=== PATIENT | female | born 1990 | race Caucasian/White ===

== ENCOUNTER 2019-10-04 10:32 | Inpatient (IN) ==
[2019-10-04] MEDS ORDERED: ACETAMINOPHEN 1,000 MG/100 ML VIAL IV STA (11:33)
[2019-10-04 12:04] LABS: Basophils # (auto) 0.01 K/uL (0-0.2); Basophils % (auto) 0.1 %; Hematocrit (blood only) 38.3 % (37-47); Hemoglobin 13.1 g/dL (12.0-16.0); Immature Granulocytes # (auto) 0.08 K/uL (0.00-0.02); Immature Granulocytes % (auto) 0.4 %; Lymphocytes # (auto) 0.82 K/uL (1.2-3.4); Lymphocytes % (auto) 4.5 %; Mean Corpuscular Hemoglobin 31.4 pg (25-34); Mean Corpuscular Hgb Conc 34.2 g/dL (32-36); Mean Corpuscular Volume 91.8 fL (80-100); Mean Platelet Volume 10.6 fL (7.4-10.4); Monocytes # (auto) 1.98 K/uL (0.11-0.59); Neutrophils # (auto) 15.17 K/uL (1.4-6.5); Platelet Count 210 K/uL (130-400); RDW Coefficient of Variation 12.3 % (11.5-14.5); RDW Standard Deviation 41.6 fL (36.4-46.3); Red Blood Count 4.17 M/uL (4.2-5.4); White Blood Count 18.06 K/uL (4.8-10.8)
[2019-10-04 12:11] LABS: Appearance Urine Turbid (Clear); Bacteria Urine Automated 2+ (Negative); Bilirubin Urine Negative (Negative); Blood Urine 2+ (Negative); Color Urine Dark Yellow; Epithelial Cell Urine Auto >30 /lpf (0-5); Glucose Urine UA Negative (Negative); Ketones Urine Negative (Negative); Leukocyte Esterase Urine 3+ (Negative); Nitrite Urine Negative (Negative); Urobilinogen Urine Negative (Negative); WBC Urine Automated >30 /hpf (0-5); pH Urine 7.5 (4.5-7.5)
[2019-10-04 12:15] LABS: INR 1.1 (0.9-1.1); Partial Thromboplastin Ratio 1.2; Partial Thromboplastin Time 33.3 Seconds (21.0-31.0); Prothrombin Time 11.1 Seconds (9.0-12.0)
--- NOTE | 2019-10-04 12:18 | XRay Report ---
XR chest 1V portable CLINICAL HISTORY: SEPSIS dyspnea COMPARISON STUDY: 02/03/2019 FINDINGS: The bones soft tissues and hemidiaphragms are normal. The cardiomediastinal silhouette is n ormal. The lungs are clear. The pulmonary vasculature is normal. IMPRESSION: Negative chest. ACT 112: Negative or not required by law. The above report was generated using voice recognition software. It may contain grammatical, syntax or spelling errors. Electronically signed by: Steve Snyder M.D. 10/04/2019 12:17 PM
[2019-10-04 12:29] LABS: Protein Urine 3+ (Negative)
[2019-10-04 12:30] LABS: Sulfosalicylic Acid Urine Positive (Negative)
[2019-10-04 12:31] LABS: Albumin Level 3.6 gm/dl (3.4-5.0); BUN Creatinine Ratio 6.5 (10-20); Calcium 8.6 mg/dl (8.5-10.1); Creatinine Clr Calc Pharmacy 56.2 ml/min; Est GFR (African American) 81.1; Magnesium 1.9 mg/dl (1.8-2.4); Potassium 3.4 mmol/L (3.5-5.1)
[2019-10-04 12:34] LABS: Albumin Globulin Ratio 0.7 (0.9-2); Bilirubin,Total 0.9 mg/dl (0.2-1); Globulin 4.8 gm/dl (2.5-4.0); Total Protein 8.4 gm/dl (6.4-8.2)
[2019-10-04] MEDS ORDERED: cefTRIAXone SODIUM 1,000 MG/50 ML BAG IV STA (12:43)
--- NOTE | 2019-10-04 13:17 | CT Scan Report ---
CT abd pelvis wo con CT DOSE: 238.46 mGycm HISTORY: Flank pain. Fever. L flkank pain febrile dysuria TECHNIQUE: Multiaxial CT images of the abdomen and pelvis were performed without contrast. A dose lo wering technique was utilized adhering to the principles of ALARA. COMPARISON STUDY: None. FINDINGS: The lung bases are clear. The unenhanced liver, spleen, gallbladder, pancreas, kidneys, and adrenal glands are within normal limits. No bowel wall thickening or obstruction. The pelvic organs are unremarkable. No suspicious lytic or blastic osseous lesions. IMPRESSION: No significant abnormality identified within the abdomen or pelvis. ACT 112: Negative or not required by law. The above report was generated using voice recognition software. It may contain grammatical, syntax or spelling errors. Electronically signed by: Steve Snyder M.D. 10/04/2019 1:16 PM
[2019-10-04] MEDS ORDERED: SODIUM CHLORIDE 0.9% 1000ML 1,000 ML IV ONE ×2 (13:53→20:13)
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
--- NOTE | 2019-10-04 14:50 | Electrocardiogram Report ---
Test Reason : Blood Pressure : / mmHG Vent. Rate : 082 BPM Atrial Rate : 082 BPM P-R Int : 158 ms QRS Dur : 074 ms QT Int : 344 ms P-R-T Axes : 052 059 034 degrees QTc Int : 401 ms Normal sinus rhythm Normal ECG When compared with ECG of 03-FEB-2019 12:27, Criteria for Anterior infarct no longer present Confirmed by Zbigniew Spain ([id number]) on 10/04/2019 2:50:11 PM Referred By: Confirmed By:Zbigniew Spain
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
[2019-10-04] MEDS ORDERED: ONDANSETRON INJ 2 MG/ML 2 ML VIAL IV PRN (16:13)
[2019-10-04] MEDS ORDERED: POTASSIUM CHLORIDE 20 MEQ TABCR PO STA (16:17)
[2019-10-04] MEDS: ACETAMINOPHEN 325 MG TAB PO PRN (16:25)
[2019-10-04] MEDS: SODIUM CHLORIDE 0.9% 1000ML 1,000 ML IV SCH (16:25)
[2019-10-04] MEDS ORDERED: KETOROLAC 30 MG/ML VIAL ONE (17:36)
[2019-10-05] MEDS: SODIUM CHLORIDE 0.9% 1000ML 1,000 ML IV SCH ×4 (00:38→22:41)
[2019-10-05] MEDS: ACETAMINOPHEN 325 MG TAB PO PRN ×2 (04:03→19:41)
[2019-10-05 06:10] LABS: Hematocrit (blood only) 31.7 % (37-47); Hemoglobin 10.9 g/dL (12.0-16.0); Mean Corpuscular Hemoglobin 31.5 pg (25-34); Mean Corpuscular Hgb Conc 34.4 g/dL (32-36); Mean Corpuscular Volume 91.6 fL (80-100); Mean Platelet Volume 10.8 fL (7.4-10.4); Platelet Count 164 K/uL (130-400); RDW Coefficient of Variation 12.6 % (11.5-14.5); RDW Standard Deviation 42.5 fL (36.4-46.3); Red Blood Count 3.46 M/uL (4.2-5.4); White Blood Count 17.41 K/uL (4.8-10.8)
[2019-10-05] MEDS ORDERED: IMIPENEM/CILASTATIN CONSULT ACTIVE PRN ×2 (06:24→21:31)
[2019-10-05] MEDS ORDERED: VANCOMYCIN CONSULT ACTIVE PRN (06:26)
[2019-10-05] MEDS ORDERED: IMIPENEM/CILASTATIN SODIUM 500 MG in DEXTROSE 5% 100 ML IV SCH (06:30)
[2019-10-05] MEDS ORDERED: SODIUM CHLORIDE 0.9% 1000ML 500 ML IV ONE (06:33)
[2019-10-05] MEDS ORDERED: VANCOMYCIN HCL 1,250 MG in SODIUM CHLORIDE 0.9% 250 ML IV ONE (06:45)
[2019-10-05] MEDS: KETOROLAC 30 MG/ML VIAL IV PRN (06:47)
--- NOTE | 2019-10-05 07:14 | Communication Note ---
Date of Service: October 05, 2019 Called around 8 pm to evaluate patient for hypotension. Patient was hypotensive to 70's/40's. On my examination patient also had marked costovertebral angle tenderness particularly on left side. Gave 2 1 L boluses of NSS and pressure improved. She continued to be febrile overnight. This am I went to re evaluate patient and she was having severe headache light sensitivity and back/neck stiffness. I'm concerned for possible meningitis or IE with history of IV drug use. Added vancomycin to her ceftriaxone and ordered echocardiogram.
[2019-10-05 07:18] LABS: Albumin Globulin Ratio 0.7 (0.9-2); Albumin Level 2.4 gm/dl (3.4-5.0); BUN Creatinine Ratio 11.8 (10-20); Bilirubin,Total 0.5 mg/dl (0.2-1); Calcium 7.7 mg/dl (8.5-10.1); Creatinine Clr Calc Pharmacy 77.5 ml/min; Est GFR (African American) 108.1; Est GFR (Non-African American) 93.2; Globulin 3.6 gm/dl (2.5-4.0); Potassium 3.6 mmol/L (3.5-5.1)
[2019-10-05] MEDS ORDERED: METHADONE PO SCH (09:00)
--- NOTE | 2019-10-05 09:52 | Pharmacy Report ---
Pharmacy Abx Initial Consult - Date of Service October 05, 2019 - Pharmacy Dosing Scope Date of Consult: 10/04 Consultation requested by: Dr. Aviles Pharmacy is consulted to initiate vancomycin IV/PO dosing therapy, order appropriate labs and adjust drug dose/frequency. - Subjective The patient is a 28 year old F admitted on 10/04/19 14:38. - Objective Height: 5 ft Weight: 55.6 kg Vital Signs (Past 12hrs): Vital Signs Temp Pulse Pulse Resp BP BP Pulse Ox 10/05/19 07:55 37.3 C 78 18 90/48 L 96 10/05/19 07:20 85 10/05/19 06:50 37.3 C 10/05/19 05:04 39.3 C H 10/05/19 04:00 39.1 C H 112 H 22 115/80 95 10/05/19 00:16 36.5 C 77 16 92/52 L 98 10/04/19 23:59 88 Lab Results (24hrs): Laboratory Tests (24 Hours) 10/05/19 10/05/19 10/04/19 05:57 05:57 11:42 WBC 17.41 H Neut # (Auto) Creatinine 0.86 1.09 Est Cr Clr Drug Dosing 77.5 56.2 10/04/19 11:42 WBC 18.06 H Neut # (Auto) 15.17 H Creatinine Est Cr Clr Drug Dosing Micro Results: 10/04/19 11:42 Aerobic Blood Culture - Pending Blood Anaerobic Blood Culture - Pending 10/04/19 11:43 Aerobic Blood Culture - Pending Blood Anaerobic Blood Culture - Pending - Assessment & Plan Assessment 28 year old female with concern for UTI. Febrile/chills on admission and flank pain. CT of abd/pelvis normal. Patient with hx of heroin use. Patient hypotensive this AM/with headache. Concern for possible meningitis, endocarditis. Plan Vancomycin IV * Received loading dose of vancomycin 1250 mg x 1 this AM * Dosing based upon vancomycin AUC nomogram - will start 1000 mg (~18 mg/kg) iv q 12 hrs to achieve estimated T of ~15/AUC of 657 * Estimated kinetics: t1/2~10 hrs, ke~0.06, CrCl ~71 ml/min * Will plan to obtain level if continued >24 hours Pharmacy will continue to follow and will adjust dose/frequency as necessary. Thank you.
[2019-10-05 09:56] LABS: Phosphorus 2.5 mg/dl (2.5-4.9)
[2019-10-05 10:12] LABS: Pregnancy Test, Serum Negative (Negative)
[2019-10-05 10:28] LABS: Procalcitonin 8.67 ng/ml (0-0.5)
[2019-10-05] MEDS ORDERED: cefTRIAXone SODIUM 1,000 MG in DEXTROSE 5% 50 ML IV SCH ×2 (12:00→13:22)
--- NOTE | 2019-10-05 13:20 | XCELERA ---
[id number]\[id number]
[2019-10-05] MEDS ORDERED: MoRPHine SULFATE 2 MG/ML CARP IV ONE (16:13)
[2019-10-05 17:27] LABS: Amphetamines+Metham, Urine Neg (Neg); Barbiturates, Urine Neg (Neg); Benzodiazepine, Urine Neg (Neg); Cocaine, Urine Neg (Neg); MDMA (Ecstacy), Urine Neg (Neg); Methadone, Urine Pos (Neg); Opiate, Urine Neg (Neg); Phencyclidine, Urine Neg (Neg)
[2019-10-05] MEDS: NICOTINE 21 MG/24 HR TDSY TD SCH (17:33)
[2019-10-05] MEDS ORDERED: MoRPHine SULFATE 2 MG/ML CARP IV PRN (17:45)
[2019-10-05] MEDS ORDERED: MoRPHine SULFATE 2 MG/ML CARP IV STA ×2 (17:57→18:09)
[2019-10-05 18:00] LABS: Potassium 4.4 mmol/L (3.5-5.1)
[2019-10-05 18:01] LABS: BUN Creatinine Ratio 10.1 (10-20); Blood Urea Nitrogen 9 mg/dl (7-18); Carbon Dioxide 18 mmol/L (21-32); Chloride 117 mmol/L (98-107); Creatinine Clr Calc Pharmacy 78.4 ml/min; Est GFR (African American) 109.6; Est GFR (Non-African American) 94.6; Glucose 92 mg/dl (70-99); Sodium 142 mmol/L (136-145); Troponin I < 0.015 ng/ml (0-0.045)
[2019-10-05 18:50] LABS: Basophils # (auto) 0.01 K/uL (0-0.2); Eosinophils # (auto) 0.03 K/uL (0-0.5); Eosinophils % (auto) 0.1 %; Hematocrit (blood only) 35.4 % (37-47); Hemoglobin 12.1 g/dL (12.0-16.0); Immature Granulocytes # (auto) 0.11 K/uL (0.00-0.02); Immature Granulocytes % (auto) 0.5 %; Lymphocytes # (auto) 0.92 K/uL (1.2-3.4); Mean Corpuscular Hemoglobin 31.4 pg (25-34); Mean Corpuscular Volume 91.9 fL (80-100); Monocytes % (auto) 9.2 %; Neutrophils # (auto) 19.56 K/uL (1.4-6.5); Neutrophils % (auto) 86.2 %; Platelet Count 208 K/uL (130-400); RDW Coefficient of Variation 12.6 % (11.5-14.5); RDW Standard Deviation 42.5 fL (36.4-46.3); Red Blood Count 3.85 M/uL (4.2-5.4); White Blood Count 22.73 K/uL (4.8-10.8)
[2019-10-05 19:14] LABS: Mean Corpuscular Hgb Conc 34.2 g/dL (32-36)
[2019-10-05] MEDS: VANCOMYCIN HCL 1,000 MG in SODIUM CHLORIDE 0.9% 250 ML IV SCH (19:43)
[2019-10-05] MEDS: MoRPHine SULFATE 4 MG/ML 1 ML CARP\\VIAL IV PRN (19:59)
[2019-10-05] MEDS ORDERED: OPTIRAY 320 125ml IV PRN (21:26)
--- NOTE | 2019-10-05 21:35 | Hospitalist Progress Note ---
Date of Service October 05, 2019 Assessment & Plan (1) UTI (urinary tract infection): - Admit to med surg with tele -There was concern for meningitis, but at this point, it does not appear to be the case, given neg. chetna and Hiro, and clinical history of lower back pain with postive cva tenderness. -will continue iVF. -inital plan was to continue vanco and ceftriazxone, however given history of IV drug abuse, fevers, and worse WBC, will switch ceftriaxone to imipenem, -will place IV mrophine due to pain. will reorder cultures due to repeat fever. will obtain ct scan of chest with P/E protocol (2) History of heroin use: - Hx of such at age [age], IV heroin use, started methadone treatment at [facility] about 2 years ago and has been weaning off for 7 months. - Uses marijuana as prescribed - methadone held as patient no longer going to clinic. Admission and Anticipated Discharge Date Admission Date: October 04, 2019 Subjective 28 yo female reports feeling terrible. She reports no significant improvement from yesterday. She still reports subjective fever, and chills. She states she is having pain in her paraspinal muscles. Review of Systems Review of Systems: All systems reviewed & are unremarkable except as noted in HPI & below Physical Exam Physical Exam: General: awake, alert, appears shivering Head: Normocephalic, atraumatic ENT: PERRL, EOMI, no pharyngeal exudate, mucous membranes moist Chest: Clear to auscultation, on room air, no adventitious breath sounds Cardiac: Regular rate and rhythm, no murmur, no JVD, normal peripheral pulses, good capillary refill Abdominal: NABS x 4 quadrants, soft, nondistended, tender to palpation in LLQ, + CVA tenderness on left, no rebound Extremities: Normal inspection, no peripheral edema or erythema, calfs nontender to palpation Psych: Normal mood and affect Neuro: AAO x 3, strength intact bilaterally and related 5/5, no motor deficits, speech is clear, no peripheral sensory deficits Negative kernig's and Brudzinski's sign Results & Data Results & Data ([facility]) Vital Signs (Past 12 Hours) Vital Signs Temp Pulse Pulse Resp BP Pulse Ox 10/05/19 20:58 38.1 C H 10/05/19 19:26 38.7 C H 92 H 18 118/69 95 10/05/19 16:00 37.2 C 83 18 97/58 L 100 10/05/19 15:00 65 10/05/19 11:52 36.6 C 63 16 90/50 L 97 PG Care Time/CCT Total # of Minutes Spent Total Time Spent with Patient: Total time spent is greater than 50% in coordination of care (as documented) at patient's floor/unit and/or counseling patient: Coding Level of Care Code 27391 Subseq Hosp Care Lvl 3 Diagnoses UTI (urinary tract infection) N39.0 History of heroin use Z87.898 Time Spent (min) 35
[2019-10-05] MEDS: IMIPENEM/CILASTATIN SODIUM 400 MG in DEXTROSE 5% 100 ML IV SCH (22:25)
[2019-10-06] MEDS: SODIUM CHLORIDE 0.9% 1000ML 1,000 ML IV SCH (03:42)
[2019-10-06] MEDS: IMIPENEM/CILASTATIN SODIUM 400 MG in DEXTROSE 5% 100 ML IV SCH ×4 (03:42→22:13)
[2019-10-06] MEDS: MoRPHine SULFATE 4 MG/ML 1 ML CARP\\VIAL IV PRN ×4 (03:43→19:37)
--- NOTE | 2019-10-06 07:16 | CT Scan Report ---
CT ANGIOGRAM OF THE CHEST CLINICAL HISTORY: Atypical chest pain. COMPARISON STUDY: Chest x-ray dated 10/04/2019. TECHNIQUE: Following the IV administration of 116 cc of Optiray 320, CT angiogram of the chest was pe rformed from the upper abdomen to the thoracic inlet utilizing the pulmonary embolus protocol. Images are reviewed in the axial, sagittal, and coronal planes. 3-D MIPS images are created and assessed. I V contrast was administered without complication. A dose lowering technique was utilized adhering to the principles of ALARA. CT DOSE: 193.22 mGy.cm FINDINGS: Thyroid: Imaged portions of the thyroid gland are normal in size and attenuation. Thoracic aorta: The thoracic aorta is normal in caliber and demonstrates standard 3-vessel arch anato my. No dissection is seen. Pulmonary vasculature: The pulmonary trunk is normal in caliber. There are no filling defects identif ied in main, lobar, or segmental pulmonary branches to suggest pulmonary embolus. Heart: The heart is top normal in size and without pericardial effusion. Lungs and pleural spaces: There are trace pleural effusions with dependent atelectasis. No lobar cons olidation is seen typical for pneumonia. Mild diffuse peribronchial thickening is observed. The trach ea and central airways are clear. Mediastinum: There is no mediastinal lymphadenopathy. [place]: Clear. Axillae: There is no axillary lymphadenopathy. Upper abdomen: A small hiatal hernia is noted. Partially visualized upper abdominal viscera is otherw ise within normal limits. Skeletal structures: No lytic or blastic bony lesions are seen. IMPRESSION: 1. There is no evidence of pulmonary embolus in the main, lobar, or segmental pulmonary arteries. 2. Trace pleural effusions. 3. There is no airspace consolidation typical for pneumonia. 4. Mild diffuse peribronchial thickening suggests bronchitis/reactive airway disease. Clinical correl ation will be required. ACT 112: Negative or not required by law. Electronically signed by: Chepe Norris M.D. 10/06/2019 7:15 AM
[2019-10-06] MEDS: VANCOMYCIN HCL 1,000 MG in SODIUM CHLORIDE 0.9% 250 ML IV SCH ×2 (07:47→19:56)
[2019-10-06] MEDS: NICOTINE 21 MG/24 HR TDSY TD SCH (07:49)
[2019-10-06 08:06] LABS: Hematocrit (blood only) 32.2 % (37-47); Hemoglobin 10.7 g/dL (12.0-16.0); Mean Corpuscular Hgb Conc 33.2 g/dL (32-36); Mean Corpuscular Volume 93.3 fL (80-100); Mean Platelet Volume 11.2 fL (7.4-10.4); Platelet Count 206 K/uL (130-400); RDW Coefficient of Variation 12.7 % (11.5-14.5); RDW Standard Deviation 43.7 fL (36.4-46.3); Red Blood Count 3.45 M/uL (4.2-5.4); White Blood Count 18.24 K/uL (4.8-10.8)
[2019-10-06 08:37] LABS: Albumin Level 2.1 gm/dl (3.4-5.0); BUN Creatinine Ratio 8.5 (10-20); C Reactive Protein 12.9 mg/dl (0-0.29); Calcium 7.9 mg/dl (8.5-10.1); Creatinine Clr Calc Pharmacy 116.6 ml/min; Est GFR (African American) 147.4; Est GFR (Non-African American) 127.2
[2019-10-06 08:40] LABS: Albumin Globulin Ratio 0.6 (0.9-2); Bilirubin,Total 0.2 mg/dl (0.2-1); Globulin 3.5 gm/dl (2.5-4.0); Total Protein 5.6 gm/dl (6.4-8.2)
[2019-10-06 08:46] LABS: Potassium 3.2 mmol/L (3.5-5.1)
[2019-10-06] MEDS: DOCUSATE SODIUM 100 MG CAP PO SCH ×2 (09:38→20:25)
[2019-10-06] MEDS: SENNA 8.6 MG TAB PO SCH (09:38)
--- NOTE | 2019-10-06 14:26 | Magnetic Resonance Report ---
MRI LUMBAR SPINE WITHOUT IV CONTRAST CLINICAL HISTORY: Low back pain. COMPARISON STUDY: Abdominal CT dated 10/04/2019. TECHNIQUE: MRI of lumbar spine is performed utilizing various T1 and T2-weighted sequences in the axi al and sagittal planes. IV contrast was not administered for this examination. FINDINGS: Lumbar spine: Vertebral body height and alignment are maintained throughout the lumbar spine. Normal marrow signal intensity is preserved throughout the visualized bony structures. The transverse and sp inous processes are intact. There is no spondylolysis. No destructive bony lesion is seen. Intervertebral discs: Normal in height and signal intensity. Spinal cord: The visualized spinal cord is normal in morphology and signal intensity. The conus medul stevo terminates at the level of L2. The nerve roots of the cauda equina are normal in morphology. L1-L2: Unremarkable. L2-L3: Unremarkable. 3. L4: Unremarkable. L4-L5: Unremarkable. L5-S1: Unremarkable. Sacrum: The visualized sacrum is normal in morphology and signal intensity. Soft tissues: The paraspinous soft tissues are normal as visualized. The imaged retroperitoneal struc tures are grossly unremarkable but incompletely assessed. IMPRESSION: 1. There is no disc herniation, central canal stenosis, or neural foraminal narrowing seen throughout the lumbar spine. 2. No osseous abnormality is identified. Electronically signed by: Chepe Norris M.D. 10/06/2019 2:25 PM
--- NOTE | 2019-10-06 14:31 | Electrocardiogram Report ---
Test Reason : Blood Pressure : / mmHG Vent. Rate : 077 BPM Atrial Rate : 077 BPM P-R Int : 156 ms QRS Dur : 086 ms QT Int : 386 ms P-R-T Axes : 041 062 038 degrees QTc Int : 436 ms Normal sinus rhythm Poor R wave progression, consider anterior MN vs. lead placement vs. LVH Abnormal ECG When compared with ECG of 04-OCT-2019 11:39, Loss of R wave in o\lead V3 (likely related to lead placement) Otherwise no significant change Confirmed by Zbigniew Spain ([id number]) on 10/06/2019 2:31:05 PM Referred By: REFERRED SELF Confirmed By:Zbigniew Spain
--- NOTE | 2019-10-06 14:39 | Electrocardiogram Report ---
Test Reason : Blood Pressure : / mmHG Vent. Rate : 063 BPM Atrial Rate : 063 BPM P-R Int : 156 ms QRS Dur : 084 ms QT Int : 406 ms P-R-T Axes : 050 061 041 degrees QTc Int : 415 ms Normal sinus rhythm with sinus arrhythmia Poor R wave progression, consider anterior OH vs. lead placement vs. LVH Abnormal ECG When compared with ECG of 05-OCT-2019 16:08, No significant change was found Confirmed by Zbigniew Spain ([id number]) on 10/06/2019 2:38:33 PM Referred By: REFERRED SELF Confirmed By:Zbigniew Spain
[2019-10-06] MEDS: POTASSIUM CHLORIDE 20 MEQ TABCR PO SCH ×2 (15:10→21:13)
[2019-10-06] MEDS ORDERED: FAMOTIDINE 40 MG TABLET PO ONE (15:13)
[2019-10-06] MEDS: KETOROLAC 30 MG/ML VIAL IV PRN (16:59)
--- NOTE | 2019-10-06 22:13 | Hospitalist Progress Note ---
Date of Service October 06, 2019 Assessment & Plan (1) UTI (urinary tract infection): - Admit to med surg with tele -Meningitis is ruled out. -ruled out Pulmonary emboli. -will continue iVF. -will order lumbar sine MRI to assess for possible osteo. -inital plan was to continue vanco and ceftriazxone, however given history of IV drug abuse, fevers, and worse WBC, will switch ceftriaxone to imipenem, -will continue morphine for pain will reorder cultures due to repeat fever. update: osteo ruled out. will consider transitioning her to oral cipro tomorrow if pansensitive culture. (2) History of heroin use: - Hx of such at age [age], IV heroin use, started methadone treatment at [facility] about 2 years ago and has been weaning off for 7 months. - Uses marijuana as prescribed - methadone held as patient no longer going to clinic. Admission and Anticipated Discharge Date Admission Date: October 04, 2019 Subjective 28 yo female reports feeling better. She denies any subjective fever and chills. She still is having back pain but it is less pronounced today. Review of Systems Review of Systems: All systems reviewed & are unremarkable except as noted in HPI & below Constitutional: No fever, sweats, + chills Eyes: No diplopia, no worsening or blurred vision ENT: normal hearing, no trouble swallowing Respiratory: No cough, sputum, dyspnea at rest or on exertion Cardiovascular: No chest pain, tightness or palpitations Abdomen:+ lower abd pain, +nausea, vomiting, diarrhea or constipation Back: pain between shoulder blades radiating down left flank to lower abdomen Musculoskeletal: No joint pain, calf pain, swelling Neurologic: No weakness, numbness/tingling, or balance problems Psychiatric: No anxiety or depression Skin: No rash or itch Physical Exam Physical Exam: General: awake, alert, appears shivering Head: Normocephalic, atraumatic ENT: PERRL, EOMI, no pharyngeal exudate, mucous membranes moist Chest: Clear to auscultation, on room air, no adventitious breath sounds Cardiac: Regular rate and rhythm, no murmur, no JVD, normal peripheral pulses, good capillary refill Abdominal: NABS x 4 quadrants, soft, nondistended, tender to palpation in LLQ, + CVA tenderness on left, no rebound Extremities: Normal inspection, no peripheral edema or erythema, calfs nontender to palpation Psych: Normal mood and affect Neuro: AAO x 3, strength intact bilaterally and related 5/5, no motor deficits, speech is clear, no peripheral sensory deficits Negative kernig's and Brudzinski's sign Results & Data Results & Data ([facility]) Vital Signs (Past 12 Hours) Vital Signs Temp Pulse Resp BP BP Pulse Ox 10/06/19 15:48 36.7 C 59 L 20 115/69 99 10/06/19 11:18 36.5 C 61 20 111/73 98 PG Care Time/CCT Total # of Minutes Spent Total Time Spent with Patient: Total time spent is greater than 50% in coordination of care (as documented) at patient's floor/unit and/or counseling patient: Coding Level of Care Code 62273 Subseq Hosp Care Lvl 3 Diagnoses UTI (urinary tract infection) N39.0 History of heroin use Z87.898 Time Spent (min) 35
[2019-10-07] MEDS: IMIPENEM/CILASTATIN SODIUM 400 MG in DEXTROSE 5% 100 ML IV SCH ×2 (04:11→10:22)
[2019-10-07] MEDS: MoRPHine SULFATE 4 MG/ML 1 ML CARP\\VIAL IV PRN (04:18)
[2019-10-07 07:22] LABS: Hematocrit (blood only) 32.1 % (37-47); Hemoglobin 10.8 g/dL (12.0-16.0); Mean Corpuscular Hemoglobin 30.8 pg (25-34); Mean Corpuscular Hgb Conc 33.6 g/dL (32-36); Mean Corpuscular Volume 91.5 fL (80-100); Mean Platelet Volume 10.5 fL (7.4-10.4); Platelet Count 234 K/uL (130-400); RDW Coefficient of Variation 12.7 % (11.5-14.5); RDW Standard Deviation 42.9 fL (36.4-46.3); Red Blood Count 3.51 M/uL (4.2-5.4); White Blood Count 9.67 K/uL (4.8-10.8)
[2019-10-07] MEDS ORDERED: VANCOMYCIN TROUGH ONE (07:30)
[2019-10-07] MEDS: POTASSIUM CHLORIDE 20 MEQ TABCR PO SCH ×2 (08:01→14:14)
[2019-10-07] MEDS: VANCOMYCIN HCL 1,000 MG in SODIUM CHLORIDE 0.9% 250 ML IV SCH (08:01)
[2019-10-07] MEDS: SENNA 8.6 MG TAB PO SCH (08:02)
[2019-10-07] MEDS: NICOTINE 21 MG/24 HR TDSY TD SCH (08:02)
[2019-10-07 08:03] LABS: Albumin Level 2.3 gm/dl (3.4-5.0); BUN Creatinine Ratio 7.1 (10-20); Calcium 8.1 mg/dl (8.5-10.1); Est GFR (African American) 139.2; Est GFR (Non-African American) 120.1; Potassium 3.3 mmol/L (3.5-5.1)
[2019-10-07] MEDS: DOCUSATE SODIUM 100 MG CAP PO SCH (08:04)
[2019-10-07 08:05] LABS: Albumin Globulin Ratio 0.6 (0.9-2); Bilirubin,Total 0.4 mg/dl (0.2-1); Globulin 3.8 gm/dl (2.5-4.0); Total Protein 6.1 gm/dl (6.4-8.2)
[2019-10-07] MEDS ORDERED: FAMOTIDINE 20 MG TAB PO SCH (09:00)
[2019-10-07] MEDS ORDERED: CIPROFLOXACIN 500 MG TAB PO STA (12:14)
[2019-10-07] MEDS ORDERED: VANCOMYCIN HCL 1,000 MG in SODIUM CHLORIDE 0.9% 250 ML IV SCH (16:00)
[2019-10-07] MEDS ORDERED: IMIPENEM/CILASTATIN SODIUM 500 MG in DEXTROSE 5% 100 ML IV SCH (16:00)
[2019-10-07] MEDS ORDERED: CIPROFLOXACIN 500 MG TAB PO SCH (21:00)
[2019-10-08 07:39] LABS: Marijuana Quant, GCMS Urine 392 ng/mL (<5); Methadone, Ur Metabolite 1370 ng/mL (<100)
--- NOTE | 2019-10-14 13:36 | Discharge Summary ---
Date of Service October 07, 2019 Admission HPI Per Admitting Provider This is a 28 yo F with PMHx involving methadone use, ADHD, who presents with chills, increased frequency of urination, and generalized ill feeling in the past 2 days. She reports this started about 5 days ago and has been worsening. She denies any specific fevers. She has not taken anything over the counter for urinary symptoms, and has never had a UTI before. Urine has been dark and less in quantity in the past 2 days as her appeitie has been poor. She has some nausea and had difficulty drinking lots of fluids. Denies hematuria. Pt is found to have grossly infected urine with hypokalemia and hyponatremia. She has been started on ceftriaxone IV and NSS x 1 L in the ER. Pts BP is low at 87/42. Her lactic acid is negative. Principal Diagnosis acute pyelonephritis Discharge Exam General: awake, alert, appears shivering Head: Normocephalic, atraumatic ENT: PERRL, EOMI, no pharyngeal exudate, mucous membranes moist Chest: Clear to auscultation, on room air, no adventitious breath sounds Cardiac: Regular rate and rhythm, no murmur, no JVD, normal peripheral pulses, good capillary refill Abdominal: NABS x 4 quadrants, soft, nondistended, tender to palpation in LLQ, + CVA tenderness on left, no rebound Extremities: Normal inspection, no peripheral edema or erythema, calfs nontender to palpation Psych: Normal mood and affect Neuro: AAO x 3, strength intact bilaterally and related 5/5, no motor deficits, speech is clear, no peripheral sensory deficits Negative kernig's and Brudzinski's sign Discharge Data Allergies Allergy/AdvReac Type Severity Reaction Status Date / Time No Known Allergies Allergy Unverified 05/11/19 14:17 Consultations 10/04/19 14:15 ED Decision to Admit Stat 10/04/19 16:13 Consult Case Management - Discharge Planning Routine Ordered Studies 10/04/19 11:33 CT abd pelvis wo con Stat 10/05/19 17:45 CT angio chest PE protocol Urgent 10/06/19 11:23 MR lumbar spine wo con Routine Hospital Course (1) UTI (urinary tract infection): - Admit to med surg with tele -Meningitis is ruled out. -ruled out Pulmonary emboli. -BP improved after IVF and aIV antibiotics -MRI of lumbar spine ruled out osteomyelitis -inital plan was to continue vanco and ceftriazxone, however given history of IV drug abuse, fevers, and worse WBC, will switch ceftriaxone to imipenem, -Discharged patient on ciprofloxacin for 6 more days. -Patient felt improvement, informed her of any worsening symptoms, worse pain, fever, chills to return to office. -cultures showed pansensivitive bacteria. (2) History of heroin use: - Hx of such at age [age], IV heroin use, started methadone treatment at [facility] about 2 years ago and has been weaning off for 7 months. - Uses marijuana as prescribed - methadone held as patient no longer going to clinic. Total Time Total Time Spent Total Time Spent (In Minutes): 32 Total Time Includes: Examination of the Patient, Discharge Planning and Medication Reconciliation Discharge Plan Discharge Items Patient Disposition: Home - Self-Care Reason For Visit: UTI,HYPONATREMIA,HYPOKALEMIA Discharge Diagnosis: UTI Activity: Resume your previous activity Non-emergency contact: Primary Care Provider Call non-emergency contact if: you have any medication questions Follow-up/Referrals: Saloni Guerra MD [Primary Care Provider] - Diet: Regular Addtl Attending Provider Instructions: You were found to have a severe urinary tract infection. You improved after receiving IV antibiotics. Will continue with oral antibiotics for 6 more days. If you have any signs of fever, chills, or just feeliing bad within the next few days, please come back. will recommend followup with PCP in 1 week. Take first dose tonight Pending Studies at Discharge: No Stand-Alone Forms: My [facility], Smoking Cessation Medications and DC Order Prescriptions: New ciprofloxacin HCl 500 mg Tablet 500 mg PO BID Qty: 12 RF: 0 potassium chloride [Klor-Con M20] 20 mEq Tablet,Er Particles/Crystals 20 meq PO TID Qty: 6 RF: 0 nicotine [Nicoderm CQ] 21 mg/24 hr Patch 24 Hour 21 mg transdermal QAM Qty: 28 RF: 0 Discontinued methadone 40 mg Tablet,Soluble 112 mg PO DAILY RF: 0 Discharge Orders: Discharge Order (Routine); Ordered 10/07/19 Ordered By: Herbert Daniels Admission Data Admit Date/Time: 10/04/19 14:38 Attending Provider: Herbert Daniels Admit Provider: Regan Luevano Primary Care Provider: Saloni Guerra V. Other Providers: Regan Luevano Other Interventions: Discharge Summary Assessment (RN) Last Done: 10/07/19 13:19 DC Date/Time DO NOT enter until pt leaves facility: 10/07/19 14:40 Coding Level of Care Code D/C Day Management >30 mins Diagnoses UTI (urinary tract infection) N39.0 History of heroin use Z87.898 Time Spent (min) 32
== END 2019-10-07 14:40 | disposition home or self-care (01) | DRG 690 ==
LOC: ED 10:32 → SUATTDRO 14:38 → 2W 14:38

== ENCOUNTER 2020-07-14 07:34 | Inpatient (IN) ==
[2020-07-14] MEDS: LACTATED RINGER'S 1,000 ML IV PRN ×3 (11:30→20:25)
[2020-07-14] MEDS ORDERED: OXYTOCIN 30 UNITS/500 ML BAG IV PRN ×3 (11:45→23:07)
[2020-07-14 12:01] LABS: Hematocrit (blood only) 36.7 % (37-47); Hemoglobin 13.3 g/dL (12.0-16.0); Mean Corpuscular Hemoglobin 33.4 pg (25-34); Mean Corpuscular Hgb Conc 36.2 g/dL (32-36); Mean Corpuscular Volume 92.2 fL (80-100); Mean Platelet Volume 11.8 fL (7.4-10.4); Platelet Count 162 K/uL (130-400); RDW Coefficient of Variation 12.2 % (11.5-14.5); RDW Standard Deviation 41.6 fL (36.4-46.3); Red Blood Count 3.98 M/uL (4.2-5.4); White Blood Count 5.78 K/uL (4.8-10.8)
[2020-07-14] MEDS ORDERED: SODIUM CHLORIDE 0.9% INJ 10 ML VIAL ONE (12:25)
[2020-07-14] MEDS ORDERED: BUPIVACAINE 0.25% 30 ML VIAL ONE (12:25)
[2020-07-14] MEDS ORDERED: fentaNYL citrate 100 MCG/2 ML VIAL ONE (12:25)
[2020-07-14] MEDS ORDERED: ePHEDrine sulfate 50 MG/ML AMP ONE (12:25)
[2020-07-14] MEDS ORDERED: fentaNYL 2MCG/ML ROPIVACAINE 1.25MG/ML 100 ML BAG EPI ONE (12:26)
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
[2020-07-14] MEDS ORDERED: ONDANSETRON INJ 2 MG/ML 2 ML VIAL IV PRN (13:22)
[2020-07-14] MEDS ORDERED: NALOXONE HCL 0.4 MG/1 ML VIAL/CARP IV PRN (13:22)
[2020-07-14] MEDS ORDERED: NALOXONE HCL 1 MG in SODIUM CHLORIDE 0.9% 1000ML 1,000 ML IV PRN (13:22)
[2020-07-14] MEDS ORDERED: ePHEDrine sulfate 50 MG/ML AMP IV PRN (13:22)
[2020-07-14] MEDS ORDERED: diphenhydrAMINE 50 MG/ML VIAL IV PRN (13:22)
[2020-07-14] MEDS: fentaNYL 2MCG/ML ROPIVACAINE 1.25MG/ML 100 ML BAG EPI PRN ×2 (18:37→18:54)
[2020-07-14] MEDS ORDERED: NURSING L&D Epidural Breakthrough Pain Update ONE (18:47)
[2020-07-14] MEDS: buprenorphine HCL 8 MG SUBL SL SCH (19:05)
[2020-07-14] MEDS ORDERED: METHYLERGONOVINE MALEATE 0.2 MG/ML AMP ONE (23:03)
[2020-07-14] MEDS ORDERED: SUPERCREAM 0.870% 15 GM JAR EXT PRN (23:07)
[2020-07-14] MEDS ORDERED: DIPHTHERIA/TETANUS/PERTUSSIS 0.5 ML SYR/VIAL IM ONE (23:07)
[2020-07-14] MEDS ORDERED: METHYLERGONOVINE MALEATE 0.2 MG/ML AMP IM ONE (23:07)
[2020-07-14] MEDS ORDERED: BENZOCAINE 20% AER SPR 82.5 GM CAN EXT PRN (23:07)
[2020-07-14] MEDS ORDERED: bisacodyL 10 MG SUPP PR PRN (23:07)
[2020-07-14] MEDS ORDERED: HYDROCORTISONE ACETATE 25 MG SUPP PR PRN (23:07)
[2020-07-14] MEDS ORDERED: ACETAMINOPHEN 325 MG TAB PO PRN (23:07)
--- NOTE | 2020-07-14 23:25 | Anesthesia Procedure Note ---
Date of Service July 14, 2020 Anesthesia Post Epidural Note Vital Signs Vital Signs: Temp Pulse Resp BP Pulse Ox 36.8 C 94 H 18 129/83 78 L 07/14/20 21:34 07/14/20 23:14 07/14/20 22:00 07/14/20 23:14 07/14/20 22:18 Pain Intensity Bilateral Abdomen: Pain Intensity: 0 Notes Mental Status: alert / awake / arousable Nausea / Vomiting: adequately controlled Pain: adequately controlled Airway Patency, RR, SpO2: stable & adequate BP & HR: stable & adequate Hydration State: stable & adequate Neuraxial Anesthesia: was administered and sensory block is resolving Anesthetic Complications: no major complications apparent and Pt Satisfied with anesthetic care Epidural: Removed without complications and With tip intact
[2020-07-14] MEDS: IBUPROFEN 600 MG TAB PO PRN (23:59)
--- NOTE | 2020-07-15 05:30 | Operative Report (OR) ---
DATE OF OPERATION: 07/14/2020 DELIVERY NOTE She is a 2, para 1. Blood type is O positive, group B strep negative. Due date is 07/10/2020. She was admitted in a lot of abdominal pain. She turned out to have urinary retention. She was catheterized for 1200 mL and then we left the Erazo catheter in until she started pushing. She had a spontaneous unstimulated labor at the beginning. At about 5-6 cm membranes were ruptured spontaneously with an exam, later at about 8-9 we augmented her labor with IV Pitocin. She went to full dilatation and brought the head down slowly, but good steady progress, crowned the infant, and delivered a live female infant over an intact perineum. was suctioned through the mouth and the nose. Cord was allowed to pulse for a minute, then it was clamped and cut. Cord blood was taken. We had difficulty with the placenta. It came down to the cervical os, but then would not budge. We gave IV Pitocin, lot of massage, and eventually it did work loose and we were able to deliver the placenta intact. After that, we gave IM Methergine and then repaired bilateral periurethral laceration with running 3-0 chromic gut sutures on each side. Hemostasis was good. Estimated blood loss was 200 mL. I attest to the content of the Intraoperative Record and any orders documented therein. Any exception s are noted below.
[2020-07-15] MEDS: IBUPROFEN 600 MG TAB PO PRN ×4 (05:44→19:50)
[2020-07-15 06:39] LABS: Hematocrit (blood only) 37.5 % (37-47); Mean Corpuscular Hemoglobin 32.3 pg (25-34); Mean Corpuscular Hgb Conc 34.7 g/dL (32-36); Mean Corpuscular Volume 93.3 fL (80-100); Mean Platelet Volume 11.9 fL (7.4-10.4); Platelet Count 170 K/uL (130-400); RDW Coefficient of Variation 12.1 % (11.5-14.5); RDW Standard Deviation 41.5 fL (36.4-46.3); Red Blood Count 4.02 M/uL (4.2-5.4); White Blood Count 15.27 K/uL (4.8-10.8)
[2020-07-15] MEDS: buprenorphine HCL 8 MG SUBL SL SCH ×2 (08:04→17:20)
[2020-07-15] MEDS: DOCUSATE SODIUM 100 MG CAP PO SCH (08:04)
[2020-07-15] MEDS: PRENATAL VITAMIN 1 TAB PO SCH (08:04)
--- NOTE | 2020-07-15 12:54 | Obstetrical Progress Note ---
Date of Service July 15, 2020 Assessment & Plan Admission and Anticipated Discharge Date Admission Date: July 14, 2020 Physical Exam Physical Exam: abdomen soft and non tender no calf tenderness ambulating well vaginal bleeding scant hgb 13 Results & Data ([facility]) Vital Signs (Past 12 Hours) Vital Signs Temp Pulse Resp BP Pulse Ox 07/15/20 12:05 37 C 63 16 117/65 96 07/15/20 08:09 37 C 61 16 93/61 L 97 07/15/20 02:15 37.1 C 74 18 125/76 98 07/15/20 01:31 76 127/76 07/15/20 01:16 68 123/76 07/15/20 01:15 20 07/15/20 01:01 64 149/90 H
[2020-07-15] MEDS ORDERED: bisacodyL 5 MG TABEC PO SCH (20:00)
[2020-07-16] MEDS: IBUPROFEN 600 MG TAB PO PRN ×4 (00:13→17:44)
[2020-07-16 06:36] LABS: Hemoglobin 11.9 g/dL (12.0-16.0)
[2020-07-16] MEDS: buprenorphine HCL 8 MG SUBL SL SCH ×2 (08:12→17:40)
[2020-07-16] MEDS: DOCUSATE SODIUM 100 MG CAP PO SCH (08:12)
[2020-07-16] MEDS: PRENATAL VITAMIN 1 TAB PO SCH (08:12)
--- NOTE | 2020-07-16 12:57 | Obstetrical Progress Note ---
Date of Service July 16, 2020 Assessment & Plan Admission and Anticipated Discharge Date Admission Date: July 14, 2020 Physical Exam Physical Exam: abdomen soft and non tender no calf tenderness ambulating well vaginal bleeding scant hgb 11.9 Results & Data ([facility]) Vital Signs (Past 12 Hours) Vital Signs Temp Pulse Resp BP Pulse Ox 07/16/20 07:23 36.7 C 65 16 107/71 97
== END 2020-07-16 18:02 | disposition home or self-care (01) | DRG 807 ==
LOC: OPB 07:34 → 4S1 07:39 → 4S2 07-15 02:10

== ENCOUNTER 2021-12-26 01:22 | Inpatient (IN) ==
[2021-12-26] MEDS ORDERED: OXYTOCIN 30 UNITS/500 ML BAG IV PRN ×2 (01:36→05:34)
[2021-12-26] MEDS ORDERED: LIDOCAINE 1% LOCAL 20 ML VIAL INFIL PRN (01:36)
[2021-12-26] MEDS ORDERED: ePHEDrine sulfate 50 MG/ML AMP ONE (01:41)
[2021-12-26] MEDS ORDERED: fentaNYL 2MCG/ML ROPIVACAINE 1.25MG/ML 100 ML BAG EPI ONE (01:42)
[2021-12-26] MEDS ORDERED: BUPIVACAINE 0.25% 30 ML VIAL ONE (01:42)
[2021-12-26] MEDS ORDERED: fentaNYL citrate 100 MCG/2 ML VIAL ONE (01:42)
[2021-12-26] MEDS ORDERED: LIDOCAINE 2%/EPINEPHRINE 1:200,000 20 ML SDV ONE (01:42)
[2021-12-26] MEDS ORDERED: SODIUM CHLORIDE 0.9% INJ 10 ML VIAL ONE (01:42)
[2021-12-26] MEDS: LACTATED RINGER'S 1,000 ML IV PRN ×2 (01:45→02:42)
[2021-12-26 02:18] LABS: Hematocrit (blood only) 37.4 % (34.1-44.9); Hemoglobin 13.2 g/dl (12.0-16.0); Mean Corpuscular Hemoglobin 32.4 pg (25.0-34.0); Mean Corpuscular Hgb Conc 35.3 g/dL (32.0-36.0); Mean Corpuscular Volume 91.7 fL (80.0-100.0); Mean Platelet Volume 12.3 fL (9.4-12.3); Platelet Count 148 K/uL (130-400); RDW Coefficient of Variation 12.2 % (11.5-14.5); RDW Standard Deviation 41.1 fL (36.4-46.3); Red Blood Count 4.08 M/uL (3.93-5.22); White Blood Count 10.67 K/ul (4.8-10.8)
[2021-12-26] MEDS ORDERED: NALOXONE HCL 1 MG in SODIUM CHLORIDE 0.9% 1000ML 1,000 ML IV PRN (02:21)
[2021-12-26] MEDS ORDERED: diphenhydrAMINE 50 MG/ML VIAL IV PRN (02:21)
[2021-12-26] MEDS ORDERED: NALBUPHINE HCL INJ 10 MG/ML AMP IV PRN (02:21)
[2021-12-26] MEDS ORDERED: fentaNYL 2MCG/ML ROPIVACAINE 1.25MG/ML 100 ML BAG EPI PRN (02:21)
[2021-12-26] MEDS ORDERED: ePHEDrine sulfate 50 MG/ML AMP IV PRN (02:21)
[2021-12-26] MEDS ORDERED: NALOXONE HCL 0.4 MG/1 ML VIAL/CARP IV PRN (02:21)
--- NOTE | 2021-12-26 02:21 | Anesthesiology Consultation ---
Date of Service December 26, 2021 Assessment & Plan (1) Encounter for pre-operative examination: Chart Review Chart Review: Patient NOT seen in Pre Admission Testing and Acceptable Risk for Labor Epidural Consults Requested none History Height/Weight Height: 5 ft Weight: 55.792 kg Allergies Allergy/AdvReac Type Severity Reaction Status Date / Time No Known Allergies Allergy Verified 07/24/21 20:31 Medications Home Medications Medication Instructions Recorded Confirmed Last Taken methadone 10 mg/mL oral concentrate 103 mg PO DAILY 07/24/21 07/24/21 07/24/21 vit no.95-ferrous 1 tab PO DAILY 07/24/21 07/24/21 07/24/21 fumarate 28 mg-folic acid 800 mcg tablet () Past Medical History Medical History Adult ADHD History of heroin abuse clean since 2018 Methadone use Scoliosis Past Family History Family History Other No pertinent family history in first degree relatives Past Surgical History Surgical History H/O elbow surgery Social History Smoking Status: Current every day smoker tobacco type: cigarettes Hx Alcohol Use: No Alcohol type: wine alcohol intake frequency: holidays/special occasions only Hx Substance Use: Yes substance use type: former substance user and opiates Substance Use Type Other:: on methadone Last Used Substance Other:: 2018 Physical Exam Vital Signs Last Vital Signs Temp 98.2 F 12/26/21 01:49 Pulse 75 12/26/21 01:49 Resp 20 12/26/21 01:49 BP 125/83 12/26/21 01:49 Testing Laboratory Results 12/26/21 01:51
[2021-12-26 03:57] LABS: Amphetamines+Metham, Urine Neg (Neg); Barbiturates, Urine Neg (Neg); Benzodiazepine, Urine Neg (Neg); Cocaine, Urine Neg (Neg); MDMA (Ecstacy), Urine Neg (Neg); Methadone, Urine Pos (Neg); Opiate, Urine Neg (Neg); Phencyclidine, Urine Neg (Neg)
[2021-12-26] MEDS ORDERED: ACETAMINOPHEN 325 MG TAB PO PRN (05:34)
[2021-12-26] MEDS ORDERED: bisacodyL 10 MG SUPP PR PRN (05:34)
[2021-12-26] MEDS ORDERED: METHYLERGONOVINE MALEATE 0.2 MG/ML AMP IM ONE (05:34)
[2021-12-26] MEDS ORDERED: BENZOCAINE 20% AER SPR 82.5 GM CAN EXT PRN (05:34)
[2021-12-26] MEDS ORDERED: DIPHTHERIA/TETANUS/PERTUSSIS 0.5 ML SYR/VIAL IM ONE (05:34)
[2021-12-26] MEDS ORDERED: HYDROCORTISONE ACETATE 25 MG SUPP PR PRN (05:34)
--- NOTE | 2021-12-26 06:23 | Delivery Summary ---
DATE OF SERVICE: 12/26/2021 DELIVERY NOTE: The patient is a 2, para 2, blood type is O positive, group B strep negative. She is on methadone during her . Other than that, the was uncomplicated, althoug h she had a symptomatic umbilical hernia early in , which caused her some difficulty. She w as admitted at 39 weeks 4 days, in active labor. When she arrived on the labor floor, she was alread y 5 cm dilated. She requested and received epidural anesthesia. She obtained good pain relief. Lorena rtly after the epidural was given, her membranes ruptured spontaneously. Meconium fluid was noted at this time. She had an unstimulated labor, went to full dilatation and in a relatively short period of time, delivered a live male via direct occiput anterior position over an intact perineum. Infant was suctioned through the mouth and the nose. Shoulders were delivered without difficulty. C ord was allowed to pulse for a minute, then clamped, cut by the father. Cord blood was taken. With IV Pitocin running, the placenta was removed intact and then she was also given IM Methergine 0.2 mg. Inspection of the perineum revealed no lacerations. Uterus contracted nicely. Hemostasis was good . Estimated blood loss was 100 mL and placenta was sent for pathological evaluation due to the mecon ium. Job ID: [id number]
--- NOTE | 2021-12-26 07:24 | Anesthesia Procedure Note ---
Date of Service December 26, 2021 Anesthesia Post Epidural Note Vital Signs Vital Signs: Temp Pulse Resp BP Pulse Ox 36.8 C 59 L 20 147/90 H 91 12/26/21 05:06 12/26/21 07:20 12/26/21 01:49 12/26/21 07:20 12/26/21 05:31 Pain Intensity Abdomen: Pain Intensity: 7 Notes Mental Status: alert / awake / arousable Nausea / Vomiting: adequately controlled Pain: adequately controlled Airway Patency, RR, SpO2: stable & adequate BP & HR: stable & adequate Hydration State: stable & adequate Neuraxial Anesthesia: was administered and sensory block is resolving Anesthetic Complications: no major complications apparent and Pt Satisfied with anesthetic care Epidural: Removed without complications and With tip intact
[2021-12-26] MEDS ORDERED: PATIENT'S OWN CONTROLLED MED 1 PO SCH (07:30)
[2021-12-26] MEDS: METHADONE ORAL SOLN 2 MG/ML PO SCH ×2 (07:44→17:17)
[2021-12-26] MEDS ORDERED: ONDANSETRON INJ 2 MG/ML 2 ML VIAL IV PRN (07:51)
[2021-12-26] MEDS ORDERED: ONDANSETRON INJ 2 MG/ML 2 ML VIAL IV STA (07:55)
[2021-12-26] MEDS: NICOTINE 14 MG/24 HR PATCH TD SCH ×2 (08:27→17:16)
[2021-12-26] MEDS ORDERED: LABETALOL HCL 100 MG TAB PO ONE (10:28)
[2021-12-26] MEDS: PRENATAL VITAMIN 1 TAB PO SCH (10:38)
[2021-12-26] MEDS: DOCUSATE SODIUM 100 MG CAP PO SCH ×2 (10:38→19:28)
[2021-12-26] MEDS: LABETALOL HCL 100 MG TAB PO SCH ×2 (14:02→19:27)
[2021-12-26] MEDS ORDERED: PATIENT'S OWN CONTROLLED MED 2 PO SCH (17:00)
[2021-12-26] MEDS: IBUPROFEN 600 MG TAB PO PRN (18:12)
[2021-12-27 06:51] LABS: Hematocrit (blood only) 37.2 % (34.1-44.9); Hemoglobin 12.9 g/dl (12.0-16.0); Mean Corpuscular Hemoglobin 32.3 pg (25.0-34.0); Mean Corpuscular Hgb Conc 34.7 g/dL (32.0-36.0); Mean Platelet Volume 12.6 fL (9.4-12.3); Platelet Count 157 K/uL (130-400); RDW Coefficient of Variation 12.4 % (11.5-14.5); RDW Standard Deviation 42.4 fL (36.4-46.3); White Blood Count 8.67 K/ul (4.8-10.8)
[2021-12-27] MEDS: METHADONE ORAL SOLN 2 MG/ML PO SCH ×2 (08:11→17:23)
[2021-12-27] MEDS: PRENATAL VITAMIN 1 TAB PO SCH (08:11)
[2021-12-27] MEDS: IBUPROFEN 600 MG TAB PO PRN ×2 (08:11→17:19)
[2021-12-27] MEDS: LABETALOL HCL 100 MG TAB PO SCH ×3 (08:11→20:37)
[2021-12-27] MEDS: DOCUSATE SODIUM 100 MG CAP PO SCH ×2 (08:11→20:36)
--- NOTE | 2021-12-27 12:10 | Obstetrical Progress Note ---
Date of Service December 27, 2021 Assessment & Plan Admission and Anticipated Discharge Date Admission Date: December 26, 2021 Subjective abdomen soft and non tender no calf tenderness ambulating well vaginal bleeding scant hgb 12.9 Results & Data ([facility]) Vital Signs (Past 12 Hours) Vital Signs Temp Pulse Resp BP Pulse Ox O2 Del Method 12/27/21 08:10 36.6 C 74 18 121/70 Room Air 12/27/21 04:00 36.8 C 78 16 121/65 97 Room Air
[2021-12-27] MEDS: NICOTINE 14 MG/24 HR PATCH TD SCH (17:21)
[2021-12-27] MEDS ORDERED: bisacodyL 5 MG TABEC PO SCH (20:00)
[2021-12-27 23:17] LABS: Marijuana Quant, GCMS Urine 273 ng/mL (<5); Methadone, Ur Metabolite >10000 ng/mL (<100)
[2021-12-28 06:49] LABS: Hematocrit (blood only) 37.7 % (34.1-44.9); Hemoglobin 12.9 g/dl (12.0-16.0)
[2021-12-28] MEDS: PRENATAL VITAMIN 1 TAB PO SCH (07:45)
[2021-12-28] MEDS: DOCUSATE SODIUM 100 MG CAP PO SCH ×2 (07:45→20:45)
[2021-12-28] MEDS: METHADONE ORAL SOLN 2 MG/ML PO SCH ×2 (07:46→17:18)
[2021-12-28] MEDS: LABETALOL HCL 100 MG TAB PO SCH ×3 (09:10→20:45)
[2021-12-28] MEDS: IBUPROFEN 600 MG TAB PO PRN (09:10)
--- NOTE | 2021-12-28 10:39 | Obstetrical Progress Note ---
Date of Service December 28, 2021 Assessment & Plan Admission and Anticipated Discharge Date Admission Date: December 26, 2021 Subjective abdomen soft and non tender no calf tenderness ambulating well vaginal bleeding scant hgb 12.9 Results & Data ([facility]) Vital Signs (Past 12 Hours) Vital Signs Temp Pulse Resp BP Pulse Ox O2 Del Method 12/28/21 07:38 36.7 C 73 20 124/70 99 Room Air 12/28/21 03:00 64 121/66 12/27/21 23:00 36.4 C L 66 18 123/68 99 Room Air
[2021-12-28] MEDS ORDERED: NICOTINE 14 MG/24 HR PATCH TD SCH (17:00)
== END 2021-12-28 21:00 | disposition home or self-care (01) | DRG 806 ==
LOC: OPB 01:22 → 4S1 01:26 → 4S3 12:12 → 4E2 12:24

== ENCOUNTER 2024-05-29 19:58 | Inpatient (IN) ==
--- OUTSIDE RECORDS SUMMARY | 2024-05-29 20:04 | External Medical Summary | Summary of Care ---
Author Name Unknown Organization [facility] Address [address] [facility] [place] [address] Phone [phone] Care Team Providers Care Dielectric Embossing Machine Operator Name Role Phone Aelx Penaloza MD Primary Care Provider + Reason for Visit * Reason Comments Return Visit Encounter Details Date Type Department Care Team (Late st Contact Info) Description 05/19/2024 1:15 PM EST Office Visit Gynecology/Obstetri jeana Wall [address] [facility] [place] [address] Joseline Navarro CRNP [address] [facility] [place] [address] Nurse Regino Wall Beginnings Return [place] [address] [place] [address] Supervision of high-risk , unspecified trimester*; 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 110 mg in the morning and 33 mg in the evening Active Iron-Vitamin C 65-125 MG Oral Tablet (Vitron C)Indications:Ant epartum anemia complicating Take 1 Tablet by mouth in the morning and 1 Tablet before bedtime. 60 Tablet 3 4 Active Breast Pump Dispense double electric breast pump. Dx:Z39.1 1 Each 5 Active documented as of this encounter (statuses as of 05/19/2024) Active Problems Problem Noted Date Diagnosed Date Iron deficiency anemia 05/18/2024 Supervision of high-risk , unspecified trimester 04/20/2024 Food insecurity 04/19/2024 Overview: Per [facility] Protocol History of hepatitis C 02/18/2024 Overview (05/03/2024): S/p treatment 1-2 years ago following of second child Lab Results Component Value Date/Time HEPATITIS C ANTIBODY - [facility] Positive (A) 02/16/2024 02:22 PM HCV RNA RESULT TEXT - [facility] Negative. No HCV RNA detected. 02/16/2024 02:22 PM Assessment & Plan (05/03/2024 8:27 AM EST): Discussed that patient clinically does not meet the criteria for viral Hepatitis C secondary to previously negative viral load prior to , and therefore, not placing an increased risk for vertical transmission to the fetus during labor. However, we recommend updated HCV viral load in each to evaluate patient's current status, and consider referral to gastroenterology provider as clinically indicated. If HCV viral load remains negative, patient was instructed to follow up with her primary care provider and/or gastroenterology for routine monitoring, recommendations, and treatment options should patient seroconvert for the virus in the future. Tobacco smoking affecting in [facility] 02/18/2024 Overview (05/03/2024): Currently smoking 1-2 cigarettes/day which is a decrease from 10 cigarettes per day prior to the Assessment & Plan (05/03/2024 8:30 AM EST): Strongly advised patient to stop using tobacco. Discussed that tobacco use is associated with increased risks of spontaneous miscarriage, labor and delivery, premature rupture of membranes, growth restriction, stillbirth, SIDS postnatally, and placental abnormalities such as previa or abruption. Smoking cessation aids such as the nicotine patch or Zyban are considered safer alternatives to tobacco use during . Encouraged patient to discuss with her primary provider for prescribing. Advised patient that the most successful method to quit smoking is if those around you do not smoke as well. Marijuana use during 02/18/2024 Overview (05/03/2024): Reports medical marijuana Encouraged discontinued use Assessment & Plan (05/03/2024 8:32 AM EST): CONSIDERATIONS: Chemicals found in marijuana, such as tetrahydrocannabinol (THC), are distributed to the brain and fat and cross the placenta. THC also appears in breast milk. In utero exposure is associated with short and long-term morbidity. A positive screen result is reported to [facility]. RECOMMENDATIONS: Abstain from marijuana use in and while ; avoid secondhand exposure. Discontinue use of marijuana for medicinal purposes in favor of an alternative therapy for which there are better -specific safety data. Antepartum anemia complicating 024 Overview (05/03/2024): Prescribed PO Iron with Vitamin C (not currently taking as of 05/03/24) Anemia Labs Lab Results Component Value Date/Time HGB 10.6 (L) 04/20/2024 04:35 PM HCT 32.3 (L) 04/20/2024 04:35 PM FERRITIN - [facility] 17 04/20/2024 04:35 PM VITAMIN B12 - [facility] 525 04/20/2024 04:35 PM FOLIC ACID - [facility] 13.4 04/20/2024 04:35 PM IRON BINDING CAPACITY - [facility] 527 (H) 04/20/2024 04:35 PM MCV 97.0 04/20/2024 04:35 PM Assessment & Plan (05/03/2024 8:35 AM EST): CONSIDERATIONS: Severe maternal anemia (hemoglobin levels below 6 to 7 g/dl) is associated with oligohydramnios, cerebral vasodilation, delivery, miscarriage, growth restriction, nonreassuring heart rate patterns, and stillbirth. There is also an increased risk for maternal . RECOMMENDATIONS: If hemoglobin is below 11 g/dl during first and third trimesters or less than10.5 g/dL in 2nd trimester, we recommend anemia studies to assess serum ferritin, iron, iron binding capacity, transferritin saturation, and hemoglobin electrophoresis. If iron-deficiency anemia is confirmed, then we recommend iron supplementation with oral (preferred) or parenteral therapy (if recommended by blood conservation program after oral therapy has failed) as indicated to keep hemoglobin level above 11 g/dl during . Oral iron should be taken with orange juice. If anemia studies do not reflect iron deficiency anemia we recommend checking TSH, B12 and folate levels and referral to a roving frame tender. If hemoglobin levels are below 8 g/dl, we recommend Maternal Medicine ultrasound for growth every 4 weeks after 24 weeks. Consider a blood transfusion if hemoglobin levels fall below 6 g/dL. ([employer] Practice Bulletin Number 95, October,). Consider Venofer transfusions if patient labs supportive of iron deficiency anemia with dosing of 300 mg IV weekly x 3 weeks Methadone maintenance treatment affecting pregna ncy 02/16/2024 Overview (05/03/2024): Dose as of 05/03/2024 per [facility]: 110 mg of methadone in the am and 33 mg of methadone in the pm for a total of 143 mg of methadone Denies cravings or withdrawal symptoms at current dose. 05/03/24 [facility] Assessment & Plan (05/03/2024 8:21 AM EST): CONSIDERATIONS: Methadone or buprenorphine maintenance therapy during helps prevent fluctuating maternal opioid levels and protects the fetus from recurrent episodes of opioid withdrawal, which may be lethal. Compared to continued illicit opioid use, maintenance therapy is associated with a decreased incidence of complications, such as delivery, growth restriction, and abstinence syndrome (WENDY). Neither methadone nor buprenorphine are associated with defects. Maintenance dose is not related to the severity of WENDY. Maintenance therapy reduces the risk of opioid use, but does not prevent the use of other substances. Reviewed the importance of ensuring naloxone is at home or on person at all times; naloxone is available at all [place] pharmacies without a prescription. Methadone and buprenorphine are compatible with . RECOMMENDATIONS: M anatomy ultrasound at 19-20 weeks. Serial growth assessments every 4-6 weeks after 24-26 weeks. Please ensure a recent hepatitis B and C screen has been performed. Do not reduce or otherwise try to minimize the dose of maintenance therapy during . Medically supervised withdrawal is discouraged in . Professional counseling services are available for patients who wish to abstain from illicit opioids. Consider referral if patient desires. [facility]. Health counseling 01/09/2024 Overview (05/19/2024): Problem Action Taken Date entered Entered by Date resolved Depression Use of medication, pt aware its available and can discuss further with provider. Pt sees a clinical counselor. 01/09/2024 Madai Wei RN 01/09/24 Drug use Pt on Methadone 01/09/2024 Madai Wei RN 01/09/24 Headache Increase fluids(non-caffeinated) Take 2 Tylenol according to the directions. Do not exceed 3 grams (3000mg) in 24 hours If persistent or severe, call your provider 01/09/2024 Madai Wei RN 01/09/24 Inadequate diet for Reviewed nutrition in NOB booklet. 01/09/2024 Madai Wei RN 01/09/24 Problem Action Taken Date entered Entered by Date resolved Transportation Will discuss at next visit , patient in a hurry not wiling to stay and discuss at this visit. 02/16/2024 Anne Bhat RN Ongoing Problem Action Taken Date entered Entered by Date resolved Lack of transportation Patient just got a car 03/15/2024 Anne Bhat RN 03/15/2024 Problem Action Taken Date entered Entered by Date resolved Financial Given Resources for local programs. 03/15/2024 Anne Bhat RN 03/15/2024 Problem Action Taken Date entered Entered by Date resolved Compliance with visits Encouraged 04/20/2024 Lawanda Khalil RN 04/20/2024 [facility] to [facility] 04/20/2024 Lawanda Khalil RN 04/20/2024 Problem Action Taken Date entered Entered by Date resolved Current needs or questions Patient denies having any current needs or questions 05/19/2024 Anne Bhat RN 05/19/2024 Estimated Date of Delivery Comme nts Yes 07/13/2024 Based on Ultraso und documented as of this encounter (statuses as of 05/19/2024) Social History Tobacco Use Types Packs/Day Years Used Date Smoking Tobacco: Every Day Smokeless Tobacco: Never Comments:2/day Alcohol Use Standard Drinks/Week Comments Not Currently 0 (1 standard drink = 0.6 oz pur e alcohol) Hunger Vital Sign Answer Date Recorded Within the past 12 months, y ou worried that your food would run out before you got the money to buy more. Often true Within the past 12 months, t he food you bought just didn't last and you didn't have money to get more. Sometimes true 12/2023 [place] Depression Scale Answer Date Recorded [place] Depression Scale Total 3 05/19/2024 The thought of harming myself has occurred to me . Never 05/19/2024 Childcare Answer Date Recorded Do you feel overwhelmed with taking care of a child, family member or friend? No 03/15/2024 Does your family need help f inding childcare? (Household - for ages 0-17 years) Not on file 03/15/2024 Clothing Answer Date Recorded Have you been unable to get clothing when it was really needed? Yes 03/15/2024 Is your family able to get c lothes or diapers when needed? (Household - for ages 0-17 years) Not on file 03/15/2024 Personal Safety Answer Date Recorded Do you feel unsafe or have concerns for your saf ety? No 03/15/2024 Do you have concerns for you r family's safety? (Household - for ages 0-17 years) Not on file 03/15/2024 Utilities Answer Date Recorded Do you have trouble paying y our heating, water, or electric bill? Yes 03/15/2024 Is your family able to pay t he heat, water, or electric bill? (Household - for ages 0-17 years) Not on file 03/15/2024 Does your family have access to good internet? (Household - for ages 0-17 years) Not on file 03/15/2024 Employment Status Answer Date Recorded Are you unemployed or without regular income? No 03/15/2024 Does the household have a re gular source of income? (Household - for ages 0-17 years) Not on file 03/15/2024 Social Connections Answer Date Recorded How often do you feel lonely or isolated from th ose around you? Rarely 03/15/2024 Financial Resource Strain Answer Date R ecorded Do you have any trouble payi ng for your medications, or do you think you might in the future? No 03/15/2024 Does your family have troubl e paying for medicine? (Household - for ages 0-17 years) Not on file 03/15/2024 Transportation Needs Answer Date Record ed Do you have trouble getting a ride to medical visits or work? (Adult - for ages 18 years and over) Not on file 03/15/2024 Does your family have a hard time getting a ride to doctors visits? (Household - for ages 0-17 years) Not on file 03/15/2024 Has lack of transportation k ept you from medical appointments, meetings, work, or from getting things needed for daily living? Check all that apply. Yes, it has kept me from non-medical meetings, appointments, work, or from getting things that I need 03/15/2024 Do you (or your family) have trouble finding or paying for a ride (transportation)? (Household - for ages 0-17 years) Not on file 03/15/2024 Housing Stability Answer Date Recorded Do you currently live in a s helter or have no steady place to sleep at night? Yes 03/15/2024 Do you think you are at risk of becoming homeless? (Adult - for ages 18 years and over) Not on file 03/15/2024 Does your family worry about paying for your home or becoming homeless? (Household - for ages 0-17 years) Not on file 1 05/16/2023 Are you homeless or worried that you might be in the future? No 03/15/2024 Are you (or your family) alek eless or worried that you might be in the future? (Household - for ages 0-17 years) Not on file Food Insecurity Answer Date Recorded Do you need food for this week? No 03/15/2024 Are you able to get enough f ood for your family? (Household - for ages 0-17 years) Not on file 03/15/2024 Does your family need food t his week? (Household - for ages 0-17 years) Not on file 03/15/2024 Do you always have enough fo od for your family? (Household - for ages 0-17 years) Not on file 03/15/2024 Food Insecurity Answer Date Recorded Within the past 12 months, y ou worried that your food would run out before you got the money to buy more. Often true Within the past 12 months, t he food you bought just didn't last and you didn't have money to get more. Sometimes true 12/2023 Do you need food for this week? No 03/15/2024 Estimated Date of Delivery Comme nts Yes 07/13/2024 Based on Ultraso und Sex and Gender Information Value Date Recorded Sex Assigned at Female 03/15/2024 11:46 AM EST Legal Sex Female 6:21 AM EST Gender Identity Female 03/15/2024 11:46 AM EST Sexual Orientation Straight 03/15/2024 11 :46 AM EST documented as of this encounter Last Filed Vital Signs Vital Sign Reading Time Taken Comments Blood Pressure 100/58 05/19/2024 1:05 PM EST Pulse - - Temperature - - Respiratory Rate - - Oxygen Saturation - - Inhaled Oxygen Concentration - - Weight 58.7 kg (129 lb 6.4 oz) 05/19/2024 1:05 P M EST Height - - Body Mass Index 25.27 01/30/2022 11:59 AM EDT documented in this encounter Progress Notes * Melodie Johnson LPN - 05/19/2024 1:07 PM EST 32w1d Denies vaginal bleeding/rom + movement Growth US today 41% - LINDA 21.5 * Joseline Navarro CRNP - 05/19/2024 12:48 PM EST 32w1d Growth scan today, report in process. Confirmed cardiac activity. Good movement. Denies ctx, bleeding, LOF. Scheduled for iron infusion. She wishes to complete her growth scans here, has difficulty getting to [place]. Agreeable to see MFM if clinically indicated by u/s findings. Planning on abstinence . 2 week return OJ Michele documented in this encounter Nursing Notes * Anne Bhat RN - 05/19/2024 1:42 PM EST Patient seen by [facility] Metallurgist Process. Patient denies any questions or concerns. Waiting on breast pump order, [facility] waiting on form from provider, will send today. Patient aware to watch out for call from supplier. Anne Bhat RN documented in this encounter Plan of Treatment Upcoming Encounters Date Type Department Care Team (Late st Contact Info) Description 05/28/2024 12:00 PM EST Hem/Onc Treatment Hematology/Oncology Treatment, [address] [phone] Simran, Chair 9 Hem Onc [address] [address] 05/31/2024 10:00 AM EST Pharmacy Pharmacy, [place] [address], [place] [id number] Clinic, Anemia [address] [place] [address] 06/02/2024 11:30 AM EST Office Visit Gynecology/Obstetric s Brynn Wall [facility] [place] [address] Joseline Navarro CRNP [address] [place] [address] Nurse Regino Wall Return [place] [facility] [place] [address] Health Maintenance Due Date Last Done Comments Depression Screening 2004 DTap/Tdap Vaccines (1 - Tdap) 12/20/2011 Hepatitis B Vaccine (1 of 3 - 19+ 3-dose series) 12/20/2011 Pneumococcal Vaccine: Pediat rics (0 to 5 Years) and At-Risk Patients (6 to 18 Years and 19+ Years) (1 of 2 - PCV) 12/20/2011 Pap Smear 2013 Cervical Cancer Screening 2022 HPV/Co-Test 2022 COVID-19 Vaccine (1 - 2023-2 5 season) 2023 Influenza Vaccine (FLU shot) (#1) 2023 HPV (Gardasil) Vaccine Aged Out No lo nger eligible based on patient's age to complete this topic MENINGOCOCCAL (MENACTRA/MENVEO) Aged Out No longer eligible based on patient's age to complete this topic documented as of this encounter Medical Devices Not on filedocumented as of this encounter Visit Diagnoses Diagnosis 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)- Primary Antepartum anemia complicating Anemia, antepartum History of hepatitis C Personal history of other infectious and parasitic disease Tobacco smoking affecting in third trimester Marijuana use during Supervision of high risk , antepartum, third trimester 29 weeks gestation of state, incidental Supervision of high-risk , unspecified trimester- Primary 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
--- OUTSIDE RECORDS SUMMARY | 2024-05-29 20:04 | External Medical Summary | Summary of Care ---
Author Name Unknown Organization [facility] Address [address] [facility] [place] [address] Phone [phone] Care Team Providers Care Stoker Mechanic Name Role Phone Alex Penaloza MD Primary Care Provider + Reason for Visit * Reason Comments Return Visit Encounter Details Date Type Department Care Team (Late st Contact Info) Description 05/19/2024 1:15 PM EST Office Visit Gynecology/Obstetri jeana Wall [address] [facility] [place] [address] Joseline Navarro CRNP 132 [place] [address] Nurse Regino Wall Beginnings Return [place] 132 [facility] [place] [address] Supervision of high-risk , unspecified trimester*; Methadone [...] in the future. Tobacco smoking affecting in [facility] 02/18/2024 Overview (05/03/2024): Currently smoking 1-2 [...] and folate levels and referral to a radiology receptionist. If hemoglobin levels are below 8 g/dl, we recommend Maternal Medicine ultrasound for growth every 4 weeks after 24 weeks. Consider a blood transfusion if hemoglobin levels fall below 6 g/dL. ([employer] Practice Bulletin Number 95, October,). Consider Venofer transfusions if patient labs supportive of iron deficiency anemia with dosing of 300 mg IV weekly x 3 weeks Methadone maintenance treatment affecting pregna ncy 02/16/2024 Overview (05/03/2024): Dose as of 05/03/2024 per [facility]: 110 mg of methadone in [...] all times; naloxone is available at all [place] pharmacies without a prescription. Methadone and buprenorphine [...] money to get more. Sometimes true 12/2023 [place] Depression Scale Answer Date Recorded [place] Depression Scale Total 3 05/19/2024 The thought [...] growth scans here, has difficulty getting to [place]. Agreeable to see MFM if clinically indicated by u/s findings. Planning on abstinence . 2 week return OJ Michele documented in this encounter Nursing Notes * Anne Bhat RN - 05/19/2024 1:42 PM EST Patient seen by [facility] Tank Stave Assembler. Patient denies any questions or concerns. Waiting on breast pump order, [facility] waiting on form from provider, will send today. Patient aware to watch out for call from supplier. Anne Bhat RN documented in this encounter Plan of Treatment Upcoming Encounters Date Type Department Care Team (Late st Contact Info) Description 05/28/2024 12:00 PM EST Hem/Onc Treatment Hematology/Oncology Treatment, [address] [phone] Simran, Chair 9 Hem On[address] [address] 05/31/2024 10:00 AM EST Pharmacy Pharmacy, [place] [address] [place], [place] [phone] Clinic, Anemia [address] [place] [address] 06/02/2024 11:30 AM EST Office Visit Gynecology/Obstetric s Brynn Wall [facility] [place] [address] Joseline Navarro CRNP [address] [place] [address] Nurse Regino Wall Return [place] [facility] [place] [address] Health Maintenance Due Date Last Done Comments [...] antepartum documented in this encounter Care Teams Stoker Mechanic Relationship Specialty Start Date End Date Alex Penaloza MD [address] [address] PCP - General Pediatrics 01/30/22 documented as of this encounter
--- OUTSIDE RECORDS SUMMARY | 2024-05-29 20:04 | External Medical Summary | Summary of Care ---
Author Name Unknown Organization [facility] Address [address] [facility] [place] [address] Phone [phone] Care Team Providers Care Post Tensioning Ironworker Name Role Phone Alex Penaloza MD Primary Care Provider + Reason for Visit * Reason Onset Date Comments Other 05/18/2024 InFed Encounter Details Date Type Department Care Team (Late st Contact Info) Description 05/18/2024 Telephone Hematology/Oncology Treatment, [place] [address] [place] [address] Nuzhat Amezquita PA-C [address] [place] [address] Other (InFed) Allergies No known active allergiesdocumented as of [...] in the future. Tobacco [facility] 02/18/2024 Overview (05/03/2024): Currently smoking 1-2 cigarettes/day [...] and folate levels and referral to a chute tapper. If hemoglobin levels are below 8 g/dl, we recommend Maternal Medicine ultrasound for growth every 4 weeks after 24 weeks. Consider a blood transfusion if hemoglobin levels fall below 6 g/dL. ([employer] Bowling Ball Molder Practice Bulletin Number 95, October,). Consider Venofer transfusions if patient labs supportive of iron deficiency anemia with dosing of 300 mg IV weekly x 3 weeks Methadone maintenance treatment affecting pregna ncy 02/16/2024 Overview (05/03/2024): Dose as of 05/03/2024 per [facility]: 110 mg of methadone in the am [...] all times; naloxone is available at all [place] pharmacies without a prescription. Methadone and buprenorphine [...] [facility] Health counseling 01/09/2024 Overview (04/20/2024): Problem Action Taken Date entered Entered by [...] Khalil RN 04/20/2024 [facility]ires pump sent to [facility] 04/20/2024 Lawanda Khalil RN 04/20/2024 Estimated Date of Delivery Comme nts Yes [...] money to get more. Sometimes true 12/2023 [place] Depression Scale Answer Date Recorded [place] Depression Scale Total 8 03/15/2024 The thought of harming myself has occurred to me . Never 03/15/2024 Childcare Answer Date Recorded Do you feel [...] have money to get more. Sometimes true 12/ 12/2023 Do you need food for this week? No 03/15/2024 Estimated Date of Delivery Comme nts Yes 07/13/2024 Based on Ultraso und Sex and Gender Information Value Date Recorded Sex Assigned at Female 03/15/2024 11:46 AM EST Legal Sex Female 6:21 AM EST Gender Identity Female 03/15/2024 11:46 AM EST Sexual Orientation Straight 03/15/2024 11 :46 AM EST documented as of this encounter Miscellaneous Notes * Telephone Encounter - Lisbeth Choudhury OSA - 05/19/2024 9:28 AM EST Pt is scheduled and is aware * Telephone Encounter - Helena Mc RN - 05/19/2024 7:44 AM EST [place] is signed. Scheduling: please call patient to schedule 3 hour appt "infed" (Nuzhat Amezquita). Thanks! * Telephone Encounter - Joseline Amezquita LPN - 05/18/2024 8:37 AM EST Order received for InFed [place] plan built and routed to p [id number] No prior authorization required Awaiting provider signature before scheduling patient. documented in this encounter Plan of Treatment Upcoming Encounters Date Type Department Care Team (Late st Contact Info) Description 05/19/2024 12:30 PM EST Imaging Radiology [facility] 2nd [facility], [place] [address] [place] [address] 05/19/2024 1:15 PM EST Office Visit Gynecology/Obstetric s [facility] [address] [place] [address] Backer, OJ Cavanaugh 132 [facility] [place] [address] Nurse [facility] [place] [address] [place] [address] 05/28/2024 12:00 PM EST Hem/Onc Treatment Hematology/Oncology Treatment, [place] [address] [place] [phone] Park, Chair 9 Hem Onc Scenery [address] [place] [address] 05/31/2024 10:00 AM EST Pharmacy Pharmacy, [place] [address], [place] [id number] [facility], [facility] [address] [place] [address] Health Maintenance Due Date Last Done Comments Depression Screening 2004 DTap/Tdap Vaccines (1 - Tdap) 12/20/2011 Hepatitis B Vaccine (1 of 3 - 19+ 3-dose series) 12/20/2011 Pneumococcal Vaccine: Pediat rics (0 to 5 Years) and At-Risk Patients (6 to 18 Years and 19+ Years) (1 of 2 - PCV) 12/20/2011 Pap Smear 2013 Cervical Cancer Screening 2022 HPV/Co-Test 2022 COVID-19 Vaccine ( - 2023-2 5 season) 2023 Influenza Vaccine (FLU shot) (#1) 2023 HPV (Gardasil) Vaccine Aged Out No lo nger eligible based on patient's age to complete this topic MENINGOCOCCAL (MENACTRA/MENVEO) Aged Out No longer eligible based on patient's age to complete this topic documented as of this encounter Medical Devices Not on filedocumented as of this encounter Care Teams Post Tensioning Ironworker Relationship Specialty Start Date End Date Alex Penaloza MD [address] [place] [address] PCP - General Pediatrics 01/30/22 documented as of this encounter
--- OUTSIDE RECORDS SUMMARY | 2024-05-29 20:04 | External Medical Summary | Summary of Care ---
Author Name Unknown Organization [facility] Address [address] [place] [facility] [place] [address] Phone [phone] Care Team Providers Care Emergency Care Attendant Name Role Phone Alex Penaloza MD Primary Care Provider + Encounter Details Date Type Department Care Team (Late st Contact Info) Description 05/21/2024 Telephone Gynecology/Obstetrics [facility] [address] [facility] [place] [address] Joseline Navarro CRNP [address] [facility] [place] [address] Allergies No known active allergiesdocumented as of this encounter (statuses as of 05/26/2024) Medications Methadone HCl 10 MG/ML Oral Concentrate [...] as of this encounter (statuses as of 05/26/2024) Active Problems Problem Noted Date Diagnosed Date [...] in the future. Tobacco smoking affecting in [facility] 02/18/2024 Overview (05/03/2024): Currently smoking 1-2 cigarettes/day [...] and folate levels and referral to a outdoor fitness trainer. If hemoglobin levels are below 8 g/dl, we recommend Maternal Medicine ultrasound for growth every 4 weeks after 24 weeks. Consider a blood transfusion if hemoglobin levels fall below 6 g/dL. ([employer] [place] [employer]ians and General Expeditor Practice Bulletin Number 95, October,). Consider Venofer transfusions if patient labs supportive of iron deficiency anemia with dosing of 300 mg IV weekly x 3 weeks Methadone maintenance treatment affecting pregna ncy 02/16/2024 Overview (05/21/2024): 05/21/24 [facility] with dosage change. 169 mg methadone once daily. Split dose 123 in AM and 46 in the PM. 05/03/24 [facility] referral placed Assessment [...] all times; naloxone is available at all [place] pharmacies without a prescription. Methadone and buprenorphine are compatible with . RECOMMENDATIONS: [facility] anatomy ultrasound at 19-20 weeks. Serial growth [...] Khalil RN 04/20/2024 [facility] 04/20/2024 Lawanda Khalil RN 04/20/2024 Problem Action Taken Date entered Entered by Date resolved Current needs or questions Patient denies having any current needs or questions 05/19/2024 Anne Bhat RN 05/19/2024 Estimated Date of Delivery Comme nts Yes 07/13/2024 Based on Ultraso und documented as of this encounter (statuses as of 05/26/2024) Social History Tobacco Use Types Packs/Day Years [...] money to get more. Sometimes true 12/2023 [place] Depression Scale Answer Date Recorded [place] Depression Scale Total 3 05/19/2024 The thought [...] No 03/15/2024 Does the household have a [facility] hospit[facility] source of income? (Household - for ages [...] encounter Miscellaneous Notes * Telephone Encounter - Louise Ford LPN - 05/21/2024 11:27 AM EST [facility] with dosage change. 169mg methadone once daily. Split dose 123 in AM and 46 in the PM. documented in this encounter Plan of Treatment Upcoming Encounters Date Type Department Care Team (Late st Contact Info) Description 05/31/2024 10:00 AM EST Pharmacy Pharmacy, [place] [address] [place] [address] Clinic, [place] [address] [place] [address] 06/02/2024 11:30 AM EST Office Visit Gynecology/Obstetric s [facility] [place] [address] Backer, OJ Cavanaugh [address] [place] [address] Nurse [facility] [place] [facility] [place] [address] 06/04/2024 1:00 PM EST Hem/Onc Treatment Hematology/Oncology Treatment, [place] [address] [place] [phone] Simran, Chair 1 Hem Onc Sc[place] [address] [place] [address] Health Maintenance Due Date Last Done Comments [...] on patient's age to complete this topic Meningitis B Vaccine (Bexsero/Trumemba) Aged Out No longer eligible b ased on patient's age to complete this topic documented as of this encounter Medical Devices Not on filedocumented as of this encounter Care Teams Emergency Care Attendant Relationship Specialty Start Date End Date Alex Penaloza MD [address] [address] PCP - General Pediatrics 01/30/22 documented as of this encounter
--- OUTSIDE RECORDS SUMMARY | 2024-05-29 20:04 | External Medical Summary | Summary of Care ---
Author Name Unknown Organization [facility] Address [address] [facility] [address] Phone [phone] Care Team Providers Care Customer Services Coordinator Name Role Phone Alex Penaloza MD Primary Care Provider + Reason for Visit * Reason Onset Date Comments Other 05/18/2024 InFed Encounter Details Date Type Department Care Team (Late st Contact Info) Description 05/18/2024 Telephone Hematology/Oncology Treatment, [place] [address] [place] [address] Nuzhat Amezquita PA-C [address] [place] [address] Other (InFed) Allergies No known active allergiesdocumented [...] the future. Tobacco smoking affecting in [facility] 02/18/2024 Overview (05/03/2024): Currently smoking 1-2 cigarettes/day [...] and folate levels and referral to a labor economics professor. If hemoglobin levels are below 8 g/dl, we recommend Maternal Medicine ultrasound for growth every 4 weeks after 24 weeks. Consider a blood transfusion if hemoglobin levels fall below 6 g/dL. ([employer] and Brush Worker Practice Bulletin Number 95, October,). Consider Venofer transfusions if patient labs supportive of iron deficiency anemia with dosing of 300 mg IV weekly x 3 weeks Methadone maintenance treatment affecting pregna ncy 02/16/2024 Overview (05/03/2024): Dose as of 05/03/2024 per [facility]: 110 mg of methadone in [...] all times; naloxone is available at all [place] pharmacies without a prescription. Methadone and buprenorphine [...] for Reviewed nutrition in NOB booklet. 01/09/2024 Maadi Wei RN 01/09/24 Problem Action Taken Date [...] Khalil RN 04/20/2024 [facility] pump sent to [facility] 04/20/2024 Lawanda Khalil RN 04/20/2024 Estimated Date [...] money to get more. Sometimes true 12/2023 [place] Depression Scale Answer Date Recorded [place] Depression Scale Total 8 03/15/2024 The thought [...] encounter Miscellaneous Notes * Telephone Encounter - Helena Mc RN - 05/19/2024 7:44 AM EST [place] is signed. Scheduling: please call patient to schedule 3 hour appt "infed" (Nuzhat Amezquita). Thanks! * Telephone Encounter - Joseline Amezquita LPN - 05/18/2024 8:37 AM EST Order received for InFed [place] plan built and routed to p [id number] No prior authorization required Awaiting provider signature before scheduling patient. documented in this encounter Plan of Treatment Upcoming Encounters Date Type Department Care Team (Late st Contact Info) Description 05/19/2024 12:30 PM EST Imaging Radiology [facility] 2nd [facility] [address] [facility] [place] [address] 05/19/2024 1:15 PM EST Office Visit Gynecology/Obstetrics [facility] [address] [facility] [place] [address] Backer, OJ Cavanaugh [address] [place] [address] Nurse [facility] Beginning Return [facility] [address] [facility] [place] [address] 05/31/2024 10:00 AM EST Pharmacy Pharmacy[address] [address] Clinic, [place] [address] [place] [address] Health Maintenance Due Date Last Done Comments [...] filedocumented as of this encounter Care Teams Customer Services Coordinator Relationship Specialty Start Date End Date Alex Penaloza MD [address] [address] PCP - General Pediatrics 01/30/22 documented as of this encounter
--- OUTSIDE RECORDS SUMMARY | 2024-05-29 20:04 | External Medical Summary | Summary of Care ---
Author Name Unknown Organization [facility] Address [address] [facility] [place] [address] Phone [phone] Care Team Providers Care Behavioral Intervention Specialist Name Role Phone Alex Penaloza MD Primary Care Provider + Reason for Visit * Reason Comments Return Visit Encounter Details Date Type Department Care Team (Late st Contact Info) Description 05/19/2024 1:15 PM EST Office Visit Gynecology/Obstetri jeana Wall 132 [facility] [place] [address] Joseline Navarro CRNP [address] [place] [address] Nurse Regino [facility] Return [place] 132 [facility] [place] [address] Supervision of high-risk , unspecified trimester*; Methadone [...] in the future. Tobacco smoking affecting in [facility] 02/18/2024 Overview (05/03/2024): Currently smoking 1-2 [...] and folate levels and referral to a hydrogeologist. If hemoglobin levels are below 8 g/dl, we recommend Maternal Medicine ultrasound for growth every 4 weeks after 24 weeks. Consider a blood transfusion if hemoglobin levels fall below 6 g/dL. ([employer] Window Dresser Practice Bulletin Number 95, October,). Consider Venofer transfusions if patient labs supportive of iron deficiency anemia with dosing of 300 mg IV weekly x 3 weeks Methadone maintenance treatment affecting pregna ncy 02/16/2024 Overview (05/03/2024): Dose as of 05/03/2024 per [facility]: 110 mg of methadone in [...] all times; naloxone is available at all [place] pharmacies without a prescription. Methadone and buprenorphine [...] money to get more. Sometimes true 12/2023 [place] Depression Scale Answer Date Recorded [place] Depression Scale Total 3 05/19/2024 The thought [...] growth scans here, has difficulty getting to [place]. Agreeable to see MFM if clinically indicated by u/s findings. Planning on abstinence . 2 week return OJ Michele documented in this encounter Nursing Notes * Anne Bhat RN - 05/19/2024 1:42 PM EST Patient seen by [facility] Probation Worker. Patient denies any questions or concerns. Waiting on breast pump order, tomorrow health waiting on form from provider, will send today. Patient aware to watch out for call from supplier. Anne Bhat RN documented in this encounter Plan of Treatment Upcoming Encounters Date Type Department Care Team (Late st Contact Info) Description 05/28/2024 12:00 PM EST Hem/Onc Treatment Hematology/Oncology Treatment, [address] [phone] Simran, Chair 9 Hem Onc [address] [address] 05/31/2024 10:00 AM EST Pharmacy Pharmacy, [place] [address] [place], [place] [phone] Clinic, [place] [address] [place] [address] 06/02/2024 11:30 AM EST Office Visit Gynecology/Obstetric s [facility] [place] [address] Joseline Navarro CRNP [address] [place] [address] Nurse Regino Wall Return [place] [facility] [place] [address] Health Maintenance Due Date Last Done Comments [...] antepartum documented in this encounter Care Teams Behavioral Intervention Specialist Relationship Specialty Start Date End Date Alex Penaloza MD [address] [address] PCP - General Pediatrics 01/30/22 documented as of this encounter
--- OUTSIDE RECORDS SUMMARY | 2024-05-29 20:04 | External Medical Summary | Summary of Care ---
Author Name Unknown Organization [facility] Address [address] [place] [address] Phone [phone] Care Team Providers Care Ems Helicopter Pilot Name Role Phone Alex Penaloza MD Primary Care Provider + Reason for Visit * Reason Onset Date Comments Referral 04/22/2024 Encounter Details Date Type Department Care Team (Late st Contact Info) Description 04/22/2024 Telephone Grinder Setup Operator Obstetrics Maternal Medicine, [place] [address] [place] [address] [place], Nurse Grinder Setup Operator [facility] [address] [place] [address] Referral Allergies No known active allergiesdocumented as of [...] in the future. [facility] 02/18/2024 Overview (05/03/2024): Currently smoking 1-2 [...] and folate levels and referral to a network engineering advisor. If hemoglobin levels are below 8 g/dl, we recommend Maternal Medicine ultrasound for growth every 4 weeks after 24 weeks. Consider a blood transfusion if hemoglobin levels fall below 6 g/dL. ([employer] Obst[employer]ians and Body Rolling Machine Tender Practice Bulletin Number 95, October,). Consider Venofer transfusions if patient labs supportive of iron deficiency anemia with dosing of 300 mg IV weekly x 3 weeks Methadone maintenance treatment affecting pregna ncy 02/16/2024 Overview (05/03/2024): Dose as of 05/03/2024 per [facility]: 110 mg of methadone in the [...] all times; naloxone is available at all [place] pharmacies without a prescription. Methadone and buprenorphine [...] Khalil RN 04/20/2024 [facility] 04/20/2024 Lawanda Khalil RN 04/20/2024 Estimated [...] money to get more. Sometimes true 12/2023 [place] Depression Scale Answer Date Recorded [place] Depression Scale Total 8 03/15/2024 The thought [...] 03/15/2024 Does the household have a re lar source of income? (Household - for ages [...] encounter Miscellaneous Notes * Telephone Encounter - Nancy Ott OSA - 05/19/2024 9:16 AM EST Jocelin called to schedule her cancelled appt but was apprehensive to schedule due to travel. She said she would talk to her OB and call us back. * Telephone Encounter - Nancy Ott OSA - 04/30/2024 9:16 AM EST Spoke with Jocelin. Appointment scheduled. Patient aware of date, time and location of Maternal Medicine appointment. * Telephone Encounter - Lawanda Montgomery CCMA - 04/30/2024 9:04 AM EST Patient no-showed OUTSIDE MACHINIST consult 04/29, please contact to reschedule. * Telephone Encounter - Nancy Ott OSA - 04/22/2024 1:36 PM EST Spoke with Jocelin. Appointment scheduled. Patient aware of date, time and location of Maternal Medicine appointment. * Telephone Encounter - Lawanda Montgomery CCMA - 04/22/2024 1:13 PM EST Estimated Date of Delivery: 07/13/24 Please schedule for 45 MINUTE CONSULT SIMPLE MEDICAL WITH OUTSIDE MACHINIST, in time frame of next available or atpatient's earliest convenience at location [facility] with the indication of methadone maintenance treatment, hx HepC. Please schedule anatomy within 1-3 weeks. Referring Provider: Ailin Killian CRNP documented in this encounter Plan of Treatment Upcoming Encounters Date Type Department Care Team (Late st Contact Info) Description 05/19/2024 12:30 PM EST Imaging Radiology [facility] 2nd Floor, [place] [facility] [address] 05/19/2024 1:15 PM EST Office Visit Gynecology/Obstetric s [facility] 132 [facility] [place] [address] Backer, OJ Cavanaugh [facility] [address] Nurse [facility] 132 [place] [address] 05/28/2024 12:00 PM EST Hem/Onc Treatment Hematology/Oncology Treatment, [place] 200 [facility] [place] [phone] Simran, Chair 9 Hem On[address] [address] 05/31/2024 10:00 AM EST Pharmacy Pharmacy, [place] [address] [place], [place] [phone] Clinic, [place] [address] [place], [place] [phone] Health Maintenance Due Date Last Done Comments [...] filedocumented as of this encounter Care Teams Ems Helicopter Pilot Relationship Specialty Start Date End Date Alex Penaloza MD [address] [address] PCP - General Pediatrics 01/30/22 documented as of this encounter
--- OUTSIDE RECORDS SUMMARY | 2024-05-29 20:05 | External Medical Summary | Summary of Care ---
Author Name Unknown Organization [facility] Address [address] [facility] [place] [address] Phone [phone] Care Team Providers Care Fish Smoker Name Role Phone Alex Penaloza MD Primary Care Provider + Encounter Details Date Type Department Care Team (Late st Contact Info) Description 04/09/2024 Telephone Gynecology/Obstetrics [place] [id number] [place], [place] [id number] Nuzhat Amezquita PA-C [address] [facility] [place] [address] Allergies No known active allergiesdocumented as of this encounter (statuses as of 05/14/2024) Medications Methadone HCl 10 MG/ML Oral Concentrate Take 14.3 mL by mouth. 110 mg in the morning and 33 mg in the evening Active Iron-Vitamin C 65-125 MG Oral Tablet (Vitron C)Indications:Ant epartum anemia complicating Take 1 Tablet by mouth in the morning and 1 Tablet before bedtime. 60 Tablet 3 Active documented as of this encounter (statuses as of 05/14/2024) Active Problems Problem Noted Date Diagnosed Date Supervision of high-risk , unspecified trimester 04/20/2024 [...] in the future. Tobacco smoking affecting in [facility] 02/18/2024 Overview (05/03/2024): Currently smoking [...] and folate levels and referral to a library circulation assistant. If hemoglobin levels are below 8 g/dl, we recommend Maternal Medicine ultrasound for growth every 4 weeks after 24 weeks. Consider a blood transfusion if hemoglobin levels fall below 6 g/dL. ([employer] [facility] [employer] Practice Bulletin Number 95, October,). Consider Venofer transfusions if patient labs supportive of iron deficiency anemia with dosing of 300 mg IV weekly x 3 weeks Methadone maintenance treatment affecting pregna ncy 02/16/2024 Overview (05/03/2024): Dose as of 05/03/2024 per [facility]: 110 mg of methadone in the [...] all times; naloxone is available at all [place] pharmacies without a prescription. Methadone and buprenorphine [...] Khalil RN 04/20/2024 [facility] 04/20/2024 Lawanda Khalil RN 04/20/2024 Estimated Date of Delivery Comme nts Yes 07/13/2024 Based on Ultraso und documented as of this encounter (statuses as of 05/14/2024) Social History Tobacco Use Types Packs/Day Years [...] money to get more. Sometimes true 12/2023 Wallace Depression Scale Answer Date Recorded Wallace Depression Scale Total 8 03/15/2024 The thought [...] encounter Miscellaneous Notes * Telephone Encounter - Lawanda Khalil RN - 04/09/2024 8:23 AM EST Giovana Salguero from [facility]. She wanted to update our office on pts dosage. Pt takes 110mg of methadone in the am and 33 mg of methadone in the pm for a total of 143 mg of methadone. Message to Nuzhat as FYKelly documented in this encounter Plan of Treatment Upcoming Encounters Date Type Department Care Team (Late st Contact Info) Description 05/17/2024 4:00 PM EST Pharmacy Pharmacy, [address] [address] Clinic, [address] [address] 05/19/2024 12:30 PM EST Imaging Radiology [facility] 2nd [facility] [address] [place] [address] 05/19/2024 1:15 PM EST Office Visit Gynecology/Obstetrics [facility] [address] [place] [address] [place], OJ Cavanaugh [address] [place] [address] Nurse [facility] [address] [place] [address] Health Maintenance Due Date Last Done Comments [...] filedocumented as of this encounter Care Teams Fish Smoker Relationship Specialty Start Date End Date Alex Penaloza MD [address] [address] PCP - General Pediatrics 01/30/22 documented as of this encounter
--- OUTSIDE RECORDS SUMMARY | 2024-05-29 20:05 | External Medical Summary | Summary of Care ---
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 Yes Date performed 01/09/2024 Location performed Radiology Reason for referral Medication exposure Please provide additional details methadone, history of Hep C Where should this appointment be scheduled? [facility] Comments /Para: LMP: No LMP recorded (lmp unknown). Patient is . SUSAN: 07/13/2024, by Ultrasound Pre-Gravid BMI: Could not be calculated Reason for Visit * Reason Onset Date Comments Appointment 04/20/2024 Encounter Details Date Type Department Care Team ([facility] st Contact Info) Description 04/20/2024 Telephone Gynecology/Obstetrics Brynn [facility] [address] [place] [address] Garry Killian CRNP [address] [place] [address] Appointment Allergies No known active allergiesdocumented as of this encounter (statuses as of 04/22/2024) Medications Methadone HCl 10 MG/ML Oral Concentrate Take 14.3 mL by mouth. 110 mg in the morning and 33 mg in the evening Active Iron-Vitamin C 65-125 MG Oral Tablet (Vitron C)Indications:Ant epartum anemia complicating Take 1 Tablet by mouth in the morning and 1 Tablet before bedtime. 60 Tablet 3 Active documented as of this encounter (statuses as of 04/22/2024) Active Problems Problem Noted Date Diagnosed Date Supervision of high-risk , unspecified trimester 04/20/2024 Food insecurity 04/19/2024 Overview: Per [facility] Protocol History of hepatitis C 02/18/2024 Overview (02/18/2024): S/p treatment 1-2 years ago following of second child Tobacco use 02/18/2024 Overview (02/18/2024): Cut back with KOP. Smoking 1-2 cigarettes daily Recommended she continue to cut back and quit Marijuana use during 02/18/2024 Overview (02/18/2024): Medical per patient. Using a couple times weekly to help with sleep. Counseled on risk in and . Advised she not use. Antepartum anemia complicating 024 Overview (02/18/2024): Hgb 10.8 with NOB labs at 18 weeks Pt to start PO iron BID Recheck in 4 weeks Methadone maintenance treatment affecting pregna ncy 02/16/2024 Overview (04/09/2024): Declines M. Ask a doc sent to [facility] with following recommendations: I would recommend ultrasound evaluation is for growth every 4 weeks. In terms of care, I would recommend routine care With respect to delivery, timing should be based on obstetrical indications only. I would also place a [facility] for the care Dose as of 04/09/2024 per [facility]: 110 mg of methadone in the am and 33 mg of methadone in the pm for a total of 143 mg of methadone Health counseling 01/09/2024 Overview (04/20/2024): Problem Action [...] Khalil RN 04/20/2024 Desires pump sent to [facility] 04/20/2024 Lawanda Khalil RN 04/20/2024 Estimated Date of Delivery Comme nts Yes 07/13/2024 Based on Ultraso und documented as of this encounter (statuses as of 04/22/2024) Social History Tobacco Use Types Packs/Day Years [...] money to get more. Sometimes true 12/2023 [place] Depression Scale Answer Date Recorded [place] Depression Scale Total 8 03/15/2024 The thought [...] ages 0-17 years) Not on file 03/15/2024 Estimated Date of Delivery Comme nts Yes 07/13/2024 Based on Ultraso und Sex and Gender Information Value Date Recorded Sex Assigned at Female 03/15/2024 11:46 AM EST Legal Sex Female 6:21 AM EST Gender Identity Female 03/15/2024 11:46 AM EST Sexual Orientation Straight 03/15/2024 11 :46 AM EST documented as of this encounter Miscellaneous Notes * Addendum Note - Garry Killian CRNP - 04/22/2024 1:03 PM ESTAddended by: GARRY KILLIAN on: 04/22/2024 01:03 PM Modules accepted: Orders * Telephone Encounter - Nancy Ott OSA - 04/21/2024 8:57 AM EST Phone call to patient. Left message on [employer] voice mail. Encouraged patient to return call to [phone] to assist with scheduling. * Telephone Encounter - Vivian Herrera CMA - 04/20/2024 3:34 PM EST Patient agreeable to scheduling appointments with M. Initially declined due to travel. Referral is already placed and active. Please reach out to patient to schedule. documented in this encounter Plan of Treatment Upcoming Encounters Date Type Department Care Team (Late st Contact Info) Description 05/19/2024 12:30 PM EST Imaging Radiology [facility] [address] [place] [address] 05/19/2024 1:15 PM EST Office Visit Gynecology/Obstetrics [address] [place] [address] Backer, OJ Cavanaugh [address] [place] [address] Nurse [facility] [place] [address] [place] [address] Scheduled Orders Name Type Priority Associated Diagnoses Orde r Schedule MFM US MATERNAL 1ST FETUS Medical Imaging Routine Supervision of high-risk , unspecified trimester 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) History of hepatitis C Expected: 04/22/2024, Expires: 05/23/2025 Scheduled Referrals Name Type Priority Associated Diagnoses Orde r Schedule MATERNAL MEDICINE REFERRAL OP Referral Within 10 days (routine) Supervision of high-risk , unspecified trimester 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
--- OUTSIDE RECORDS SUMMARY | 2024-05-29 20:05 | External Medical Summary | Summary of Care ---
Author Name Unknown Organization [facility] Address [address] [place] [address] Phone [phone] Care Team Providers Care Fire Prevention Chief Name Role Phone Alex Penaloza MD Primary Care Provider + Reason for Visit * Reason Onset Date Comments Referral 04/22/2024 Encounter Details Date Type Department Care Team (Late st Contact Info) Description 04/22/2024 Telephone Health Information Managers Obstetrics Maternal Medicine, [place] [address] [place] [address] [place], Nurse Health Information Managers [facility] [address] [place] [address] Referral Allergies No known active allergiesdocumented as of this encounter (statuses as of 04/30/2024) Medications Methadone HCl 10 MG/ML Oral Concentrate [...] as of this encounter (statuses as of 04/30/2024) Active Problems Problem Noted Date Diagnosed Date Supervision of high-risk , unspecified trimester 04/20/2024 Food insecurity 04/19/2024 Overview: Per [facility] Protocol History of hepatitis C 02/18/2024 Overview (04/28/2024): S/p treatment 1-2 years ago following of second child 02/16/2024: HCV RNA Result Negative. No HCV RNA detected. Negative. No HCV RNA detected. Tobacco use 02/18/2024 Overview (02/18/2024): Cut back [...] affecting pregna ncy 02/16/2024 Overview (04/09/2024): Declines MF. [facility] a doc sent [facility] with following recommendations: I would recommend ultrasound evaluation is for growth every 4 weeks. In terms of care, I would recommend routine care With respect to delivery, timing should be based on obstetrical indications only. I would also place a [facility] counseling for the care Dose as of 04/09/2024 per [facility]: 110 mg of methadone in [...] Khalil RN 04/20/2024 Desires pump sent to [facility] 04/20/2024 Lawanda Khalil RN 04/20/2024 Estimated Date of Delivery Comme nts Yes 07/13/2024 Based on Ultraso und documented as of this encounter (statuses as of 04/30/2024) Social History Tobacco Use Types Packs/Day Years [...] money to get more. Sometimes true 12/2023 [place] Depression Scale Answer Date Recorded [place] Depression Scale Total 8 03/15/2024 The thought [...] Miscellaneous Notes * Telephone Encounter - Lawanda Montgomery CCMA - 04/30/2024 9:04 AM EST Patient no-showed STATIC BALANCER consult 04/29, please contact to reschedule. * Telephone Encounter - Brosious, Nancy, PAOLA - 04/22/2024 1:36 PM EST Spoke with Jocelin. Appointment scheduled. Patient aware of date, time and location of Maternal Medicine appointment. * Telephone Encounter - Lawanda Montgomery CCMA - 04/22/2024 1:13 PM EST Estimated Date of Delivery: 07/13/24 Please schedule for 45 MINUTE CONSULT SIMPLE MEDICAL WITH STATIC BALANCER, in time frame of next available or atpatient's earliest convenience at location [facility] with the indication of methadone maintenance treatment, hx HepC. Please schedule anatomy within 1-3 weeks. Referring Provider: Ailin Killian CRNP documented in this encounter Plan of Treatment Upcoming Encounters Date Type Department Care Team (Late st Contact Info) Description 05/03/2024 4:00 PM EST Pharmacy Pharmacy, [address] [address] Clinic, [place] [address] [place] [address] 05/10/2024 12:45 PM EST Office Visit Health Information Managers Obstetrics Maternal Medicine, [address] [address] Mark Anthony Feliz MD [facility] [place] [address] 05/10/2024 12:45 PM EST Imaging Radiology [facility], [address] [address] 05/19/2024 12:30 PM EST Imaging Radiology [facility] 2nd [facility] [address] [facility] [place] [address] 05/19/2024 1:15 PM EST Office Visit Gynecology/Obstetrics [facility] [address] [place] [address] Back[place], OJ Cavanaugh [address] [place] [address] Nurse [facility] [place] [address] [place] [address] Health Maintenance Due Date Last Done Comments [...] filedocumented as of this encounter Care Teams Fire Prevention Chief Relationship Specialty Start Date End Date Alex Penaloza MD [address] [place] [address] PCP - General Pediatrics 01/30/22 documented as of this encounter
--- OUTSIDE RECORDS SUMMARY | 2024-05-29 20:05 | External Medical Summary | Summary of Care ---
Author Name Unknown Organization [facility] Address [address] [place] [address] Phone [phone] Care Team Providers Care Artillery Specialist Name Role Phone Alex Penaloza MD Primary Care Provider + Reason for Visit * Reason Onset Date Comments Referral 04/22/2024 Encounter Details Date Type Department Care Team (Late st Contact Info) Description 04/22/2024 Telephone Extracorporeal Technician Obstetrics Maternal Medicine, [place] [address] [place] [address] [place], Nurse Extracorporeal Technician [facility] [address] [place] [address] Referral Allergies No known active [...] trimester 04/20/2024 Food insecurity 04/19/2024 Overview: Per [facility] Protocol History of hepatitis C 02/18/2024 [...] Declines MF. Ask a doc sent to [facility] with following recommendations: I would recommend ultrasound evaluation is for growth every 4 weeks. In terms of care, I would recommend routine care With respect to delivery, timing should be based on obstetrical indications only. I would also place a [facility] for the care Dose as of 04/09/2024 per [facility]: 110 mg of methadone in the [...] Khalil RN 04/20/2024 Desires pump sent to [employer] [facility] 04/20/2024 Lawanda Khalil RN 04/20/2024 Estimated Date [...] money to get more. Sometimes true 12/2023 [place] Depression Scale Answer Date Recorded [place] Depression Scale Total 8 03/15/2024 The thought [...] - 04/30/2024 9:04 AM EST Patient no-showed MACHINE STRIPPER consult 04/29, please contact to reschedule. * Telephone Encounter - Nancy Ott OSA - 04/22/2024 1:36 PM EST Spoke with Jocelin. Appointment scheduled. Patient aware of date, time and location of Maternal Medicine appointment. * Telephone Encounter - Lawanda Montgomery CCMA - 04/22/2024 1:13 PM EST Estimated Date of Delivery: 07/13/24 Please schedule for 45 MINUTE CONSULT SIMPLE MEDICAL WITH MACHINE STRIPPER, in time frame of next available or atpatient's earliest convenience at location [facility] with the indication of methadone maintenance treatment, hx HepC. Please schedule anatomy within 1-3 weeks. Referring Provider: Ailin Killian CRNP documented in this encounter Plan of Treatment Upcoming Encounters Date Type Department Care Team (Late st Contact Info) Description 05/03/2024 8:10 AM EST Telemedicine Extracorporeal Technician Obstetrics Maternal Medicine [facility], Dez Calvin [address] [facility] [place] [address] Yuri Crump CRNP [address] [address] 05/03/2024 4:00 PM EST Pharmacy Pharmacy, [place] [address] [place] [address] Clinic, [facility] [address] [place] [address] 05/10/2024 12:45 PM EST Office Visit Extracorporeal Technician Obstetrics Maternal Medicine, [place] [address] [place] [address] Mark Anthony Feliz MD [address] [place] [address] 05/10/2024 12:45 PM EST Imaging Radiology [facility], [place] [address] [place] [address] 05/19/2024 12:30 PM EST [facility] [place] [address] 05/19/2024 1:15 PM EST Office Visit Gynecology/Obstetrics [facility] [place] [address] [place], OJ Cavanaugh 132 [facility] [place] [address] Nurse [facility] 132 [place] [address] Health Maintenance Due Date Last Done Comments [...] filedocumented as of this encounter Care Teams Artillery Specialist Relationship Specialty Start Date End Date Alex Penaloza MD [address], [place] [address] PCP - General Pediatrics 01/30/22 documented as of this encounter
--- OUTSIDE RECORDS SUMMARY | 2024-05-29 20:05 | External Medical Summary | Summary of Care ---
Author Name Unknown Organization [facility] Address [address] [place] [address] Phone [phone] Care Team Providers Care Shot Man Name Role Phone Alex Penaloza MD Primary Care Provider + Reason for Visit * Reason Onset Date Comments Referral 04/22/2024 Encounter Details Date Type Department Care Team (Late st Contact Info) Description 04/22/2024 Telephone Occupational Health Nurse Supervisor Obstetrics Maternal Medicine, [place] [address] [place] [address] [place], Nurse Occupational Health Nurse Supervisor [facility] [address] [place] [address] Referral Allergies No known active [...] trimester 04/20/2024 Food insecurity 04/19/2024 Overview: Per [facility] Protocol History of hepatitis C [...] affecting pregna ncy 02/16/2024 Overview (04/09/2024): Declines [facility]. Ask a doc sent to [facility] with following recommendations: I would recommend ultrasound evaluation is for growth every 4 weeks. In terms of care, I would recommend routine care With respect to delivery, timing should be based on obstetrical indications only. I would also place a [facility] for the care [facility] of methadone in [...] Khalil RN 04/20/2024 Desires pump sent to [email or web address] 04/20/2024 Lawanda Khalil RN 04/20/2024 Estimated Date [...] money to get more. Sometimes true 12/2023 [place] Depression Scale Answer Date Recorded [place] Depression Scale Total 8 03/15/2024 The thought [...] No 03/15/2024 Does the household have a [facility] rehabilitation cent[facility] source of income? (Household - for ages [...] appointment. * Tele[facility] En[facility] - [facility]/22/[facility]24 1:13 PM EST Estimated Date of Delivery: 07/13/24 Please schedule for 45 MINUTE CONSULT SIMPLE MEDICAL WITH MANAGER OF REVENUE, in time frame of next available or atpatient's earliest convenience at location [facility] with the indication of methadone maintenance treatment, hx HepC. Please schedule anatomy within 1-3 weeks. Referring Provider: Ailin Killian CRNP documented in this encounter Plan of Treatment Upcoming Encounters Date Type Department Care Team (Late st Contact Info) Description 04/29/2024 2:10 PM EST Telemedicine Occupational Health Nurse Supervisor Obstetric [facility] [address] [place] [address] Sonia Stevenson CRNP [address] [place] [address] 05/10/2024 12:45 PM EST Office Visit Occupational Health Nurse Supervisor Obstetrics Maternal Medicine, [place] [address] [place] [address] Mark Anthony Feliz MD [address] [place] [address] 05/10/2024 12:45 PM EST Imaging Radiology [facility] [place], [place] [address] [place] [address] 05/19/2024 12:30 PM EST Imaging Radiology [facility] 2nd [facility] 132 [facility] [place] [address] 05/19/2024 1:15 PM EST Office Visit Gynecology/Obstetrics [facility] [address] [facility] [place] [address] Joseline Navarro CRNP [facility] [place] [address] Nurse [facility] [address] [facility] [address] Health Maintenance Due Date Last Done Comments [...] filedocumented as of this encounter Care Teams Shot Man Relationship Specialty Start Date End Date Alex Penaloza MD [address] [place] [address] PCP - General Pediatrics 01/30/22 documented as of this encounter
--- OUTSIDE RECORDS SUMMARY | 2024-05-29 20:05 | External Medical Summary | Summary of Care ---
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 [facility] Referral Reason methadone maintenance [facility] the [facility]? 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)*; Antepartum anemia complicating ; History of hepatitis C; Tobacco smoking affecting in third trimester; Marijuana use during ; Supervision of high risk , antepartum, third trimester; 29 weeks gestation of Allergies No known active allergiesdocumented as of this encounter (statuses as of 05/03/2024) Medications Methadone HCl 10 MG/ML Oral Concentrate [...] as of this encounter (statuses as of 05/03/2024) Active Problems Problem Noted Date Diagnosed Date Supervision of high-risk , unspecified trimester 04/20/2024 Food insecurity 04/19/2024 Overview: Per [facility] Protocol History of hepatitis C 02/18/2024 [...] the future. Tobacco smoking affecting in [facility] 02/18/2024 Overview (05/03/2024): Currently smoking 1-2 cigarettes/day [...] and folate levels and referral to a manager pool. If hemoglobin levels are below 8 g/dl, we recommend Maternal Medicine ultrasound for growth every 4 weeks after 24 weeks. Consider a blood transfusion if hemoglobin levels fall below 6 g/dL. ([employer] Bulletin Number 95, October,). Consider Venofer [...] all times; naloxone is available at all [place] pharmacies without a prescription. Methadone and buprenorphine are compatible with . RECOMMENDATIONS: MFM anatomy ultrasound at 19-20 weeks. Serial growth [...] Khalil RN 04/20/2024 Desires pump sent to [facility] 04/20/2024 Lawanda Khalil RN 04/20/2024 Estimated Date of Delivery Comme nts Yes 07/13/2024 Based on Ultraso und documented as of this encounter (statuses as of 05/03/2024) Social History Tobacco Use Types Packs/Day Years [...] money to get more. Sometimes true 12/2023 [place] Depression Scale Answer Date Recorded [place] Depression Scale Total 8 03/15/2024 The thought [...] No 03/15/2024 Does the household have a [facility] source [facility] income? (Household - for ages [...] AM EST documented as of this encounter Progress Notes * Yuri Crump CRNP - 05/03/2024 8:36 AM EST MATERNAL MEDICINE CONSULT Jocelin Loya 05/03/24 REFERRING PROVIDER: Ailin MCWILLIAMS Patient location: HOME. I was in a hospital or clinic location. After connecting through televideo,patient was verified with two unique identifiers. Patient (or authorized legal financial services representative) was then informed that this was a Telemedicine visit and being conducted confidentially over secure lines. Methods to assure confidentiality were taken. Patient acknowledged consent and understanding of pr ivacy and security of the Telemedicine visit. The patient agreed to participate. Jocelin Loya is a 33 year old with intrauterine at 29w6d (Estimated Date of Delivery: 07/13/24 by 13w3d ultrasound) who presents today for an MFM consult due to methadone maintenance, chronic viral hepatitis antibody positive, tobacco use, marijuana use, and anemia. HPI/CURRENT : pre- BMI=normal (114 lb; 5'); FOB #1; complicated by above. Genetic testing: Opted out OB Merlyn Wall [facility] Problems (from 01/09/24 to present) Problem Noted Diagnosed Resolved Supervision of high-risk , unspecified trimester History of hepatitis C Overview Addendum 05/03/2024 8:25 AM by Yuri Crump CRNP S/p treatment 1-2 years ago following of second child Lab Results Component Value Date/Time HEPATITIS C ANTIBODY - [facility] Positive (A) 02/16/2024 02:22 PM HCV RNA RESULT TEXT - [facility] Negative. No HCV RNA detected. 02/16/2024 02:22 PM Tobacco smoking affecting in third trimester Overview Addendum 05/03/2024 8:29 AM by Yuri Crump CRNP Currently smoking 1-2 cigarettes/day which is a decrease from 10 cigarettes per day prior to the Marijuana use during Overview Addendum 05/03/2024 8:32 AM by Yuri Crump CRNP Reports medical marijuana Encouraged discontinued use Antepartum anemia complicating Overview Addendum 05/03/2024 8:25 AM by Yuri Crump CRNP Prescribed PO Iron with Vitamin C (not [...] 04:35 PM MCV 97.0 04/20/2024 04:35 PM Methadone maintenance treatment affecting (HCC) Overview Addendum 05/03/2024 8:23 AM by Yuri Crump CRNP Dose as of 05/03/2024 per [facility]: 110 mg of methadone in the am and 33 mg of methadone in the pm for a total of 143 mg of methadone Denies cravings or withdrawal symptoms at current dose. 05/03/24 [facility] I have reviewed this patient's previous OB ultrasound reports, pertinent labwork and testing provided by her referring OB provider. Current Outpatient Medications Medication Sig Dispense Refill Breast Pump Dispense double electric breast pump. Dx:Z39.1 1 Each 0 Iron-Vitamin C 65-125 MG Oral Tablet (Vitron C) Take 1 Tablet by mouth in the morning and 1 Tablet before bedtime. 60 Tablet 3 Methadone HCl 10 MG/ML Oral Concentrate Take 14.3 mL by mouth. 110 mg in the morning and 33 mg in the evening No current facility-administered medications for this visit. Review of patient's allergies indicates: No Known Allergies OB History Para Term AB Living 4 2 2 0 1 2 SAB IAB Ectopic Multiple Live Births 1 0 0 0 2 # Outcome Date GA Lbr Rangel/2nd Weight Sex Type Anes PTL Lv 4 Current 3 Term 12/26/21 40w0d 2.948 kg (6 lb 8 oz) M Vag-Spont LUDIN Comments: FOB#1; meconium aspriation 2 Term 07/14/20 40w5d 3.317 kg (7 lb 5 oz) F Vag-Spont LUDIN Comments: FOB #1; no complications 1 SAB 04/13/20 FD Past Medical History: Diagnosis Date History of hepatitis C 02/18/2024 S/p treatment 1-2 years ago following of second child Marijuana use Methadone dependence (HCC) Tobacco use 02/18/2024 Cut back with KOP. Smoking 1-2 cigarettes daily Recommended she continue to cut back and quit Past Surgical History: Procedure Laterality Date CO UPPER ARM/ELBOW SURGERY UNLISTED 2009 Family History Problem Relation Name Age of Onset Non-Hodgkins Lymphoma Father Leukemia Grandfather (Paternal) No Known Problems Daughter No Known Problems Son Social History Tobacco Use Smoking status: Every Day Smokeless tobacco: Never Tobacco comments: 2/day Vaping Use Vaping status: Former Substance Use Topics Alcohol use: Not Currently Drug use: Yes Types: Opium, Marijuana Comment: current use of marijuana (medical card) REVIEW OF SYSTEMS: headaches: no nausea/vomiting: denies reports movement: yes abdominal pain/tenderness/cramping/contractions: no vaginal bleeding: no vaginal leaking of fluid: no all other systems negative PHYSICAL EXAM: LMP (LMP Unknown) General: Well appearing Psych: Alert to time, place, and person and Pleasant DISCUSSION/RECOMMENDATIONS: Problem List Items Addressed This Visit OB Merlyn Wall [facility] Antepartum anemia complicating CONSIDERATIONS: Severe maternal anemia (hemoglobin levels below [...] blood conservation program after oral therapy has failed)as indicated to keep hemoglobin level above 11 g/dl during . Oral iron should be taken with orange juice. If anemia studies do not reflect iron deficiency anemia we recommend checking TSH, B12 and folate levels and referral to a manager pool. If hemoglobin levels are below 8 g/dl, we recommend Maternal Medicine ultrasound for growth every 4 weeks after 24 weeks. Consider a blood transfusion if hemoglobin levels fall below 6 g/dL. ([employer] Bulletin Number 95, October,). Consider Venofer transfusions if patient labs supportive of iron deficiency anemia with dosing of 300 mg IV weekly x 3 weeks History of hepatitis C Discussed that patient clinically does not meet the criteria for viral Hepatitis C secondary to previously negative viral load prior to , and therefore, not placing an increased risk for vertical transmission to the fetus during labor. However, we recommend updated HCV viral load in each to evaluate patient's current status, and consider referral to gastroenterology provider asclinically indicated. If HCV viral load remains negative, patient was instructed to follow up with her primary care provider and/or gastroenterology for routine monitoring, recommendations, and treatment options should patient seroconvert for the virus in the future. Marijuana use during CONSIDERATIONS: Chemicals found in marijuana, such as [...] which there are better -specific safety data. Methadone maintenance treatment affecting (HCC) - Primary (Chronic) CONSIDERATIONS: Methadone or buprenorphine maintenance therapy during [...] all times; naloxone is available at all [place] pharmacies without a prescription. Methadone and buprenorphine are compatible with . RECOMMENDATIONS: MFM anatomy ultrasound at 19-20 weeks. Serial growth [...] [facility] Relevant Orders [facility] OP Tobacco smoking affecting in third trimester Strongly advised patient to stop using tobacco. [...] is if those around you do not smokeas well. Other Visit Diagnoses Supervision of high risk , antepartum, third trimester 29 weeks gestation of Follow up ultrasound with Maternal Medicine is scheduled on 05/10/[address] Feliz for anatomy scan secondary to methadone maintenance, chronic viral hepatitis antibody positive, tobacco use,marijuana use, and anemia. Patient is aware of upcoming MFM appointment. OJ Hebert 05/03/2024 8:43 AM documented in this encounter Miscellaneous Notes * Assessment & Plan Note - Yuri Crump CRNP - 05/03/2024 8:35 AM EST Associated Problem(s): Antepartum anemia complicating CONSIDERATIONS: Severe maternal anemia (hemoglobin levels below [...] blood conservation program after oral therapy has failed)as indicated to keep hemoglobin level above 11 g/dl during . Oral iron should be taken with orange juice. If anemia studies do not reflect iron deficiency anemia we recommend checking TSH, B12 and folate levels and referral to a manager pool. If hemoglobin levels are below 8 g/dl, we recommend Maternal Medicine ultrasound for growth every 4 weeks after 24 weeks. Consider a blood transfusion if hemoglobin levels fall below 6 g/dL. ([employer] Bulletin Number 95, October,). Consider Venofer transfusions if patient labs supportive of iron deficiency anemia with dosing of 300 mg IV weekly x 3 weeks * Assessment & Plan Note - Yuri Crump CRNP - 05/03/2024 8:32 AM EST Associated Problem(s): Marijuana use during CONSIDERATIONS: Chemicals found in marijuana, such as [...] which there are better -specific safety data. * Assessment & Plan Note - Yuri Crump CRNP - 05/03/2024 8:30 AM EST Associated Problem(s): Tobacco smoking affecting in third trimester Strongly advised patient to stop using tobacco. [...] is if those around you do not smokeas well. * Assessment & Plan Note - Yuri Crump CRNP - 05/03/2024 8:27 AM EST Associated Problem(s): History of hepatitis C Discussed that patient clinically does not meet the criteria for viral Hepatitis C secondary to previously negative viral load prior to , and therefore, not placing an increased risk for vertical transmission to the fetus during labor. However, we recommend updated HCV viral load in each to evaluate patient's current status, and consider referral to gastroenterology provider asclinically indicated. If HCV viral load remains negative, patient was instructed to follow up with her primary care provider and/or gastroenterology for routine monitoring, recommendations, and treatment options should patient seroconvert for the virus in the future. * Assessment & Plan Note - Yuri Crump CRNP - 05/03/2024 8:21 AM EST Associated Problem(s): Methadone maintenance treatment affecting (HCC) CONSIDERATIONS: Methadone or buprenorphine maintenance therapy during [...] all times; naloxone is available at all [place] pharmacies without a prescription. Methadone and buprenorphine are compatible with . RECOMMENDATIONS: MFM anatomy ultrasound at 19-20 weeks. Serial growth [...] [facility]. documented in this encounter Plan of Treatment Upcoming Encounters Date Type Department Care Team (Late st Contact Info) Description 05/03/2024 4:00 PM EST Pharmacy Pharmacy, [place] [address] [place] [address] [place] [address] [place] [address] 05/10/2024 12:45 PM EST Office Visit [facility] Obst[facility]s Maternal Medicine, [place] [address] [place] [address] Mark Anthony Feliz MD [address] [place] [address] 05/10/2024 12:45 PM EST Imaging Radiology [facility] [place] [address] [place] [address] 05/19/2024 12:30 PM EST Imaging Radiology [facility] 2nd [facility] [address] [facility] [place] [address] 05/19/2024 1:15 PM EST Office Visit Gynecology/[facility]stetrics [facility] [address] BackerJoseline CRNP 132 [facility] [place] [address] Nurse [facility] 132 [place] [address] Scheduled Referrals Name Type Priority Associated Diagnoses Orde r Schedule [facility] Referral Within 10 days (routine) 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
--- OUTSIDE RECORDS SUMMARY | 2024-05-29 20:05 | External Medical Summary | Summary of Care ---
Author Name Unknown Organization [facility] Address [address] [place] [address] Phone [phone] Care Team Providers Care Insolvency Consultant Name Role Phone Alex Penaloza MD Primary Care Provider + Reason for Visit * Reason Comments Dosage Adjustment Via Phone (anticoag Cl inic) Anemia Follow-Up Encounter Details Date Type Department Care Team (Late st Contact Info) Description 05/17/2024 4:00 PM [facility] Pharmacy Pharmacy, [place] [address] [place] [address] Clinic, Anemia [address] [place] [address] Iron deficiency anemia, unspecified iron deficiency anemia type* Allergies No known active allergiesdocumented as of this encounter (statuses as of 05/18/2024) Medications Methadone HCl 10 MG/ML Oral Concentrate [...] as of this encounter (statuses as of 05/18/2024) Active Problems Problem Noted Date Diagnosed Date [...] in the future. Tobacco smoking affecting in [facility] 02/18/2024 Overview (05/03/2024): Currently smoking 1-2 cigarettes/day [...] and folate levels and referral to a refueling rampman. If hemoglobin levels are below 8 g/dl, we recommend Maternal Medicine ultrasound for growth every 4 weeks after 24 weeks. Consider a blood transfusion if hemoglobin levels fall below 6 g/dL. ([employer] Bulletin Number 95, October,). Consider Venofer transfusions if patient labs supportive of iron deficiency anemia with dosing of 300 mg IV weekly x 3 weeks Methadone maintenance treatment affecting pregna ncy 02/16/2024 Overview (05/03/2024): Dose as of 05/03/2024 per [facility]: 110 mg of methadone in the am [...] all times; naloxone is available at all [place] pharmacies without a prescription. Methadone and buprenorphine [...] Khalil RN 04/20/2024 Desires pump sent to [facility] 04/20/2024 Lawanda Khalil RN 04/20/2024 Estimated Date of Delivery Comme nts Yes 07/13/2024 Based on Ultraso und documented as of this encounter (statuses as of 05/18/2024) Social History Tobacco Use Types Packs/Day Years [...] money to get more. Sometimes true 12/2023 Ford Depression Scale Answer Date Recorded Ford Depression Scale Total 8 03/15/2024 The thought [...] No 03/15/2024 Does the household have a [facility] income? (Household - for [...] as of this encounter Progress Notes * Adrian Coffman RPh - 05/17/2024 4:43 PM EST Patient Phone Numbers Patient referred by Nuzhat Amezquita PA-C for evaluation of anemia by the Anemia Clinic. Called patient to introduce role/clinic and to review labs from 04/20/24. Hgb: 10.6 g/dL TSAT: 14 % Ferritin: 17 ng/mL B12: 525 pg/mL FA: 13.4 ng/mL GA: 31w3d Estimated Date of Delivery: 07/13/24 Hgb is below target range for the 3rd trimester. Iron studies below. B12 level within. FA level within. Per chart review patient is taking Vitron C twice daily Oral iron replenishment inadequate or contraindicated. Patient qualifies for IV iron repletion. Tentative Plan: Iron dextran (INFeD) 1000 mg IV x 1 dose. Orders placed and routed to appropriate parties. No pre-meds required. Follow-up labs to be scheduled ~4-6 weeks after iron repletion completed if appropriate prior to delivery. Will follow up in 1 week if no return call sooner. Anemia Clinic will continue to follow. Thank you for allowing us to participate in the care of thispatient. Adrian Coffman, Pharm.D Clinical Pharmacist [facility] Cardiology 05/17/2024, 4:44 PM * Adrian Coffman RPh - 05/17/2024 3:24 PM EST Patient Phone Numbers Patient referred by Nuzhat Amezquita PA-C for evaluation of anemia by the Anemia Clinic. Called patient to introduce role/clinic and to review labs from 04/20/24. LMOVM Hgb: 10.6 g/dL TSAT: 14 % Ferritin: 17 ng/mL B12: 525 pg/mL FA: 13.4 ng/mL GA: 31w3d Estimated Date of Delivery: 07/13/24 Hgb is below target range for the 3rd trimester. Iron studies below. B12 level within. FA level within. [facility] patient is taking Vitron C twice daily Oral iron replenishment inadequate or contraindicated. Patient qualifies for IV iron repletion. Tentative Plan: Iron dextran (INFeD) 1000 mg IV x 1 dose. Orders placed and routed to appropriate parties. no Pre-meds required. Follow-up labs to be scheduled ~4-6 weeks after iron repletion completed if appropriate prior to delivery. Will follow up in 1 week if no return call sooner. Anemia Clinic will continue to follow. Thank you for allowing us to participate in the care of thispatient. Adrian Coffman, PharmD Clinical Pharmacist [facility] (P: [phone]) 05/17/2024, 3:25 PM documented in this encounter Plan of Treatment Upcoming Encounters Date Type Department Care Team (Late st Contact Info) Description 05/19/2024 12:30 PM EST Imaging Radiology [facility] 2nd [facility] 132 [facility] [place] [address] 05/19/2024 1:15 PM EST Office Visit Gynecology/Obstetrics [facility] 132 [facility] [place] [address] BackerJoseline CRNP 132 [facility] [place] [address] Nurse [facility] [address] [facility] [place] [address] 05/31/2024 10:00 AM EST Pharmacy Pharmacy, [place] [address] [place] [address] Clinic, Anemia [facility] [place] [address] Health Maintenance Due Date Last Done Comments [...] trimester 29 weeks gestation of state, incidental Iron deficiency anemia, unspecified iron deficiency anemia type- Primary documented in this encounter Care Teams Insolvency Consultant Relationship Specialty Start Date End Date Alex Penaloza MD [address] [place] [address] PCP - General Pediatrics 01/30/22 documented as of this encounter
--- OUTSIDE RECORDS SUMMARY | 2024-05-29 20:05 | External Medical Summary | Summary of Care ---
Author Name Unknown Organization [facility] Address [address] [place] [address] Phone [phone] Care Team Providers Care Cloth Painter Name Role Phone Alex Penaloza MD Primary Care Provider + Encounter Details Date Type Department Care Team (Late st Contact Info) Description 05/18/2024 Orders Only Pharmacy, [place] [address] [place], [place] [phone] [facility] [address] [place], [place] [id number] Allergies No known active allergiesdocumented as of [...] trimester 04/20/2024 Food insecurity 04/19/2024 Overview: Per [facility] Protocol History of hepatitis C [...] in the future. [place] 02/18/2024 Overview (05/03/2024): Currently smoking 1-2 cigarettes/day [...] and folate levels and referral to a microbiology analyst. If hemoglobin levels are below 8 g/dl, we recommend Maternal Medicine ultrasound for growth every 4 weeks after 24 weeks. Consider a blood transfusion if hemoglobin levels fall below 6 g/dL. ([employer] Infantry [employer] Practice Bulletin Number 95, October,). Consider Venofer transfusions if patient labs supportive of iron deficiency anemia with dosing of 300 mg IV weekly x 3 weeks Methadone maintenance treatment affecting pregna ncy 02/16/2024 Overview (05/03/2024): Dose as of 05/03/2024 per [facility]: 110 mg of methadone in [...] and buprenorphine are compatible with . RECOMMENDATIONS: [facility] anatomy ultrasound at 19-20 weeks. Serial growth [...] Khalil RN 04/20/2024 [facility] 04/20/2024 Lawanda Khalil RN 04/20/2024 Estimated [...] money to get more. Sometimes true 12/2023 [place] Depression Scale Answer Date Recorded [place] Depression Scale Total 8 03/15/2024 The thought [...] AM EST documented as of this encounter Plan of Treatment Upcoming Encounters Date Type Department Care Team (Late st Contact Info) Description 05/19/2024 12:30 PM EST Imaging Radiology [facility] 2nd [facility] [place] [address] 05/19/2024 1:15 PM EST Office Visit Gynecology/Obstetrics [facility] [address] [facility] [place] [address] BackerJoseline CRNP [address] [place] [address] Nurse [facility] 132 [facility] [place] [address] 05/31/2024 10:00 AM EST Pharmacy Pharmacy, [place] [address] [place] [address] Clinic, [place] [address] [place] [address] Health Maintenance Due Date Last Done Comments [...] filedocumented as of this encounter Care Teams Cloth Painter Relationship Specialty Start Date End Date Alex Penaloza MD [address] [address] PCP - General Pediatrics 01/30/22 documented as of this encounter
--- OUTSIDE RECORDS SUMMARY | 2024-05-29 20:05 | External Medical Summary | Summary of Care ---
Author Name Unknown Organization [facility] Address [address] [place] [address] Phone [phone] Care Team Providers Care Fruit Farmworker Name Role Phone Alex Penaloza MD Primary Care Provider + Reason for Visit * Reason Comments Anemia Follow-Up * Evaluate & Treat - Unlimited Visits (Within 10 days (routine)) - Authorized Specialty Diagnoses / Procedures Referred By Contkhari t Referred To Contact Pharmacist / Pharmacy Diagnoses RA (iron deficiency anemia) Nuzhat Amezquita PA-C [address] [facility] [address] Phone: tel: fax: Referral ID Status Reason Start Date Expiration Date Visits Requested Visits Authorized [id number] Authorized Specialty Services Required 04/22/2024 10/19/2024 99 [phone] Encounter Details Date Type Department Care Team (Late st Contact Info) Description 05/07/2024 4:00 PM [facility] Pharm[facility] Pharmacy, [place] [address] [place], [place] [phone] Clinic, Anemia [address] [place] [address] Antepartum anemia complicating * Allergies No known active allergiesdocumented as of this encounter (statuses as of 05/07/2024) Medications Methadone HCl 10 MG/ML Oral Concentrate [...] as of this encounter (statuses as of 05/07/2024) Active Problems Problem Noted Date Diagnosed Date [...] the future. Tobacco smoking affecting in [facility] 02/18/2024 Overview (05/03/2024): Currently smoking 1-2 cigarettes/day [...] and folate levels and referral to a lead javascript engineer. If hemoglobin levels are below 8 g/dl, we recommend Maternal Medicine ultrasound for growth every 4 weeks after 24 weeks. Consider a blood transfusion if hemoglobin levels fall below 6 g/dL. ([employer] Practice Bulletin Number 95, October,). Consider Venofer transfusions if patient labs supportive of iron deficiency anemia with dosing of 300 mg IV weekly x 3 weeks Methadone maintenance treatment affecting pregna ncy 02/16/2024 Overview (05/03/2024): Dose as of 05/03/2024 per [facility]: 110 mg of methadone in [...] pump sent to [facility] 04/20/2024 Lawanda hKalil RN 04/20/2024 Estimated Date of Delivery Comme nts Yes 07/13/2024 Based on Ultraso und documented as of this encounter (statuses as of 05/07/2024) Social History Tobacco Use Types Packs/Day Years [...] money to get more. Sometimes true 12/2023 [place] Depression Scale Answer Date Recorded [place] Depression Scale Total 8 03/15/2024 The thought [...] do you feel lonely or isolated from ose around you? Rarely 03/15/2024 Financial Resource [...] as of this encounter Progress Notes * Alberto Chahal RPh - 05/07/2024 4:00 PM EST Patient Phone Numbers Patient referred by Nuzhat Amezquita PA-C for evaluation of anemia by the Anemia Clinic. Called patient to introduce role/clinic and to review labs from 04/20/24. No answer, left message toreturn call to clinic at earliest convenience. Hgb: 10.6 g/dL TSAT: 14 % Ferritin: 17 ng/mL B12: 525 pg/mL FA: 13.4 ng/mL GA: 30w3d Estimated Date of Delivery: 07/13/24 Hgb is below target range for the 3rd trimester. Iron studies below. B12 level within. FA level within. Per cahrt review patient is taking Vitron C twice [...] to participate in the care of thispatient. Alberto Chahal, PharmD Clinical Pharmacist [facility] (P: [phone]) 05/07/2024 3:59 PM documented in this encounter Plan of Treatment Upcoming Encounters Date Type Department Care Team (Late st Contact Info) Description 05/10/2024 12:45 PM EST Office Visit [facility] Maternal Medicine, [place] [address] [place] [address] Mark Anthony Feliz MD [address] [place] [address] 05/10/2024 12:45 PM EST Imaging Radiology [facility], [place] [address] [place] [address] 05/14/2024 4:00 PM EST Pharmacy Pharmacy, [place] [address] [place] [address] Clinic, Anemia [address] [place] [address] 05/19/2024 12:30 PM EST [facility] 132 [place] [address] 05/19/2024 1:15 PM EST Office Visit Gynecology/Obstetrics [facility] 132 [facility] [place] [address] BackerJoseline CRNP 132 [place] [address] Nurse [facility] 132 [place] [address] Scheduled Referrals Name Type Priority Associated Diagnoses Orde r Schedule PHARMACIST MEDS THERAPY MGMT REFERRAL OP Referral Within 10 days (routine) RA (iron deficiency anemia) Ordered: 04/22/2024 Health Maintenance Due Date Last [...] trimester 29 weeks gestation of state, incidental Antepartum anemia complicating - Primary Anemia, antepartum documented in this encounter Care Teams Fruit Farmworker Relationship Specialty Start Date End Date Alex Penaloza MD [address] [address] PCP - General Pediatrics 01/30/22 documented as of this encounter
--- OUTSIDE RECORDS SUMMARY | 2024-05-29 20:05 | External Medical Summary | Summary of Care ---
Author Name Unknown Organization [facility] Address [address] [facility] [place] [address] Phone [phone] Care Team Providers Care Bread Slicer Machine Name Role Phone Alex Penaloza MD Primary Care Provider + Reason for Visit * Reason Onset Date Comments Other 05/18/2024 InFed Encounter Details Date Type Department Care Team (Late st Contact Info) Description 05/18/2024 Telephone Hematology/Oncology Treatment, [place] [address] [place] [address] Nuzhat Amezquita PA-C [address] [place] [address] Other (InFed) Allergies No known active allergiesdocumented [...] the future. Tobacco [facility] 02/18/2024 Overview (05/03/2024): Currently smoking 1-2 [...] and folate levels and referral to a business objects consultant. If hemoglobin levels are below 8 g/dl, we recommend Maternal Medicine ultrasound for growth every 4 weeks after 24 weeks. Consider a blood transfusion if hemoglobin levels fall below 6 g/dL. ([employer]st[employer]ians and Rust Proofer Practice Bulletin Number 95, October,). Consider Venofer transfusions if patient labs supportive of iron deficiency anemia with dosing of 300 mg IV weekly x 3 weeks Methadone maintenance treatment affecting pregna ncy 02/16/2024 Overview (05/03/2024): Dose as of 05/03/2024 per [facility]: 110 mg of methadone in [...] all times; naloxone is available at all [place] pharmacies without a prescription. Methadone and buprenorphine [...] transportation Patient just got a car 03/15/2024 Anen Bhat RN 03/15/2024 Problem Action Taken Date entered Entered by Date resolved Financial Given Resources for local programs. 03/15/2024 Anne Bhat RN 03/15/2024 Problem Action Taken Date entered Entered by Date resolved Compliance with visits Encouraged 04/20/2024 Lawanda Khalil RN 04/20/2024 Desires pump sent to [employer] [facility] 04/20/2024 Lawanda Khalil RN 04/20/2024 Estimated Date [...] money to get more. Sometimes true 12/2023 [place] Depression Scale Answer Date Recorded [place] Depression Scale Total 8 03/15/2024 The thought [...] encounter Miscellaneous Notes * Telephone Encounter - Joseline Amezquita LPN - 05/18/2024 8:37 AM EST Order received for InFed [place] [phone] No prior authorization required Awaiting provider signature before scheduling patient. documented in this encounter Plan of Treatment Upcoming Encounters Date Type Department Care Team (Late st Contact Info) Description 05/19/2024 12:30 PM EST Imaging Radiology [facility] 2nd [facility] 132 [facility] [place] [address] 05/19/2024 1:15 PM EST Office Visit Gynecology/Obstetrics [facility] 132 [facility] [place] [address] Backer, OJ Cavanaugh 132 [facility] [place] [address] Nurse [facility] 132 [facility] [place] [address] 05/31/2024 10:00 AM EST Pharmacy Pharmacy, [place] [address] [place], [place] [phone] Clinic, [facility] [address] [place], [place] [phone] Health Maintenance Due Date Last Done Comments [...] filedocumented as of this encounter Care Teams Bread Slicer Machine Relationship Specialty Start Date End Date Alex Penaloza MD [address] [address] PCP - General Pediatrics 01/30/22 documented as of this encounter
--- OUTSIDE RECORDS SUMMARY | 2024-05-29 20:05 | External Medical Summary | Summary of Care ---
Author Name Unknown Organization [facility] Address [address] [facility] [place] [address] Phone [phone] Care Team Providers Care Senior Art Director Name Role Phone Alex Penaloza MD Primary Care Provider + Reason for Referral * (Within 10 days (routine)) Specialty Diagnoses / Procedures Referred By Contkhari t Referred To Contact Hyperbaric Medicine Diagnoses Antepartum anemia complicating Nuzhat Amezquita PA-C [address] [place] [address] Phone: tel: fax: Referral ID Status Reason Start Date Expiration Date Visits Re quested Visits Authorized Question Answer Referral Priority Within 10 days (routine) Where should this appointment be scheduled? [facility] Reason for Visit * Reason Onset Date Comments Test Results 04/21/2024 Encounter Details Date Type Department Care Team (Late st Contact Info) Description 04/21/2024 Telephone Gynecology/Obstetrics [facility] [address] [place] [address] Nuzhat Amezquita PA-C [address] [place] [id number] Test Results Allergies No known active allergiesdocumented as of [...] affecting pregna ncy 02/16/2024 Overview (04/09/2024): Declines [facility]. Ask a doc sent to [facility] with following recommendations: I would recommend ultrasound evaluation is for growth every 4 weeks. In terms of care, I would recommend routine care With respect to delivery, timing should be based on obstetrical indications only. I would also place a referral for [facility] for the care Dose as of 04/09/2024 per [facility]: 110 mg of [...] Khalil RN 04/20/2024 Desires pump sent to [place] [facility] 04/20/2024 Lawanda Khalil RN 04/20/2024 Estimated Date [...] money to get more. Sometimes true 12/2023 [place] Depression Scale Answer Date Recorded [place] Depression Scale Total 8 03/15/2024 The thought [...] encounter Miscellaneous Notes * Telephone Encounter - Nuzhat Amezquita PA-C - 04/22/2024 7:50 AM EST Referral placed * Telephone Encounter - Madai Wei RN - 04/21/2024 4:09 PM EST Pt returned call and is agreeable to Iron infusions/referral. Thanks! * Telephone Encounter - Lawanda Khalil RN - 04/21/2024 3:58 PM EST left message for patient to call office * Telephone Encounter - Nuzhat Amezquita PA-C - 04/21/2024 3:03 PM EST Reviewed her labs from yesterday. Please let her know she passed her 1 hour gtt, no evidence of GDM. She is still anemic despite oral iron pills. Hemoglobin less than previous now 10.6. Would like to refer her for IV iron to get her hemoglobin up prior to delivery. if she is agreeable. If she is, please route back to me and I will place referral. documented in this encounter Plan of Treatment Upcoming Encounters Date Type Department Care Team (Late st Contact Info) Description 05/19/2024 12:30 PM EST Imaging Radiology [facility] 2nd [facility] 132 [facility] [place] [address] 05/19/2024 1:15 PM EST Office Visit Gynecology/Obstetrics [facility] 132 [facility] [place] [address] Backer, OJ Cavanaugh [address] [place] [address] Nurse [facility] [place] [address] [place] [address] Scheduled Referrals Name Type Priority Associated Diagnoses Orde r Schedule BLOOD MANAGEMENT REFERRAL Referral Within 10 days (routine) Antepartum anemia complicating Ordered: 04/22/2024 Health Maintenance Due Date Last [...] as of this encounter Visit Diagnoses Diagnosis Antepartum anemia complicating - Primary Anemia, antepartum documented in this encounter Care Teams Senior Art Director Relationship Specialty Start Date End Date Alex Penaloza MD [address], [place] [address] PCP - General Pediatrics 01/30/22 documented as of this encounter
--- OUTSIDE RECORDS SUMMARY | 2024-05-29 20:05 | External Medical Summary | Summary of Care ---
Author Name Unknown Organization [facility] Address [address] [place] [address] Phone [phone] Care Team Providers Care Mortgage Or Loan Underwriter Name Role Phone Alex Penaloza MD Primary Care Provider + Reason for Visit * Reason Onset Date Comments Valet Manager Documentation 05/11/2024 Education 05/11/2024 Encounter Details Date Type Department Care Team (Late st Contact Info) Description 05/11/2024 Telephone Clinical Business Analyst Obstetrics Maternal Medicine, [place] [address] [place] [address] Venessa Giang, GIFTS OFFICER [address] [place] [address] Valet Manager Documentation; Education Allergies No known active allergiesdocumented as of this encounter (statuses as of 05/11/2024) Medications Methadone HCl 10 MG/ML Oral Concentrate [...] as of this encounter (statuses as of 05/11/2024) Active Problems Problem Noted Date Diagnosed Date [...] in the future. Tobacco smoking affecting in [facility] 02/18/2024 Overview (05/03/2024): Currently smoking 1-2 [...] and folate levels and referral to a rotary cutter. If hemoglobin levels are below 8 g/dl, we recommend Maternal Medicine ultrasound for growth every 4 weeks after 24 weeks. Consider a blood transfusion if hemoglobin levels fall below 6 g/dL. ([employer]ians and Cell Biology Scientist Practice Bulletin Number 95, October,). Consider Venofer transfusions if patient labs supportive of iron deficiency anemia with dosing of 300 mg IV weekly x 3 weeks Methadone maintenance treatment affecting pregna ncy 02/16/2024 Overview (05/03/2024): Dose as of 05/03/2024 per [facility]: 110 mg of methadone in the [...] Khalil RN 04/20/2024 [facility] 04/20/2024 Lawanda Khalil RN 04/20/2024 Estimated Date of Delivery Comme nts Yes 07/13/2024 Based on Ultraso und documented as of this encounter (statuses as of 05/11/2024) Social History Tobacco Use Types Packs/Day Years [...] money to get more. Sometimes true 12/2023 [place] Depression Scale Answer Date Recorded [place] Depression Scale Total 8 03/15/2024 The thought [...] encounter Miscellaneous Notes * Telephone Encounter - Venessa Giang, GIFTS OFFICER - 05/11/2024 1:02 PM EST JANELL Scott Spoke with pt Jocelin and explained my role with the [facility]. She is currently 31w0d, SUSAN is 07/13/2024 She confirmed that she is on methadone, reports that she takes 100 mg in the morning and 20 mg at night. Prescriber is [facility] MAT. Patient reports doing well on this dose. Pt reports that she had to increase dose during . Pt reports that she has wanted to get off Methadone for a few years now, but then end up and is unable to. [facility]. Pt was prescribed methadone when she delivered her two other children, and is aware of the process.I discussed the 5-day hospital stay for infant monitoring post-delivery. Her current plan is to deliver at [facility], this is where she delivered her two other children. She expects to have a vaginal delivery, in which case remaining inpatient for up to 48 hr is an option for her. Pt reports they have post- rooms available where she stayed before, pt reports she plans to stay all 5 days. I encouraged her to discuss delivery options with her provider, as well. CYS / POSC: I discussed the requirement for a Childline referral to be made upon delivery of the infant. I explained to pt that this is a state mandate and is NOT a referral for abuse, it is a referral due to the infant's potential to be substance affected. I explained the Plan of Safe Care that the hospital will provide for the pt prior to discharge, and what this will look like. I emphasized that this is a team approach to ensure all of the family's needs are met. Household: Pt, pt's two children WIC/SNAP: Pt receives both WIC and SNAP Baby Item Needs: Pt reports she has gathered most of everything she needs for the infant, is feeling prepared. Pt reports that she still needs a car seat and stroller but does not anticipate any problems obtaining these items. Transportation: Pt drives Summary/Plan of Care: Pt reports feeling safe currently. SW to remain in contact for support. Community resource list and social media marketer's contact info provided & reviewed with patient on this date. Emotional support provided. Tasks Completed: Care Coordination High Risk [place] documented in this encounter Plan of Treatment Upcoming Encounters Date Type Department Care Team (Late st Contact Info) Description 05/14/2024 4:00 PM EST Pharmacy Pharmacy, [place] [address] [place] [address] Clinic, [facility] [address] [place] [address] 05/19/2024 12:30 PM EST Imaging Radiology [facility] 2nd Floor, [place] [address] [place] [address] 05/19/2024 1:15 PM EST Office Visit Gynecology/Obstetrics [facility] [place] [address] Backer, OJ Cavanaugh [address] [place] [address] Nurse [facility] [place] [address] Health Maintenance Due Date Last Done Comments [...] filedocumented as of this encounter Care Teams Mortgage Or Loan Underwriter Relationship Specialty Start Date End Date Alex Penaloza MD [address] [address] PCP - General Pediatrics 01/30/22 documented as of this encounter
--- OUTSIDE RECORDS SUMMARY | 2024-05-29 20:05 | External Medical Summary | Summary of Care ---
Author Name Unknown Organization [facility] Address [address] [facility] [place] [address] Phone [phone] Care Team Providers Care Paper Machine Supervisor Name Role Phone Alex Penaloza MD Primary Care Provider + Encounter Details Date Type Department Care Team (Late st Contact Info) Description 05/17/2024 Orders Only Gynecology/Obstetrics [place] [address] [place] [address] Nuzhat Amezquita PA-C [address] [place] [address] Iron deficiency anemia, unspecified iron deficiency anemia [...] in the future. Tobacco smoking affecting in [facility] 02/18/2024 Overview (05/03/2024): Currently smoking 1-2 cigarettes/day [...] and folate levels and referral to a game moderator. If hemoglobin levels are below 8 g/dl, we recommend Maternal Medicine ultrasound for growth every 4 weeks after 24 weeks. Consider a blood transfusion if hemoglobin levels fall below 6 g/dL. ([employer] Ob[employer]ians and Senior Electrical Engineer Practice Bulletin Number 95, October,). Consider Venofer transfusions if patient labs supportive of iron deficiency anemia with dosing of 300 mg IV weekly x 3 weeks Methadone maintenance treatment affecting pregna ncy 02/16/2024 Overview (05/03/2024): Dose as of 05/03/2024 per [facility]: 110 mg of methadone in the [...] all times; naloxone is available at all [place] pharmacies without a prescription. Methadone and buprenorphine [...] Khalil RN 04/20/2024 [facility] 04/20/2024 Lawanda Khalil RN 04/20/2024 Estimated [...] money to get more. Sometimes true 12/2023 [place] Depression Scale Answer Date Recorded [place] Depression Scale Total 8 03/15/2024 The thought [...] Description 05/19/2024 12:30 PM EST Imaging Radiology [facility] 2nd Floor, [place] 132 [facility] [place] [address] 05/19/2024 1:15 PM EST Office Visit Gynecology/Obstetrics [facility] 132 [facility] [place] [address] BackerJoseline CRNP 132 [facility] [place] [address] Nurse [facility] [address] 05/31/2024 10:00 AM EST Pharmacy Pharmacy, [place] [address] [place] [address] Clinic, [facility] [address] [place], [place] [id number] Health Maintenance Due Date Last Done Comments [...] Primary documented in this encounter Care Teams Paper Machine Supervisor Relationship Specialty Start Date End Date Alex Penaloza MD [address] [address] PCP - General Pediatrics 01/30/22 documented as of this encounter
--- OUTSIDE RECORDS SUMMARY | 2024-05-29 20:05 | External Medical Summary | Summary of Care ---
Author Name Unknown Organization [facility] Address [address] [place] [address] Phone [phone] Care Team Providers Care Spin Instructor Name Role Phone Alex Penaloza MD Primary Care Provider + Reason for Referral * Evaluate & Treat - Unlimited Visits (Within 10 days (routine)) - Authorized Specialty Diagnoses / Procedures Referred By Contkhari t Referred To Contact Pharmacist / Pharmacy Diagnoses RA (iron deficiency anemia) Nuzhat Amezquita PA-C [address] [place] [address] Phone: tel: fax: Referral ID Status Reason Start Date Expiration Date Visits Requested Visits Authorized [id number] Authorized Specialty Services Required 04/22/2024 10/19/2024 99 99 Question Answer Referral Priority Within 10 days (routine) Where should this appointment be scheduled? [facility] Referring Provider Role: Specialist Specialty: biscuit machine operator Reason for Referral: Anemia Comments Pharmacist Medication Therapy Management: Iron deficiency anemia Mateus Cardenas RN Reason for Visit * Reason Onset Date Comments Blood Management Program 04/22/2024 Encounter Details Date Type Department Care Team (Late st Contact Info) Description 04/22/2024 Telephone Patient Blood Management, [place] [address] [place] [address] Nuzhat Amezquita PA-C [address] [place] [address] Blood Management Program Allergies No known active allergiesdocumented as of this encounter (statuses as of 05/13/2024) Medications Methadone HCl 10 MG/ML Oral Concentrate [...] as of this encounter (statuses as of 05/13/2024) Active Problems Problem Noted Date Diagnosed Date Supervision of high-risk , unspecified trimester 04/20/2024 Food insecurity 04/19/2024 Overview: Per [facility] Protocol History of hepatitis C [...] in the future. Tobacco smoking affecting in [facility] 02/18/2024 Overview (05/03/2024): Currently smoking [...] and folate levels and referral to a data reporting analyst. If hemoglobin levels are below 8 g/dl, we recommend Maternal Medicine ultrasound for growth every 4 weeks after 24 weeks. Consider a blood transfusion if hemoglobin levels fall below 6 g/dL. ([employer] Practice Bulletin Number 95, October,). Consider Venofer transfusions if patient labs supportive of iron deficiency anemia with dosing of 300 mg IV weekly x 3 weeks Methadone maintenance treatment affecting pregna ncy 02/16/2024 Overview (05/03/2024): Dose as of 05/03/2024 per [facility]: 110 mg of methadone in [...] Khalil RN 04/20/2024 Desires pump sent to [facility] 04/20/2024 Lawanda Khalil RN 04/20/2024 Estimated Date of Delivery Comme nts Yes 07/13/2024 Based on Ultraso und documented as of this encounter (statuses as of 05/13/2024) Social History Tobacco Use Types Packs/Day Years [...] money to get more. Sometimes true 12/2023 [place] Depression Scale Answer Date Recorded [place] Depression Scale Total 8 03/15/2024 The thought [...] encounter Miscellaneous Notes * Telephone Encounter - Mateus Cardenas RN - 04/22/2024 10:01 AM EST Recommend ERVIN per OB MTM guidelines. Patient is agreeable, prefers infusion at [facility]. documented in this encounter Plan of Treatment Upcoming Encounters Date Type Department Care Team (Late st Contact Info) Description 05/14/2024 4:00 PM EST Pharmacy Pharmacy, [address] [address] Clinic, [place] [address] [place] [address] 05/19/2024 12:30 PM EST Imaging Radiology [facility] [address] 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
--- OUTSIDE RECORDS SUMMARY | 2024-05-29 20:05 | External Medical Summary | Summary of Care ---
Author Name Unknown Organization [facility] Address [address] [place] [address] Phone [phone] Care Team Providers Care Day Camp Counselor Name Role Phone Alex Penaloza MD Primary Care Provider + Reason for Visit * Reason Comments Dosage Adjustment Via Phone (anticoag Cl inic) Anemia Follow-Up Encounter Details Date Type Department Care Team (Late st Contact Info) Description 05/17/2024 4:00 PM [facility] Pharm[facility] Pharmacy, [place] [address] [place] [address] Clinic, Anemia [address] [place] [address] Iron deficiency anemia, unspecified iron deficiency anemia [...] in the future. Tobacco [facility] 02/18/2024 Overview (05/03/2024): Currently smoking 1-2 [...] and folate levels and referral to a small products ii assembler. If hemoglobin levels are below 8 g/dl, we recommend Maternal Medicine ultrasound for growth every 4 weeks after 24 weeks. Consider a blood transfusion if hemoglobin levels fall below 6 g/dL. ([employer] Large Engine As[employer]er Practice Bulletin Number 95, October,). Consider Venofer transfusions if patient labs supportive of iron deficiency anemia with dosing of 300 mg IV weekly x 3 weeks Methadone maintenance treatment affecting pregna ncy 02/16/2024 Overview (05/03/2024): Dose as of 05/03/2024 per [facility]: 110 mg of methadone in [...] Khalil RN 04/20/2024 Desires pump sent to [facility] 04/20/2024 Lawanda Khalil RN 04/20/2024 Estimated Date [...] money to get more. Sometimes true 12/2023 [place] Depression Scale Answer Date Recorded [place] Depression Scale Total 8 03/15/2024 The thought [...] No 03/15/2024 Does the household have a [facility] source of income? (Household - for ages [...] of thispatient. Adrian Coffman, Pharm.D Clinical Pharmacist [facility] 05/17/2024, 4:44 PM * Adrian Coffman [...] B12 level within. FA level within. [facility] is taking Vitron C twice [...] of thispatient. Adrian Coffman, PharmD Clinical Pharmacist [facility] (P: [phone]) 05/17/2024, 3:25 PM documented in this encounter Plan of Treatment Upcoming Encounters Date Type Department Care Team (Late st Contact Info) Description 05/19/2024 12:30 PM EST Imaging Radiology [facility] 2nd [facility] [address] [facility] [place] [address] 05/19/2024 1:15 PM EST Office Visit Gynecology/Obstetrics [facility] [address] [facility] [place] [address] BackerJoseline CRNP 132 [facility] [place] [address] Nurse [facility] 132 [facility] [place] [address] 05/31/2024 10:00 AM EST Pharmacy Pharmacy, [place] [address] [place] [address] Clinic, Anemia [facility] [address] Health Maintenance Due Date Last Done Comments [...] Primary documented in this encounter Care Teams Day Camp Counselor Relationship Specialty Start Date End Date Alex Penaloza MD [address] [place] [address] PCP - General Pediatrics 01/30/22 documented as of this encounter
--- OUTSIDE RECORDS SUMMARY | 2024-05-29 20:05 | External Medical Summary | Summary of Care ---
Author Name Unknown Organization [facility] Address [address] [place] [address] Phone [phone] Care Team Providers Care Mirror Framer Name Role Phone Alxe Penaloza MD Primary Care Provider + Reason for Visit * Reason Comments Blood Management Program Encounter Details Date Type Department Care Team (Late st Contact Info) Description 04/22/2024 Documentation Patient Blood Management, [place] [address] [place] [address] Mateus Cardenas, RN Allergies No known active allergiesdocumented as of [...] affecting pregna ncy 02/16/2024 Overview (04/09/2024): Declines MFM. Ask a doc sent to [facility] with following recommendations: I would recommend ultrasound evaluation is for growth every 4 weeks. In terms of care, I would recommend routine care With respect to delivery, timing should be based on obstetrical indications only. I would also place a [facility] for the care Dose as of 04/09/2024 per [facility]: 110 mg of methadone in [...] Khalil RN 04/20/2024 Desires pump sent to [facility] 04/20/2024 Lawanda Khalil RN 04/20/2024 Estimated Date [...] money to get more. Sometimes true 12/2023 [place] Depression Scale Answer Date Recorded [place] Depression Scale Total 8 03/15/2024 The thought [...] as of this encounter Progress Notes * Mateus Cardenas RN - 04/22/2024 9:58 AM EST REFERRAL - Patient Blood Management Name: Jocelin Loya REQUESTING SERVICE: [place] REASON FOR REFERRAL: new evaluation outpatient, anemia in [place]: 07/13/24 Anemia Evaluation: Latest Reference Range & Units 04/20/24 16:35 HGB 12.0 - 15.3 g/dL 10.6 (L) HCT 36.0 - 45.2 % 32.3 (L) Iron 33 - 151 ug/dL 72 Iron Binding Capacity 250 - 425 ug/dL 527 (H) Transferrin Saturation Percent 15 - 55 % 14 (L) Ferritin 13 - 150 ng/mL 17 Vitamin B12 232 - 1,245 pg/mL 525 Folic Acid >4.5 ng/mL 13.4 Immature Reticuloctye Fraction 2.5 - 20.6 % 11.5 Reticulocyte Hemoglobin 29.7 - 37.4 pg 35.2 (L): Data is abnormally low (H): Data is abnormally high Current Patient Medications: Medications that may impair hemostasis: none Medications that may impair iron absorption: none Patient Refused Blood Transfusion? (e.g. Amish): no Possible Contributing Factors: iron deficiency Treatment Recommendations: IV iron per OB MTM guidelines. Patient agreeable to infusion at [facility]. Risks and benefits of IV iron, including risk of adverse drug reaction discussed with patient. Patient voiced understanding. Will submit OB MTM Thank you for allowing Blood Management to participate in the care of this patient. documented in this encounter Plan of Treatment Upcoming Encounters Date Type Department Care Team (Late st Contact Info) Description 05/19/2024 12:30 PM EST Imaging Radiology [facility] 2nd [facility] [address] [place] [address] 05/19/2024 1:15 PM EST Office Visit Gynecology/Obstetrics [facility] [address] [place] [address] Backer, OJ Cavanaugh [address] [place] [address] Nurse [facility] [address] [place] [address] Health Maintenance Due Date Last Done Comments [...] filedocumented as of this encounter Care Teams Mirror Framer Relationship Specialty Start Date End Date Alex Penaloza MD [address] [address] PCP - General Pediatrics 01/30/22 documented as of this encounter
--- OUTSIDE RECORDS SUMMARY | 2024-05-29 20:05 | External Medical Summary | Summary of Care ---
Author Name Unknown Organization [facility] Address [address] [place] [address] Phone [phone] Care Team Providers Care Surveillance Supervisor Name Role Phone Alex Penaloza MD Primary Care Provider + Encounter Details Date Type Department Care Team (Late st Contact Info) Description 04/26/2024 Population Health External Data Unspecified Department Allergies No known active allergiesdocumented as of this encounter (statuses as of 04/26/2024) Medications Methadone HCl 10 MG/ML Oral Concentrate [...] as of this encounter (statuses as of 04/26/2024) Active Problems Problem Noted Date Diagnosed Date [...] Declines MFM. Ask a doc sent to [facility] with following recommendations: I would recommend ultrasound evaluation is for growth every 4 weeks. In terms of care, I would recommend routine care With respect to delivery, timing should be based on obstetrical indications only. I would also place a [facility] for the care Dose as of 04/09/2024 per [facility]: 110 mg of methadone in [...] Khalil RN 04/20/2024 Desires pump sent to [facility] 04/20/2024 Lawanda Khalil RN 04/20/2024 Estimated Date of Delivery Comme nts Yes 07/13/2024 Based on Ultraso und documented as of this encounter (statuses as of 04/26/2024) Social History Tobacco Use Types Packs/Day Years [...] money to get more. Sometimes true 12/2023 [place] Depression Scale Answer Date Recorded [place] Depression Scale Total 8 03/15/2024 The thought [...] No 03/15/2024 Does the household have a [facility] source [facility] income? (Household - for [...] Info) Description 04/29/2024 2:10 PM EST Telemedicine [employer] Obstetric MFM [facility] [address] [place] [address] Sonia Stevenson CRNP [address] [place] [address] 05/03/2024 4:00 PM EST Pharmacy Pharmacy, [address] [address] [place] [address] [place] [address] 05/10/2024 12:45 PM EST Office Visit [employer] Obstetrics Maternal Medicine, [place] [address] [place] [address] Mark Anthony Feliz MD [address] [place] [address] 05/10/2024 12:45 PM EST [facility] [place] [address] [place] [facility] [address] 05/19/2024 12:30 PM EST Imaging Rad[facility] [address] [facility] [address] 05/19/2024 1:15 PM EST Office Visit Gynecology/Obstetrics [facility] [place] [address] Backer, OJ Cavanaugh 132 [place] [address] Nurse [facility] 132 [place] [address] Health Maintenance Due Date Last Done Comments [...] filedocumented as of this encounter Care Teams Surveillance Supervisor Relationship Specialty Start Date End Date Alex Penaloza MD [address], [place] [address] PCP - General Pediatrics 01/30/22 documented as of this encounter
--- OUTSIDE RECORDS SUMMARY | 2024-05-29 20:06 | External Medical Summary | Summary of Care ---
Author Name Unknown Organization [facility] Address [address] [place] [facility] [place] [place] [address] Phone [phone] Care Team Providers Care Museum Librarian Name Role Phone Alex Penaloza MD Primary Care Provider + Reason for Visit * Reason Comments Outpatient Testing Encounter Details Date Type Department Care Team (Late st Contact Info) Description 04/20/2024 4:00 PM EST Laboratory Laboratory, [facility] 132 [place] [phone] [facility] [address] [place] [address] Encounter for supervision of other normal in second trimester; Antepartum anemia complicating Allergies No known active allergiesdocumented as of this encounter (statuses as of 04/20/2024) Medications Methadone HCl 10 MG/ML Oral Concentrate Take 14.3 mL by mouth. 110 mg in the morning and 33 mg in the evening Active Iron-Vitamin C 65-125 MG Oral Tablet (Vitron C)Indications:Ant epartum anemia complicating Take 1 Tablet by mouth in the morning and 1 Tablet before bedtime. 60 Tablet 3 4 Active documented as of this encounter (statuses as of 04/20/2024) Active Problems Problem Noted Date Diagnosed Date Supervision of high-risk , unspecified trimester 04/20/2024 History of hepatitis C 02/18/2024 Overview (02/18/2024): [...] Declines MFM. Ask a doc sent to [facility] with following recommendations: I would recommend ultrasound evaluation is for growth every 4 weeks. In terms of care, I would recommend routine care With respect to delivery, timing should be based on obstetrical indications only. I would also place a [facility] for the care Dose as of 04/09/2024 per [facility]: 110 mg of methadone in [...] Khalil RN 04/20/2024 [facility] 04/20/2024 Lawanda Khalil RN 04/20/2024 Estimated Date of Delivery Comme nts Yes 07/13/2024 Based on Ultraso und documented as of this encounter (statuses as of 04/20/2024) Social History Tobacco Use Types Packs/Day Years [...] money to get more. Sometimes true 12/2023 [place] Depression Scale Answer Date Recorded [place] Depression Scale Total 8 03/15/2024 The thought [...] Description 05/19/2024 12:30 PM EST Imaging Radiology [facility] 2nd [facility] [address] [place] [address] 05/19/2024 1:15 PM EST Office Visit Gynecology/Obstetrics [facility] [address] [place] [address] BackerJoseline CRNP [address] [place] [address] Nurse [facility] [place] [address] [place] [address] Pending Results Name Type Priority Associated Diagnoses Date /Time 50-G GESTATIONAL GLUCOSE, 1 HOUR Lab Routine Encounter for supervision of other normal in second trimester 04/20/2024 4:35 PM EST CBC WITH WBC DIFFERENTIAL AND ANEMIA REFLEX WORKUP Lab Routine Encounter for supervision of other normal in second trimester Antepartum anemia complicating 04/20/2024 4:35 PM EST SYPHILIS ANTIBODY SCREEN WITH REFLEX TO RPR Lab Routine Encounter for supervision of other normal in second trimester 04/20/2024 4:35 PM EST ANEMIA CBC Lab Routine Encounter for supervision of other normal in second trimester Antepartum anemia complicating 04/20/2024 4:35 PM EST DIFFERENTIAL, AUTOMATED Lab Routine Encounter for supervision of other normal in second trimester Antepartum anemia complicating 04/20/2024 4:35 PM EST ANEMIA REFLEX CHEMISTRY HOLD Lab Routine Encounter for supervision of other normal in second trimester Antepartum anemia complicating 04/20/2024 4:35 PM EST SYPHILIS ANTIBODY SCREEN Lab Routine Encounter for supervision of other normal in second trimester 04/20/2024 4:35 PM EST Health Maintenance Due Date Last Done Comments [...] as of this encounter Visit Diagnoses Diagnosis Encounter for supervision of other normal in second trimester Antepartum anemia complicating Anemia, antepartum documented in this encounter Care Teams Museum Librarian Relationship Specialty Start Date End Date Alex Penaloza MD [address] [address] PCP - General Pediatrics 01/30/22 documented as of this encounter
--- OUTSIDE RECORDS SUMMARY | 2024-05-29 20:06 | External Medical Summary | Summary of Care ---
Author Name Unknown Organization [facility] Address [address] [place] [place] [address] Phone [phone] Care Team Providers Care Laborer Car Barn Name Role Phone Alex Penaloza MD Primary Care Provider + Reason for Visit * Reason Comments Return Visit Encounter Details Date Type Department Care Team (Late st Contact Info) Description 04/20/2024 2:45 PM EST Office Visit Gynecology/Obstetri jeana Wall 132 [place] [address] Ailin Killian CRNP 132 [place] [address] Nurse Regino [facility] Return [place] 132 [place] [address] Supervision of high-risk , unspecified trimester*; Methadone maintenance treatment affecting , antepartum (HCC); History of hepatitis C; Tobacco use; Marijuana use during ; Antepartum anemia complicating [...] affecting pregna ncy 02/16/2024 Overview (04/09/2024): Declines [facility]. Ask a doc sent to [facility] with following recommendations: I would [...] Pt sees a clinical counselor. 01/09/2024 Madai Wei, ILDEFONSO 01/09/24 Drug use Pt on Methadone 01/09/2024 [...] Khalil RN 04/20/2024 Desires pump sent to [facility] 04/20/2024 Lawanda Khalil RN 04/20/2024 Estimated [...] money to get more. Sometimes true 12/2023 [place] Depression Scale Answer Date Recorded [place] Depression Scale Total 8 03/15/2024 The thought [...] No 03/15/2024 Does the household have a [facility] source of income? (Household - for [...] Sign Reading Time Taken Comments Blood Pressure 100/60 04/20/2024 3:01 PM EST Pulse - - Temperature - - Respiratory Rate - - Oxygen Saturation - - Inhaled Oxygen Concentration - - Weight 56.4 kg (124 lb 6.4 oz) 04/20/2024 3:01 P M EST Height - - Body Mass Index 24.3 01/30/2022 11:59 AM EDT documented in this encounter Progress Notes * Ailin Killian CRNP - 04/20/2024 3:25 PM EST 28w Having a "weird" sensation in LUQ that can start when bending or over-eating. Can come and go for ahalf hour. Denies pain in this area. Reassured this is likely musculoskeletal in nature. She would like to see MFM now. There is a referral in place, will reach out to [facility] for scheduling. Baby is very active. Some BH contractions, no bleeding or LOF. Starting glucola after this visit. Declines TDAP. In need of growth u/s if not seen by MFM in a timely manner. Order placed. OJ Yates * Vivian Herrera CMA - 04/20/2024 3:01 PM EST 28w0d "Weird" pressure feeling at top of stomach under ribs when sitting or bending or eats too much. Would like [facility] information again to get scheduled. documented in this encounter Plan of Treatment Upcoming Encounters Date Type Department Care Team (Late st Contact Info) Description 05/19/2024 12:30 PM EST Imaging Radiology [facility] [address] [facility] [address] [place] [address] 05/19/2024 1:15 PM EST Office Visit Gynecology/Obstetrics [facility] [address] [place] [address] Joseline Navarro CRNP [address] [place] [address] Nurse [facility] [address] [place] [address] Scheduled Orders Name Type Priority Associated Diagnoses Orde r Schedule US PREG FOLLOW-UP EACH FETUS Medical Imaging Routine Methadone maintenance treatment affecting , antepartum (HCC) Supervision of high-risk , unspecified trimester Expected: 05/04/2024 (Approximate), Expires: 05/21/2025 Health Maintenance Due Date Last Done Comments [...] unspecified trimester- Primary Methadone maintenance treatment affecting , antepartum (HCC) History of hepatitis C Personal history of other infectious and parasitic disease Tobacco use Tobacco use disorder Marijuana use during Antepartum anemia complicating Anemia, antepartum documented in this encounter Care Teams Laborer Car Barn Relationship Specialty Start Date End Date Alex Penaloza MD [address] [address] PCP - General Pediatrics 01/30/22 documented as of this encounter
--- OUTSIDE RECORDS SUMMARY | 2024-05-29 20:06 | External Medical Summary ---
Author Name Unknown Address Unknown Organization K01:LABORATORY [facility] - [facility] [address] [facility] [address] Laboratory Report Ordering Provider Test Date Status RODNEYMAIKOL 04/20/2024 16:35:29 Final Observation Date Value Abnormality Reference (Units ) Status Retic, % (auto) 04/20/2024 16:35:29 1.86 0.80-1.90 (%) Final Reticulocytes, Absolute 04/20/2024 16:35:29 61.4 31.3-100.1 (K/uL) Final Reticulocyte fraction, immature 04/20/2024 16:35:29 11.5 2.5-20.6 (%) Final Reticulocyte HGB 04/20/2024 16:35:29 35.2 29.7-37.4 (pg) Final Performing Location LABORATORY [facility] - [address] [facility] [address]
--- OUTSIDE RECORDS SUMMARY | 2024-05-29 20:06 | External Medical Summary | Summary of Care ---
Author Name Unknown Organization [facility] Address [address] [facility] [address] Phone [phone] Care Team Providers Care Personnel Monitor Name Role Phone Alex Penaloza MD Primary Care Provider + Reason for Visit * Reason Comments Return Visit Encounter Details Date Type Department Care Team (Late st Contact Info) Description 04/20/2024 2:45 PM EST Office Visit Gynecology/Obstetri jeana Wall 132 [place] [address] Garry Killian CRNP 132 [place] [address] Nurse Regino Wall Beginnings Return [place] 132 [place] [address] Supervision of high-risk , unspecified trimester*; Methadone maintenance treatment affecting , antepartum (HCC); History of hepatitis C; Tobacco use; Marijuana use during ; Antepartum anemia complicating Allergies No known active allergiesdocumented as of this encounter (statuses as of 04/21/2024) Medications Methadone HCl 10 MG/ML Oral Concentrate [...] as of this encounter (statuses as of 04/21/2024) Active Problems Problem Noted Date Diagnosed Date [...] affecting pregna ncy 02/16/2024 Overview (04/09/2024): Declines [facility]. Ask a doc sent to [facility] with following recommendations: I would recommend ultrasound evaluation is for growth every 4 weeks. In terms of care, I would recommend routine care With respect to delivery, timing should be based on obstetrical indications only. I would also place a [facility] for the care Dose as of 04/09/2024 per [facility]: 110 mg of methadone in the [...] Khalil RN 04/20/2024 [facility] 04/20/2024 Lawanda Khalil RN 04/20/2024 Estimated Date of Delivery Comme nts Yes 07/13/2024 Based on Ultraso und documented as of this encounter (statuses as of 04/21/2024) Social History Tobacco Use Types Packs/Day Years [...] money to get more. Sometimes true 12/2023 [place] Depression Scale Answer Date Recorded [place] Depression Scale Total 8 03/15/2024 The thought [...] documented in this encounter Progress Notes * Garry Killian CRNP - 04/20/2024 3:25 PM EST 28w Having a "weird" sensation in LUQ that can start when bending or over-eating. Can come and go for ahalf hour. Denies pain in this area. Reassured this is likely musculoskeletal in nature. She would like to see [facility] now. There is a referral in place, will reach out to [facility] for scheduling. Baby is very active. Some BH contractions, no bleeding or LOF. Starting glucola after this visit. Declines TDAP. In need of growth u/s if not seen by [facility] in a timely manner. Order placed. OJ Yates * Vivian Herrera CMA - 04/20/2024 3:01 PM EST 28w0d "Weird" pressure feeling at top of stomach under ribs when sitting or bending or eats too much. Would like [facility] information again to get scheduled. documented in this encounter Miscellaneous Notes * Addendum Note - Garry Killian CRNP - 04/21/2024 7:56 AM ESTAddended by: GARRY KILLIAN on: 04/21/2024 07:56 AM Modules accepted: Orders documented in this encounter Plan of Treatment Upcoming Encounters Date Type Department Care Team (Late st Contact Info) Description 05/19/2024 12:30 PM EST Imaging Radiology [facility] 2nd [facility], [address] [place] [id number] 05/19/2024 1:15 PM EST Office Visit Gynecology/Obstetrics Brynn Wall [address] [place] [address] BackerJoseline CRNP [address] [place] [address] Nurse [facility] [place] [address] [place] [address] Scheduled Orders Name Type Priority Associated Diagnoses [...] antepartum documented in this encounter Care Teams Personnel Monitor Relationship Specialty Start Date End Date Alex Penaloza MD [address] [place] [address] PCP - General Pediatrics 01/30/22 documented as of this encounter
--- OUTSIDE RECORDS SUMMARY | 2024-05-29 20:06 | External Medical Summary ---
Author Name Unknown Address Unknown Organization K01:[facility] [place] [address] [facility] [address] [place] [address] Laboratory Report Ordering Provider Test Date Status MAIKOL STEVENS 04/20/2024 16:35:29 Final Observation Date Value Abnormality Reference (Units ) Status Ferritin 04/20/2024 16:35:29 17 13-150 (ng /mL) Final Performing Location [facility]ORY [facility] - [address] [facility] [address] [place] [address]
--- OUTSIDE RECORDS SUMMARY | 2024-05-29 20:06 | External Medical Summary | Summary of Care ---
Author Name Unknown Organization [facility] Address [address] [facility] [place] [address] Phone [phone] Care Team Providers Care Side Seam Machine Operator Name Role Phone Alex Penaloza MD Primary Care Provider + Reason for Visit * Reason Comments Return Visit Encounter Details Date Type Department Care Team (Late st Contact Info) Description 04/20/2024 2:45 PM EST Office Visit Gynecology/Obstetri jeana Wall 132 [place] [address] Ailin Killian CRNP 132 [place] [address] Nurse Regino Wall Beginnings Return [place] 132 [place] [address] Supervision of high-risk , unspecified trimester*; Methadone [...] affecting pregna ncy 02/16/2024 Overview (04/09/2024): Declines [facility]. Ask a doc sent to [facility] with following recommendations: I would recommend ultrasound evaluation is for growth every 4 weeks. In terms of care, I would recommend routine care With respect to delivery, timing should be based on obstetrical indications only. I would also place a [facility] for the care Dose as of 04/09/2024 per [facility]: 110 mg of methadone in the am and 33 mg of methadone in the pm for a total of 143 mg of methadone Health counseling 01/09/2024 Overview (03/15/2024): Problem Action Taken Date entered Entered by [...] local programs. 03/15/2024 Anne Bhat RN 03/15/2024 Estimated Date of Delivery Comme nts [...] money to get more. Sometimes true 12/2023 [place] Depression Scale Answer Date Recorded [place] Depression Scale Total 8 03/15/2024 The thought [...] No 03/15/2024 Does the household have a [facility] source of income? (Household - for ages [...] referral in place, will reach out to [facility] for scheduling. Baby is very active. Some BH contractions, no bleeding or LOF. Starting glucola after this visit. Declines TDAP. In need of growth u/s if not seen by [facility] in a timely manner. Order placed. OJ Yates * Vivian Herrera CMA - 04/20/2024 3:01 PM EST 28w0d "Weird" pressure feeling at top of stomach under ribs when sitting or bending or eats too much. Would like [facility] information again to get scheduled. documented in this encounter Plan of Treatment Upcoming Encounters Date Type Department Care Team (Late st Contact Info) Description 04/20/2024 4:00 PM EST [facility] [address] Ayesha Wall [facility] 132 [facility] [place] [address] Arrived 05/19/2024 12:30 PM EST Imaging Radiology [facility] 2nd [facility] 132 [facility] [place] [address] 05/19/2024 1:15 PM EST Office Visit Gynecology/Obstetrics [address] [place] [address] Joseline Navarro CRNP 132 [facility] [place] [address] Nurse [facility] Return [address] [place] [address] Scheduled Orders Name Type Priority Associated Diagnoses [...] antepartum documented in this encounter Care Teams Side Seam Machine Operator Relationship Specialty Start Date End Date Alex Penaloza MD [address] [place] [address] PCP - General Pediatrics 01/30/22 documented as of this encounter
--- OUTSIDE RECORDS SUMMARY | 2024-05-29 20:06 | External Medical Summary | Summary of Care ---
Author Name Unknown Organization [facility] Address [address] [facility] [place] [address] Phone [phone] Care Team Providers Care Riding Teacher Name Role Phone Alex Penaloza MD Primary Care Provider + Reason for Visit * Reason Onset Date Comments Test Results 03/19/2024 Encounter Details Date Type Department Care Team (Late st Contact Info) Description 03/19/2024 Telephone Gynecology/Obstetrics [facility] [address] [place] [address] Nuzhat Amezquita PA-C 132 [facility] [place] [address] Test Results Allergies No known active allergiesdocumented as of this encounter (statuses as of 03/24/2024) Medications Methadone HCl 10 MG/ML Oral Concentrate Take by mouth . 117 mg in the morning and 66 mg in the evening Active Iron-Vitamin C 65-125 MG Oral Tablet (Vitron C)Indications:Ant epartum anemia complicating Take 1 Tablet by mouth in the morning and 1 Tablet before bedtime. 60 Tablet 3 4 Active documented as of this encounter (statuses as of 03/24/2024) Active Problems Problem Noted Date Diagnosed Date History of hepatitis C 02/18/2024 Overview (02/18/2024): [...] maintenance treatment affecting pregna ncy 02/16/2024 Overview (02/18/2024): Declines [facility]. Ask a doc sent to [facility] with following recommendations: I would recommend ultrasound evaluation is for growth every 4 weeks. In terms of care, I would recommend routine care With respect to delivery, timing should be based on obstetrical indications only. I would also place a [facility] for the care Health counseling 01/09/2024 Overview (03/15/2024): Problem Action [...] as of this encounter (statuses as of 03/24/2024) Social History Tobacco Use Types Packs/Day Years [...] to get more. Sometimes true 12/2023 [place] Depression Scale Answer Date Recorded [place] Depression Scale Total 8 03/15/2024 The thought [...] encounter Miscellaneous Notes * Telephone Encounter - Anne Bhat RN - 03/24/2024 9:23 AM EST Attempted to call patient. No answer, Lvm to return call. * Telephone Encounter - Yamileth Pickett LPN - 03/19/2024 10:52 AM EST left message for patient to call office * Telephone Encounter - Nuzhat Amezquita PA-C - 03/19/2024 10:26 AM EST She doesn't have patient portal. Please call and let her know no concerns noted on anatomy ultrasound. Baby was breech. No missed anatomy. documented in this encounter Plan of Treatment Upcoming Encounters Date Type Department Care Team (Late st Contact Info) Description 04/16/2024 11:15 AM EST Office Visit Gynecology/Obstetrics Brynn Wall [address] [place] [address] Nuzhat Amezquita PA-C [address] [place] [address] Nurse [facility] [place] [address] [place] [address] Health Maintenance Due Date Last Done Comments Pneumococcal Vaccine: Pediat rics (0 to 5 Years) and At-Risk Patients (6 to 64 Years) (1 of 2 - PCV) 1998 Depression Screening 2004 DTap/Tdap Vaccines (1 - Tdap) 12/20/2011 Hepatitis B Vaccine (1 of 3 - 19+ 3-dose series) 12/20/2011 Pap Smear 2013 Cervical Cancer Screening [...] filedocumented as of this encounter Care Teams Riding Teacher Relationship Specialty Start Date End Date Alex Penaloza MD [address] [place] [address] PCP - General Pediatrics 01/30/22 documented as of this encounter
--- OUTSIDE RECORDS SUMMARY | 2024-05-29 20:06 | External Medical Summary ---
Author Name Unknown Address Unknown Organization K01:[place] [facility] [place] [address] [place] [address] Laboratory Report Ordering Provider Test Date Status RODNEYMAIKOL 04/20/2024 16:35:29 Final Observation Date Value Abnormality Reference (Units ) Status Iron 04/20/2024 16:35:29 72 33-151 (ug/dL) Final Iron-binding capacity 04/20/2024 16:35:29 527 Above high normal 250-425 (ug/dL) Final Transferrin Sat % 04/20/2024 16:35:29 14 Below low normal 15-55 (%) Final Performing Location LABORATORY [facility] - [address] [place] [address]
--- OUTSIDE RECORDS SUMMARY | 2024-05-29 20:06 | External Medical Summary ---
Author Name Unknown Address Unknown Organization K01:[facility] [place] - [address] [place] [address] [place] [address] Laboratory Report Ordering Provider Test Date Status MAIKOL STEVENS 04/20/2024 16:35:29 Final Observation Date Value Abnormality Reference (Units ) Status WBC, Total 04/20/2024 16:35:29 7.41 4.00-10.8 0 (K/uL) Final RBC 04/20/2024 16:35:29 3.33 3.85-5.15 (M/uL) Final Hemoglobin 04/20/2024 16:35:29 10.6 Below low normal 12 .0-15.3 (g/dL) Final Anemia reflex testing trigge rs on a HGB < 12.0 for Females and HGB < 13.0 for Males in accordance with the WHO Anemia Guidelines
Anemia reflex testing triggers on a HGB < 12.0 for Females and HGB < 13.0 for Males in accordance with the WHO Anemia Guidelines HCT 04/20/2024 16:35:29 32.3 Below low normal 36. 0-45.2 (%) Final MCV 04/20/2024 16:35:29 97.0 81.5-97.5 (fL) Final MCH 04/20/2024 16:35:29 31.8 27.0-34.0 (pg) Final MCHC 04/20/2024 16:35:29 32.8 32.0-36.0 (g/dL) Final RDW 04/20/2024 16:35:29 12.8 11.5-15.5 (%) Final Platelets 04/20/2024 16:35:29 137 Below low normal 140 -400 (K/uL) Final MPV 04/20/2024 16:35:29 12.2 6.6-11.1 ( fL) Final Nucleated erythrocytes/100 leukocytes [Ratio] in Blood by Automated count 04/20/2024 16:35:29 0 <=0 (/100 WBCs) Final Performing Location LAB[facility]ORY [facility] [place] - [address] [facility] [address]
--- OUTSIDE RECORDS SUMMARY | 2024-05-29 20:06 | External Medical Summary ---
Author Name Unknown Address Unknown Organization K01:[facility] [place] [address] [facility] [place] [address] Laboratory Report Ordering Provider Test Date Status MAIKOL STEVENS 04/20/2024 16:35:29 Final Observation Date Value Abnormality Reference (Units ) Status SYNC LEUKOCYTES IN BLOOD BY AUTOMATED COUNT 04/20/2024 16:35:29 7.41 4.00-10.80 (K/uL) Final Segs 04/20/2024 16:35:29 70.8 40.0-75.0 (%) Final Lymphs % 04/20/2024 16:35:29 18.8 18.0-42.0 (%) Final Monos 04/20/2024 16:35:29 8.6 1.0-11.0 (%) Final Eosinophils 04/20/2024 16:35:29 0.9 0.0-6.0 (%) Final Basos 04/20/2024 16:35:29 0.4 0.0-2.0 (%) Final Immature Granulocyte, Percent 04/20/2024 16:35:29 0.5 0.0-2.0 (%) Final Absolute Segs 04/20/2024 16:35:29 5.24 1.80-7.70 (K/uL) Final Lymphs, absolute 04/20/2024 16:35:29 1.39 1.00-4.80 (K/ul) Final Monos, Abs 04/20/2024 16:35:29 0.64 0.00-1.10 (K/uL) Final Eos, Abs 04/20/2024 16:35:29 0.07 0.00-0.70 (K/uL) Final Basos, Abs 04/20/2024 16:35:29 0.03 0.00-0.20 (K/uL) Final Immature Granulocytes, Number 04/20/2024 16:35:29 0.04 0.00-0.20 (K/uL) Final Performing Location LABORATORY [facility] - [address] [facility] [address]
--- OUTSIDE RECORDS SUMMARY | 2024-05-29 20:06 | External Medical Summary | Summary of Care ---
Author Name Unknown Organization [facility] Address [address] [facility] [address] Phone [phone] Care Team Providers Care Buyer Planner Name Role Phone Alex Penaloza MD Primary Care Provider + Reason for Visit * Reason Onset Date Comments Appointment 04/20/2024 Encounter Details Date Type Department Care Team (Late st Contact Info) Description 04/20/2024 Telephone Gynecology/Obstetrics [facility] [address] [place] [address] Ailin Killian CRNP [address] [facility] [place] [address] Appointment Allergies No known active allergiesdocumented as [...] Declines [facility]. Ask a doc sent to [facility] with following recommendations: I would recommend ultrasound evaluation is for growth every 4 weeks. In terms of care, I would recommend routine care With respect to delivery, timing should be based on obstetrical indications only. I would also place a [facility] for the care Dose as of 04/09/2024 per [facility]: 110 mg of methadone in the [...] Khalil RN 04/20/2024 Desires pump sent to [facility] 04/20/2024 Lawanda Khalil RN 04/20/2024 Estimated Date [...] money to get more. Sometimes true 12/2023 [place] Depression Scale Answer Date Recorded [place] Depression Scale Total 8 03/15/2024 The thought [...] Phone call to patient. Left message on [employer] voice mail. Encouraged patient to return call to [phone] to assist with scheduling. * Telephone Encounter - Vivian Herrera CMA - 04/20/2024 3:34 PM EST Patient agreeable to scheduling appointments with [facility]. Initially declined due to travel. Referral is already placed and active. Please reach out to patient to schedule. documented in this encounter Plan of Treatment Upcoming Encounters Date Type Department Care Team ([facility] st Contact Info) Description 05/19/2024 12:30 PM EST Imaging Radiology [facility] 2nd Floor, [place] [facility] [address] 05/19/2024 1:15 PM EST Office Visit Gynecology/Obstetrics [facility] 132 [facility] [place] [address] Backer, OJ Cavanaugh 132 [facility] [place] [address] Nurse [facility] 132 [facility] [place] [address] Health Maintenance Due Date Last Done Comments [...] filedocumented as of this encounter Care Teams Buyer Planner Relationship Specialty Start Date End Date Alex Penaloza MD [address] [facility] [address] [place] [address] PCP - General Pediatrics 01/30/22 documented as of this encounter
--- OUTSIDE RECORDS SUMMARY | 2024-05-29 20:06 | External Medical Summary ---
Author Name Unknown Address Unknown Organization K01:LABORATORY [facility] [place] - [address] [place] [address] Laboratory Report Ordering Provider Test Date Status MAIKOL STEVENS 04/20/2024 16:35:29 Final Observation Date Value Abnormality Reference (Units ) Status Creatinine 04/20/2024 16:35:29 0.6 0.5-1.0 (mg/dL) Final Glomerular filtration rate/1.73 sq M.predicted [Volume Rate/Area] in Serum, Plasma or Blood by Creatinine-based formula (CKD-EPI) 04/20/2024 16:35:29 >90 >=60 (mL/min) Final eGFR is calculated based on the CKD-EPI 2020 equation. Performing Location LABORATORY [facility] [place] - [address] [place] [address]
--- OUTSIDE RECORDS SUMMARY | 2024-05-29 20:06 | External Medical Summary ---
Author Name Unknown Address Unknown Organization K01:LABORATORY [facility] [place] - [address] [facility] [address] [facility] [address] Laboratory Report Ordering Provider Test Date Status MAIKOL STEVENS 04/20/2024 16:35:29 Final Observation Date Value Abnormality Reference (Units ) Status Treponema pallidum Ab [Presence] in Serum by Immunoassay 04/20/2024 16:35:29 Nonreactive Nonreactive Final No serologic evidence of syp hilis. No additional testing clinicially indicated at this time. Consider repeat testing in 2-4 weeks if acute or primary syphilis is suspected. Performing Location LABORATORY [facility] [place] - [address] [facility] [address]
--- OUTSIDE RECORDS SUMMARY | 2024-05-29 20:06 | External Medical Summary ---
Author Name Unknown Address Unknown Organization K01:LABORATORY [facility] [place] - [address] [place] [address] Laboratory Report Ordering Provider Test Date Status MAIKOL STEVENS 04/20/2024 16:35:29 Final Observation Date Value Abnormality Reference (Units ) Status Glucose [Moles/volume] in Serum or Plasma --1 hour post 50 g glucose PO 04/20/2024 16:35:29 68 Below low normal 70-129 (mg/dL) Final Performing Location LABORATORY [facility] - [address] [place] [address]
--- OUTSIDE RECORDS SUMMARY | 2024-05-29 20:06 | External Medical Summary | Summary of Care ---
Author Name Unknown Organization [facility] Address [address] [facility] [place] [address] Phone [phone] Care Team Providers Care Parts Administrator Name Role Phone Alex Penaloza MD Primary Care Provider + Reason for Visit * Reason Onset Date Comments Test Results 03/19/2024 Encounter Details Date Type Department Care Team (Late st Contact Info) Description 03/19/2024 Telephone Gynecology/Obstetrics [facility] [address] [place] [address] Nuzhat Amezquita PA-C [address] [place] [address] Test Results Allergies No known active allergiesdocumented as of this encounter (statuses as of 03/19/2024) Medications Methadone HCl 10 MG/ML Oral Concentrate Take by mouth . 117 mg in the morning and 66 mg in the evening Active Iron-Vitamin C 65-125 MG Oral Tablet (Vitron C)Indications:Ant epartum anemia complicating Take 1 Tablet by mouth in the morning and 1 Tablet before bedtime. 60 Tablet 3 4 Active documented as of this encounter (statuses as of 03/19/2024) Active Problems Problem Noted Date Diagnosed Date [...] Declines [facility]. Ask a doc sent to [facility] with following recommendations: I would recommend ultrasound [...] as of this encounter (statuses as of 03/19/2024) Social History Tobacco Use Types Packs/Day Years [...] money to get more. Sometimes true 12/2023 [place] Depression Scale Answer Date Recorded [place] Depression Scale Total 8 03/15/2024 The thought [...] encounter Miscellaneous Notes * Telephone Encounter - Yamileth Pickett LPN [...] Office Visit Gynecology/Obstetrics Brynn Wall [address] [place] [address] Nuzhat Amezquita PA-C [address] [place] [address] Nurse [facility] [place] [address] [place] [address] Health Maintenance Due Date Last Done Comments [...] filedocumented as of this encounter Care Teams Parts Administrator Relationship Specialty Start Date End Date Alex Penaloza MD [address] [place] [address] PCP - General Pediatrics 01/30/22 documented as of this encounter
--- OUTSIDE RECORDS SUMMARY | 2024-05-29 20:06 | External Medical Summary ---
Author Name Unknown Address Unknown Organization K01:[facility]ORY [facility] [place] [address] [facility] [address] [place] [address] Laboratory Report Ordering Provider Test Date Status MAIKOL STEVENS 04/20/2024 16:35:29 Final Observation Date Value Abnormality Reference (Units ) Status TSH 04/20/2024 16:35:29 1.70 0.27-4.20 (uIU/mL) Final Performing Location [facility] - [address] [facility] [place] [address]
--- OUTSIDE RECORDS SUMMARY | 2024-05-29 20:06 | External Medical Summary | Summary of Care ---
Author Name Unknown Organization [facility] Address [address] [place] [address] Phone [phone] Care Team Providers Care Trap Puller Name Role Phone Alex Penaloza MD Primary Care Provider + Reason for Visit * Reason Comments Outpatient Testing Encounter Details Date Type Department Care Team (Late st Contact Info) Description 04/20/2024 3:40 PM EST Laboratory Laboratory, [facility] [address] [place] [id number] [facility] [address] [place] [address] Arrived Allergies No known active allergiesdocumented as of [...] the care Dose as of 04/09/2024 per [facility]: 110 mg of methadone in [...] Khalil RN 04/20/2024 Desires pump sent to [facility] 04/20/2024 Lawanda Khalil RN 04/20/2024 Estimated [...] money to get more. Sometimes true 12/2023 [place] Depression Scale Answer Date Recorded [place] Depression Scale Total 8 03/15/2024 The thought [...] Description 05/19/2024 12:30 PM EST Imaging Radiology [facility] 2nd [facility] [address] [place] [address] 05/19/2024 1:15 PM EST Office Visit Gynecology/Obstetrics [facility] [address] [place] [id number] Joseline Navarro CRNP [address] [place] [address] [place], Nurse [facility] [place] [address] [place] [address] Health Maintenance Due Date Last Done Comments [...] filedocumented as of this encounter Care Teams Trap Puller Relationship Specialty Start Date End Date Alex Penalzoa MD [address] [address] PCP - General Pediatrics 01/30/22 documented as of this encounter
--- OUTSIDE RECORDS SUMMARY | 2024-05-29 20:06 | External Medical Summary | Summary of Care ---
Author Name Unknown Organization [facility] Address [address] [facility] [place] [address] Phone [phone] Care Team Providers Care Animal Nursery Worker Name Role Phone Alex Penaloza MD Primary Care Provider + Reason for Visit * Reason Onset Date Comments Test Results 03/19/2024 Encounter Details Date Type Department Care Team (Late st Contact Info) Description 03/19/2024 Telephone Gynecology/Obstetrics [facility] [address] [place] [address] Nuzhat Amezquita PA-C [address] [place] [address] Test Results Allergies No known active allergiesdocumented as of this encounter (statuses as of 03/23/2024) Medications Methadone HCl 10 MG/ML Oral Concentrate Take by mouth . 117 mg in the morning and 66 mg in the evening Active Iron-Vitamin C 65-125 MG Oral Tablet (Vitron C)Indications:Ant epartum anemia complicating Take 1 Tablet by mouth in the morning and 1 Tablet before bedtime. 60 Tablet 3 4 Active documented as of this encounter (statuses as of 03/23/2024) Active Problems Problem Noted Date Diagnosed Date [...] Declines MFM. Ask a doc sent to [facility] with following recommendations: I would recommend ultrasound [...] as of this encounter (statuses as of 03/23/2024) Social History Tobacco Use Types Packs/Day Years [...] money to get more. Sometimes true 12/2023 [place] Depression Scale Answer Date Recorded [place] Depression Scale Total 8 03/15/2024 The thought [...] Gynecology/Obstetrics [facility] [address] [place] [address] Nuzhat Amezquita PA-C [address] [place] [address] Nurse [facility] [address] [place] [address] Health Maintenance Due Date Last Done Comments [...] filedocumented as of this encounter Care Teams Animal Nursery Worker Relationship Specialty Start Date End Date Alex Penaloza MD [address] [place] [address] PCP - General Pediatrics 01/30/22 documented as of this encounter
--- OUTSIDE RECORDS SUMMARY | 2024-05-29 20:06 | External Medical Summary | Summary of Care ---
Author Name Unknown Organization [facility] Address [address] [place] [address] Phone [phone] Care Team Providers Care Filenet Architect Name Role Phone Alex Penaloza MD Primary Care Provider + Reason for Referral * Evaluate & Treat - Unlimited Visits (Within 10 days (routine)) - Authorized Specialty Diagnoses / Procedures Referred By Radha t Referred To Contact Maternal and Medicine Diagnoses Methadone maintenance treatment affecting , antepartum (HCC) Nuzhat Amezquita PA-C [address] [place] [address] Phone: tel: fax: Referral ID Status Reason Start Date Expiration Date Visits Requested Visits Authorized [id number] Authorized Specialty Services Required [phone] Question Answer Referral Priority Within 10 days (routine) Where should this appointment be scheduled? [facility] Referral Reason Methadone use in [facility] Yes Encounter Details Date Type Department Care Team (Late st Contact Info) Description 02/18/2024 Telephone Gynecology/Obstetrics [facility] [address] [place] [address] Nuzhat Amezquita PA-C [address] [place] [address] Allergies No known active allergiesdocumented as of this encounter (statuses as of 03/17/2024) Medications Methadone HCl 10 MG/ML Oral Concentrate Take by mouth . 117 mg in the morning and 66 mg in the evening Active Iron-Vitamin C 65-125 MG Oral Tablet (Vitron C)Indications:Ant epartum anemia complicating Take 1 Tablet by mouth in the morning and 1 Tablet before bedtime. 60 Tablet 3 4 Active documented as of this encounter (statuses as of 03/17/2024) Active Problems Problem Noted Date Diagnosed Date [...] affecting pregna ncy 02/16/2024 Overview (02/18/2024): Declines [facility]. Ask a doc sent to [facility] with following recommendations: I would [...] as of this encounter (statuses as of 03/17/2024) Social History Tobacco Use Types Packs/Day Years [...] money to get more. Sometimes true 12/2023 [place] Depression Scale Answer Date Recorded [place] Depression Scale Total 8 03/15/2024 The thought [...] Telephone Encounter - Louise Ford LPN - 03/17/2024 9:39 AM EST Closing encounter, patient had OV 03/15. * Telephone Encounter - Anne Bhat RN - 03/12/2024 2:05 PM EST Patient has appt scheduled for 03/15 in office. Noted in sticky note to review this encounter. * Telephone Encounter - Anne Bhat RN - 02/20/2024 8:19 AM EST LVM to return call to make her aware that Iron was sent to pharmacy. * Telephone Encounter - Nuzhat Amezquita PA-C - 02/20/2024 7:31 AM EST She had declined MFM previously at appointment. Was not asking her to be seen in [place] every month rather I just wanted to reach out to her to let her know that growths can be done locally every 4weeks based on MFM response back. Yes, she did tell me she was treated. I just wanted to let her know that labs consistent with past infection and no active infection as I told her we'd check no active infection. Iron pills sent. I can review recommendations further with her at appointment. * Telephone Encounter - Olinda Sandoval LPN - 02/19/2024 3:00 PM EST Pt called back and said she can't go to [facility] every month. I let pt know she may only need to gofor initial appt then she may be able to come to [facility] for additional appts. Pt said she was treated for her hep c in the past. Pt is asking for you to send in iron to her pharmacy due to not have the means to pay for this [facility] * Telephone Encounter - Lawanda Khalil RN - 02/18/2024 5:13 PM EST Spoke with pt. I attempted to review this note with pt and asked why this would need done since shedidn't have this done with her other pregnancies. I discussed that we follow evidence based care and guidelines. She states that she has been told that [facility] orders "unnecessary testing". We discussed that she can declines anything that is offered. I advised that this was being recommended so we could ensure the health of her baby and herself. I tried to discusss with her that we have different protocols for things like hypertension and medicationsbut she felt it was it was unnecessary. Sobia stated that she was in the grocery store currently and her children were screaming in the background and didn't have time to discuss it. Advised to call back when able as I had other test results to go over. We also did not discuss the need for the consult to the center for pediatrics either as she ended the call prior to this discussion. * Telephone Encounter - Nuzhat Amezquita PA-C - 02/18/2024 4:15 PM EST Please let patient know I reached out to [facility] regarding Methadone in to ensure we are doing all we can for her and baby in this . They recommended monitoring baby's growth every 4 weeks with ultrasound. This would typically startafter 24 weeks and can be coordinated through our office. They also recommended [facility] for the baby's care. I placed this referral for her. Her labs showed positive Hep C antibody, follow up testing showed results consistent with past infection not active infection as she as treated. She is anemic Hgb was 10.8. Would recommend she start twice daily oral iron. We will repeat labs in4 weeks. documented in this encounter Plan of Treatment Upcoming Encounters Date Type Department Care Team (Late st Contact Info) Description 03/18/2024 2:45 PM EST Imaging Radiology [facility] 2nd Floor, [place] [address] [place] [address] 04/16/2024 11:15 AM EST Office Visit Gynecology/Obstetrics [facility] [address] [place] [address] Nuzhat Amezquita PA-C [address] [place] [address] Nurse [facility] [address] [place] [address] Scheduled Referrals Name Type Priority Associated Diagnoses Orde r Schedule [facility] OP Referral Within 10 days (routine) Methadone maintenance treatment affecting , antepartum (HCC) Ordered: 02/18/2024 Health Maintenance Due Date Last Done Comments [...] Visit Diagnoses Diagnosis Methadone maintenance treatment affecting , antepartum (HCC)- Primary Antepartum anemia complicating Anemia, antepartum documented in this encounter Care Teams Filenet Architect Relationship Specialty Start Date End Date Alex Penaloza MD [address] [place] [address] PCP - General Pediatrics 01/30/22 documented as of this encounter
--- OUTSIDE RECORDS SUMMARY | 2024-05-29 20:06 | External Medical Summary ---
Author Name Unknown Address Unknown Organization [id number]:[place] [place] [address] [place] [address] Laboratory Report Ordering Provider Test Date Status MAIKOL STEVENS 04/20/2024 16:35:29 Final Observation Date Value Abnormality Reference (Units ) Status Vitamin B12 04/20/2024 16:35:29 280 [id number] (pg/mL) Final Performing Location [facility] - [address] [place] [place] [address]
--- OUTSIDE RECORDS SUMMARY | 2024-05-29 20:06 | External Medical Summary ---
Author Name Unknown Address Unknown Organization [id number][place] [place] [address] [place] [address] Laboratory Report Ordering Provider Test Date Status MAIKOL STEVENS 04/20/2024 16:35:29 Final Observation Date Value Abnormality Reference (Units ) Status Folic Acid 04/20/2024 16:35:29 13.4 >4.5 (ng/ mL) Final Performing Location [facility] [address] [facility] [place] [place] [address]
--- OUTSIDE RECORDS SUMMARY | 2024-05-29 20:06 | External Medical Summary | Summary of Care ---
Author Name Unknown Organization [facility] Address [address] [facility] [place] [address] Phone [phone] Care Team Providers Care Wall Man Name Role Phone Alex Penaloza MD Primary Care Provider + Reason for Visit * Reason Comments New Visit Encounter Details Date Type Department Care Team (Late st Contact Info) Description 02/16/2024 1:30 PM EST Office Visit Gynecology/Obstetric s Brynn Wall [address] [place] [address] Nuzhat Amezquita PA-C [address] [place] [address] Supervision of other normal , antepartum*; Methadone maintenance treatment affecting , antepartum (HCC); History of hepatitis C; Tobacco use; Marijuana use during Allergies No known active allergiesdocumented as of this encounter (statuses as of 04/20/2024) Medications Methadone HCl 10 MG/ML Oral Concentrate Take 14.3 mL by mouth. 110 mg in the morning and 33 mg in the evening Active documented as of this encounter (statuses [...] the care Dose as of 04/09/2024 per [facility]: 110 mg of methadone in the [...] Khalil RN 04/20/2024 Desires pump sent to [facility] 04/20/2024 Lawanda Khalil RN 04/20/2024 Estimated Date [...] money to get more. Sometimes true 12/2023 Lynndyl Depression Scale Answer Date Recorded Lynndyl Depression Scale Total 8 03/15/2024 The thought [...] Reading Time Taken Comments Blood Pressure 100/58 02/16/2024 1:52 PM EST Pulse - - Temperature - - Respiratory Rate - - Oxygen Saturation - - Inhaled Oxygen Concentration - - Weight 54 kg (119 lb) 02/16/2024 1:52 PM EST Height - - Body Mass Index 23.24 01/30/2022 11:59 AM EDT documented in this encounter Progress Notes * Nuzhat Amezquita PA-C - 02/16/2024 1:58 PM EST CC: THEO HPI: Jocelin Loya is a 33 year old female here for initial OB exam. SUSAN 07/23/2024 by ultrasound completed 01/09/2024 showing single viable IUP at 13w3d. Patient today is currently 18w6d. LMP: unknown She is taking vitamins. Just started it a few weeks ago. States hard to find one she likes. She is particular. Reviewed PMH, social hx, family hx, surgical hx, ob hx with patient. 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 Follows with [facility]. Did have increase to BID dosing in due to cravings. Feels stable on current does. Took with last . Hx of Hepatitis C: s/p treatment 1-2 years ago following of second child. Medical marijuana use: patient reports a couple times a week at bedtime for sleeping. Tobacco use: reduced with KOP, pt reports 1-2 cigarettes per day. Current symptoms: none. Denies VB, LOF, contractions. + quickening. Discussed Qnatal and Quad screen. Reviewed current medications with patient. Last pap smear [address] Bardales's office per patient when . No history of abnormal pap smears. Lynndyl Depression Scale: No data recorded Lynndyl suicide question and score: Score of 3 = Yes, quite often. Score of 2 = Sometimes. Score of 1 = Hardly ever No data recorded OB History Para Term AB Living 4 2 2 1 2 SAB IAB Ectopic Multiple Live Births 1 2 # Outcome Date GA Lbr Rangel/2nd Weight Sex Type Anes PTL Lv 4 Current 3 Term 12/26/21 M Vag-Spont LUDIN 2 Term 07/14/20 F Vag-Spont LUDIN 1 SAB 04/13/20 FD No past medical history on file. Social History Socioeconomic History Marital status: Single Tobacco Use Smoking status: Every Day Smokeless tobacco: Never Tobacco comments: 2/day Vaping Use Vaping status: Former Substance and Sexual Activity Alcohol use: Not Currently Drug use: Yes Types: Opium, Marijuana Comment: current use of marijuana (medical card) Sexual activity: Yes Partners: Male Social Needs Social Connections No past surgical history on file. Current Outpatient Medications Medication Sig Dispense Refill Methadone HCl 10 MG/ML Oral Concentrate Take by mouth . 117 mg in the morning and 66 mg in the evening No current facility-administered medications for this visit. Review of patient's allergies indicates: No Known Allergies Family History Problem Relation Name Age of Onset Non-Hodgkins Lymphoma Father Leukemia Grandfather (Paternal) Denies family history of genetic conditions in patient's and FOB's families. ROS: General: no fevers, chills CV: no chest pain, SOB GI: no constipation, diarrhea, nausea Breast: no masses, nipple discharge, tenderness : no vaginal bleeding, unusual vaginal discharge, dysuria Psychological: no anxiety, depression, SI/HI PHYSICAL EXAM: please see physical Pt presented with two children. Breast and pelvic exam deferred today given children in room. Patient prefers to complete with next visit. No pelvic complaints. + FHT. FH at just below umbilicus ASSESSMENT/PLAN: Supervision of other normal , antepartum (Primary) - CULTURE, URINE, QUANTITATIVE; Future; Expected date: 02/16/2024 - TYPE AND SCREEN; Future; Expected date: 02/16/2024 - RUBELLA IGG ANTIBODY; Future; Expected date: 02/16/2024 - HEPATITIS B SURFACE ANTIGEN; Future; Expected date: 02/16/2024 - HIV ANTIGEN & ANTIBODY SCREEN W/ CONFIRMATION; Future; Expected date: 02/16/2024 - ABO/RH; Future; Expected date: 02/16/2024 - CBC WITH WBC DIFFERENTIAL AND ANEMIA REFLEX WORKUP; Future; Expected date: 02/16/2024 - HEPATITIS C ANTIBODY SCREEN WITH PROGRESSION TO HEPATITIS C RNA QUANTITATIVE; Future; Expected date: 02/16/2024 - SYPHILIS ANTIBODY SCREEN WITH REFLEX TO RPR; Future; Expected date: 02/16/2024 - URINALYSIS OBSTETRICS, POINT OF CARE - US PREG SINGLE/1ST GEST, 14 WEEKS OR LATER; Future; Expected date: 02/23/2024 - CHLAMYDIA TRACHOMATIS AND NEISSERIA GONORRHOEAE, AMPLIFIED PROBE; Future; Expected date: 02/16/2024 - CULTURE, URINE, QUANTITATIVE - CHLAMYDIA TRACHOMATIS AND NEISSERIA GONORRHOEAE, AMPLIFIED PROBE Methadone maintenance treatment affecting , antepartum (HCC) Recommended MFM referral. Discussed increased risk and importance. Patient declines. Patient statestransportation is definitely limiting factor; however she does not feel she needs as did not see them in prior prengnancy when on Methadone. Reviewed reason for recommendation. Again declines. Will coordinate anatomy locally in 1-2 weeks. MFM ask a doc sent for recommendations in . History of hepatitis C S/p treatment Labs order including Hep C, with reflex RNA LFTs ordered Tobacco use Cut back with KOP. Smoking 1-2 cigarettes daily Recommended she continue to cut back and quit Marijuana use during Medical per patient. Using a couple times weekly to help with sleep. Counseled on risk in and . Advised she not use. Other orders - HEPATIC FUNCTION PANEL; Future; Expected date: 02/16/2024 - Discussed timing of routine OB care - Recommended flu vaccine - recommended Covid vaccine due to increased risk of severe disease in . . - Offered genetic screening and explained that screening does not provide a definitive diagnosis. Patient aware, will let office know. - Recommended clean healthy diet and discussed foods/drinks to avoid in . Discussed recommend weight gain in . - Counseled on OTC measures to help alleviate nausea and advised to call if these are ineffective - Recommended daily vitamin. - Discussed labs as ordered and instructed patient to present to lab following appointment. - MFM referral indicated , patient declines - RTO in 2-4 weeks for BARRY, PRN with concern. Will plan to complete breast and pelvic then. - Anatomy ultrasound in 2 weeks Nuzhat Amezquita PA-C * Vivian Herrera CMA - 02/16/2024 1:56 PM EST 18w6d Verucose veins in left leg documented in this encounter Nursing Notes * Lawanda Khalil RN - 04/20/2024 4:25 PM EST have you cut down with your smoking yes have you quit no have you seen a flatbed company driver no have you seen a psychiatric social worker no are you receiving counselingyes have you received dental care during your are you enrolled in WIC yes do you receive food stamps or castillo assistance yes are you having problems with depression, receiving counseling or taking prescribed medications yes have you had little interest in doing things, or have you been bothered by feeling down, depressed,or hopeless denies Discussed options for control after delivery. She plans to not use control. Plans to breastfeed. Will submit breast pump rx to [facility]. Has crib at home. Does not have car seat but has a baby shower coming up and plans to get it there. When I asked if she had any questions about L&D she said this is her 3rd baby and no concerns. We discussed compliance with appointments and she has a very limited schedule. Only can come at certain times. Encouraged importance of visits and she is understanding. Doing glucose today. * Anne Bhat RN - 02/16/2024 2:25 PM EST Patient seen by [facility] Sticker Machine Operator. Patient denies any questions or concerns. Patient denies any concerns today. Patient in a hurry to leave the appointment. Anne Bhat RN * Vivian Herrera CMA - 02/16/2024 1:52 PM EST Patient present today for NOB visit. 18w6d Verucose veins in left leg documented in this encounter Plan of Treatment Upcoming Encounters Date Type Department Care Team (Late st Contact Info) Description 05/19/2024 12:30 PM EST Imaging Radiology [facility] 2nd [facility] [address] [place] [address] 05/19/2024 1:15 PM EST Office Visit Gynecology/Obstetrics [facility] [address] [place] [address] [place], OJ Cavanaugh [address] [place] [address] Nurse [facility] [address] [place] [address] Health Maintenance Due Date Last Done Comments [...] Not on filedocumented as of this encounter Procedures Procedure Name Priority Date/Time Associated Diagnosis Comments CHLAMYDIA TRACHOMATIS AND NEISSERIA GONORRHOEAE, AMPLIFIED PROBE Routine 02/16/2024 2:48 PM EST Supervision of other normal , antepartum CULTURE, URINE, QUANTITATIVE Routine 02/16/2024 2:48 PM EST Supervision of other normal , antepartum URINALYSIS OBSTETRICS, POINT OF CARE Routine 02/16/2024 2:46 PM EST Supervision of other normal , antepartum documented in this encounter Results * US PREG SINGLE/1ST GEST, 14 WEEKS OR LATER (03/18/2024 3:19 PM EST) Anatomical Region Laterality Modality Pelvis, Body Ultrasound 03/18/2024 5:08 PM EST Impressions 03/18/2024 5:06 PM EST IMPRESSION 1. Growth within normal limits utilizing SUSAN from initial scan. 2. Anatomy well demonstrated, as above. Narrative 03/18/2024 5:06 PM EST EXAM US PREG SINGLE/1ST GEST, 14 WEEKS OR LATER - 03/18/2024 3:19 pm HISTORY anatomy COMPARISON US PREG SINGLE_1ST GEST, LESS THAN 14 WKS, ACC: [id number], dated 2024-01-09 12:14:47 TECHNIQUE Sonographic examination performed. FINDINGS General : Krause Presentation: Breech heart rate: 161 bpm Amniotic Fluid: normal Placenta: Posterior, no previa Anatomy Lateral ventricles: Seen Cerebellum: Seen Cisterna magna: Seen C-Spine: Seen T-Spine: Seen L-Spine: Seen S-Spine: Seen Nuchal fold: N/A Orbits: Seen Facial profile: Seen Upper lip: Seen 4-chamber view: Seen LVOT: Seen RVOT: Seen Stomach: Seen Abdominal cord insertion: Seen Umbilical cord: 3 vessel cord Kidneys: Seen Bladder: Seen Arms: Seen Legs: Seen Biometry The previous study of 01/09/2024 estimated the date of delivery of 07/13/2024. Utilizing that date, current gestational age is 23 weeks 2 days. Biparietal diameter: 5.7 cm, 23w 3d Head circumference: 21.0 cm, 23w 0d Abdominal circumference: 19.0 cm, 23w 5d Femur length: 4.0 cm, 22w 6d Humeral length: 3.8 cm, 23w 1d HC/AC: 1.10, within normal limits EFW: 585 g which is 44th percentile. Utilizing the date of delivery obtained from the initial scan, growth of the BPD, HC, AC, femur and humerus is within normal limits. Maternal Structures Myometrium: Unremarkable Right ovary: Not seen Left ovary: Not seen Cervix 4.77 cm Procedure Note Salma Howell MD - 03/18/2024 EXAM US PREG SINGLE/1ST GEST, 14 WEEKS OR LATER - 03/18/2024 3:19 pm HISTORY anatomy COMPARISON US PREG SINGLE_1ST GEST, LESS THAN 14 WKS, ACC: [id number], dated :14:47 TECHNIQUE Sonographic examination performed. FINDINGS General : Krause Presentation: Breech heart rate: 161 bpm Amniotic Fluid: normal Placenta: Posterior, no previa Anatomy Lateral ventricles: Seen Cerebellum: Seen Cisterna magna: Seen C-Spine: Seen T-Spine: Seen L-Spine: Seen S-Spine: Seen Nuchal fold: N/A Orbits: Seen Facial profile: Seen Upper lip: Seen 4-chamber view: Seen LVOT: Seen RVOT: Seen Stomach: Seen Abdominal cord insertion: Seen Umbilical cord: 3 vessel cord Kidneys: Seen Bladder: Seen Arms: Seen Legs: Seen Biometry The previous study of 01/09/2024 estimated the date of delivery of07/13/2024. Utilizing that date, current gestational age is 23 weeks 2days. Biparietal diameter: 5.7 cm, 23w 3d Head circumference: 21.0 cm, 23w 0d Abdominal circumference: 19.0 cm, 23w 5d Femur length: 4.0 cm, 22w 6d Humeral length: 3.8 cm, 23w 1d HC/AC: 1.10, within normal limits EFW: 585 g which is 44th percentile. Utilizing the date of delivery obtained from the initial scan, growth ofthe BPD, HC, AC, femur and humerus is within normal limits. Maternal Structures Myometrium: Unremarkable Right ovary: Not seen Left ovary: Not seen Cervix 4.77 cm IMPRESSION IMPRESSION 1. Growth within normal limits utilizing SUSAN from initial scan. 2. Anatomy well demonstrated, as above. Nuzhat Amezquita PA-C RAD ULTRASOUND Final Result * CHLAMYDIA TRACHOMATIS AND NEISSERIA GONORRHOEAE, AMPLIFIED PROBE (02/16/2024 2:48 PM EST) Pathologist [facility] Chlamydia Trachomatis Result Negative Negative 02/17/2024 11:05 AM EST [facility] [place]:No Chlamydia trachom atis detected by shoe clerk-mediated nucleic acid amplification. Neisseria Gonorrhoeae Result Negative Negative 02/17/2024 11:05 AM EST [facility] Comment:No Neisseria gonorrh oeae detected by shoe clerk-mediated nucleic acid amplification. Urine Urine specimen obtained by clean catch procedure / Unknown Non-blood Collection / Unknown 02/16/2024 2:48 PM EST 02/16/2024 2:48 PM EST Nuzhat Amezquita PA-C LAB MICRO - GENERAL ORDERABL ES Final Result [facility] [address] [place] [address] * CULTURE, URINE, QUANTITATIVE (02/16/2024 2:48 PM EST) Culture Growth No significant growth 02/17/2024 12:54 PM EST [facility] Urine Urine specimen obtained by clean catch procedure / Unknown Non-blood Collection / Unknown 02/16/2024 2:48 PM EST 02/16/2024 2:48 PM EST us Nuzhat Amezquita PA-C LAB MICRO - GENERAL ORDERABL ES Final Result [facility] [address] [place] [address] * URINALYSIS OBSTETRICS, POINT OF CARE (02/16/2024 2:46 PM EST) Color, Urine Yellow Light Yellow, Yellow 02/16/2024 2:48 PM EST LAB[facility]ORY [place] [facility] Clarity, Urine Clear Clear 02/16/2024 2:48 PM EST [facility] [place] [facility] Glucose, Urine Negative Negative mg/dL 02/16/2024 2:48 PM EST [facility] [place] [facility] Bilirubin, Urine Negative Negative 02/16/2024 2:48 PM EST [facility] [place] [facility] Ketone, Urine Negative Negative mg/dL 02/16/2024 2:48 PM EST [facility] [place] [facility] Specific [place], Urine 1.020 1.003 - 1.030 02/16/2024 2:48 PM EST [facility] [place] [facility] Blood, Urine Negative Negative 02/16/2024 2:48 PM EST [facility] [place] [facility] pH, Urine 7.0 5.0, 5.5, 6.0, 6.5, 7.0, 7.5 units 02/16/2024 2:48 PM EST [facility] [place] [facility] Protein, Urine Negative Negative mg/dL 02/16/2024 2:48 PM EST [facility] [place] [facility] Urobilinogen, Urine 0.2 0.2, 1.0 mg/dL 02/16/2024 2:48 PM EST [facility] [place] [facility] Nitrite, Urine Negative Negative 02/16/2024 2:48 PM EST [facility] [place] [facility] Esterase, Urine Negative Negative 02/16/2024 2:48 PM EST [facility] [place] [facility] Urine 02/16/2024 2:46 PM EST 02/16/2024 2:48 PM EST us Nuzhat Amezquita PA-C LAB POINT OF CARE TE ST DOCKED DEVICE UNSOLICITED RESULTS Final Result [facility] [place] [facility] [address] [place] [address] * (ABNORMAL) HEPATIC FUNCTION PANEL (02/16/2024 2:22 PM EST) Pathologist [facility] Albumin 3.6(L) 3.8 - 5.0 g/dL 02/16/2024 3:20 PM EST [facility] [place] [facility] AST 20 10 - 35 U/L 02/16/2024 3:20 PM EST [facility] [place] [facility] Alkaline Phosphatase 64 35 - 130 U/L 02/16/2024 3:20 PM EST [facility] [place] [facility] ALT 8(L) 10 - 35 U/L 02/16/2024 3:20 PM EST [facility] [place] [facility] Bilirubin, Total <0.2 <=1.2 mg/dL 02/16/2024 3:20 PM EST [facility] [place] [facility] Bilirubin, Direct <0.2 0.0 - 0.3 mg/dL 02/16/2024 3:20 PM EST [facility] [place] [facility] Protein 6.3 6.0 - 8.3 g/dL 02/16/2024 3:20 PM EST [facility] [place] [facility] Blood Venous blood specimen / Unknown Venipuncture / Unknown 02/16/2024 2:22 PM EST 02/16/2024 2:22 PM EST us Nuzhat Amezquita PA-C LAB BLOOD ORDERABLES Final R esult [facility]ORY [place] [facility] [place] [address] * HIV ANTIGEN & ANTIBODY SCREEN W/ CONFIRMATION (02/16/2024 2:22 PM EST) Pathologist [facility] HIV Antigen & Antibody Negative Negative 02/17/2024 12:42 AM EST LABORATORY [facility] Comment:Negative HIV-1/2 ant igen and antibody screening tset results usually indicate the absence of HIV-1 and HIV-2 infection. However, such negative results do not rule-out acute HIV infection. If acute HIV-1 infection is highly suspected, it is recommended that a specimen be submitted for detection of HIV-1 RNA. Blood Venous blood specimen / Unknown Venipuncture / Unknown 02/16/2024 2:22 PM EST 02/16/2024 2:22 PM EST Nuzhat Amezquita PA-C LAB BLOOD ORDERABLES Final R esult Performing Organization Address [facility]/ZIP Co de Phone Number LABORATORY [place] [address] [place] [address] * HEPATITIS B SURFACE ANTIGEN (02/16/2024 2:22 PM EST) Hepatitis B Surface Antigen Negative Negative 02/17/2024 12:42 AM EST [facility] Blood Venous blood specimen / Unknown Venipuncture / Unknown 02/16/2024 2:22 PM EST 02/16/2024 2:22 PM EST Nuzhat Amezquita PA-C LAB BLOOD ORDERABLES Final R esult Performing Organization Address [facility] de Phone Number LABORATORY [place] [address] [place] [address] * (ABNORMAL) RUBELLA IGG ANTIBODY (02/16/2024 2:22 PM EST) Rubella IgG Antibody Positive( A) Negative 02/17/2024 12:42 AM EST [facility] Comment:A positive result is consistent with having had rubella virus or vaccination. Blood Venous blood specimen / Unknown Venipuncture / Unknown 02/16/2024 2:22 PM EST 02/16/2024 2:22 PM EST Nuzhat Amezquita PA-C LAB BLOOD ORDERABLES Final R esult Performing Organization Address City/[facility] Co de Phone Number [facility] [address] [place] [address] * TYPE AND SCREEN (02/16/2024 2:22 PM EST) ABO O 02/16/2024 8:03 PM EST [facility] Rh Positive 02/16/2024 8:03 PM EST [facility] Red Blood Cell Antibody Screen Negative 02/16/2024 8:03 PM EST [facility] Specimen Expiration Date 02/19/2024 23:59 02/16/2024 8:03 PM EST [facility] Blood Venous blood specimen / Unknown Venipuncture / Unknown 02/16/2024 2:22 PM EST 02/16/2024 2:22 PM EST us Nuzhat Amezquita PA-C LAB BLOOD BANK TEST ORDERABL ES Final Result [facility]LO[facility] [address] [place] [address] documented in this encounter Visit Diagnoses Diagnosis Supervision of other normal , antepartum- Primary Methadone maintenance treatment affecting , antepartum (HCC) History of hepatitis C Personal history of other infectious and parasitic disease Tobacco use Tobacco use disorder Marijuana use during Supervision of other normal , antepartum documented in this encounter Care Teams Wall Man Relationship Specialty Start Date End Date Alex Penaloza MD [address] [address] PCP - General Pediatrics 01/30/22 documented as of this encounter
--- OUTSIDE RECORDS SUMMARY | 2024-05-29 20:06 | External Medical Summary | Summary of Care ---
Author Name Unknown Organization [facility] Address [address] [facility] [place] [address] Phone [phone] Care Team Providers Care Alignment Specialist Name Role Phone Alex Penaloza MD Primary Care Provider + Encounter Details Date Type Department Care Team (Late st Contact Info) Description 04/16/2024 Telephone Gynecology/Obstetrics [facility] [address] [place] [address] Nuzhat Amezquita PA-C [address] [facility] [place] [address] Allergies No known active allergiesdocumented as of this encounter (statuses as of 04/16/2024) Medications Methadone HCl 10 MG/ML Oral Concentrate Take by mouth . 117 mg in the morning and 66 mg in the evening Active Iron-Vitamin C 65-125 MG Oral Tablet (Vitron C)Indications:Ant epartum anemia complicating Take 1 Tablet by mouth in the morning and 1 Tablet before bedtime. 60 Tablet 3 4 Active documented as of this encounter (statuses as of 04/16/2024) Active Problems Problem Noted Date Diagnosed Date [...] Declines MFM. Ask a doc sent to [facility] with following recommendations: I would recommend ultrasound evaluation is for growth every 4 weeks. In terms of care, I would recommend routine care With respect to delivery, timing should be based on obstetrical indications only. I would also place [facility] for the care Dose as of 04/09/2024 per [facility]: 110 mg of methadone [...] as of this encounter (statuses as of 04/16/2024) Social History Tobacco Use Types Packs/Day Years [...] money to get more. Sometimes true 12/2023 Carpenter Depression Scale Answer Date Recorded Carpenter Depression Scale Total 8 03/15/2024 The thought [...] Telephone Encounter - Louise Ford LPN - 04/16/2024 12:47 PM EST TC to patient, BARRY no show. Patient states she just got out of work and has a lot going on and has been busy with her work schedule. Pt accepted appt 04/20/24 at 3pm. Would like to re-address [facility] at this appt. documented in this encounter Plan of Treatment Upcoming Encounters Date Type Department Care Team (Late st Contact Info) Description 04/20/2024 2:45 PM EST Office Visit Gynecology/Obstetrics Brynn Wall [address] [place] [address] Ailin Killian CRNP [address] [place] [address] Nurse [facility] [address] [place] [address] Health Maintenance Due Date Last Done Comments [...] filedocumented as of this encounter Care Teams Alignment Specialist Relationship Specialty Start Date End Date Alex Penaloza MD [address] [address] PCP - General Pediatrics 01/30/22 documented as of this encounter
--- OUTSIDE RECORDS SUMMARY | 2024-05-29 20:06 | External Medical Summary | Summary of Care ---
Author Name Unknown Organization [facility] Address [address] [facility] [place] [address] Phone [phone] Care Team Providers Care Pants Cutter Name Role Phone Alex Penaloza MD Primary Care Provider + Reason for Referral * (Within 10 days (routine)) Specialty Diagnoses / Procedures Referred By Contkhari t Referred To Contact Hyperbaric Medicine Diagnoses Antepartum anemia complicating Nuzhat Amezquita PA-C [address] [place] [address] Phone: tel: fax: Referral ID Status Reason Start Date Expiration Date Visits Re quested Visits Authorized Question Answer Referral Priority Within 10 days (routine) Where should this appointment be scheduled? [facility] Reason for Visit * Reason Onset Date Comments Test Results 04/21/2024 Encounter Details Date Type Department Care Team (Late st Contact Info) Description 04/21/2024 Telephone Gynecology/Obstetrics [facility] [address] [place] [address] Nuzhat Amezquita PA-C [address] [place] [id number] Test Results Allergies No known active allergiesdocumented [...] affecting pregna ncy 02/16/2024 Overview (04/09/2024): Declines [facility]. Ask a doc sent to [facility] with following recommendations: I would recommend ultrasound evaluation is for growth every 4 weeks. In terms of care, I would recommend routine care With respect to delivery, timing should be based on obstetrical indications only. I would also place a [facility] for the care Dose as of 04/09/2024 per [facility]: 110 mg of methadone in the [...] Khalil RN 04/20/2024 Desires pump sent to [facility] 04/20/2024 Lawanda Khalil RN 04/20/2024 Estimated [...] money to get more. Sometimes true 12/2023 [place] Depression Scale Answer Date Recorded [place] Depression Scale Total 8 03/15/2024 The thought [...] Description 05/19/2024 12:30 PM EST Imaging Radiology [facility] 2nd [facility] [address] [facility] [place] [address] 05/19/2024 1:15 PM EST Office Visit Gynecology/Obstetrics [facility] [address] [facility] [place] [address] Backer, OJ Cavanaugh [address] [place] [address] Nurse [facility] [address] [place] [address] Scheduled Referrals Name Type Priority Associated Diagnoses [...] antepartum documented in this encounter Care Teams Pants Cutter Relationship Specialty Start Date End Date Alex Penaloza MD [address], [place] [address] PCP - General Pediatrics 01/30/22 documented as of this encounter
--- OUTSIDE RECORDS SUMMARY | 2024-05-29 20:07 | External Medical Summary ---
Author Name Unknown Address Unknown Organization [id number]:[facility] [place] [address] [place] [address] Laboratory Report Ordering Provider Test Date Status MAIKOL STEVENS 02/16/2024 14:22:37 Final Observation Date Value Abnormality Reference (Units ) Status Hep C Ab 02/16/2024 14:22:37 Positive Abnormal Negative Final Test results reported to [facility]. Per protocol, HCV RNA quantitative assay has been ordered. Performing Location [facility] [place] [address] [place] [address]
--- OUTSIDE RECORDS SUMMARY | 2024-05-29 20:07 | External Medical Summary ---
Author Name Unknown Address Unknown Organization [id number]:[facility]ATORY [facility] [place] - [address] [facility] [address] Laboratory Report Ordering Provider Test Date Status MAIKOL STEVENS 02/16/2024 14:22:37 Final Observation Date Value Abnormality Reference (Units) Status Hep C RNA viral load 02/16/2024 14:22:37 Negative. No HCV RNA detected. Negative. No HCV RNA detected. Final Genetic variant clinical significance [Interpretation] in Blood or Tissue by Molecular genetics method 02/16/2024 14:22:37 The HCV assay is an in vitro nucleic acid amplification test for both the detection and quantitation of hepatitis C virus (HCV) RNA, in human EDTA plasma, of HCV antibody positive or HCV-infected individuals. Specimens containing HCV genotypes 1 to 6 are validated for detection and quantitation in the assay. This assay is intended for use as an aid in the diagnosis of HCV infection in the following populations: individuals who are HCV antibody-positive and with evidence of liver disease, individuals suspected to be actively infected with HCV antibody evidence, and individuals at risk for HCV infection with antibodies to HCV. Detection of HCV RNA indicates that the virus is replicating and therefore is evidence of active infection. This assay is intended for use as an aid in the management of HCV-infected patients undergoing anti-viral therapy. The assay can be used to quantify HCV RNA in serum of patients with chronic HCV infection (HCV antibody-positive), monitor disease progression in chronic HCV infection and response to antiviral therapy and determine cure and detection of relapse after completion of antiviral therapy. The results must be interpreted within the context of all relevant clinical and laboratory findings. This assay has not been approved for use as a screening test for the presence of HCV in blood or blood products. Final Genetic variant clinical significance [Interpretation] in Blood or Tissue by Molecular genetics method 02/16/2024 14:22:37 Final Additional comments [RFC] 02/16/2024 14:22:37 The HCV assay is an in vitro nucleic acid amplification test using an automated system for specimen processing, amplification and detection. Detection of antibodies to HCV (anti-HCV) indicates prior exposure to hepatitis C but does not distinguish between cleared or active infection (i.e where the virus is still replicating). Detection of HCV RNA with the detection of anti-HCV identifies an active hepatitis C infection. The results of HCV RNA testing together with other biochemical and clinical information, may be used to confirm an active HCV infection, measure the level of virus in the blood and assist in HCV prevention counseling, medical care and treatment decision making. The test can quantitate HCV RNA over the reportable range of 15-100,000,000 IU/mL (1.18 log to 8.00 log IU/mL). Final Additional comments [RFC] 02/16/2024 14:22:37 Final Additional comments [RFC] 02/16/2024 14:22:37 The assay was verified and performance characteristics determined by the [facility] Diagn[facility] at [facility]. This test is used for clinical purposes. Final FDA package insert References section 02/16/2024 14:22:37 1. Aguillon P, Reyna C, Rebekah S: How to Use Virological Tools for the Optimal Management of Chronic Hepatitis C. Liver Int 2011;31 Suppl 1:3-12. Final FDA package insert References section 02/16/2024 14:22:37 2. Centers for Disease Control and Prevention. Testing for HCV Infection: an Update of Guidance for Clinicians and Laboratorians. MMWR Morb Mortal Wkly Rep 2013;62(18):362-365. Final FDA package insert References section 02/16/2024 14:22:37 3. [place] Association for the Study of Liver Diseases and Infectious Diseases Society of [place]: HCV Guidance: Recommendations for Testing, Managing, and Treating Hepatitis C. Accessed October 18, 2016. Available at www.hcvguidelines.org /pduz-wfciiz-llex Final FDA package insert References section 02/16/2024 14:22:37 Final Performing Location LAB[facility]ORY [facility] - [facility][note 3] [address] [facility] [address]
--- OUTSIDE RECORDS SUMMARY | 2024-05-29 20:07 | External Medical Summary ---
Author Name Unknown Address Unknown Organization [id number]:[facility] [place] [facility] [address] [facility] [address] [place] [facility] [address] Laboratory Report Ordering Provider Test Date Status MAIKOL STEVENS 02/16/2024 14:22:37 Final Observation Date Value Abnormality Reference (Units ) Status HIV 1+2 Ab+HIV1 p24 Ag [Presence] in Serum or Plasma by Immunoassay 02/16/2024 14:22:37 Negative Negative Final Negative HIV-1/2 antigen and antibody screening tset results usually indicate the absence of HIV-1 and HIV-2 infection. However, such negative results do not rule-out acute HIV infection. If acute HIV-1 infection is highly suspected, it is recommended that a specimen be submitted for detection of HIV-1 RNA. Performing Location [facility] [place] [address] [place] [facility] [address]
--- OUTSIDE RECORDS SUMMARY | 2024-05-29 20:07 | External Medical Summary ---
Author Name Unknown Address Unknown Organization [id number]:[facility]ORY [facility] [place] [place] [address] [place] [address] Laboratory Report Ordering Provider Test Date Status MAIKOL STEVENS 02/16/2024 14:22:37 Final Observation Date Value Abnormality Reference (Units ) Status Folic Acid 02/16/2024 14:22:37 12.2 >4.5 (ng/ mL) Final Performing Location [facility] - [address] [place] [address]
--- OUTSIDE RECORDS SUMMARY | 2024-05-29 20:07 | External Medical Summary ---
Author Name Unknown Address Unknown Organization K01:[facility]ORY [facility] [place] - [address] [place] [id number] Laboratory Report Ordering Provider Test Date Status MAIKOL STEVENS 02/16/2024 14:48:30 Final Observation Date Value Abnormality Reference (Units) Status Bacteria identified in Specimen by Culture 02/16/2024 14:48:30 No significant growth Final Test: Culture, Urine, Quanti tative
Specimen Source: Urine, Clean Catch
Specimen Type: Urine
Specimen Date: 02/16/2024 1448
Result Date: 02/17/2024 1254
Result Status: Final result
Resulting Lab: [facility]ATORY [facility]
[address]
[place] [address]

CULTURE

No significant growth

null Performing Location LABOR[facility] [place] - [address] [facility] [address]
--- OUTSIDE RECORDS SUMMARY | 2024-05-29 20:07 | External Medical Summary ---
Author Name Unknown Address Unknown Organization K01:[facility]ORY [facility] [place] - [address] [place] [address] Laboratory Report Ordering Provider Test Date Status MAIKOL STEVENS 02/16/2024 14:22:37 Final Observation Date Value Abnormality Reference (Units ) Status Creatinine 02/16/2024 14:22:37 0.5 0.5-1.0 (mg/dL) Final Glomerular filtration rate/1.73 sq M.predicted [Volume Rate/Area] in Serum, Plasma or Blood by Creatinine-based formula (CKD-EPI) 02/16/2024 14:22:37 >90 >=60 (mL/min) Final eGFR is calculated based on the CKD-EPI 2020 equation. Performing Location LABORATORY [facility] [place] - [address] [place] [address]
--- OUTSIDE RECORDS SUMMARY | 2024-05-29 20:07 | External Medical Summary ---
Author Name Unknown Address Unknown Organization K01:[facility] [place] [address] [place] [address] Laboratory Report Ordering Provider Test Date Status MAIKOL STEVENS 02/16/2024 14:22:37 Final Observation Date Value Abnormality Reference (Units ) Status TSH 02/16/2024 14:22:37 1.35 0.27-4.20 (uIU/mL) Final Performing Location LAB[facility] - [address] [place] [address]
--- OUTSIDE RECORDS SUMMARY | 2024-05-29 20:07 | External Medical Summary | Summary of Care ---
Author Name Unknown Organization [facility] Address [address] [place] [address] Phone [phone] Care Team Providers Care Powerhouse Engineer Name Role Phone Alex Penaloza MD Primary Care Provider + Reason for Visit * Reason Onset Date Comments Appointment 02/04/2024 Encounter Details Date Type Department Care Team (Late st Contact Info) Description 02/04/2024 Telephone Gynecology/Obstetrics [address] [address] Services, Scheduling [address] [place] [address] Appointment Allergies No known active allergiesdocumented as of this encounter (statuses as of 02/04/2024) Medications Medication Sig Dispensed Refills Start Date End Date Status Methadone HCl 10 MG/ML Oral Concentrate Take by mouth . 117 mg in the morning and 66 mg in the evening Active documented as of this encounter (statuses as of 02/04/2024) Active Problems Problem Noted Date Diagnosed Date Health counseling 01/09/2024 Overview: Problem Action Taken Date entered Entered by [...] NOB booklet. 01/09/2024 Madai Wei RN 01/09/24 Estimated Date of Delivery Comme nts Yes 07/13/2024 Based on Ultraso und documented as of this encounter (statuses as of 02/04/2024) Social History Tobacco Use Types Packs/Day Years Used Date Smoking Tobacco: Every Day Smokeless Tobacco: Never Comments:2/day Alcohol Use Standard Drinks/Week Comments Not Currently 0 (1 standard drink = 0.6 oz pur e alcohol) Utilities Answer Date Recorded Do you have trouble paying y our heating, water, or electric bill? (Adult - for ages 18 years and over) Not on file 09/23/2023 Is your family able to pay t he heat, water, or electric bill? (Household - for ages 0-17 years) Not on file 09/23/2023 Does your family have access to good internet? (Household - for ages 0-17 years) Not on file 09/23/2023 Social Connections Answer Date Recorded How often do you feel lonely or isolated from those around you? (Adult - for ages 18 years and over) Not on file 09/23/2023 Estimated Date of Delivery Comme nts Yes 07/13/2024 Based on Ultraso und Sex and Gender Information Value Date Recorded Sex Assigned at Not on file Gender Identity Not on file Sexual Orientation Not on file Job Start Date Occupation Industry Not on file Not on file Not on file documented as of this encounter Miscellaneous Notes * Telephone Encounter - Becky Russell OSA - 02/04/2024 1:33 PM EDT Called patient and got rescheduled * Telephone Encounter - Cassidy Izaguirre OSA - 02/04/2024 7:42 AM EDT Spoke to patient. She cancelled her NPN for today due to it being too early in the morning. She needs an afternoon appointment. She is 17 weeks and hasn't been seen yet. I have nothing to offer her until March. Please contact patient at [phone] to assist. 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[employer] [facility] Scheduling documented in this encounter Plan of Treatment Upcoming Encounters Date Type Department Care Team (Late st Contact Info) Description 02/16/2024 1:30 PM EST Office Visit Gynecology/Obstetrics [facility] [address] [place] [address] Nuzhat Amezquita PA-C [address] [place] [address] Health Maintenance Due Date Last Done Comments Pneumococcal Vaccine: Pediat rics (0 to 5 Years) and At-Risk Patients (6 to 64 Years) (1 of 2 - PCV) 1998 Depression Screening 2004 HIV Screening 12/20/2007 Hepatitis C Screening 2010 DTap/Tdap Vaccines (1 - Tdap) 12/20/2011 Hepatitis [...] filedocumented as of this encounter Care Teams Powerhouse Engineer Relationship Specialty Start Date End Date Alex Penaloza MD [address] [place] [address] PCP - General Pediatrics 01/30/22 documented as of this encounter
--- OUTSIDE RECORDS SUMMARY | 2024-05-29 20:07 | External Medical Summary ---
Author Name Unknown Address Unknown Organization K01:LABORATORY [facility] [place] - [address] [place] [address] Laboratory Report Ordering Provider Test Date Status MAIKOL STEVENS 02/16/2024 14:22:37 Final Observation Date Value Abnormality Reference (Units ) Status ABO 02/16/2024 14:22:37 O Final RH 02/16/2024 14:22:37 Positive Final RED BLOOD CELL ANTIBODY SCREEN 02/16/2024 14:22:37 Negative Final SPECIMEN EXPIRATION DATE 02/16/2024 14:22:37 02/19/2024 23:59 Final Performing Location LABORATORY [facility] - [address] [place] [address]
--- OUTSIDE RECORDS SUMMARY | 2024-05-29 20:07 | External Medical Summary ---
Author Name Unknown Address Unknown Organization K01:[facility] [place] [address] [facility] [address] Laboratory Report Ordering Provider Test Date Status MAIKOL STEVENS 02/16/2024 14:22:37 Final Observation Date Value Abnormality Reference (Units ) Status SYNC LEUKOCYTES IN BLOOD BY AUTOMATED COUNT 02/16/2024 14:22:37 6.84 4.00-10.80 (K/uL) Final Segs 02/16/2024 14:22:37 67.2 40.0-75.0 (%) Final Lymphs % 02/16/2024 14:22:37 23.7 18.0-42.0 (%) Final Monos 02/16/2024 14:22:37 7.3 1.0-11.0 (%) Final Eosinophils 02/16/2024 14:22:37 0.9 0.0-6.0 (%) Final Basos 02/16/2024 14:22:37 0.3 0.0-2.0 (%) Final Immature Granulocyte, Percent 02/16/2024 14:22:37 0.6 0.0-2.0 (%) Final Absolute Segs 02/16/2024 14:22:37 4.60 1.80-7.70 (K/uL) Final Lymphs, absolute 02/16/2024 14:22:37 1.62 1.00-4.80 (K/ul) Final Monos, Abs 02/16/2024 14:22:37 0.50 0.00-1.10 (K/uL) Final Eos, Abs 02/16/2024 14:22:37 0.06 0.00-0.70 (K/uL) Final Basos, Abs 02/16/2024 14:22:37 0.02 0.00-0.20 (K/uL) Final Immature Granulocytes, Number 02/16/2024 14:22:37 0.04 0.00-0.20 (K/uL) Final Performing Location [facility] [place] [address] [facility] [address]
--- OUTSIDE RECORDS SUMMARY | 2024-05-29 20:07 | External Medical Summary ---
Author Name Unknown Address Unknown Organization K0G:LAB[facility]ATORY [facility] - [address] [place] [address] Laboratory Report Ordering Provider Test Date Status MAIKOL STEVENS 02/16/2024 14:46:00 Final Observation Date Value Abnormality Reference (Units ) Status Color of Urine by Auto 02/16/2024 14:46:00 Yellow Light Yellow, Yellow Final Clarity, Urine 02/16/2024 14:46:00 Clear Clear Final Glucose [Mass/volume] in Urine by Automated test strip 02/16/2024 14:46:00 Negative Negative (mg/dL) Final Bilirubin.total [Presence] in Urine by Automated test strip 02/16/2024 14:46:00 Negative Negative Final Ketones [Mass/volume] in Urine by Automated test strip 02/16/2024 14:46:00 Negative Negative (mg/dL) Final Specific gravity, Urine 02/16/2024 14:46:00 1.020 1.003-1.030 Final Hemoglobin [Presence] in Urine by Automated test strip 02/16/2024 14:46:00 Negative Negative Final pH, Urine 02/16/2024 14:46:00 7.0 5.0, 5.5, 6.0, 6.5, 7.0, 7.5 (units) Final Protein [Mass/volume] in Urine by Automated test strip 02/16/2024 14:46:00 Negative Negative (mg/dL) Final Urobilinogen, Urine 02/16/2024 14:46:00 0.2 0.2, 1.0 (mg/dL) Final Nitrite [Presence] in Urine by Automated test strip 02/16/2024 14:46:00 Negative Negative Final Leukocyte esterase [Presence] in Urine by Automated test strip 02/16/2024 14:46:00 Negative Negative Final Performing Location LABORATORY [facility] - [address] [place] [address]
--- OUTSIDE RECORDS SUMMARY | 2024-05-29 20:07 | External Medical Summary ---
Author Name Unknown Address Unknown Organization K01:LABORATORY [facility] - [address] [place] [address] Laboratory Report Ordering Provider Test Date Status MAIKOL STEVENS 02/16/2024 14:22:37 Final Observation Date Value Abnormality Reference (Units ) Status Vitamin B12 02/16/2024 14:22:37 [phone] (pg/mL) Final Performing Location LABORATORY [facility] - [address] [place] [address]
--- OUTSIDE RECORDS SUMMARY | 2024-05-29 20:07 | External Medical Summary ---
Author Name Unknown Address Unknown Organization K01:LABORATORY [facility] [place] - [address] [place] [address] Laboratory Report Ordering Provider Test Date Status MAIKOL STEVENS 02/16/2024 14:22:37 Final Observation Date Value Abnormality Reference (Units ) Status Ferritin 02/16/2024 14:22:37 31 13-150 (ng /mL) Final Performing Location LAB[facility]ORY [facility] - [address] [place] [address]
--- OUTSIDE RECORDS SUMMARY | 2024-05-29 20:07 | External Medical Summary ---
Author Name Unknown Address Unknown Organization K01:LABORATORY [facility] [place] - [facility] [address] [facility] [address] Laboratory Report Ordering Provider Test Date Status MAIKOL STEVENS 02/16/2024 14:22:37 Final Observation Date Value Abnormality Reference (Units ) Status Retic, % (auto) 02/16/2024 14:22:37 1.60 0.80-1.90 (%) Final Reticulocytes, Absolute 02/16/2024 14:22:37 52.3 31.3-100.1 (K/uL) Final Reticulocyte fraction, immature 02/16/2024 14:22:37 10.3 2.5-20.6 (%) Final Reticulocyte HGB 02/16/2024 14:22:37 32.6 29.7-37.4 (pg) Final Performing Location LABORATORY [facility] - [address] [facility] [address]
--- OUTSIDE RECORDS SUMMARY | 2024-05-29 20:07 | External Medical Summary | Summary of Care ---
Author Name Unknown Organization [facility] Address [address] [place] [address] Phone [phone] Care Team Providers Care Gospel Singer Name Role Phone Alex Penaloza MD Primary Care Provider + Reason for Visit * Reason Comments New Visit Encounter Details Date Type Department Care Team (Late st Contact Info) Description 02/16/2024 1:30 PM EST Office Visit Gynecology/Obstetric s [facility] [address] [place] [address] Nuzhat Amezquita PA-C [address] [place] [address] Supervision of other normal , antepartum*; Methadone maintenance treatment affecting , antepartum (HCC); History of hepatitis C; Tobacco use; Marijuana use during Allergies No known active allergiesdocumented as of this encounter (statuses as of 02/18/2024) Medications Methadone HCl 10 MG/ML Oral Concentrate Take by mouth . 117 mg in the morning and 66 mg in the evening Active documented as of this encounter (statuses as of 02/18/2024) Active Problems Problem Noted Date Diagnosed Date [...] in and . Advised she not use. Methadone maintenance treatment affecting pregna ncy 02/16/2024 Health counseling 01/09/2024 Overview (02/16/2024): Problem Action Taken Date entered Entered by [...] this visit. 02/16/2024 Anne Bhat RN Ongoing Estimated Date of Delivery Comme nts Yes 07/13/2024 Based on Ultraso und documented as of this encounter (statuses as of 02/18/2024) Social History Tobacco Use Types Packs/Day Years Used Date Smoking Tobacco: Every Day Smokeless Tobacco: Never Comments:2/day Alcohol Use Standard Drinks/Week Comments Not Currently 0 (1 standard drink = 0.6 oz pur e alcohol) Estimated Date of Delivery Comme nts Yes 07/13/2024 Based on Ultraso und Sex and Gender Information Value Date Recorded Sex Assigned at Not on file Legal Sex Female 6:21 AM EST Gender Identity Not on file Sexual Orientation Not on file documented as of this encounter Last Filed [...] PA-C - 02/16/2024 1:58 PM EST CC: NOB HPI: Jocelin Loya is a 33 year [...] use: takes 10 mg/mL BID. Follows with [facility]. Did have increase to BID dosing in [...] . No history of abnormal pap smears. Riverside Depression Scale: No data recorded Riverside suicide question and score: Score of 3 [...] Nursing Notes * Anne Bhat RN - 02/16/2024 2:25 PM EST Patient seen by [facility] Passenger Service Representative. Patient denies any questions or concerns. Patient denies any concerns today. Patient in a hurry to leave the appointment. Anne Bhat RN * Vivian Herrera CMA - 02/16/2024 1:52 PM EST Patient present today for NOB visit. 18w6d Verucose veins in left leg documented in this encounter Plan of Treatment Upcoming Encounters Date Type Department Care Team (Late st Contact Info) Description 03/02/2024 1:15 PM EST Imaging Radiology [facility] 2nd Floor, [place] [address] [place] [address] 03/15/2024 11:00 AM EST Office Visit Gynecology/Obstetrics [facility] [address] [place] [address] Nuzhat Amezquita PA-C [address] [place] [address] Scheduled Orders Name Type Priority Associated Diagnoses Orde r Schedule US PREG SINGLE/1ST GEST, 14 WEEKS OR LATER Medical Imaging Routine Supervision of other normal , antepartum Expected: 02/23/2024, Expires: 03/17/2025 Health Maintenance Due Date Last Done Comments [...] antepartum documented in this encounter Results * CHLAMYDIA TRACHOMATIS AND NEISSERIA GONORRHOEAE, AMPLIFIED PROBE (02/16/2024 2:48 PM EST) Chlamydia Trachomatis Result Negative Negative 02/17/2024 11:05 AM EST LABORATORY [facility] Comment:No Chlamydia trachom atis detected by hospitality internship-mediated nucleic acid amplification. Neisseria Gonorrhoeae Result Negative Negative 02/17/2024 11:05 AM EST LAB[facility]ORY [facility] Comment:No Neisseria gonorrh oeae detected by hospitality internship-mediated nucleic acid amplification. Urine Urine specimen obtained by clean catch procedure / Unknown Non-blood Collection / Unknown 02/16/2024 2:48 PM EST 02/16/2024 2:48 PM EST us Nuzhat Amezquita PA-C LAB MICRO - GENERAL ORDERABL ES Final Result LAB[facility]ATORY [facility] [address] [place] [address] * CULTURE, URINE, QUANTITATIVE (02/16/2024 2:48 PM EST) Culture Growth No significant growth 02/17/2024 12:54 PM EST LAB[facility]ORY [facility] Urine Urine specimen obtained by clean catch procedure / Unknown Non-blood Collection / Unknown 02/16/2024 2:48 PM EST 02/16/2024 2:48 PM EST us Nuzhat Amezquita PA-C LAB MICRO - GENERAL ORDERABL ES Final Result LAB[facility]ORY [facility] [address] [place] [address] * URINALYSIS OBSTETRICS, POINT OF [...] mg/dL 02/16/2024 2:48 PM EST LAB[facility]ATORY [place] [facility] Specific [place], Urine 1.020 1.003 - 1.030 02/16/2024 2:48 [...] ST DOCKED DEVICE UNSOLICITED RESULTS Final Result Performing Organization Address City/[facility]/ZIP Co de Phone Number LABORATORY [place] [address] [place] [address] * (ABNORMAL) HEPATIC FUNCTION PANEL (02/16/2024 2:22 PM EST) Albumin 3.6(L) 3.8 - 5.0 g/dL 02/16/2024 [...] LAB BLOOD ORDERABLES Final R esult LAB[facility]ATORY [place] [address] [place] [place] [address] * HIV ANTIGEN & ANTIBODY SCREEN W/ CONFIRMATION (02/16/2024 2:22 PM EST) HIV Antigen & Antibody Negative Negative 02/17/2024 12:42 AM EST LAB[facility]ATORY [facility] Comment:Negative HIV-1/2 ant igen and antibody screening [...] ORDERABLES Final R esult Performing Organization Address [facility] Phone Number LABORATORY [address] [address] * HEPATITIS B SURFACE ANTIGEN (02/16/2024 2:22 PM EST) Hepatitis B Surface Antigen Negative Negative 02/17/2024 12:42 AM EST LAB[facility]ORY [facility] Blood Venous blood specimen / Unknown Venipuncture / Unknown 02/16/2024 2:22 PM EST 02/16/2024 2:22 PM EST Nuzhat Amezquita PA-C LAB BLOOD ORDERABLES Final R esult Performing Organization Address [facility] Phone Number LABORATORY [place] [address] [place] [address] * (ABNORMAL) RUBELLA IGG ANTIBODY (02/16/2024 2:22 PM EST) Rubella IgG Antibody Positive( A) Negative 02/17/2024 12:42 AM EST LAB[facility]ORY [facility] Comment:A positive result is consistent with having had rubella virus or vaccination. Blood Venous blood specimen / Unknown Venipuncture / Unknown 02/16/2024 2:22 PM EST 02/16/2024 2:22 PM EST Nuzhat Amezquita PA-C LAB BLOOD ORDERABLES Final R esult Performing Organization Address [facility]/State/ZIP Co de Phone Number LABORATORY [facility] [address] [place] [address] * TYPE AND SCREEN (02/16/2024 2:22 PM EST) ABO O 02/16/2024 8:03 PM EST LAB[facility]ORY [facility] BLOOD BANK Rh Positive 02/16/2024 8:03 PM EST LAB[facility]ORY [facility] BLOOD BANK Red Blood Cell Antibody Screen Negative 02/16/2024 8:03 PM EST LAB[facility]ATORY [facility] BLOOD BANK Specimen Expiration Date 02/19/2024 23:59 02/16/2024 8:03 PM EST LAB[facility]ATORY [facility] BLOOD BANK Blood Venous blood specimen / Unknown Venipuncture / Unknown 02/16/2024 2:22 PM EST 02/16/2024 2:22 PM EST us Nuzhat Amezquita PA-C LAB BLOOD BANK TEST ORDERABL ES Final Result [facility]ATORY [facility] BLOOD BANK [address] [place] [address] documented in this encounter Visit Diagnoses Diagnosis Supervision of other normal , antepartum- Primary Methadone maintenance treatment affecting , antepartum (HCC) History of hepatitis C Personal history of other infectious and parasitic disease Tobacco use Tobacco use disorder Marijuana use during documented in this encounter Care Teams Gospel Singer Relationship Specialty Start Date End Date Alex Penaloza MD [address] [address] PCP - General Pediatrics 01/30/22 documented as of this encounter
--- OUTSIDE RECORDS SUMMARY | 2024-05-29 20:07 | External Medical Summary ---
Author Name Unknown Address Unknown Organization K01:[facility] [place] [address] [facility] [address] Laboratory Report Ordering Provider Test Date Status RODNEYMAIKOL 02/16/2024 14:48:30 Final Observation Date Value Abnormality Reference (Units ) Status Chlamydia trachomatis rRNA [Presence] in Specimen by LOVELY with probe detection 02/16/2024 14:48:30 Negative Negative Final No Chlamydia trachomatis det ected by yard attendant-mediated nucleic acid amplification. Neisseria gonorrhoeae rRNA [ Presence] in Specimen by LOVELY with probe detection 02/16/2024 14:48:30 Negative Negative Final No Neisseria gonorrhoeae det ected by yard attendant-mediated nucleic acid amplification. Performing Location [facility] [facility] [place] [address] [place] [address]
--- OUTSIDE RECORDS SUMMARY | 2024-05-29 20:07 | External Medical Summary | Summary of Care ---
Author Name Unknown Organization [facility] Address [address] [place] [address] Phone [phone] Care Team Providers Care Infrastructure Director Name Role Phone Alex Penaloza MD Primary Care Provider + Encounter Details Date Type Department Care Team (Late st Contact Info) Description 03/15/2024 Telephone Gynecology/Obstetrics [facility] [address] [facility] [place] [address] Nuzhat Amezquita PA-C [address] [facility] [place] [address] Allergies No known active allergiesdocumented as of this encounter (statuses as of 03/15/2024) Medications Methadone HCl 10 MG/ML Oral Concentrate Take by mouth . 117 mg in the morning and 66 mg in the evening Active Iron-Vitamin C 65-125 MG Oral Tablet (Vitron C)Indications:Ant epartum anemia complicating Take 1 Tablet by mouth in the morning and 1 Tablet before bedtime. 60 Tablet 3 4 Active documented as of this encounter (statuses as of 03/15/2024) Active Problems Problem Noted Date Diagnosed Date [...] Declines MFM. Ask a doc sent to [facility] with following recommendations: I would [...] as of this encounter (statuses as of 03/15/2024) Social History Tobacco Use Types Packs/Day Years [...] money to get more. Sometimes true 12/2023 Dixon Depression Scale Answer Date Recorded Dixon Depression Scale Total 8 03/15/2024 The thought [...] Telephone Encounter - Becky Russell OSA - 03/15/2024 1:14 PM EST LMOM * Telephone Encounter - Nuzhat Amezquita PA-C - 03/15/2024 12:56 PM EST Please call patient to schedule her anatomy ultrasound [facility] Also needs labs and BARRY in 4 weeks Nuzhat Amezquita PA-C documented in this encounter Plan of Treatment Health Maintenance Due Date Last Done Comments [...] filedocumented as of this encounter Care Teams Infrastructure Director Relationship Specialty Start Date End Date Alex Penaloza MD [address] [address] PCP - General Pediatrics 01/30/22 documented as of this encounter
--- OUTSIDE RECORDS SUMMARY | 2024-05-29 20:07 | External Medical Summary | Summary of Care ---
Author Name Unknown Organization [facility] Address [address] [place] [address] Phone [phone] Care Team Providers Care Office Machines Sales Representative Name Role Phone Alex Penaloza MD Primary Care Provider + Reason for Visit * Reason Comments Outpatient Testing Encounter Details Date Type Department Care Team (Late st Contact Info) Description 02/16/2024 2:40 PM EST Laboratory Laboratory, [facility] [address] [place] [id number] [facility] [address] [place] [address] Supervision of other normal , antepartum; Chronic hepatitis C without hepatic coma (HCC) Allergies No known active allergiesdocumented as of this encounter (statuses as of 02/16/2024) Medications Methadone HCl 10 MG/ML Oral Concentrate Take by mouth . 117 mg in the morning and 66 mg in the evening Active documented as of this encounter (statuses as of 02/16/2024) Active Problems Problem Noted Date Diagnosed Date Methadone maintenance treatment affecting pregna ncy 02/16/2024 Chronic hepatitis C without hepatic coma 024 Health counseling 01/09/2024 Overview (02/16/2024): Problem Action [...] as of this encounter (statuses as of 02/16/2024) Social History Tobacco Use Types Packs/Day Years [...] on file documented as of this encounter Plan of Treatment Upcoming Encounters Date Type Department Care Team (Late st Contact Info) Description 03/02/2024 1:15 PM EST Imaging Radiology [facility] 2nd [facility] [address] [place] [address] 03/15/2024 11:00 AM EST Office Visit Gynecology/Obstetrics [facility] [address] [place] [address] Nuzhat Amezquita PA-C [address] [place] [address] Pending Results Name Type Priority Associated Diagnoses Date /Time TYPE AND SCREEN Lab Routine Supervision of other normal , antepartum 02/16/2024 2:22 PM EST RUBELLA IGG ANTIBODY Lab Routine Supervision of other normal , antepartum 02/16/2024 2:22 PM EST HEPATITIS B SURFACE ANTIGEN Lab Routine Supervision of other normal , antepartum 02/16/2024 2:22 PM EST HIV ANTIGEN & ANTIBODY SCREEN W/ CONFIRMATION Lab Routine Supervision of other normal , antepartum 02/16/2024 2:22 PM EST CBC WITH WBC DIFFERENTIAL AND ANEMIA REFLEX WORKUP Lab Routine Supervision of other normal , antepartum 02/16/2024 2:22 PM EST HEPATITIS C ANTIBODY SCREEN WITH PROGRESSION TO HEPATITIS C RNA QUANTITATIVE Lab Routine Supervision of other normal , antepartum Chronic hepatitis C without hepatic coma (HCC) 02/16/2024 2:22 PM EST SYPHILIS ANTIBODY SCREEN WITH REFLEX TO RPR Lab Routine Supervision of other normal , antepartum 02/16/2024 2:22 PM EST HEPATIC FUNCTION PANEL Lab Routine Chronic hepatitis C without hepatic coma (HCC) 02/16/2024 2:22 PM EST ANEMIA CBC Lab Routine Supervision of other normal , antepartum 02/16/2024 2:22 PM EST DIFFERENTIAL, AUTOMATED Lab Routine Supervision of other normal , antepartum 02/16/2024 2:22 PM EST ANEMIA REFLEX CHEMISTRY HOLD Lab Routine Supervision of other normal , antepartum 02/16/2024 2:22 PM EST HEPATITIS C ANTIBODY Lab Routine Supervision of other normal , antepartum Chronic hepatitis C without hepatic coma (HCC) 02/16/2024 2:22 PM EST HEPATITIS C RNA ADD ON Lab Routine Supervision of other normal , antepartum Chronic hepatitis C without hepatic coma (HCC) 02/16/2024 2:22 PM EST SYPHILIS ANTIBODY SCREEN Lab Routine Supervision of other normal , antepartum 02/16/2024 2:22 PM EST ABO/RH Lab Routine Supervision of other normal , antepartum 02/16/2024 2:28 PM EST Health Maintenance Due Date Last Done Comments Pneumococcal Vaccine: Pediat rics (0 to 5 Years) and At-Risk Patients (6 to 64 Years) (1 of 2 - PCV) 1998 Depression Screening 2004 HIV Screening 12/20/2007 DTap/Tdap Vaccines (1 - Tdap) 12/20/2011 Hepatitis [...] Diagnoses Diagnosis Supervision of other normal , antepartum Chronic hepatitis C without hepatic coma (HCC) Chronic hepatitis C without mention of hepatic coma documented in this encounter Care Teams Office Machines Sales Representative Relationship Specialty Start Date End Date Alex Penaloza MD [address] [address] PCP - General Pediatrics 01/30/22 documented as of this encounter
--- OUTSIDE RECORDS SUMMARY | 2024-05-29 20:07 | External Medical Summary ---
Author Name Unknown Address Unknown Organization K01:LABORATORY [facility] [place] - [address] [facility] [address] Laboratory Report Ordering Provider Test Date Status MAIKOL STEVENS 02/16/2024 14:22:37 Final Observation Date Value Abnormality Reference (Units ) Status Treponema pallidum Ab [Presence] in Serum by Immunoassay 02/16/2024 14:22:37 Nonreactive Nonreactive Final No serologic evidence of syp hilis. No additional testing clinicially indicated at this time. Consider repeat testing in 2-4 weeks if acute or primary syphilis is suspected. Performing Location LABORATORY [facility] [place] - [address] [place] [address]
--- OUTSIDE RECORDS SUMMARY | 2024-05-29 20:07 | External Medical Summary | Summary of Care ---
Author Name Unknown Organization [facility] Address [address] [place] [address] Phone [phone] Care Team Providers Care Business Records Manager Name Role Phone Alex Penaloza MD Primary Care Provider + Reason for Referral * Evaluate & Treat - Unlimited Visits (Within 10 days (routine)) - Authorized Specialty Diagnoses / Procedures Referred By Radha t Referred To Contact Maternal and Medicine Diagnoses Methadone maintenance treatment affecting , antepartum (HCC) Nuzhat Amezquita PA-C [address] [place] [address] Phone: tel: fax: Referral ID Status Reason Start Date Expiration Date Visits Requested Visits Authorized [id number] Authorized Specialty Services Required [phone] Question Answer Referral Priority Within 10 days (routine) Where should this appointment be scheduled? [facility] Referral Reason Methadone use in [facility] the [facility]? Yes Encounter Details Date Type Department Care Team (Late st Contact Info) Description 02/18/2024 Telephone Gynecology/Obstetrics [facility] [address] [place] [address] Nuzhat Amezquita PA-C [address] [place] [address] Allergies No known active allergiesdocumented as of this encounter (statuses as of 03/10/2024) Medications Methadone HCl 10 MG/ML Oral Concentrate Take by mouth . 117 mg in the morning and 66 mg in the evening Active Iron-Vitamin C 65-125 MG Oral Tablet (Vitron C)Indications:Ant epartum anemia complicating Take 1 Tablet by mouth in the morning and 1 Tablet before bedtime. 60 Tablet 3 4 Active documented as of this encounter (statuses as of 03/10/2024) Active Problems Problem Noted Date Diagnosed Date [...] affecting pregna ncy 02/16/2024 Overview (02/18/2024): Declines [facility]. Ask a doc sent to [facility] with following recommendations: I would recommend ultrasound evaluation is for growth every 4 weeks. In terms of care, I would recommend routine care With respect to delivery, timing should be based on obstetrical indications only. I would also place [facility] for the care Health counseling 01/09/2024 Overview (02/16/2024): Problem Action [...] as of this encounter (statuses as of 03/10/2024) Social History Tobacco Use Types Packs/Day Years [...] not asking her to be seen in [place] every month rather I just wanted to [...] back and said she can't go to [place] every month. I let pt know she may only need to gofor initial appt then she may be able to come to [facility] for additional appts. Pt said she was treated for her hep c in the past. Pt is asking for you to send in iron to her pharmacy due to not have the means to pay for this pt uses [facility] * Telephone Encounter - Lawanda Khalil RN - 02/18/2024 5:13 PM EST Spoke with pt. I attempted to review this note with pt and asked why this would need done since shedidn't have this done with her other pregnancies. I discussed that we follow evidence based care and guidelines. She states that she has been told that [facility] orders "unnecessary testing". We discussed that she can declines anything that is offered. I advised that this was being recommended so we could ensure the health of her baby and herself. I tried to discusss with her that we have different protocols for things like hypertension and medicationsbut she felt it was it was unnecessary. Shethen stated that she was in the grocery [...] let patient know I reached out to [facility] regarding Methadone in to ensure we are [...] Team (Late st Contact Info) Description 03/15/2024 11:00 AM EST Office Visit Gynecology/Obstetrics [facility] [address] [place] [address] Nuzhat Amezquita PA-C [address] [place] [address] Scheduled Referrals Name Type Priority Associated Diagnoses [...] antepartum documented in this encounter Care Teams Business Records Manager Relationship Specialty Start Date End Date Alex Penaloza MD [address] [address] PCP - General Pediatrics 01/30/22 documented as of this encounter
--- OUTSIDE RECORDS SUMMARY | 2024-05-29 20:07 | External Medical Summary | Summary of Care ---
Author Name Unknown Organization [facility] Address [address] [place] [address] Phone [phone] Care Team Providers Care Food Service Aide Name Role Phone Alex Penaloza MD Primary Care Provider + Reason for Visit * Reason Comments New Visit Encounter Details Date Type Department Care Team (Late st Contact Info) Description 02/16/2024 1:30 PM EST Office Visit Gynecology/Obstetric s Brynn Wall [address] [place] [address] Nuzhat Amezquita PA-C [address] [place] [address] Supervision of other normal , antepartum*; Methadone [...] use: takes 10 mg/mL BID. Follows with [facility]. Did have increase to BID dosing [...] . No history of abnormal pap smears. Holabird Depression Scale: No data recorded Holabird suicide question and score: Score of 3 [...] 02/16/2024 2:25 PM EST Patient seen by [facility] Sales And Admin. Patient denies any questions or concerns. Patient [...] Description 03/02/2024 1:15 PM EST Imaging Radiology [facility] 2nd Floor, [place] [address] [place] [address] 03/15/2024 11:00 AM EST Office Visit Gynecology/Obstetrics [facility] [address] [place] [address] Nuzhat Amezquita PA-C [address] [place] [address] Scheduled Orders Name Type Priority Associated Diagnoses [...] Negative Negative 02/17/2024 11:05 AM EST [facility] Comment:No Chlamydia trachom atis detected by consumer studies professor-mediated nucleic acid amplification. Neisseria Gonorrhoeae Result Negative Negative 02/17/2024 11:05 AM EST [facility] Comment:No Neisseria gonorrh oeae detected by consumer studies professor-mediated nucleic acid amplification. Urine Urine specimen obtained by clean catch procedure / Unknown Non-blood Collection / Unknown 02/16/2024 2:48 PM EST 02/16/2024 2:48 PM EST us Nuzhat Amezquita PA-C LAB MICRO - GENERAL ORDERABL ES Final Result [facility]ORY [facility] [address] [place] [address] * CULTURE, URINE, QUANTITATIVE (02/16/2024 2:48 PM EST) Culture Growth No significant growth 02/17/2024 12:54 PM EST [facility] Urine Urine specimen obtained by clean catch procedure / Unknown Non-blood Collection / Unknown 02/16/2024 2:48 PM EST 02/16/2024 2:48 PM EST us Nuzhat Amezquita PA-C LAB MICRO - GENERAL ORDERABL ES Final Result [facility] [address] [place] [address] * URINALYSIS OBSTETRICS, POINT OF [...] PM EST LABORATORY [place] [address] Specific [place], Urine 1.020 1.003 - 1.030 02/16/2024 2:48 [...] UNSOLICITED RESULTS Final Result Performing Organization Address City/[facility]/ZIP Co de Phone Number LABORATORY [place] [address] [address] * (ABNORMAL) HEPATIC FUNCTION PANEL (02/16/2024 2:22 [...] AMEE [place] [address] [place] [address] * HIV ANTIGEN & ANTIBODY SCREEN W/ CONFIRMATION (02/16/2024 2:22 PM EST) HIV Antigen & Antibody Negative Negative 02/17/2024 12:42 AM EST [facility] Comment:Negative HIV-1/2 ant igen and antibody screening [...] ORDERABLES Final R esult Performing Organization Address [facility] Phone Number LABORATORY [address] [address] * HEPATITIS B SURFACE ANTIGEN (02/16/2024 2:22 PM EST) Hepatitis B Surface Antigen Negative Negative 02/17/2024 12:42 AM EST [facility] Blood Venous blood specimen / Unknown Venipuncture / Unknown 02/16/2024 2:22 PM EST 02/16/2024 2:22 PM EST Nuzhat Amezquita PA-C LAB BLOOD ORDERABLES Final R esult Performing Organization Address [facility] Phone Number LABORATORY [place] [address] [place] [address] * (ABNORMAL) RUBELLA IGG ANTIBODY (02/16/2024 2:22 PM EST) Rubella IgG Antibody Positive( A) Negative 02/17/2024 12:42 AM EST [facility] Comment:A positive result is consistent with having had rubella virus or vaccination. Blood Venous blood specimen / Unknown Venipuncture / Unknown 02/16/2024 2:22 PM EST 02/16/2024 2:22 PM EST Nuzhat Amezquita PA-C LAB BLOOD ORDERABLES Final R esult Performing Organization Address [facility]/State/ZIP Co de Phone Number LABORATORY [facility] [address] [place] [address] * TYPE AND SCREEN (02/16/2024 2:22 PM EST) ABO O 02/16/2024 8:03 PM EST [facility] BLOOD BANK Rh Positive 02/16/2024 8:03 PM EST [facility] BLOOD BANK Red Blood Cell Antibody Screen Negative 02/16/2024 8:03 PM EST [facility] BLOOD BANK Specimen Expiration Date 02/19/2024 23:59 02/16/2024 8:03 PM EST [facility] BLOOD BANK Blood Venous blood specimen / Unknown Venipuncture / Unknown 02/16/2024 2:22 PM EST 02/16/2024 2:22 PM EST us Nuzhat Amezquita PA-C LAB BLOOD BANK TEST ORDERABL ES Final Result [facility] BLOOD BANK [address] [place] [address] documented in this encounter Visit Diagnoses Diagnosis Supervision of other normal , antepartum- Primary Methadone maintenance treatment affecting , antepartum (HCC) History of hepatitis C Personal history of other infectious and parasitic disease Tobacco use Tobacco use disorder Marijuana use during documented in this encounter Care Teams Food Service Aide Relationship Specialty Start Date End Date Alex Penaloza MD [address] [address] PCP - General Pediatrics 01/30/22 documented as of this encounter
--- OUTSIDE RECORDS SUMMARY | 2024-05-29 20:07 | External Medical Summary ---
Author Name Unknown Address Unknown Organization K01:[facility] Alfonso Jordan [facility] [address] Laboratory Report Ordering Provider Test Date Status MAIKOL STEVENS 02/16/2024 14:22:37 Final Observation Date Value Abnormality Reference (Units ) Status WBC, Total 02/16/2024 14:22:37 6.84 4.00-10.8 0 (K/uL) Final RBC 02/16/2024 14:22:37 3.34 3.85-5.15 (M/uL) Final Hemoglobin 02/16/2024 14:22:37 10.8 Below low normal 12 .0-15.3 (g/dL) Final Anemia reflex testing trigge rs on a HGB < 12.0 for Females and HGB < 13.0 for Males in accordance with the WHO Anemia Guidelines
Anemia reflex testing triggers on a HGB < 12.0 for Females and HGB < 13.0 for Males in accordance with the WHO Anemia Guidelines HCT 02/16/2024 14:22:37 32.7 Below low normal 36. 0-45.2 (%) Final MCV 02/16/2024 14:22:37 97.9 81.5-97.5 (fL) Final MCH 02/16/2024 14:22:37 32.3 27.0-34.0 (pg) Final MCHC 02/16/2024 14:22:37 33.0 32.0-36.0 (g/dL) Final RDW 02/16/2024 14:22:37 12.6 11.5-15.5 (%) Final Platelets 02/16/2024 14:22:37 154 140-400 (K /uL) Final MPV 02/16/2024 14:22:37 11.8 6.6-11.1 ( fL) Final Nucleated erythrocytes/100 leukocytes [Ratio] in Blood by Automated count 02/16/2024 14:22:37 0 <=0 (/100 WBCs) Final Performing Location LAB[facility] - [address] [facility] [address]
--- OUTSIDE RECORDS SUMMARY | 2024-05-29 20:07 | External Medical Summary ---
Author Name Unknown Address Unknown Organization K01:[facility] [address] [facility] [address] Laboratory Report Ordering Provider Test Date Status MAIKOL STEVENS 02/16/2024 14:22:37 Final Observation Date Value Abnormality Reference (Units ) Status Hep B surface Ag 02/16/2024 14:22:37 Negative Neg ative Final Performing Location LAB[facility] - [address] [facility] [place] [facility] [address]
--- OUTSIDE RECORDS SUMMARY | 2024-05-29 20:07 | External Medical Summary | Summary of Care ---
Author Name Unknown Organization [facility] Address [address] [place] [address] Phone [phone] Care Team Providers Care Automobile Wrecker Name Role Phone Alex Penaloza MD Primary Care Provider + Reason for Referral * Evaluate & Treat - Unlimited Visits (Within 10 days (routine)) - Authorized Specialty Diagnoses / Procedures Referred By Radha t Referred To Contact Maternal and Medicine Diagnoses Methadone maintenance treatment affecting , antepartum (HCC) Nuzhat Amezquita PA-C [address] [place] [address] Phone: tel: fax: Referral ID Status Reason Start Date Expiration Date Visits Requested Visits Authorized [id number] Authorized Specialty Services Required [phone] Question Answer Referral Priority Within 10 days (routine) Where should this appointment be scheduled? [facility] Referral Reason Methadone use in [facility] Yes Encounter Details Date Type Department Care Team (Late st Contact Info) Description 02/18/2024 Telephone Gynecology/Obstetrics [facility] [address] [place] [address] Nuzhat Amezquita PA-C [address] [place] [address] Allergies No known active allergiesdocumented as of this encounter (statuses as of 03/12/2024) Medications Methadone HCl 10 MG/ML Oral Concentrate Take by mouth . 117 mg in the morning and 66 mg in the evening Active Iron-Vitamin C 65-125 MG Oral Tablet (Vitron C)Indications:Ant epartum anemia complicating Take 1 Tablet by mouth in the morning and 1 Tablet before bedtime. 60 Tablet 3 4 Active documented as of this encounter (statuses as of 03/12/2024) Active Problems Problem Noted Date Diagnosed Date [...] affecting pregna ncy 02/16/2024 Overview (02/18/2024): Declines [facility]. Ask a doc sent to [facility] with following recommendations: I would recommend [...] as of this encounter (statuses as of 03/12/2024) Social History Tobacco Use Types Packs/Day Years [...] not asking her to be seen in [place] every month rather I just wanted to [...] back and said she can't go to [place] every month. I let pt know she may only need to gofor initial appt then she may be able to come to [facility] for additional appts. Pt said she [...] states that she has been told that [facility] orders "unnecessary testing". We discussed that she [...] let patient know I reached out to [facility] regarding Methadone in to ensure we [...] Brynn Wall [address] [place] [address] Nuzhat Amezquita PA-C [address] [place] [address] Scheduled Referrals Name Type Priority Associated Diagnoses [...] antepartum documented in this encounter Care Teams Automobile Wrecker Relationship Specialty Start Date End Date Alex Penaloza MD [address] [address] PCP - General Pediatrics 01/30/22 documented as of this encounter
--- OUTSIDE RECORDS SUMMARY | 2024-05-29 20:07 | External Medical Summary ---
Author Name Unknown Address Unknown Organization K01:LABORATORY C - [address] [place] [address] Laboratory Report Ordering Provider Test Date Status MAIKOL STEVENS 02/16/2024 14:22:37 Final Observation Date Value Abnormality Reference (Units ) Status Rubella virus IgG Ab [Presence] in Serum 02/16/2024 14:22:37 Positive Abnormal Negative Final A positive result is consist ent with having had rubella virus or vaccination. Performing Location [facility] - [address] [place] [address]
--- OUTSIDE RECORDS SUMMARY | 2024-05-29 20:07 | External Medical Summary | Summary of Care ---
Author Name Unknown Organization [facility] Address [address] [place] [address] Phone [phone] Care Team Providers Care Box Closing Machine Operator Name Role Phone Alex Penaloza MD Primary Care Provider + Encounter Details Date Type Department Care Team (Late st Contact Info) Description 02/25/2024 Population Health External Data Unspecified Department Allergies No known active allergiesdocumented as of this encounter (statuses as of 02/25/2024) Medications Methadone HCl 10 MG/ML Oral Concentrate Take by mouth . 117 mg in the morning and 66 mg in the evening Active Iron-Vitamin C 65-125 MG Oral Tablet (Vitron C)Indications:Ant epartum anemia complicating Take 1 Tablet by mouth in the morning and 1 Tablet before bedtime. 60 Tablet 3 4 Active documented as of this encounter (statuses as of 02/25/2024) Active Problems Problem Noted Date Diagnosed Date [...] Declines [facility]. Ask a doc sent to [facility] with following recommendations: I would recommend ultrasound [...] as of this encounter (statuses as of 02/25/2024) Social History Tobacco Use Types Packs/Day Years [...] Description 03/02/2024 1:15 PM EST Imaging Radiology [facility] 2nd Floor, [place] [address] [facility] [place] [address] 03/15/2024 11:00 AM EST Office Visit Gynecology/Obstetrics [facility] [address] [place] [address] Nuzhat Amezquita PA-C [address] [place] [address] Health Maintenance Due Date Last Done Comments [...] filedocumented as of this encounter Care Teams Box Closing Machine Operator Relationship Specialty Start Date End Date Alex Penaloza MD [address] [facility] [address] [place] [address] PCP - General Pediatrics 01/30/22 documented as of this encounter
--- OUTSIDE RECORDS SUMMARY | 2024-05-29 20:07 | External Medical Summary | Summary of Care ---
Author Name Unknown Organization [facility] Address [address] [place] [address] Phone [phone] Care Team Providers Care Gear Lapping Machine Operator Name Role Phone Alex Penaloza MD Primary Care Provider + Reason for Referral * Evaluate & Treat - Unlimited Visits (Within 10 days (routine)) - Authorized Specialty Diagnoses / Procedures Referred By Radha t Referred To Contact Maternal and Medicine Diagnoses Methadone maintenance treatment affecting , antepartum (HCC) Nuzhat Amezquita PA-C [address] [place] [address] Phone: tel: fax: Referral ID Status Reason Start Date Expiration Date Visits Requested Visits Authorized [id number] Authorized Specialty Services Required [phone] Question Answer Referral Priority Within 10 days (routine) Where should this appointment be scheduled? [facility] Referral Reason Methadone use in [facility] the [facility]? Yes Encounter Details Date Type Department Care Team (Late st Contact Info) Description 02/18/2024 Telephone Gynecology/Obstetrics [facility] [address] [place] [address] Nuzhat Amezquita PA-C [address] [place] [address] Allergies No known active allergiesdocumented as of this encounter (statuses as of 03/08/2024) Medications Methadone HCl 10 MG/ML Oral Concentrate Take by mouth . 117 mg in the morning and 66 mg in the evening Active Iron-Vitamin C 65-125 MG Oral Tablet (Vitron C)Indications:Ant epartum anemia complicating Take 1 Tablet by mouth in the morning and 1 Tablet before bedtime. 60 Tablet 3 4 Active documented as of this encounter (statuses as of 03/08/2024) Active Problems Problem Noted Date Diagnosed Date [...] affecting pregna ncy 02/16/2024 Overview (02/18/2024): Declines [facility]. Ask a doc sent to [facility] with following recommendations: I would recommend [...] as of this encounter (statuses as of 03/08/2024) Social History Tobacco Use Types Packs/Day Years [...] not asking her to be seen in [place] every month rather I just wanted to [...] back and said she can't go to [place] every month. I let pt know she may only need to gofor initial appt then she may be able to come to [facility] for additional appts. Pt said she [...] states that she has been told that [facility] orders "unnecessary testing". We discussed that [...] let patient know I reached out to [facility] regarding Methadone in to ensure we [...] Brynn Wall [address] [place] [address] Nuzhat Amezquita PA-C [address] [place] [address] Scheduled Referrals Name Type Priority Associated Diagnoses [...] antepartum documented in this encounter Care Teams Gear Lapping Machine Operator Relationship Specialty Start Date End Date Alex Penaloza MD [address] [address] PCP - General Pediatrics 01/30/22 documented as of this encounter
--- OUTSIDE RECORDS SUMMARY | 2024-05-29 20:07 | External Medical Summary | Summary of Care ---
Author Name Unknown Organization [facility] Address [address] [facility] [place] [address] Phone [phone] Care Team Providers Care Log Roper Name Role Phone Alex Penaloza MD Primary Care Provider + Reason for Visit * Reason Comments Healthy Beginnings Return Encounter Details Date Type Department Care Team (Late st Contact Info) Description 03/15/2024 11:00 AM EST Office [facility] [address] [place] [address] Nuzhat Amezquita PA-C [address] [place] [address] Encounter for supervision of other normal in second trimester*; Methadone maintenance treatment affecting in second trimester (HCC); History of hepatitis C; Tobacco use; [...] Declines [facility]FM. Ask a doc sent to [facility] with following recommendations: I would recommend [...] money to get more. Sometimes true 12/2023 Pemberton Depression Scale Answer Date Recorded Pemberton Depression Scale Total 8 03/15/2024 The thought [...] No 03/15/2024 Does the household have a [facility] source [facility] income? (Household - for ages [...] Sign Reading Time Taken Comments Blood Pressure 98/56 03/15/2024 11:37 AM EST Pulse - - Temperature - - Respiratory Rate - - Oxygen Saturation - - Inhaled Oxygen Concentration - - Weight 54.8 kg (120 lb 12.8 oz) 024 11:37 AM EST Height - - Body Mass Index 23.59 01/30/2022 11:59 AM EDT documented in this encounter Progress Notes * Nuzhat Amezquita PA-C - 03/15/2024 12:48 PM EST 22w6d Breast and pelvic exam complete today. Not able to complete with NOB. Thought today was appointment for anatomy ultrasound. Agreeable to schedule. Pt states under increased stress over last few weeks d/t separation from partner. Things are better now. She is on Methadone, we had discussed last visit [facility]. Pt had declined at that time. Reviewed with advised from [facility] (see ask a doc) after last visit for growth q4 weeks and referral to center for pediatrics ([facility] She politely declines MFM referral at this time, would like to proceed with anatomyand growth ultrasound locally. Will schedule anatomy [place]. We discussed recommended timeframe is 20weeks . Anemic hemoglobin 10.8 with NOB labs. Tried to take oral iron but caused a lot of vomiting. Has notbeen able to tolerate. Was not taking with iron in it at time. Going to try and take, needcertain OTC one that she tolerates and likely able to afford now. Reviewed increasing iron in diet.Will plan labs and glucola next visit. Known umbilical hernia. Has had for several years. Has seen Gen Surg. Became severely painful a fewweeks ago. Went to hospital and reduced on own. Discussed avoiding heavy lifting. And to proceed tohospital with any severe symptoms or those of incarceration. Would like benefit from Gen surg referral after delivery. RTC in 4 weeks Nuzhat Amezquita PA-C * Vivian Herrera CMA - 03/15/2024 11:37 AM EST 22w6d Needs anatomy scan scheduled documented in this encounter Nursing Notes * Anne Bhat RN - 03/15/2024 12:09 PM EST Patient seen by [facility] Investigator. Discussed WIC, transportation, housing, callingassistance office to discuss if eligible for castillo assistance. have you cut down with your smoking no have you quit No have you seen a charging crane operator no have you seen a perinatal social worker no are you receiving counseling no have you received dental care during your no are you enrolled in WIC yes do you receive food stamps or castillo assistance yes Anne Bhat RN documented in this encounter Plan of Treatment Scheduled Orders Name Type Priority Associated Diagnoses Orde r Schedule 50-G GESTATIONAL GLUCOSE, 1 HOUR Lab Routine Encounter for supervision of other normal in second trimester Expected: 04/15/2024, Expires: 03/15/2025 CBC WITH WBC DIFFERENTIAL AND ANEMIA REFLEX WORKUP Lab Routine Encounter for supervision of other normal in second trimester Antepartum anemia complicating Expected: 04/15/2024, Expires: 03/15/2025 SYPHILIS ANTIBODY SCREEN WITH REFLEX TO RPR Lab Routine Encounter for supervision of other normal in second trimester Expected: 04/15/2024, Expires: 03/15/2025 Health Maintenance Due Date Last Done Comments [...] for supervision of other normal in second trimester- Primary Methadone maintenance treatment affecting in second trimester (HCC) History of hepatitis C Personal history of other infectious and parasitic disease Tobacco use Tobacco use disorder Marijuana use during Antepartum anemia complicating Anemia, antepartum documented in this encounter Care Teams Log Roper Relationship Specialty Start Date End Date Alex Penaloza MD [address] [address] PCP - General Pediatrics 01/30/22 documented as of this encounter
--- OUTSIDE RECORDS SUMMARY | 2024-05-29 20:07 | External Medical Summary ---
Author Name Unknown Address Unknown Organization K0G:LABORATORY [place] [address] - [address] [place] [address] Laboratory Report Ordering Provider Test Date Status RODNEYMAIKOL 02/16/2024 14:22:37 Final Observation Date Value Abnormality Reference (Units ) Status Albumin 02/16/2024 14:22:37 3.6 Below low normal 3.8-5.0 (g/dL) Final AST (Aspartate aminotransferase) 02/16/2024 14:22:37 20 10-35 (U/L) Final Alk Phos 02/16/2024 14:22:37 64 35-130 (U/L) Final ALT (Alanine aminotransferase) 02/16/2024 14:22:37 8 Below low normal 10-35 (U/L) Final Bilirubin, Total 02/16/2024 14:22:37 <0.2 <=1.2 (mg/dL) Final Bilirubin, Direct 02/16/2024 14:22:37 <0.2 0.0-0.3 (mg/dL) Final Protein 02/16/2024 14:22:37 6.3 6.0-8.3 (g/dL) Final Performing Location LABORATORY [place] [address] - [address] [place] [address]
--- OUTSIDE RECORDS SUMMARY | 2024-05-29 20:07 | External Medical Summary | Summary of Care ---
Author Name Unknown Organization [facility] Address [address] [place] [address] Phone [phone] Care Team Providers Care Scrap Sawyer Name Role Phone Alex Penaloza MD Primary Care Provider + Reason for Referral * Evaluate & Treat - Unlimited Visits (Within 10 days (routine)) - Authorized Specialty Diagnoses / Procedures Referred By Radha t Referred To Contact Maternal and Medicine Diagnoses Methadone maintenance treatment affecting , antepartum (HCC) Nuzhat Amezquita PA-C [address] [place] [address] Phone: tel: fax: Referral ID Status Reason Start Date Expiration Date Visits Requested Visits Authorized [id number] Authorized Specialty Services Required [phone] Question Answer Referral Priority Within 10 days (routine) Where should this appointment be scheduled? [facility] Referral Reason Methadone use in [facility] the [facility]? Yes Encounter Details Date Type Department Care Team (Late st Contact Info) Description 02/18/2024 Telephone Gynecology/Obstetrics [facility] [address] [place] [address] Nuzhat Amezquita PA-C [address] [place] [address] Allergies No known active allergiesdocumented as of this encounter (statuses as of 03/05/2024) Medications Methadone HCl 10 MG/ML Oral Concentrate Take by mouth . 117 mg in the morning and 66 mg in the evening Active Iron-Vitamin C 65-125 MG Oral Tablet (Vitron C)Indications:Ant epartum anemia complicating Take 1 Tablet by mouth in the morning and 1 Tablet before bedtime. 60 Tablet 3 4 Active documented as of this encounter (statuses as of 03/05/2024) Active Problems Problem Noted Date Diagnosed Date [...] affecting pregna ncy 02/16/2024 Overview (02/18/2024): Declines [facility]. Ask a doc sent to [facility] with following recommendations: I would recommend [...] as of this encounter (statuses as of 03/05/2024) Social History Tobacco Use Types Packs/Day Years [...] not asking her to be seen in [place] every month rather I just wanted to [...] back and said she can't go to [place] every month. I let pt know she may only need to gofor initial appt then she may be able to come to [facility] for additional appts. Pt said she [...] states that she has been told that [facility] orders "unnecessary testing". We discussed that she [...] let patient know I reached out to [facility] regarding Methadone in to ensure we [...] [facility] [address] [place] [address] Nuzhat Amezquita PA-C [address] [place] [address] Scheduled Referrals Name Type Priority Associated Diagnoses [...] antepartum documented in this encounter Care Teams Scrap Sawyer Relationship Specialty Start Date End Date Alex Penaloza MD [address] [address] PCP - General Pediatrics 01/30/22 documented as of this encounter
--- OUTSIDE RECORDS SUMMARY | 2024-05-29 20:07 | External Medical Summary | Summary of Care ---
Author Name Unknown Organization [facility] Address [address] [place] [address] Phone [phone] Care Team Providers Care Service Attendant Cafeteria Name Role Phone Alex Penaloza MD Primary Care Provider + Reason for Referral * Evaluate & Treat - Unlimited Visits (Within 10 days (routine)) - Authorized Specialty Diagnoses / Procedures Referred By Radha t Referred To Contact Maternal and Medicine Diagnoses Methadone maintenance treatment affecting , antepartum (HCC) Nuzhat Amezquita PA-C [address] [place] [address] Phone: tel: fax: Referral ID Status Reason Start Date Expiration Date Visits Requested Visits Authorized [id number] Authorized Specialty Services Required 4 [phone] Question Answer Referral Priority Within 10 days (routine) Where should this appointment be scheduled? [facility] Referral Reason Methadone use in Does the patient have a [facility] OB provider? Yes Encounter Details Date Type Department Care Team (Late st Contact Info) Description 02/18/2024 Telephone Gynecology/Obstetrics [facility] [address] [place] [address] Nuzhat Amezquita PA-C [address] [place] [address] Allergies No known active allergiesdocumented as of this encounter (statuses as of 02/20/2024) Medications Methadone HCl 10 MG/ML Oral Concentrate Take by mouth . 117 mg in the morning and 66 mg in the evening Active Iron-Vitamin C 65-125 MG Oral Tablet (Vitron C)Indications:Ant epartum anemia complicating Take 1 Tablet by mouth in the morning and 1 Tablet before bedtime. 60 Tablet 3 4 Active documented as of this encounter (statuses as of 02/20/2024) Active Problems Problem Noted Date Diagnosed Date [...] affecting pregna ncy 02/16/2024 Overview (02/18/2024): Declines [facility]. Ask a doc sent to [facility] with following recommendations: I would recommend [...] as of this encounter (statuses as of 02/20/2024) Social History Tobacco Use Types Packs/Day Years [...] back and said she can't go to [place] every month. I let pt know she may only need to gofor initial appt then she may be able to come to [facility] for additional appts. Pt said she [...] states that she has been told that [facility] orders "unnecessary testing". We discussed that [...] let patient know I reached out to [facility] regarding Methadone in to ensure we [...] Description 03/02/2024 1:15 PM EST Imaging Radiology [facility] [address] [place] [address] 03/15/2024 11:00 AM EST Office Visit Gynecology/Obstetrics [facility] [address] [place] [address] Nuzhat Amezquita PA-C 132 [facility] [place] [address] Scheduled Referrals Name Type Priority Associated Diagnoses [...] Cancer Screening 2022 HPV/Co-Test 2022 COVID-19 Vaccine (2023-2 5 season) 2023 Influenza Vaccine (FLU shot) [...] antepartum documented in this encounter Care Teams Service Attendant Cafeteria Relationship Specialty Start Date End Date Alex Penaloza MD [address] [address] PCP - General Pediatrics 01/30/22 documented as of this encounter
--- OUTSIDE RECORDS SUMMARY | 2024-05-29 20:07 | External Medical Summary | Summary of Care ---
Author Name Unknown Organization [facility] Address [address] [place] [address] Phone [phone] Care Team Providers Care Drilling Manager Name Role Phone Alex Penaloza MD Primary Care Provider + Encounter Details Date Type Department Care Team (Late st Contact Info) Description 02/23/2024 Population Health External Data Unspecified Department Allergies No known active allergiesdocumented as of this encounter (statuses as of 02/23/2024) Medications Methadone HCl 10 MG/ML Oral Concentrate Take by mouth . 117 mg in the morning and 66 mg in the evening Active Iron-Vitamin C 65-125 MG Oral Tablet (Vitron C)Indications:Ant epartum anemia complicating Take 1 Tablet by mouth in the morning and 1 Tablet before bedtime. 60 Tablet 3 4 Active documented as of this encounter (statuses as of 02/23/2024) Active Problems Problem Noted Date Diagnosed Date [...] Declines [facility]. Ask a doc sent to [facility] with following recommendations: I would recommend ultrasound [...] as of this encounter (statuses as of 02/23/2024) Social History Tobacco Use Types Packs/Day Years [...] Description 03/02/2024 1:15 PM EST Imaging Radiology [facility] 2nd Floor, [place] [address] [facility] [place] [address] 03/15/2024 11:00 AM EST Office Visit Gynecology/Obstetrics [facility] [address] [place] [address] Nuzhat Amezquita PA-C [address] [place] [address] Health Maintenance Due Date Last Done Comments [...] filedocumented as of this encounter Care Teams Drilling Manager Relationship Specialty Start Date End Date Alex Penaloza MD [address] [facility] [address] [place] [address] PCP - General Pediatrics 01/30/22 documented as of this encounter
--- OUTSIDE RECORDS SUMMARY | 2024-05-29 20:08 | External Medical Summary | Summary of Care ---
Author Name Unknown Organization [facility] Address [address] [place] [address] Phone [phone] Care Team Providers Care Power And Recovery Shift Engineer Name Role Phone Aelx Penaloza MD Primary Care Provider + Encounter Details Date Type Department Care Team (Late st Contact Info) Description 01/09/2024 Telephone Gynecology/Obstetrics [facility] [address] [facility] [place] [address] Nuzhat Amezquita PA-C [address] [place] [address] Allergies No known active allergiesdocumented as of this encounter (statuses as of 01/13/2024) Medications Medication Sig Dispensed Refills Start Date End Date Status Methadone HCl 10 MG/ML Oral Concentrate Take by mouth . 117 mg in the morning and 66 mg in the evening Active documented as of this encounter (statuses as of 01/13/2024) Active Problems Problem Noted Date Diagnosed Date [...] as of this encounter (statuses as of 01/13/2024) Social History Tobacco Use Types Packs/Day Years [...] Telephone Encounter - Yamileth Pickett LPN - 01/13/2024 4:15 PM EDT Patient notified. * Telephone Encounter - Louise Ford LPN - 01/13/2024 4:07 PM EDT left message for patient to call office * Telephone Encounter - Olinda Sandoval LPN - 01/09/2024 1:01 PM EDT Called pt x 2, phone would not ring. Will try again at a later time * Telephone Encounter - Nuzhat Amezquita PA-C - 01/09/2024 12:56 PM EDT Ultrasound showed viable jorgensen at 13 weeks 3 days. SUSAN 07/13/2024 by ultrasound. Please let her know. We will finalize SUSAN after NOB appointment. Nuzhat Amezquita PA-C documented in this encounter Plan of Treatment Upcoming Encounters Date Type Department Care Team (Late st Contact Info) Description 01/16/2024 1:45 PM EDT [facility] 132 [facility] [place] [address] Sonia López PA-C [address] [place] [address] [place] [address] Nurse [facility] 132 [facility] [place] [address] Health Maintenance Due Date Last Done Comments [...] filedocumented as of this encounter Care Teams Power And Recovery Shift Engineer Relationship Specialty Start Date End Date Alex Penaloza MD [address] [address] PCP - General Pediatrics 01/30/22 documented as of this encounter
--- OUTSIDE RECORDS SUMMARY | 2024-05-29 20:08 | External Medical Summary | Summary of Care ---
Author Name Unknown Organization [facility] Address [address] [place] [address] Phone [phone] Care Team Providers Care Captain Assistant Name Role Phone Alex Penaloza MD Primary Care Provider + Encounter Details Date Type Department Care Team (Late st Contact Info) Description 01/23/2024 Telephone Gynecology/Obstetrics [facility] [address] [facility] [place] [address] Benjamin Baker MD [address] [facility] [place] [address] Allergies No known active allergiesdocumented as of this encounter (statuses as of 01/23/2024) Medications Medication Sig Dispensed Refills Start Date End Date Status Methadone HCl 10 MG/ML Oral Concentrate Take by mouth . 117 mg in the morning and 66 mg in the evening Active documented as of this encounter (statuses as of 01/23/2024) Active Problems Problem Noted Date Diagnosed Date [...] as of this encounter (statuses as of 01/23/2024) Social History Tobacco Use Types Packs/Day Years [...] Telephone Encounter - Anne Bhat RN - 01/23/2024 9:27 AM EDT Gracy Salguero from [facility] to repot patient's most recent Methadone dose 108mg oncedaily - split dose she is taking 90mg int he morning and 18mg in the afternoon. Bill just calling to coordinate care, just sending to you as FYI as you saw the patient last. documented in this encounter Plan of Treatment Upcoming Encounters Date Type Department Care Team (Late st Contact Info) Description 02/02/2024 2:45 PM EDT Office Visit Gynecology/Obstetrics [facility] [address] [place] [address] Benitez Krueger MD [address] [place] [address] Nurse [facility] [place] [address] [place] [address] Health Maintenance Due Date Last Done Comments [...] filedocumented as of this encounter Care Teams Captain Assistant Relationship Specialty Start Date End Date Alex Penaloza MD [address] [place] [address] PCP - General Pediatrics 01/30/22 documented as of this encounter
--- OUTSIDE RECORDS SUMMARY | 2024-05-29 20:08 | External Medical Summary | Summary of Care ---
Author Name Unknown Organization [facility] Address [address] [place] [address] Phone [phone] Care Team Providers Care Guidance Secretary Name Role Phone Alex Penaloza MD Primary Care Provider + Encounter Details Date Type Department Care Team (Late st Contact Info) Description 01/23/2024 Telephone Gynecology/Obstetrics [facility] [address] [facility] [place] [address] Benjamin Baker MD [address] [facility] [place] [address] Allergies No known active allergiesdocumented as of [...] Telephone Encounter - Nuzhat Amezquita PA-C - 01/23/2024 10:12 AM EDT I apologize but I never saw this patient. Had NOB scheduled with me but not completed. She is scheduled back on 02/02/2024. Please ensure scheduled back appropriately as still needs NOB intake. She did have dating ultrasound. Will likely need MFM referral for Methadone use in . Can discussfurther at NOB. Nuzhat Amezquita PA-C * Telephone Encounter - Anne Bhat RN - 01/23/2024 9:27 AM EDT Gracy Salguero from [facility] to repot patient's most recent Methadone [...] [facility] [address] [place] [address] Benitez Krueger MD [address] [place] [address] Nurse [facility] [address] [place] [address] Health Maintenance Due Date Last Done Comments [...] filedocumented as of this encounter Care Teams Guidance Secretary Relationship Specialty Start Date End Date Alex Penaloza MD [address] [place] [address] PCP - General Pediatrics 01/30/22 documented as of this encounter
--- OUTSIDE RECORDS SUMMARY | 2024-05-29 20:08 | External Medical Summary | Summary of Care ---
Author Name Unknown Organization [facility] Address [address] [place] [address] Phone [phone] Care Team Providers Care Patient Carrier Name Role Phone Alex Penaloza MD Primary Care Provider + Encounter Details Date Type Department Care Team (Late st Contact Info) Description 01/23/2024 Telephone Gynecology/Obstetrics [facility] [address] [facility] [place] [address] Benjamin Baker MD [address] [place] [address] Allergies No known active allergiesdocumented as of [...] persistent or severe, call your provider 01/09/2024 Mdaai Wei RN 01/09/24 Inadequate diet for Reviewed [...] Telephone Encounter - Yamileth Pickett LPN - 01/23/2024 10:19 AM EDT Becky, Patient needs to be in a 30 minute spot for her provider Nob appt. Please schedule with oneof the APs. Right now she is in a [address] Krueger. It doesn't need to be in a healthy beg spot because that was done already. You can use two back to back Woody spots if needed * Telephone Encounter - Nuzhat Amezquita PA-C [...] 01/23/2024 9:27 AM EDT Gracy Salguero from [facility] to repot patient's most recent Methadone [...] Gynecology/Obstetrics [facility] [address] [place] [address] Benitez Krueger MD [address] [place] [address] Nurse [facility] [place] [address] [place] [address] Health Maintenance Due Date Last Done Comments [...] filedocumented as of this encounter Care Teams Patient Carrier Relationship Specialty Start Date End Date Alex Penaloza MD [address] [address] PCP - General Pediatrics 01/30/22 documented as of this encounter
--- OUTSIDE RECORDS SUMMARY | 2024-05-29 20:08 | External Medical Summary | Summary of Care ---
Author Name Unknown Organization [facility] Address [address] [place] [address] Phone [phone] Care Team Providers Care Constitutional Law Professor Name Role Phone Alex Penaloza MD Primary Care Provider + Encounter Details Date Type Department Care Team (Late st Contact Info) Description 01/23/2024 Telephone Gynecology/Obstetrics [facility] [address] [facility] [place] [address] Benjamin Baker MD [address] [place] [address] Allergies No known active allergiesdocumented as of [...] Telephone Encounter - Becky [place] OSA - 01/23/2024 10:55 AM EDT Appointment has been rescheduled and a message was left on the patients phone regarding the new time and date. * Telephone Encounter - Yamileth Pickett LPN [...] 01/23/2024 9:27 AM EDT Gracy Salgu[facility] to repot patient's most recent Methadone dose 108mg oncedaily - split dose she is taking 90mg int he morning and 18mg in the afternoon. Deboarh just calling to coordinate care, just sending to you as FYI as you saw the patient last. documented in this encounter Plan of Treatment Upcoming Encounters Date Type Department Care Team (Late st Contact Info) Description 02/04/2024 10:30 AM EDT Office Visit Gynecology/Obstetrics [facility] [address] [place] [address] Nuzhat Amezquita PA-C [address] [place] [address] Health Maintenance Due Date Last Done Comments [...] filedocumented as of this encounter Care Teams Constitutional Law Professor Relationship Specialty Start Date End Date Alex Penaloza MD [address] [address] PCP - General Pediatrics 01/30/22 documented as of this encounter
--- OUTSIDE RECORDS SUMMARY | 2024-05-29 20:08 | External Medical Summary | Summary of Care ---
Author Name Unknown Organization [facility] Address [address] [place] [address] Phone [phone] Care Team Providers Care 3D Artist Name Role Phone Alex Penaloza MD Primary Care Provider + Reason for Visit * Reason Comments [facility] New Intake Encounter Details Date Type Department Care Team (Late st Contact Info) Description 01/09/2024 9:45 AM EDT Office Visit Gynecology/Obstetric s [facility] [address] [employer] [facility] [place] [address] Nuzhat Amezquita PA-C [address] [employer] [place] [address] Gw, Nurse Science Writer lAfredo [address] [employer] [facility] [place] [address] [Z34.90]*; care in first trimester [Z34.91] Allergies No known active allergiesdocumented as of this encounter (statuses as of 01/16/2024) Medications Medication Sig Dispensed Refills Start Date End Date Status Methadone HCl 10 MG/ML Oral Concentrate Take by mouth . 117 mg in the morning and 66 mg in the evening Active documented as of this encounter (statuses as of 01/16/2024) Active Problems Problem Noted Date Diagnosed Date [...] as of this encounter (statuses as of 01/16/2024) Social History Tobacco Use Types Packs/Day Years Used Date Smoking Tobacco: Every Day Smokeless Tobacco: Never Tobacco Cessation:Ready to Q uit: Not Asked; Counseling Given: Not Answered Comments:2/day Alcohol Use Standard Drinks/Week Comments Not [...] on file documented as of this encounter Progress Notes * Madai Wei RN - 01/09/2024 1:07 PM EDT New OB intake complete. documented in this encounter Nursing Notes * Madai Wei RN - 01/09/2024 10:19 AM EDT Chief Complaint Patient presents with [facility] New Intake NOB nurse intake completed with patient. Reviewed "A Guide to Help You Prepare for Delivery" booklet, discussing diet-including fish advisory and listeria, exercise, travel, sexual intercourse duringpregnancy, warning signs, and when to call the provider. Introduced names of providers and informedpatient she will be seen by all providers and that any one of them could be metal bonding crib attendant at the time of delivery. Also discussed the role of the laborist in her care. Phone numbers given to reach the office during and after office hours. Reviewed over the counter medications that are safe in . Advised only Tylenol, no ASA or Ibuprofen unless otherwise ordered by provider. Discussed the importance of taking PNV containing iron. Discussed avoiding alcohol and drugs during .If using tobacco, advised patient to stop using tobacco as soon as possible. Discussed development and highly sensitive period of organogenesis in the first trimester. Prepared childbirth classand Basics class information given along with contact information to register for these classes. Information provided regarding genetic screening options. Pt enrolled in [facility] Plus Program. Madai Wei RN documented in this encounter Plan of Treatment Upcoming Encounters Date Type Department Care Team (Late st Contact Info) Description 02/02/2024 2:45 PM EDT Office Visit Gynecology/Obstetrics [facility] [address] [place] [address] Benitez Krueger MD 132 [place] [address] Nurse [facility] [place] [address] [place] [address] Health Maintenance Due Date Last Done Comments [...] as of this encounter Visit Diagnoses Diagnosis [Z34.90]- Primary state, incidental care in first trimester [Z34.91] documented in this encounter Care Teams 3D Artist Relationship Specialty Start Date End Date Alex Penaloza MD [address] [address] PCP - General Pediatrics 01/30/22 documented as of this encounter
--- OUTSIDE RECORDS SUMMARY | 2024-05-29 20:08 | External Medical Summary | Summary of Care ---
Author Name Unknown Organization [facility] Address [address] [place] [address] Phone [phone] Care Team Providers Care Construction Consultant Name Role Phone Alex Penaloza MD Primary Care Provider + Reason for Visit * Reason Comments [facility] New Intake Encounter Details Date Type Department Care Team (Late st Contact Info) Description 01/09/2024 9:45 AM EDT Office Visit Gynecology/Obstetric s [facility] Wall [address] [facility] [place] [address] Nuzhat Amezquita PA-C [address] [place] [address] Gw, Nurse Car Racer Alfredo [address] [facility] [place] [address] [Z34.90]*; care in first trimester [Z34.91] Allergies No known active allergiesdocumented as of this encounter (statuses as of 01/09/2024) Medications Medication Sig Dispensed Refills Start Date End Date Status Methadone HCl 10 MG/ML Oral Concentrate Take by mouth . 117 mg in the morning and 66 mg in the evening Active documented as of this encounter (statuses as of 01/09/2024) Active Problems Problem Noted Date Diagnosed Date [...] as of this encounter (statuses as of 01/09/2024) Social History Tobacco Use Types Packs/Day Years [...] that any one of them could be station installation supervisor at the time of delivery. Also discussed [...] 01/16/2024 1:45 PM EDT Office Visit Gynecology/Obstetrics [facility] [address] [place] [address] Sonia López PA-C [address] [place] [address] [place] [address] Nurse [facility] [place] [address] [place] [address] Health Maintenance Due Date Last Done Comments [...] [Z34.91] documented in this encounter Care Teams Construction Consultant Relationship Specialty Start Date End Date Alex Penaloza MD [address] [address] PCP - General Pediatrics 01/30/22 documented as of this encounter
--- OUTSIDE RECORDS SUMMARY | 2024-05-29 20:08 | External Medical Summary | Summary of Care ---
Author Name Unknown Organization [facility] Address [address] [place] [address] Phone [phone] Care Team Providers Care Outdoor Illuminating Engineer Name Role Phone Alex Penaloza MD Primary Care Provider + Encounter Details Date Type Department Care Team (Late st Contact Info) Description 01/09/2024 Telephone Gynecology/Obstetrics [facility] [address] [facility] [place] [id number] Nuzhat Amezquita PA-C [address] [facility] [place] [address] Allergies No known active allergiesdocumented as of [...] 01/16/2024 1:45 PM EDT Office [facility] [address] [facility] [place] [address] Sonia López PA-C [address] [place] [address] [place] [id number] Nurse [facility] 132 [facility] [place] [address] Health Maintenance Due Date Last Done Comments [...] filedocumented as of this encounter Care Teams Outdoor Illuminating Engineer Relationship Specialty Start Date End Date Alex Penaloza MD [address] [address] PCP - General Pediatrics 01/30/22 documented as of this encounter
--- OUTSIDE RECORDS SUMMARY | 2024-05-29 20:08 | External Medical Summary | Summary of Care ---
Author Name Unknown Organization [facility] Address [address] [place] [address] Phone [phone] Care Team Providers Care Technical Instructor Name Role Phone Alex Penaloza MD Primary Care Provider + Reason for Visit * Reason Onset Date Comments Order Request 12/17/2023 Dating us Encounter Details Date Type Department Care Team ([facility] st Contact Info) Description 12/17/2023 Telephone Gynecology/Obstetrics [facility] [address] [place] [address] Nuzhat Amezquita PA-C [address] [place] [address] Order Request (Dating us) Allergies No known active allergiesdocumented as of this encounter (statuses as of 12/17/2023) Medications Medication Sig Dispensed Refills Start Date End Date Status Methadone HCl 10 MG/ML Oral Concentrate Take by mouth . 117 mg in the morning and 66 mg in the evening Active documented as of this encounter (statuses as of 12/17/2023) Active Problems No known active problems documented as of this encounter (statuses as of 12/17/2023) Social History Tobacco Use Types Packs/Day Years Used Date Smoking Tobacco: Every Day Smokeless Tobacco: Never Alcohol Use Standard Drinks/Week Comments Not Currently [...] years and over) Not on file 09/23/2023 Sex and Gender Information Value Date Recorded Sex Assigned at Not on file Gender Identity Not on file Sexual Orientation Not on file Job Start Date Occupation Industry Not on file Not on file Not on file documented as of this encounter Miscellaneous Notes * Telephone Encounter - Nuzhat Amezquita PA-C - 12/17/2023 2:00 PM EDT Order placed, routing back. Thank you. Nuzhat Amezquita PA-C * Telephone Encounter - Becky Russell OSA - 12/17/2023 1:38 PM EDT Dating US scheduled prior to NOB; Please place order and send back to me documented in this encounter Plan of Treatment Upcoming Encounters Date Type Department Care Team (Late st Contact Info) Description 01/09/2024 9:00 AM EDT Imaging Radiology [facility] 2nd [facility] [address] [place] [address] 01/09/2024 9:45 AM EDT Office Visit Gynecology/Obstetrics [facility] [address] [place] [address] Nuzhat Amezquita PA-C [address] [place] [address] Gw, Nurse Care Transition Manager [facility] [address] [place] [address] Scheduled Orders Name Type Priority Associated Diagnoses Orde r Schedule US PELVIS TRANS-VAGINAL OB Medical Imaging Routine Early stage of Expected: 01/09/2024, Expires: 01/15/2025 Health Maintenance Due Date Last Done Comments [...] 2022 HPV/Co-Test 2022 COVID-19 Vaccine (1 - 2022-2 4 season) 2023 Influenza Vaccine (FLU shot) (#1) 2023 HPV (Gardasil) Vaccine Aged Out No lo nger eligible based on patient's age to complete this topic MENINGOCOCCAL (MENACTRA/MENVEO) Aged Out No longer eligible based on patient's age to complete this topic documented as of this encounter Medical Devices Not on filedocumented as of this encounter Visit Diagnoses Diagnosis Early stage of - Primary documented in this encounter Care Teams Technical Instructor Relationship Specialty Start Date End Date Alex Penaloza MD [address] [address] PCP - General Pediatrics 01/30/22 documented as of this encounter
--- NOTE | 2024-05-29 20:55 | Emergency Department Note ---
Impression & Plan Hypoxic respiratory failure, Influenza A, Pneumonia, Intrauterine ED Provider Note NAME: RYAN COE AGE: 33 SEX: F : 1990 ARRIVES VIA: Walk-In INFORMANT: Patient ED PROVIDER(S): Osbaldo Irby DO CHIEF COMPLAINT: Cough, congestion and shortness of breath HPI: Patient is a 33-year-old female with a past medical history of methadone use, ADHD, heroin abuse who presents to the ER for cough, congestion, and shortness of breath. Symptoms started about a week ago. All of her children were sick with the same symptoms. Patient's myalgias, arthralgias and headaches have resolved but notes that she still has the cough and congestion and shortness of breath. No recorded fevers. She is a previous miscarriage at about 34 weeks with no complications thus far. Denies any vaginal bleeding or vaginal discharge. ADDITIONAL HISTORY OBTAINED: Per HPI Chronic Medical/Social Conditions Affecting Care: Per HPI PAST MEDICAL HISTORY:See Below PAST SURGICAL HISTORY:See Below FAMILY HISTORY:See Below SOCIAL HISTORY:See Below HOME MEDICATIONS:See Below ALLERGIES:See Below VITALS:See Below PHYSICAL EXAMINATION: GENERAL: Sitting up in bed, alert, well appearing, well nourished, no distress, non-toxic EYE EXAM: normal conjunctiva. PERRL and EOM's grossly intact. OROPHARYNX: mucous membranes are moist NECK: supple, no nuchal rigidity, no adenopathy, non-tender LUNGS: Wheezing bilaterally. Normal chest wall mechanics HEART: no murmurs, S1 normal and S2 normal ABDOMEN: abdomen soft, non-tender, normo-active bowel sounds, no masses, no rebound or guarding. UPPER EXTREMITIES: upper extremities are grossly normal. LOWER EXTREMITIES: Calves are equal bilaterally NEURO EXAM: Normal sensorium, cranial nerves II-XII grossly intact, normal speech, no gross weakness of arms, no gross weakness of legs. MEDICAL DECISION MAKING: Patient is a 33-year-old female who presents ER for the above-stated complaint. IV was established and blood work was obtained. Labs show no significant leukocytosis or anemia. BMP was unremarkable with the exception of mild hyponatremia. Chest x-ray with subtle infiltrates. Patient was flu positive. She was hypoxic at 88 to 89%. She is placed on 2 L nasal cannula. She was given neb treatments with the wheezing. She was given a dose of steroids. She was also given IV Rocephin. She was updated bedside discussed with the hospitalist Dr. Andriy Strong for further evaluation management treatment. Consults/Care Managements Discussions: Per [facility] Triage Nursing notes reviewed. Limited review of prior medical records performed Vital Signs: reviewed and remarkable for no significant abnormalities Differential diagnosis: Differential diagnoses includes but is not limited to pneumonia, bronchitis, COPD/Asthma exacerbation, pneumothorax, pulmonary embolism, congestive heart failure, acute coronary syndrome ER treatment provided: See below Diagnostics interpreted by me include EKG and cardiac monitoring as listed below: -Cardiac Monitoring: An order was placed for continuous cardiac monitoring. The monitor shows a rate of 80 with sinus rhythm. -ECG: none -Laboratory studies:Interpreted by me as stated above in MDM and shown below. Imaging studies: Xrays: As interpreted by me: Portable AP upright 1 view of the chest shows no focal Lutrate CTs show: none Procedures:none Critical Care: I have personally spent 35 minutes of critical care time in the direct management of this patient. This includes bedside care, interpretation of diagnostic studies, and testing, discussion with consultants, patient, and family members, and other required patient management activities. This 35 minutes is in excess of all separately billable procedures. Past Med/Surg History Problem List (Updated 05/30/24 @ 01:03 by Osbaldo Irby DO) Intrauterine (Acute) Pneumonia (Acute) Influenza A (Acute) Hypoxic respiratory failure (Acute) Methadone use (Chronic) Adult ADHD (Chronic) History of heroin use Close exposure to 2019 novel coronavirus (Acute) Encounter for laboratory testing for COVID-19 virus (Acute) Medical History History of heroin abuse clean since 2019 Scoliosis Surgical History H/O elbow surgery Family History Other No pertinent family history in first degree relatives Social History Smoking Status: Never smoker Tobacco Type: Cigarettes Second Hand Exposure: No; Do You Dip or Chew Tobacco: No; Hx Alcohol Use: No Hx Substance Use: Yes Last Used Substance Other:: 2018 Substance Use Type Other:: on methadone Preferred Language: Ethiopian Communication Ability: Effective Silk Screener Required: No Beliefs That Will Affect Care: None marital status: Single Current Living Situation: Family Current Living Situation Comment: Pt lives with grandmother Feels Safe at Home: Yes Assistive Devices: None Allergies Allergies Allergy/AdvReac Type Severity Reaction Status Date / Time No Known Allergies Allergy Verified 05/30/24 00:05 Home Meds Home Medications Medication Instructions Recorded Confirmed methadone 10 mg/mL oral concentrate 143 mg PO QAM 07/24/21 05/30/24 vit no.95-ferrous 1 tab PO DAILY 07/24/21 05/30/24 fumarate 28 mg-folic acid 800 mcg tablet () methadone 10 mg/mL oral concentrate 76 mg PO HS 12/26/21 05/30/24 Results & Data (ED) Vital Signs Vital Signs - 24 hr 05/29/24 20:00 05/29/24 20:51 05/29/24 21:58 Temperature 36.2 C L Temperature Source Temporal Artery Scan Pulse Rate 78 Pulse Rate [Right Brachial] 74 Pulse Rate from SpO2 Sensor Pulse Rhythm Regular Pulse Rhythm [Right Brachial] Regular Pulse Strength Normal Pulse Strength [Right Brachial] Normal Respiratory Rate 18 28 H Respiratory Effort / Characteristics Non-Labored Spontaneous Non-Labored Respiratory Depth Normal Normal Respiratory Pattern Regular Regular Blood Pressure 119/71 Blood Pressure [Right Arm] 124/67 Blood Pressure Mean 87 Blood Pressure Mean [Right Arm] 86 Blood Pressure Position Sitting Blood Pressure Position [Right Arm] Lying Pulse Oximetry 92 96 93 Oxygen Delivery Method Room Air Room Air Room Air Oxygen Flow Rate Sepsis Recent Fever Within 48 Hours No Sepsis New/Unexplained Change in Mental Status N/A Sepsis Action Taken by Nursing No Action Required 05/29/24 23:00 05/29/24 23:00 05/29/24 23:30 Temperature Temperature Source Pulse Rate 73 73 Pulse Rate [Right Brachial] 70 Pulse Rate from SpO2 Sensor Pulse Rhythm Pulse Rhythm [Right Brachial] Regular Pulse Strength Pulse Strength [Right Brachial] Normal Respiratory Rate 22 25 H 23 Respiratory Effort / Characteristics Non-Labored Respiratory Depth Normal Respiratory Pattern Regular Blood Pressure 100/55 L 103/51 L Blood Pressure [Right Arm] 100/55 L Blood Pressure Mean 71 71 Blood Pressure Mean [Right Arm] 70 Blood Pressure Position Blood Pressure Position [Right Arm] Lying Pulse Oximetry 91 93 89 L Oxygen Delivery Method Room Air Oxygen Flow Rate Sepsis Recent Fever Within 48 Hours Sepsis New/Unexplained Change in Mental Status Sepsis Action Taken by Nursing 05/29/24 23:33 05/30/24 00:30 05/30/24 01:00 Temperature Temperature Source Pulse Rate 73 70 70 Pulse Rate [Right Brachial] Pulse Rate from SpO2 Sensor 72 72 Pulse Rhythm Pulse Rhythm [Right Brachial] Pulse Strength Pulse Strength [Right Brachial] Respiratory Rate 23 26 H 27 H Respiratory Effort / Characteristics Respiratory Depth Respiratory Pattern Blood Pressure 95/49 L 100/68 Blood Pressure [Right Arm] Blood Pressure Mean 64 78 Blood Pressure Mean [Right Arm] Blood Pressure Position Blood Pressure Position [Right Arm] Pulse Oximetry 93 93 93 Oxygen Delivery Method Nasal Cannula Oxygen Flow Rate 2 Sepsis Recent Fever Within 48 Hours Sepsis New/Unexplained Change in Mental Status Sepsis Action Taken by Nursing Laboratory Data 05/30/24 00:13 05/30/24 00:13 Lab Results 05/29/24 05/29/24 05/30/24 Range/Units 20:05 22:58 00:13 WBC 8.84 (4.8-10.8) K/ul RBC 3.83 L (4.20-5.40) M/uL Hgb 12.0 (12.0-16.0) g/dl Hct 34.2 L (37.0-47.0) % MCV 89.3 (80.0-100.0) fL MCH 31.3 (25.0-34.0) pg MCHC 35.1 (32.0-36.0) g/dL RDW Std Deviation 41.5 (36.4-46.3) fL RDW Coeff of Iglesia 12.7 (11.5-14.5) % Plt Count 204 (130-400) K/uL MPV 10.6 (9.4-12.4) fL Immature Gran % (Auto) 0.5 % Neut % (Auto) 77.5 % Lymph % (Auto) 9.8 % [place]in % (Auto) 11.7 % Eos % (Auto) 0.2 % Baso % (Auto) 0.3 % Neut # (Auto) 6.85 H (1.40-6.50) K/uL Lymph # (Auto) 0.87 L (1.20-3.40) K/uL M[place]flin # (Auto) 1.03 H (0.11-0.59) K/uL Eos # (Auto) 0.02 (0.00-0.50) K/uL Baso # (Auto) 0.03 (0.00-0.20) K/uL Immature Gran # (Auto) 0.04 (0.01-0.20) K/uL Sodium 131 L (136-145) mmol/L Potassium 3.8 (3.5-5.1) mmol/L Chloride 101 (98-107) mmol/L Carbon Dioxide 22 (21-32) mmol/L Anion Gap 8 (3-11) BUN 4 L (6-23) mg/dl Creatinine 0.59 L (0.6-1.2) mg/dl Est Cr Clr Drug Dosing 99.2 ml/min eGFR 123.49 BUN/Creatinine Ratio 6.8 L (10-20) Glucose 68 L (70-99(Fasting)) mg/dl Calcium 8.4 L (8.6-10.3) mg/dl Procalcitonin 0.26 (0-0.5) ng/ml Urine Color Yellow Urine Appearance Clear (Clear) Urine pH 7.0 (4.5-7.5) Ur Specific [place] 1.009 (1.000-1.030) Urine Protein Trace H (Negative) Urine Glucose (UA) Negative (Negative) Urine Ketones 3+ H (Negative) Urine Blood Negative (Negative) Urine Nitrite Negative (Negative) Urine Bilirubin Negative (Negative) Urine Urobilinogen Negative (Negative) Ur Leukocyte Esterase Negative (Negative) Urine WBC (Auto) 0-5 (0-5) /hpf Urine RBC (Auto) 0-2 (0-2) /hpf U Hyaline Cast (Auto) 0-2 (0-2) /lpf U Epithel Cells (Auto) 0-2 (0-2) /hpf Urine Bacteria (Auto) None Seen (None Seen) Adenovirus (PCR) Not Detected (NotDetected) B. pertussis DNA (PCR) Not Detected (NotDetected) B.parapertussis DNA PCR Not Detected (NotDetected) C. pneumoniae DNA (PCR) Not Detected (NotDetected) Coronavirus OC43 (PCR) Not Detected (NotDetected) Coronavirus HKU1 (PCR) Not Detected (NotDetected) Coronavirus 229E (PCR) Not Detected (NotDetected) SARS-CoV-2 (PCR) Not Detected (NotDetected) Coronavirus NL63 (PCR) Not Detected (NotDetected) Human Metapneumovir PCR Not Detected (NotDetected) Influenza A (H3) PCR DETECTED A (NotDetected) Influenza Type B (PCR) Not Detected (NotDetected) M. pneumoniae (PCR) Not Detected (NotDetected) Parainfluenza 1 (PCR) Not Detected (NotDetected) Parainfluenza 2 (PCR) Not Detected (NotDetected) Parainfluenza 3 (PCR) Not Detected (NotDetected) Parainfluenza 4 (PCR) Not Detected (NotDetected) RSV (PCR) Not Detected (NotDetected) Entero/Rhino (PCR) Not Detected (NotDetected) Administered Medications Discontinued Medications Albuterol (Albut/Ipratrop 3mg/0.5mg Neb 3 Ml Vial) 3 ml NEB NOW STA; Protocol Stop: 05/29/24 20:52 Last Admin: 05/29/24 21:14 Dose: 3 ml Documented By: ISIAH Albuterol (Albuterol 0.083% Nebu Soln 3 Ml Vial) 2.5 mg NEB NOW STA; Protocol Stop: 05/29/24 23:46 Last Admin: 05/30/24 00:44 Dose: 2.5 mg Documented By: ELANA Ceftriaxone Sodium (Rocephin) 2,000 mg in 50 mls @ 100 mls/hr IV NOW STA Stop: 05/30/24 00:14 Last Infusion: 05/30/24 01:29 Dose: Infused Documented By: Admin: 05/30/24 00:44 Dose: 100 mls/hr Documented By: ELANA Methylprednisolone (Methylprednisolone 125 Mg/2 Ml Vial) 40 mg IV NOW STA Stop: 05/29/24 23:46 Last Admin: 05/30/24 00:43 Dose: 40 mg Documented By: ELANA Ondansetron HCl (Ondansetron Inj 2 Mg/Ml 2 Ml Vial) 4 mg IV NOW STA Stop: 05/30/24 00:45 Last Admin: 05/30/24 01:10 Dose: 4 mg Documented By: ELANA Imaging Data Radiologist's Impression: Chest X-Ray 05/29/24 20:51 Exam(s): XR CXR 1 VIEW EXAM: XR Chest, 1 View CLINICAL HISTORY: Reason for exam: cough. TECHNIQUE: Frontal view of the chest. COMPARISON: X-ray 10/04/2019 FINDINGS: Lungs: Bilateral bronchial wall and diffuse perihilar interstitial thickening with basilar small foci of consolidation. Pleural space: Unremarkable. No pneumothorax. Heart: Borderline cardiomegaly. Mediastinum: Unremarkable. Normal mediastinal contour. Bones/joints: Unremarkable. No acute fracture.. IMPRESSION: Bilateral bronchial wall and diffuse perihilar interstitial thickening/pneumonitis with by basilar small foci of consolidation. . Electronically signed by: Augustus Villar MD, DABR 05/29/24 23:31 PM Discharge Plan Visit Data Chief Complaint: Flu Like Symptoms Stated Complaint: 33WKS,SOB,FLU LIKE SX ED Provider: Osbaldo Irby Discharge Problem: Hypoxic respiratory failure, Influenza A, Pneumonia, Intrauterine Forms Stand Alone Forms: [facility] [employer] Prescriptions Prescriptions: No Action methadone 10 mg/mL Concentrate 143 mg PO QAM Rx Instructions: PER PATIENT PNV cmb#95-ferrous fumarate-FA [] 28 mg iron- 800 mcg Tablet 1 tab PO DAILY Rx Instructions: CANNOT TAKE IF NOT EATING methadone 10 mg/mL Concentrate 76 mg PO HS Rx Instructions: PER PATIENT Referrals Referrals: PCP,NO [Primary Care Provider] - Discharge Problem: Hypoxic respiratory failure Qualifiers: Chronicity: acute Qualified Code(s): J96.01 - Acute respiratory failure with hypoxia
[2024-05-29] MEDS: ALBUT/IPRATROP 3MG/0.5MG NEB 3 ML VIAL NEB STA (21:14)
[2024-05-29 22:36] LABS: Adenovirus PCR Not Detected (NotDetected); Bordetella parapertussis PCR Not Detected (NotDetected); Bordetella pertussis PCR Not Detected (NotDetected); Chlamydia pneumoniae PCR Not Detected (NotDetected); Coronavirus 229E PCR Not Detected (NotDetected); Coronavirus CoV-2 (COVID19)PCR Not Detected (NotDetected); Coronavirus HKU1 PCR Not Detected (NotDetected); Coronavirus NL63 PCR Not Detected (NotDetected); Coronavirus OC43PCR Not Detected (NotDetected); Human Metapneumovirus PCR Not Detected (NotDetected); Influenza A (H3) PCR DETECTED (NotDetected); Influenza B PCR Not Detected (NotDetected); Mycoplasma pneumoniae PCR Not Detected (NotDetected); Parainfluenza Virus 1 PCR Not Detected (NotDetected); Parainfluenza Virus 2 PCR Not Detected (NotDetected); Parainfluenza Virus 3 PCR Not Detected (NotDetected); Parainfluenza Virus 4 PCR Not Detected (NotDetected); Respiratory Syncytial VirusPCR Not Detected (NotDetected); Rhinovirus/Enterovirus PCR Not Detected (NotDetected)
[2024-05-29 23:13] LABS: Appearance Urine Clear (Clear); Bacteria Urine Automated None Seen (None Seen); Bilirubin Urine Negative (Negative); Blood Urine Negative (Negative); Cast Urine Automated 0-2 /lpf (0-2); Color Urine Yellow; Epithelial Cell Urine Auto 0-2 /hpf (0-2); Glucose Urine UA Negative (Negative); Ketones Urine 3+ (Negative); Leukocyte Esterase Urine Negative (Negative); Nitrite Urine Negative (Negative); Protein Urine Trace (Negative); RBC Urine Automated 0-2 /hpf (0-2); Specific Gravity Urine 1.009 (1.000-1.030); Urobilinogen Urine Negative (Negative); WBC Urine Automated 0-5 /hpf (0-5)
--- NOTE | 2024-05-29 23:33 | XRay Report ---
Exam(s): XR CXR 1 VIEW EXAM: XR Chest, 1 View CLINICAL HISTORY: Reason for exam: cough. TECHNIQUE: Frontal view of the chest. COMPARISON: X-ray 10/04/2019 FINDINGS: Lungs: Bilateral bronchial wall and diffuse perihilar interstitial thickening with basilar small foci of consolidation. Pleural space: Unremarkable. No pneumothorax. Heart: Borderline cardiomegaly. Mediastinum: Unremarkable. Normal mediastinal contour. Bones/joints: Unremarkable. No acute fracture.. IMPRESSION: Bilateral bronchial wall and diffuse perihilar interstitial thickening/pneumonitis with by basilar small foci of consolidation. . Electronically signed by: Augustus Villar MD, DABR 05/29/24 23:31 PM
[2024-05-30] MEDS: methylPREDNISolone 125 MG/2 ML VIAL IV STA (00:43)
[2024-05-30] MEDS: cefTRIAXone SODIUM 2,000 MG/50 ML BAG IV STA (00:44)
[2024-05-30] MEDS: ALBUTEROL 0.083% NEBU SOLN 3 ML VIAL NEB STA (00:44)
[2024-05-30 00:47] LABS: Basophils # (auto) 0.03 K/uL (0.00-0.20); Basophils % (auto) 0.3 %; Eosinophils # (auto) 0.02 K/uL (0.00-0.50); Eosinophils % (auto) 0.2 %; Hematocrit (blood only) 34.2 % (37.0-47.0); Immature Granulocytes # (auto) 0.04 K/uL (0.01-0.20); Immature Granulocytes % (auto) 0.5 %; Lymphocytes # (auto) 0.87 K/uL (1.20-3.40); Lymphocytes % (auto) 9.8 %; Mean Corpuscular Hemoglobin 31.3 pg (25.0-34.0); Mean Corpuscular Hgb Conc 35.1 g/dL (32.0-36.0); Mean Corpuscular Volume 89.3 fL (80.0-100.0); Mean Platelet Volume 10.6 fL (9.4-12.4); Monocytes # (auto) 1.03 K/uL (0.11-0.59); Monocytes % (auto) 11.7 %; Neutrophils # (auto) 6.85 K/uL (1.40-6.50); Neutrophils % (auto) 77.5 %; Platelet Count 204 K/uL (130-400); RDW Coefficient of Variation 12.7 % (11.5-14.5); RDW Standard Deviation 41.5 fL (36.4-46.3); Red Blood Count 3.83 M/uL (4.20-5.40); White Blood Count 8.84 K/ul (4.8-10.8)
[2024-05-30] MEDS ORDERED: ACETAMINOPHEN 500 MG TAB PO PRN (00:56)
[2024-05-30] MEDS ORDERED: MAGNESIUM HYDROXIDE SUSP 30 ML UDC PO PRN (00:56)
[2024-05-30] MEDS ORDERED: POLYETHYLENE (MIRALAX) 17 GM PACK PO PRN (00:56)
[2024-05-30] MEDS ORDERED: ALUMINUM/MAGNESIUM SUSP 30 ML UDC PO PRN (00:56)
[2024-05-30 01:02] LABS: BUN Creatinine Ratio 6.8 (10-20); Calcium 8.4 mg/dl (8.6-10.3); Creatinine Clr Calc Pharmacy 99.2 ml/min; Potassium 3.8 mmol/L (3.5-5.1)
--- NOTE | 2024-05-30 01:03 | History & Physical Report ---
Date of Service May 30, 2024 Assessment & Plan (1) Influenza A: Plan: 33 yo female currently () PMHx heroin use now on methadone, hepatitis C s/p treatment, ADHD not on treatment, tobacco use admitted with influenza A. Tamiflu BID Methylpred 40mg daily Azithromycin and CTX to cover for ?basilar infiltrate Duonebs q6h PRN O2 as needed Tylenol PRN fever (2) Hypoxic respiratory failure: Plan: as above (3) History of heroin use: Plan: Continue methadone (4) Intrauterine : Plan: Consult OB - follows with Olena REECE: Regular OB Code status: none DVT prophylaxis: low risk Isolation: droplet Disposition: med/tele History of Present Illness Primary Care Provider: KULWINDER PCP 33 yo female currently () PMHx heroin use now on methadone, hepatitis C s/p treatment, ADHD not on treatment, tobacco use admitted with influenza A. Symptoms started 05/21/24. Progressively worsening shortness of breath over the course of the week. Pt's children were also sick during this time. Currently complains of cough, SOB, nausea. ED Course: Positive for flu A, other labs unremarkable CTX x 1 dose Albuterol neb methylprednisone 40mg x 1 Allergies Allergy/AdvReac Type Severity Reaction Status Date / Time No Known Allergies Allergy Verified 05/30/24 00:05 Home Medications Medication Instructions Recorded Confirmed Type methadone 10 mg/mL oral concentrate 143 mg PO QAM 07/24/21 05/30/24 History vit no.95-ferrous 1 tab PO DAILY 07/24/21 05/30/24 History fumarate 28 mg-folic acid 800 mcg tablet () methadone 10 mg/mL oral concentrate 76 mg PO HS 12/26/21 05/30/24 History Past Med/Surg History Problem List (Updated 05/30/24 @ 01:03 by Osbaldo Irby DO) Intrauterine (Acute) Pneumonia (Acute) Influenza A (Acute) Hypoxic respiratory failure (Acute) Methadone use (Chronic) Adult ADHD (Chronic) History of heroin use Close exposure to 2019 novel coronavirus (Acute) Encounter for laboratory testing for COVID-19 virus (Acute) Medical History History of heroin abuse clean since 2019 Scoliosis Surgical History H/O elbow surgery Family History Other No pertinent family history in first degree relatives Social History Smoking Status: Light tobacco smoker Tobacco Type: Cigarettes Second Hand Exposure: No; Do You Dip or Chew Tobacco: No; Hx Alcohol Use: No Hx Substance Use: Yes Last Used Substance: Unknown Last Used Substance Other:: 2018 Substance Use Type Other:: on methadone Preferred Language: Swedish Communication Ability: Effective Digital Specialist Required: No Beliefs That Will Affect Care: None marital status: Single Current Living Situation: Family Current Living Situation Comment: Pt lives with grandmother Other Information That Helps Us Care for You: No Feels Safe at Home: Yes Safety Concerns: Feels Safe At This Time Assistive Devices: None Review of Systems Review of Systems: reviewed, per HPI Physical Exam Physical Exam: Constitutional: no acute distress HEENT: NCAT, no conjunctival injection CV: regular rhythm, no murmur appreciated, extremities well-perfused, no LE e amanda Resp: coarse breath sounds, mild wheeze GI: gravid abdomen MSK: no gross deformities appreciated Skin: warm, dry, no rash appreciated Neuro: alert, oriented, no focal neurologic deficit appreciated Results & Data Results & Data Vital Signs (Past 12 Hours) Vital Signs Temp Pulse Pulse Resp BP BP Pulse Ox 05/29/24 23:33 73 23 93 05/29/24 23:30 73 23 103/51 L 89 L 05/29/24 23:00 73 25 H 100/55 L 93 05/29/24 23:00 70 22 100/55 L 91 05/29/24 21:58 74 28 H 124/67 93 05/29/24 20:51 96 05/29/24 20:00 36.2 C L 78 18 119/71 92 O2 Del Method O2 Flow Rate 05/29/24 23:33 Nasal Cannula 2 05/29/24 23:30 05/29/24 23:00 05/29/24 23:00 Room Air 05/29/24 21:58 Room Air 05/29/24 20:51 Room Air 05/29/24 20:00 Room Air Supervising Physician Co-Signing Physician Notes Attending addendum: I have physically seen this patient, have supervised the medical residents activities, and agree with the H&P unless as otherwise noted. Assessment and Plan: The patient is a 33-year-old female with past medical history including heroin use now on methadone, hepatitis C status posttreatment, ADHD not on treatment, tobacco use, currently G4P 2011, being admitted to the [facility] service with influenza A and associated respiratory symptoms. Influenza A/acute respiratory failure with hypoxia- Start Tamiflu 75 mg p.o. twice daily Methylprednisolone 40 mg IV daily Azithromycin 5 mg IV daily and ceftriaxone 2 g IV daily DuoNebs every 6 hours as needed Nasal cannula oxygen, titrate to pulse ox 92-94% Droplet precautions History of heroin use- Continue methadone after verification from pharmacy Intrauterine -G4P 2011 Consult OB, follows with Olena Remaining orders and notations as noted Resident Activity Tracking Resident Involvement: Resident Care Provided Care Provided: Adult Hospital Medicine (2) Hypoxic respiratory failure Chronicity: acute Qualified Code(s): J96.01 - Acute respiratory failure with hypoxia
[2024-05-30] MEDS: ONDANSETRON INJ 2 MG/ML 2 ML VIAL IV STA (01:10)
[2024-05-30 03:13] LABS: Amphetamines+Metham, Urine Neg (Neg); Barbiturates, Urine Neg (Neg); Benzodiazepine, Urine Neg (Neg); Cocaine, Urine Neg (Neg); Fentanyl, Urine Neg (Neg); MDMA (Ecstacy), Urine Neg (Neg); Marijuana, Urine Pos (Neg); Methadone, Urine Pos (Neg); Opiate, Urine Neg (Neg); Phencyclidine, Urine Neg (Neg)
[2024-05-30] MEDS: guaiFENesin/CODEINE 100MG/10MG 5ML UDC PO PRN (03:50)
--- NOTE | 2024-05-30 07:18 | Hospitalist Progress Note ---
"Date of Service May 30, 2024 Assessment & Plan (1) Intrauterine : (2) Pneumonia: (3) Hypoxic respiratory failure: (4) Methadone use: (5) Adult ADHD: (6) Influenza A: Plan Jocelin is a 33 year-old female currently () PMHx heroin use now on methadone, hepatitis C s/p treatment, ADHD not on treatment, tobacco use admitted with influenza A. Influenza A | Hypoxic Respiratory Failure -Tamiflu BID, symptoms started ~1 week ago so unsure if Tamiflu will improve symptoms but patient is tolerating medicine at present so will continue -Continue methylpred 40mg daily -Continue Azithromycin and Ceftriaxone to cover for ?basilar infiltrate, given duration of symptoms of >1 week there is concern for secondary infection -Monitor daily CBC, metabolic panel while admitted -Duonebs q6h PRN, Tylenol PRN -Currently 92-94% on 2L NC, wean oxygen as able History of heroin use -Continue methadone -Pharmacy confirmed dosing of methadone with [facility] -Timing of dosage adjusted to 6am and 6pm as this aligns with patient's home regimen Intrauterine -, currently 33 weeks -OB consulted- follows with Olena. Appreciate recommendations. BALTAI: Regular OB Code status: Full Code DVT prophylaxis: low risk Isolation: droplet Disposition: med/tele Admission and Anticipated Discharge Date Admission Date: May 30, 2024 Supervising Physician Co-Signing Physician Notes ATTESTATION I also saw the patient and confirmed chapin portions of the history and exam. I agree with the impression and plan in the resident documentation, and as summarized below. seen mid afternoon, still in the emergency department. She reports feeling little bit better. She still on supplemental oxygen at 2 L/min via nasal cannula with pulse oximetry readings between 92 and 93%. EXAM 100/70, 75, 19, 36.6, 94% (nasal cannula 2 L/min) nontoxic appearing. Talks in full complete sentences without pause. Lung sounds are coarse, slight expiratory wheeze; good air exchange overall. Deep inspiration does trigger cough. Heart regular rate rhythm DATA Labs WBC 8.84 Sodium 131 BUN 4, Cr 0.59 Imaging CXR upon admission bilateral bronchial wall and diffuse perihilar interstitial thickening/pneumonitis with by basilar small foci of consolidation IMPRESSION & PLAN influenza A pneumonia hypoxic respiratory failure hyponatremia IUP 34-week gestational age continue current therapies still require supplemental oxygen appreciate OB consultation repeat BMP in AM Additional per resident documentation Subjective Patient was seen and examined at bedside. Patient states she has had some nausea and one episode of vomiting this morning, was able to eat some breakfast. Still feels short of breath and endorses some pain throughout her body when she has coughing fits. States she will feel a bit better after she finishes her dose of methadone this morning- notes that she typically takes a dose earlier in the morning than when it was given today. Review of Systems Review of Systems: As per above Physical Exam Constitutional: Resting comfortably in bed, in no acute distress Eyes: + anicteric sclerae; no conjunctival abn ormality ENMT: Ears: no external ear abnormality Nose: no external nose abnormality Moist mucous membranes Respiratory: Frequent cough. Coarse lung sounds, no rhonchi on ausculation Cardiovascular: Rate/Rhythm: regular rate and regular rhythm Extremities: no edema Gastrointestinal (Abdomen): Abdomen soft, nontender to palpation. Musculoskeletal: Moves all limbs independently Skin: no rashes, warm and dry Psychiatric: A+Ox3, euthymic affect Results & Data Results & Data Vital Signs (Past 12 Hours) Vital Signs Temp Pulse Pulse Resp BP BP Pulse Ox 05/30/24 07:00 83 24 107/70 91 05/30/24 06:30 56 L 18 103/73 91 05/30/24 06:00 67 22 101/66 92 05/30/24 05:34 65 18 93/49 L 92 05/30/24 05:30 70 19 80/52 L 91 05/30/24 05:00 76 21 95/45 L 91 05/30/24 04:55 65 05/30/24 04:39 05/30/24 04:39 36.6 C 73 20 95/47 L 93 05/30/24 04:30 67 23 95/47 L 92 05/30/24 03:00 82 24 122/69 93 05/30/24 02:30 92 H 26 H 111/60 96 05/30/24 02:00 71 22 102/48 L 91 05/30/24 01:30 73 25 H 83/45 L 92 05/30/24 01:00 100/68 05/30/24 01:00 70 27 H 100/68 93 05/30/24 00:30 70 26 H 95/49 L 93 05/29/24 23:33 73 23 93 05/29/24 23:30 73 23 103/51 L 89 L 05/29/24 23:00 73 25 H 100/55 L 93 05/29/24 23:00 70 22 100/55 L 91 05/29/24 21:58 74 28 H 124/67 93 05/29/24 20:51 96 05/29/24 20:00 36.2 C L 78 18 119/71 92 O2 Del Method O2 Flow Rate 05/30/24 07:00 05/30/24 06:30 05/30/24 06:00 05/30/24 05:34 05/30/24 05:30 05/30/24 05:00 05/30/24 04:55 05/30/24 04:39 Nasal Cannula 2 05/30/24 04:39 Nasal Cannula 2 05/30/24 04:30 05/30/24 03:00 05/30/24 02:30 05/30/24 02:00 05/30/24 01:30 05/30/24 01:00 05/30/24 01:00 05/30/24 00:30 05/29/24 23:33 Nasal Cannula 2 05/29/24 23:30 05/29/24 23:00 05/29/24 23:00 Room Air 05/29/24 21:58 Room Air 05/29/24 20:51 Room Air 05/29/24 20:00 Room Air Diagnostic Findings Chest X-Ray 05/29/24 20:51 Exam(s): XR CXR 1 VIEW EXAM: XR Chest, 1 View CLINICAL HISTORY: Reason for exam: cough. TECHNIQUE: Frontal view of the chest. COMPARISON: X-ray 10/04/2019 FINDINGS: Lungs: Bilateral bronchial wall and diffuse perihilar interstitial thickening with basilar small foci of consolidation. Pleural space: Unremarkable. No pneumothorax. Heart: Borderline cardiomegaly. Mediastinum: Unremarkable. Normal mediastinal contour. Bones/joints: Unremarkable. No acute fracture.. IMPRESSION: Bilateral bronchial wall and diffuse perihilar interstitial thickening/pneumonitis with by basilar small foci of consolidation. . Electronically signed by: Augustus Villar MD, BEBER 05/29/24 23:31 PM Resident Activity Tracking Resident Involvement: Resident Care Provided Care Provided: Adult Hospital Medicine (3) Hypoxic respiratory failure Chronicity: acute Qualified Code(s): J96.01 - Acute respiratory failure with hypoxia"
[2024-05-30] MEDS ORDERED: methylPREDNISolone 125 MG/2 ML VIAL IV SCH (09:00)
[2024-05-30] MEDS: ONDANSETRON INJ 2 MG/ML 2 ML VIAL IV PRN (09:15)
[2024-05-30] MEDS: AZITHROMYCIN 250 MG TAB PO SCH (09:18)
[2024-05-30] MEDS: PRENATAL VITAMIN 1 TAB PO SCH (09:18)
[2024-05-30] MEDS: METHADONE ORAL SOLN 2 MG/ML PO SCH ×2 (09:18→18:05)
[2024-05-30] MEDS: OSELTAMIVIR PHOSPHATE 75 MG CAP PO SCH (09:18)
[2024-05-30] MEDS: methylPREDNISolone 40 MG in SYRINGE 0 ML IV SCH (09:18)
--- NOTE | 2024-05-30 10:56 | Consultation ---
Date of Consultation May 30, 2024 Assessment & Plan (1) Pneumonia: Zithromax. Inhalation therapy with steroids. (2) Influenza A: Tamiflu. Plan Patient is presently being held in the ER until a bed is available on the floor. She will need inpatient therapy until her O2 sats improved. History of Present Illness Requesting Physician: Emergency room physician Reason for Consultation: Body aches shortness of breath. Intrauterine 33 weeks 5 days gestation. Attending Physician: Juan J Saenz DO History of Present Illness Patient is a 33-year-old 4 para 2 who had 1 first trimester spontaneous AB. She is in good general health. She is in recovery for drug abuse. Has been clean for over 6 years. Present was dated with a first trimester ultrasound. Her due date is 07/13/2024. Her obstetrical history is as follows. 2020 she had a girl 7 pounds 9 ounces spontaneous vaginal delivery at 40 weeks 5 days gestation she pushed for 1 hour. Second 2021 delivered a boy 6 pounds 10 ounces spontaneous vaginal delivery at 40 weeks gestation pushed for 15 minutes. Patient states her present illness began May 21 with severe body aches and pains. It then evolved into shortness of breath with a cough. The cough got progressively worse her symptoms got progressively worse. And she came to the emergency room on May 29, 2024. At that time she was positive for flu. Chest x-ray revealed small amount of pneumonia. And she was placed on Zithromax and Tamiflu. Time I saw the patient she was in the ER waiting for a bed. Her oxygen sats were in the 88% range on nasal lock oxygen. And she is receiving breathing treatments with steroids as needed. She states that her symptoms have improved somewhat since being admitted. Presently being awaiting a bed to be transferred to the floor. Patient perceives good movement. Does not have any vaginal bleeding. Is not having any contractions. Allergies Allergy/AdvReac Type Severity Reaction Status Date / Time No Known Allergies Allergy Verified 05/30/24 00:05 Home Medications Medication Instructions Recorded Confirmed Type methadone 10 mg/mL oral concentrate 143 mg PO QAM 07/24/21 05/30/24 History vit no.95-ferrous 1 tab PO DAILY 07/24/21 05/30/24 History fumarate 28 mg-folic acid 800 mcg tablet () methadone 10 mg/mL oral concentrate 76 mg PO HS 12/26/21 05/30/24 History Patient History Medical History History of heroin abuse clean since 2019 Scoliosis Surgical History H/O elbow surgery Family History Other No pertinent family history in first degree relatives Social History Smoking Status: Light tobacco smoker Tobacco Type: Cigarettes Second Hand Exposure: No; Do You Dip or Chew Tobacco: No; Hx Alcohol Use: No Hx Substance Use: Yes Last Used Substance: Unknown Last Used Substance Other:: 2018 Substance Use Type Other:: on methadone Preferred Language: Argentine Communication Ability: Effective [employer] Work[employer] Required: No Beliefs That Will Affect Care: None marital status: Single Current Living Situation: Family Current Living Situation Comment: Pt lives with grandmother Other Information That Helps Us Care for You: No Feels Safe at Home: Yes Safety Concerns: Feels Safe At This Time Assistive Devices: None Physical Exam Physical Exam: Patient appeared to be well-developed well-nourished 33-year-old white female somewhat short of breath on nasal cannula. Chest was clear with periodic wheezes. Trachea was midline there was no cervical adenopathy. Heart had a regular rhythm S1 and S2 are normal. Abdomen was consistent with a 34-week gestational size fetus. There was no CVA tenderness. There was no abdominal tenderness. There was no calf tenderness. Results & Data Vital Signs (Past 12 Hours) Vital Signs Temp Pulse Pulse Resp BP BP Pulse Ox 05/30/24 09:44 84 26 H 117/72 92 05/30/24 07:29 85 05/30/24 07:00 83 24 107/70 91 05/30/24 06:30 56 L 18 103/73 91 05/30/24 06:00 67 22 101/66 92 05/30/24 05:34 65 18 93/49 L 92 05/30/24 05:30 70 19 80/52 L 91 05/30/24 05:00 76 21 95/45 L 91 05/30/24 04:55 65 05/30/24 04:39 05/30/24 04:39 36.6 C 73 20 95/47 L 93 05/30/24 04:30 67 23 95/47 L 92 05/30/24 03:00 82 24 122/69 93 05/30/24 02:30 92 H 26 H 111/60 96 05/30/24 02:00 71 22 102/48 L 91 05/30/24 01:30 73 25 H 83/45 L 92 05/30/24 01:00 100/68 05/30/24 01:00 70 27 H 100/68 93 05/30/24 00:30 70 26 H 95/49 L 93 05/29/24 23:33 73 23 93 05/29/24 23:30 73 23 103/51 L 89 L 05/29/24 23:00 73 25 H 100/55 L 93 05/29/24 23:00 70 22 100/55 L 91 O2 Del Method O2 Flow Rate 05/30/24 09:44 Nasal Cannula 2 05/30/24 07:29 05/30/24 07:00 05/30/24 06:30 05/30/24 06:00 05/30/24 05:34 05/30/24 05:30 05/30/24 05:00 05/30/24 04:55 05/30/24 04:39 Nasal Cannula 2 05/30/24 04:39 Nasal Cannula 2 05/30/24 04:30 05/30/24 03:00 05/30/24 02:30 05/30/24 02:00 05/30/24 01:30 05/30/24 01:00 05/30/24 01:00 05/30/24 00:30 05/29/24 23:33 Nasal Cannula 2 05/29/24 23:30 05/29/24 23:00 05/29/24 23:00 Room Air Diagnostic Findings Positive for flu. Area of pneumonia on chest x-ray. Medications Administered Tamiflu. Azithromycin. Breathing treatments with steroids. Nasal cannula
[2024-05-30] MEDS: ALBUT/IPRATROP 3MG/0.5MG NEB 3 ML VIAL NEB PRN (11:14)
[2024-05-30] MEDS: cefTRIAXone SODIUM 2,000 MG/50 ML BAG IV SCH (20:41)
[2024-05-30] MEDS ORDERED: METHADONE ORAL SOLN 2 MG/ML PO SCH (21:00)
--- NOTE | 2024-05-31 01:59 | Billing Data ---
Date of Service May 31, 2024 Coding Level of Care Code 43473 INT INP/OBS CARE
[2024-05-31] MEDS: METHADONE ORAL SOLN 2 MG/ML PO SCH ×3 (05:18→20:11)
[2024-05-31] MEDS ORDERED: Nursing to Pharmacy Communication SCH (05:45)
[2024-05-31] MEDS ORDERED: PATIENT'S OWN CONTROLLED MED 1 PO SCH (06:00)
--- NOTE | 2024-05-31 06:55 | Hospitalist Progress Note ---
"Date of Service May 31, 2024 Assessment & Plan (1) Intrauterine : (2) Pneumonia: (3) Hypoxic respiratory failure: (4) Methadone use: (5) Adult ADHD: (6) Influenza A: Plan Jocelin is a 33 yo female with a past medical history of Heroin use on methadone, Hepatitis C s/p treatment, tobacco and marijuana use in who is currently 33 weeks GA who presented to the hospital for cough and malaise, found to be in hypoxic respiratory failure, positive for Influenza A and found to have Pneumonia. Feeling overall better this morning. Still requiring NC to breathe, but on exam there is less wheezing, cough, and SOB. Fetus stable. Influenza A | Hypoxic Respiratory Failure | Pneumonia -Current everyday light smoker and marijuana use in . Has been abstinent from tobacco since being sick (1 week). -Tamiflu 75 mg BID. Patient notes that her symptoms started about 1 week ago and therefore she is out of the 48 hour period of initiating Tamiflu; may not improve symptoms but patient is tolerating medicine at present so will continue -Continue methylprednisolone 40mg daily -Continue Azithromycin and Ceftriaxone to cover for documented basilar infiltrate via chest Xray, given duration of symptoms of >1 week there is concern for secondary infection. More likely viral in etiology, but because patient is treat empirically -Monitor daily CBC, metabolic panel while admitted -Duonebs q6h PRN, Tylenol PRN -Currently 92-94% on 2L NC, wean oxygen as able. Wean to room air. Improvement in SpO2 from initial presentation to ED (88-89%) Intrauterine -, currently 33 weeks -OB consulted- follows with Olena. Appreciate recommendations. - NST from this AM was reactive - Continues to feel fetus move, no red flag symptoms History of heroin use -Continue methadone -Pharmacy confirmed dosing of methadone with [facility] -Timing of dosage adjusted to 6am and 6pm as this aligns with patient's home regimen FENGI: Regular OB Code status: Full Code DVT prophylaxis: low risk Isolation: droplet Disposition: med/tele Admission and Anticipated Discharge Date Admission Date: May 30, 2024 Supervising Physician Co-Signing Physician Notes I personally examined the patient and verified all chapin points of history and exam, discussed case, and agree with decision making with Dr Chisholm and Alfonso Montoya feeling wiped out/fatigued. 90% on room air now vitals noted fatigued but no overt distress breathing unlabored no accessory muscles good effort skin no rashes no pallor or icterus acute hypoxic respiratory failure - flu A, probably viral pneumonia - can't r/o secondary bacterial overgrowth. continue current care, weaning O2. otherwise as above Subjective Checked in with the patient at the bedside this morning. No acute events overnight. She reports overall improvement this morning, though she continues to require continuous nasal cannula oxygen since yesterday, including overnight and this morning. She notes persistent productive cough with yellow sputum, which has become easier to clear, though she had two episodes of blood-tinged sputum that she attributes to nasal dryness. She experiences SOB during coughing fits but otherwise reports improved breathing. She continues to endorse myalgia and arthralgia, particularly in the lower extremities, but states these symptoms have slightly improved. Notably, she has had six episodes of emesis since waking this morning, though she is slowly regaining her appetite and tolerating her normal diet. She remains orally hydrated with urination at baseline, though she has not had a bowel movement since the evening of 05/29. She also reports nausea, headaches, and generalized malaise, but denies fever, calf pain, or abdominal pain. Regarding status, she feels the fetus moving, denies loss of fluid, vaginal bleeding, or contractions this morning. ROS: Negative except as noted in the HPI. Review of Systems Review of Systems: Constitutional: denies fever, chills. HEENT: Endorses sore throat and headaches. Cardio: Denies chest pain, palpitations Resp: shortness of breath when coughing, +cough GI: denies abdominal pain, +nausea, +vomiting, +constipation : denies pain with urination, change in urinary frequency Neuro: denies new numbness, tingling, weakness Physical Exam Physical Exam: General:Alert and oriented, no acute distress, ill appearing. HEENT: Normocephalic, moist oral mucosa, erythema in the oropharynx. Cervical lymphadenopathy. Cardio: Regular rate and rhythm, no murmurs, rubs, or gallops. Resp:Course lung sounds, without wheezing, crackles or rhonchi GI: Soft and nontender Extremities: Warm, pink, dry. Well perfused, no calf tenderness or l/e edema. Varicose veins in distal extremities. Results & Data Results & Data Vital Signs (Past 12 Hours) Vital Signs Temp Pulse Pulse Resp BP Pulse Ox O2 Del Method 05/31/24 03:46 36.5 C 96 H 18 116/62 94 Nasal Cannula 05/30/24 23:20 36.3 C L 70 20 115/65 91 Nasal Cannula 05/30/24 23:00 103 H 05/30/24 20:00 Nasal Cannula 05/30/24 19:22 36.6 C 104 H 20 117/69 94 Room Air O2 Flow Rate 05/31/24 03:46 05/30/24 23:20 05/30/24 23:00 05/30/24 20:00 2 05/30/24 19:22 Resident Activity Tracking Resident Involvement: Resident Care Provided Care Provided: Adult Hospital Medicine Resident Supervision Co-Signing Physician Notes I agree with student doctor Rafael Montoya as noted above with exceptions noted below: Pt seen at bedside this morning. She states she is doing okay. She states mornings are very tough for her so far but afternoons when she gets her methadone dose she starts to feel much better. She has 2 kids at home that were sick recently. She has a at home for support. #Acute hypoxic resp distress in the setting of influ A - on tamiflu, continue this - on CTX and azithromycin empirically, continue these - continue methylpred steroid burst - improving gradually, on 2 L/min O2 now - notably, smokes cigarettes and marijuana throughout her as well - she does have some concern about going home too soon as her support may not be enough and she wants to be a bit more independent prior to leaving (3) Hypoxic respiratory failure Chronicity: acute Qualified Code(s): J96.01 - Acute respiratory failure with hypoxia"
[2024-05-31 08:11] LABS: Basophils # (auto) 0.01 K/uL (0.00-0.20); Basophils % (auto) 0.1 %; Eosinophils # (auto) 0.04 K/uL (0.00-0.50); Eosinophils % (auto) 0.5 %; Hematocrit (blood only) 33.6 % (37.0-47.0); Hemoglobin 11.7 g/dl (12.0-16.0); Immature Granulocytes # (auto) 0.08 K/uL (0.01-0.20); Lymphocytes # (auto) 1.19 K/uL (1.20-3.40); Lymphocytes % (auto) 15.2 %; Mean Corpuscular Hemoglobin 31.5 pg (25.0-34.0); Mean Corpuscular Hgb Conc 34.8 g/dL (32.0-36.0); Mean Corpuscular Volume 90.3 fL (80.0-100.0); Mean Platelet Volume 10.8 fL (9.4-12.4); Monocytes # (auto) 0.75 K/uL (0.11-0.59); Monocytes % (auto) 9.6 %; Neutrophils # (auto) 5.77 K/uL (1.40-6.50); Neutrophils % (auto) 73.6 %; Platelet Count 222 K/uL (130-400); RDW Coefficient of Variation 12.8 % (11.5-14.5); RDW Standard Deviation 42.3 fL (36.4-46.3); Red Blood Count 3.72 M/uL (4.20-5.40); White Blood Count 7.84 K/ul (4.8-10.8)
[2024-05-31] MEDS: METHADONE PO SCH ×2 (08:51→20:11)
[2024-05-31 09:22] LABS: BUN Creatinine Ratio 10.7 (10-20); Calcium 8.2 mg/dl (8.6-10.3); Creatinine Clr Calc Pharmacy 115.1 ml/min; Potassium 4.1 mmol/L (3.5-5.1)
[2024-05-31] MEDS ORDERED: PATIENT'S OWN CONTROLLED MED 2 PO SCH (18:00)
--- NOTE | 2024-05-31 18:31 | Billing Data ---
Date of Service May 31, 2024 Coding Level of Care Code 12088 SUB INP/OBS CARE MIN
[2024-06-01 06:43] LABS: Basophils # (auto) 0.02 K/uL (0.00-0.20); Basophils % (auto) 0.3 %; Eosinophils # (auto) 0.05 K/uL (0.00-0.50); Eosinophils % (auto) 0.7 %; Hematocrit (blood only) 33.3 % (37.0-47.0); Hemoglobin 11.5 g/dl (12.0-16.0); Immature Granulocytes # (auto) 0.08 K/uL (0.01-0.20); Immature Granulocytes % (auto) 1.1 %; Lymphocytes # (auto) 1.55 K/uL (1.20-3.40); Lymphocytes % (auto) 22.1 %; Mean Corpuscular Hemoglobin 31.3 pg (25.0-34.0); Mean Corpuscular Hgb Conc 34.5 g/dL (32.0-36.0); Mean Corpuscular Volume 90.7 fL (80.0-100.0); Mean Platelet Volume 10.7 fL (9.4-12.4); Monocytes # (auto) 0.62 K/uL (0.11-0.59); Monocytes % (auto) 8.8 %; Platelet Count 223 K/uL (130-400); RDW Coefficient of Variation 12.7 % (11.5-14.5); RDW Standard Deviation 42.2 fL (36.4-46.3); Red Blood Count 3.67 M/uL (4.20-5.40); White Blood Count 7.02 K/ul (4.8-10.8)
[2024-06-01 07:00] LABS: BUN Creatinine Ratio 14.6 (10-20); Calcium 7.8 mg/dl (8.6-10.3); Creatinine Clr Calc Pharmacy 134.3 ml/min; Potassium 3.9 mmol/L (3.5-5.1)
--- NOTE | 2024-06-01 09:32 | Hospitalist Progress Note ---
"Date of Service June 01, 2024 Assessment & Plan (1) Intrauterine : (2) Pneumonia: (3) Hypoxic respiratory failure: (4) Methadone use: (5) Adult ADHD: (6) Influenza A: Plan Jocelin is a 33 yo female with a past medical history of 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 Feeling overall better this morning. Still requiring NC to breath, but on exam there is less wheezing, cough, and SOB. Influenza A | Hypoxic Respiratory Failure -Tamiflu 75 mg BID. Patient notes that her symptoms started about 1 week ago and therefore she is out of the 48 hour period of initiating Tamiflu; may not improve symptoms but patient is tolerating medicine at present so will continue, day 3 of this today -Continue methylprednisolone 40mg daily -Continue Azithromycin and Ceftriaxone to cover for ?basilar infiltrate, given duration of symptoms of >1 week there is concern for secondary infection -Monitor daily CBC, metabolic panel while admitted -Duonebs q6h PRN, Tylenol PRN -Currently 90-92% on room air History of heroin use -Continue methadone -Pharmacy confirmed dosing of methadone with [facility] -Timing of dosage adjusted to 6am and 6pm as this aligns with patient's home regimen Intrauterine -, currently 33 weeks -OB consulted- follows with Olena. Appreciate recommendations. DVT prophylaxis: low risk (robby score 0) Admission and Anticipated Discharge Date Admission Date: May 30, 2024 Supervising Physician Co-Signing Physician Notes I personally examined the patient and verified all chapin points of history and exam, discussed case, and agree with decision making with Dr Chisholm feeling wiped out/fatigued. still ongoing cough vitals noted fatigued - a little less than yesterday - and no overt distress breathing unlabored no accessory muscles good effort skin no rashes no pallor or icterus acute hypoxic respiratory failure - flu A, probably viral pneumonia - can't r/o secondary bacterial overgrowth. continue current care, weaning O2. slowly doing better. otherwise as above Subjective Pt seen at bedside this morning laying in bed. She states she feels okay she is just very tired. She states that despite sleeping most of the day yesterday she feels very exhausted today. Her breathing feels about the same or better. Review of Systems Review of Systems: Per HPI. Physical Exam Physical Exam: General:Alert and oriented, no acute distress, fatigued appearing HEENT: Normocephalic, moist oral mucosa, Cardio: Regular rate and rhythm, no murmur, Resp:Lungs clear to auscultation b/l, no wheezes or rhonchi, Skin: Warm, pink, dry, Results & Data Results & Data Vital Signs (Past 12 Hours) Vital Signs Temp Pulse Pulse Resp BP Pulse Ox O2 Del Method 06/01/24 07:38 Room Air 06/01/24 07:32 57 L 18 105/60 92 Room Air 06/01/24 05:49 55 L 06/01/24 04:00 36.5 C 57 L 20 102/57 L 92 Room Air 05/31/24 23:47 36.4 C L 85 20 116/57 L 93 Room Air 05/31/24 22:15 59 L Resident Activity Tracking Resident Involvement: Resident Care Provided Care Provided: Adult Hospital Medicine (3) Hypoxic respiratory failure Chronicity: acute Qualified Code(s): J96.01 - Acute respiratory failure with hypoxia"
--- NOTE | 2024-06-01 13:05 | Billing Data ---
Date of Service June 01, 2024 Coding Level of Care Code 11015 SUB INP/OBS CARE
[2024-06-02 06:48] LABS: Basophils # (auto) 0.02 K/uL (0.00-0.20); Basophils % (auto) 0.4 %; Eosinophils # (auto) 0.06 K/uL (0.00-0.50); Eosinophils % (auto) 1.2 %; Hematocrit (blood only) 33.4 % (37.0-47.0); Hemoglobin 11.6 g/dl (12.0-16.0); Immature Granulocytes # (auto) 0.07 K/uL (0.01-0.20); Immature Granulocytes % (auto) 1.4 %; Lymphocytes # (auto) 1.56 K/uL (1.20-3.40); Lymphocytes % (auto) 31.9 %; Mean Corpuscular Hemoglobin 31.5 pg (25.0-34.0); Mean Corpuscular Hgb Conc 34.7 g/dL (32.0-36.0); Mean Corpuscular Volume 90.8 fL (80.0-100.0); Mean Platelet Volume 10.4 fL (9.4-12.4); Monocytes # (auto) 0.54 K/uL (0.11-0.59); Neutrophils # (auto) 2.64 K/uL (1.40-6.50); Neutrophils % (auto) 54.1 %; Platelet Count 209 K/uL (130-400); RDW Coefficient of Variation 12.7 % (11.5-14.5); RDW Standard Deviation 42.3 fL (36.4-46.3); Red Blood Count 3.68 M/uL (4.20-5.40); White Blood Count 4.89 K/ul (4.8-10.8)
[2024-06-02 07:15] LABS: BUN Creatinine Ratio 10.7 (10-20); Calcium 7.8 mg/dl (8.6-10.3); Creatinine Clr Calc Pharmacy 115.1 ml/min; Potassium 3.8 mmol/L (3.5-5.1)
--- NOTE | 2024-06-02 13:28 | Hospitalist Progress Note ---
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 Feeling overall better this morning. Still requiring NC to breath, but on exam there is less wheezing, cough, and SOB. Influenza A | Hypoxic Respiratory Failure -Tamiflu 75 mg BID. Patient notes that her symptoms started about 1 week ago and therefore she is out of the 48 hour period of initiating Tamiflu; may not improve symptoms but patient is tolerating medicine at present so will continue, day 3 of this today -Continue methylprednisolone 40mg daily -Continue Azithromycin and Ceftriaxone to cover for ?basilar infiltrate, given duration of symptoms of >1 week there is concern for secondary infection -Monitor daily CBC, metabolic panel while admitted -Duonebs q6h PRN, Tylenol PRN -Currently 90-92% on room air - continue meds as above today History of heroin use -Continue methadone -Pharmacy confirmed dosing of methadone with [facility] -Timing of dosage adjusted to 6am and 6pm as this aligns with patient's home regimen Intrauterine -, currently 33 weeks -OB consulted- follows with Olena. Appreciate recommendations. DVT prophylaxis: low risk (robby score 0) Admission and Anticipated Discharge Date Admission Date: May 30, 2024 Supervising Physician Co-Signing Physician Notes I personally examined the patient and verified all chapin points of history and exam, discussed case, and agree with decision making with Dr Kathrine kaiserated, vomiting, fatigued. no stomach pain. no fevers. reduction in BMs. has umbilical hernia that has caused her problems at times but not now. vitals noted fatigued - a little less than yesterday - and no overt distress breathing unlabored no accessory muscles good effort skin no rashes no pallor or icterus. abd soft nd gravid uterus (+) umbilical hernia soft no firmness nontender no mass no epigastric tenderness acute hypoxic respiratory failure - flu A, probably viral pneumonia - can't r/o secondary bacterial overgrowth. stop steroids and zithromax; finish rocephin, now persistently off O2. nausea/vomiting - likely multifactorial between viral illness, med ADRs, dehydration, constipation. pepcid, scheduled zofran for now, miralax, IV fluids otherwise as above Subjective Pt seen at bedside. She states she had lots of visitors yesterday in the afternoon and feels quite exhausted today and overall just very fatigued/run down. No chest pain or SOB. No nausea or vomiting. Review of Systems Review of Systems: Per HPI. Physical Exam Physical Exam: General:Alert and oriented, no acute distress, fatigued appearing again today HEENT: Normocephalic, moist oral mucosa, Cardio: Regular rate and rhythm, no murmur, Resp:Lungs clear to auscultation b/l, no wheezes or rhonchi, Skin: Warm, pink, dry, Results & Data Results & Data Vital Signs (Past 12 Hours) Vital Signs Temp Pulse Pulse Resp BP BP Pulse Ox 06/02/24 11:36 36.4 C L 59 L 18 91/52 L 91 06/02/24 08:00 64 06/02/24 07:51 36.4 C L 63 17 112/63 94 06/02/24 07:50 O2 Del Method 06/02/24 11:36 Room Air 06/02/24 08:00 06/02/24 07:51 Room Air 06/02/24 07:50 Room Air Resident Activity Tracking Resident Involvement: Resident Care Provided Care Provided: Adult Hospital Medicine (3) Hypoxic respiratory failure Chronicity: acute Qualified Code(s): J96.01 - Acute respiratory failure with hypoxia"
[2024-06-02 15:07] LABS: Marijuana Quant, GCMS Urine 156 ng/mL (<5); Methadone, Ur Metabolite >10000 ng/mL (<100); Methadone, Ur Verification 5050 ng/mL (<100)
[2024-06-02] MEDS: POLYETHYLENE (MIRALAX) 17 GM PACK PO SCH (15:36)
[2024-06-02] MEDS: ONDANSETRON INJ 2 MG/ML 2 ML VIAL IV STA (15:36)
[2024-06-02] MEDS: LACTATED RINGER'S 1,000 ML IV SCH (15:36)
--- NOTE | 2024-06-02 16:19 | Billing Data ---
Date of Service June 02, 2024 Coding Level of Care Code 08720 SUB INP/OBS CARE MIN
[2024-06-02] MEDS: FAMOTIDINE 40 MG TABLET PO ONE (17:44)
[2024-06-02] MEDS: ONDANSETRON INJ 2 MG/ML 2 ML VIAL IV SCH (20:59)
[2024-06-03 09:27] LABS: Basophils # (auto) 0.01 K/uL (0.00-0.20); Basophils % (auto) 0.2 %; Eosinophils # (auto) 0.02 K/uL (0.00-0.50); Eosinophils % (auto) 0.4 %; Hematocrit (blood only) 35.6 % (37.0-47.0); Hemoglobin 12.2 g/dl (12.0-16.0); Immature Granulocytes # (auto) 0.08 K/uL (0.01-0.20); Immature Granulocytes % (auto) 1.7 %; Lymphocytes # (auto) 1.49 K/uL (1.20-3.40); Lymphocytes % (auto) 31.4 %; Mean Corpuscular Hemoglobin 31.1 pg (25.0-34.0); Mean Corpuscular Hgb Conc 34.3 g/dL (32.0-36.0); Mean Corpuscular Volume 90.8 fL (80.0-100.0); Mean Platelet Volume 10.5 fL (9.4-12.4); Monocytes # (auto) 0.45 K/uL (0.11-0.59); Monocytes % (auto) 9.5 %; Neutrophils # (auto) 2.69 K/uL (1.40-6.50); Neutrophils % (auto) 56.8 %; Platelet Count 226 K/uL (130-400); RDW Coefficient of Variation 12.8 % (11.5-14.5); RDW Standard Deviation 42.1 fL (36.4-46.3); Red Blood Count 3.92 M/uL (4.20-5.40); White Blood Count 4.74 K/ul (4.8-10.8)
[2024-06-03 09:44] LABS: BUN Creatinine Ratio 8.6 (10-20); Calcium 8.2 mg/dl (8.6-10.3); Creatinine Clr Calc Pharmacy 111.2 ml/min
[2024-06-03 11:29] VITALS: RESP 17; TEMP 97.9
--- NOTE | 2024-06-03 14:30 | Hospitalist Progress Note ---
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 Feeling overall better this morning. Still requiring NC to breath, but on exam there is less wheezing, cough, and SOB. Influenza A | Hypoxic Respiratory Failure -Tamiflu 75 mg BID. Patient notes that her symptoms started about 1 week ago and therefore she is out of the 48 hour period of initiating Tamiflu; may not improve symptoms but patient is tolerating medicine at present so continued -Continue methylprednisolone 40mg daily -Continue Azithromycin and Ceftriaxone to cover for ?basilar infiltrate, given duration of symptoms of >1 week there is concern for secondary infection -Monitor daily CBC, metabolic panel while admitted -Duonebs q6h PRN, Tylenol PRN -Currently 90-92% on room air - continue meds as above today with IVF support History of heroin use -Continue methadone -Pharmacy confirmed dosing of methadone with [facility] -Timing of dosage adjusted to 6am and 6pm as this aligns with patient's home regimen Intrauterine -, currently 33 weeks -OB consulted- follows with Olena. Appreciate recommendations. DVT prophylaxis: low risk (robby score 0) Admission and Anticipated Discharge Date Admission Date: May 30, 2024 Subjective Pt seen this morning at bedside. She states overnight went better for her as she feels the IV fluids have helped a lot. Some nausea noted this morning but no vomiting. No chest pain or SOB. On room air with good oxygen saturation. Review of Systems Review of Systems: Per HPI. Physical Exam Physical Exam: General:Alert and oriented, no acute distress, fatigued appearing but less so today HEENT: Normocephalic, moist oral mucosa, Cardio: Regular rate and rhythm, no murmur, Resp:Lungs clear to auscultation b/l, no wheezes or rhonchi, Skin: Warm, pink, dry, Results & Data Results & Data Vital Signs (Past 12 Hours) Vital Signs Temp Pulse Pulse Resp BP Pulse Ox O2 Del Method 06/03/24 11:28 36.6 C 75 17 105/63 93 Room Air 06/03/24 08:00 Room Air 06/03/24 07:57 36.3 C L 69 18 108/71 93 Room Air 06/03/24 07:03 57 L 06/03/24 03:38 36.4 C L 58 L 20 107/53 L 92 Room Air Resident Activity Tracking Resident Involvement: Resident Care Provided Care Provided: Adult Hospital Medicine (3) Hypoxic respiratory failure Chronicity: acute Qualified Code(s): J96.01 - Acute respiratory failure with hypoxia"
[2024-06-03 15:52] VITALS: PULSE 66; O2SAT 94
--- NOTE | 2024-06-03 16:20 | Discharge Summary ---
Date of Service June 03, 2024 Admission HPI Per Admitting Provider 33 yo female currently () PMHx heroin use now on methadone, hepatitis C s/p treatment, ADHD not on treatment, tobacco use admitted with influenza A. Symptoms started 05/21/24. Progressively worsening shortness of breath over the course of the week. Pt's children were also sick during this time. Currently complains of cough, SOB, nausea. ED Course: Positive for flu A, other labs unremarkable CTX x 1 dose Albuterol neb methylprednisone 40mg x 1 Admission Exam Per Admitting Provider Constitutional: no acute distress HEENT: NCAT, no conjunctival injection CV: regular rhythm, no murmur appreciated, extremities well-perfused, no LE edema Resp: coarse breath sounds, mild wheeze GI: gravid abdomen MSK: no gross deformities appreciated Skin: warm, dry, no rash appreciated Neuro: alert, oriented, no focal neurologic deficit appreciated Principal Diagnosis Influenza A pneumonia Discharge Exam General:Alert and oriented, no acute distress, HEENT: Normocephalic, moist oral mucosa, Cardio: Regular rate and rhythm, no murmur, Resp:Lungs clear to auscultation b/l, no wheezes or rhonchi, Skin: Warm, pink, dry, Discharge Data Allergies Allergy/AdvReac Type Severity Reaction Status Date / Time No Known Allergies Allergy Verified 05/30/24 00:05 Consultations 05/30/24 00:14 ED Decision to Admit Stat 05/30/24 01:31 Consult Obstetrics Stat Hospital Course (1) Intrauterine : (2) Pneumonia: (3) Hypoxic respiratory failure: (4) Methadone use: (5) Adult ADHD: (6) Influenza A: Diann Monreal is a 33 yo female with a past medical history of 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 Feeling overall better this morning. Still requiring NC to breath, but on exam there is less wheezing, cough, and SOB. Influenza A | Hypoxic Respiratory Failure - Tamiflu 75 mg BID. Patient notes that her symptoms started about 1 week ago and therefore she is out of the 48 hour period of initiating Tamiflu; may not improve symptoms but patient is tolerating medicine at present so continued, completed 5 days on 06/03 - was on methylprednisolone 40mg daily in the hospital for several doses, no need to continue at discharge at this time - was on Azithromycin and Ceftriaxone to cover for ?basilar infiltrate, given duration of symptoms of >1 week there is concern for secondary infection - will discharge with 2 more days of cefpodoxime for 5-6 day course total - saturating well on room air at time of discharge History of heroin use -Continue methadone at discharge Intrauterine -, currently 33 weeks -no OB concerns while admitted Total Time Total Time Spent Total Time Spent (In Minutes): <30 Discharge Plan Discharge Items Patient Disposition: Home - Self-Care Reason For Visit: FLU A Discharge Diagnosis: Influenza A infection Activity: As commented below Activity Comment: Activity as tolerated. Non-emergency contact: Primary Care Provider Call non-emergency contact if: you have any medication questions, your symptoms worsen and your temperature is above 101 Follow-up/Referrals: PCP,NO [Primary Care Provider] - Diet: Regular Addtl Attending Provider Instructions: You were admitted to the hospital for influenza A ("the flu") infection with possible pneumonia. While influenza A is a virus that mostly resolves on its own, we have added tamiflu to your regime in the hospital to help your body fight off the infection. As you have continued to improve here in the hospital and are able to move around without needing oxygen, we feel it is safe for you to go home at this time. As with any viral illness, fatigue and cough can last up to 6 weeks after the infection clears (or even longer for fatigue). Your symptoms should continue to improve daily even if just slightly, or at least not worsen. Given your and wanting you to get better as soon as possible, we have also given you antibiotics to cover for pneumonia. You will continue these at discharge for the remaining days of the course. It is very important with any antibiotics that you take the entire course as prescribed and not miss or skip any doses, even if you feel completely better. We will also send some medication for you to use as needed for nausea. If you start to feel worse at home with shortness of breath, chest pain, fainting or near fainting episodes, please return to the hospital immediately. As we discussed, please take this chance to continue to be tobacco free, as you have been able to be without smoking during your stay here and while it can be quite difficult to quit, you have inadvertently already done the hardest step; starting! Please plan to follow-up with your primary care physician within 1 week of discharge from the hospital, ideally by the end of the week. Next dose of antibiotic (cefpodoxime) will be: tonight at 9 pm Pending Studies at Discharge: No Stand-Alone Forms: [facility], Work/School Release, Smoking Cessation Medications and DC Order Prescriptions: New cefpodoxime 200 mg tablet 200 mg PO BID 2 Days Qty: 4 0RF Rx Instructions: must administer with a meal/food ondansetron 4 mg tablet,disintegrating 4 mg PO Q8H PRN (Reason: nausea and vomiting) 5 Days Qty: 15 0RF Continued methadone 10 mg/mL Concentrate 143 mg PO QAM Rx Instructions: PER PATIENT PNV cmb#95-ferrous fumarate-FA [] 28 mg iron- 800 mcg Tablet 1 tab PO DAILY Rx Instructions: CANNOT TAKE IF NOT EATING methadone 10 mg/mL Concentrate 76 mg PO HS Rx Instructions: PER PATIENT Discharge Orders: Discharge Order (Routine); Ordered 06/03/24 Ordered By: Nancy Chisholm Admission Data Admit Date/Time: 05/30/24 00:56 Attending Provider: Osbaldo Mane Admit Provider: Ben Lange Primary Care Provider: PCP,NO Other Providers: Zhang Bardales; Andriy Strong Other Interventions: Discharge Summary Assessment (RN) Last Done: 06/03/24 16:44 Supervising Physician Co-Signing Physician Notes I personally examined the patient and verified all chapin points of history and exam, discussed case, and agree with decision making with Dr Chisholm fatigue ongoing, nausea/vomiting resolved. eating OK. feels up to going home. vitals noted fatigued - less than yesterday - and no overt distress breathing unlabored no accessory muscles good effort skin no rashes no pallor or icterus. acute hypoxic respiratory failure - flu A, probably viral pneumonia - can't r/o secondary bacterial overgrowth. was treated for both. nausea/vomiting - likely multifactorial between viral illness, med ADRs, dehydration, constipation. resolved. otherwise as above. safe/stable for home Resident Activity Tracking Resident Involvement: Resident Care Provided Care Provided: Adult Hospital Medicine
[2024-06-03 16:47] VITALS: BP 91/52
--- NOTE | 2024-06-03 17:52 | Billing Data ---
Date of Service June 03, 2024 Coding Level of Care Code 86315 IN/OBS DISCH 30 MIN/LESS
== END 2024-06-03 18:27 | disposition home or self-care (01) | DRG 831 ==
LOC: ED 19:58 → EDINP 05-30 00:56 → SUATTDRO 05-30 00:56 → 2W 05-30 02:14

== ENCOUNTER 2024-07-03 07:31 | Inpatient (IN) ==
[2024-07-03] MEDS ORDERED: LIDOCAINE 1% LOCAL 20 ML VIAL INFIL PRN (07:39)
[2024-07-03] MEDS ORDERED: OXYTOCIN 30 UNITS/NSS 30 UNITS/500 ML BAG IV PRN (07:39)
[2024-07-03] MEDS ORDERED: LACTATED RINGER'S 1,000 ML IV PRN (07:39)
[2024-07-03 08:07] LABS: Hemoglobin 12.8 g/dl (12.0-16.0); Mean Corpuscular Hemoglobin 31.4 pg (25.0-34.0); Mean Corpuscular Hgb Conc 34.6 g/dL (32.0-36.0); Mean Corpuscular Volume 90.9 fL (80.0-100.0); Mean Platelet Volume 12.2 fL (9.4-12.4); Platelet Count 125 K/uL (130-400); RDW Coefficient of Variation 13.5 % (11.5-14.5); RDW Standard Deviation 44.5 fL (36.4-46.3); Red Blood Count 4.07 M/uL (4.20-5.40); White Blood Count 9.99 K/ul (4.8-10.8)
--- NOTE | 2024-07-03 08:17 | Anesthesiology Consultation ---
Date of Service July 03, 2024 Assessment & Plan (1) Encounter for pre-operative examination: Chart Review Chart Review: Acceptable Risk for Labor Epidural History Height/Weight Height: 5 ft Weight: 57.153 kg Allergies Allergy/AdvReac Type Severity Reaction Status Date / Time No Known Allergies Allergy Verified 05/30/24 00:05 Medications Home Medications Medication Instructions Recorded Confirmed Last Taken methadone 10 mg/mL oral concentrate 127 mg PO QAM 07/24/21 07/03/24 07/03/24 vit no.95-ferrous 1 tab PO DAILY 07/24/21 05/30/24 05/27/24 fumarate 28 mg-folic acid 800 mcg tablet () methadone 10 mg/mL oral concentrate 53 mg PO HS 12/26/21 07/03/24 07/02/24 Past Medical History Medical History History of heroin abuse clean since 2018 Scoliosis Past Family History Family History Other No pertinent family history in first degree relatives Past Surgical History Surgical History H/O elbow surgery Social History Smoking Status: Never smoker tobacco type: cigarettes Do You Dip or Chew Tobacco: No Hx Alcohol Use: No Alcohol type: wine alcohol intake frequency: holidays/special occasions only Hx Substance Use: Yes substance use type: former substance user and heroin Substance Use Type Other:: on methadone Last Used Substance: Unknown Last Used Substance Other:: last used 6 years ago Physical Exam Vital Signs Last Vital Signs Temp 36.9 C 07/03/24 07:48 Pulse 78 07/03/24 07:46 Resp 20 07/03/24 07:48 BP 123/57 L 07/03/24 07:46 Testing Laboratory Results 07/03/24 07:49
--- NOTE | 2024-07-03 08:25 | History & Physical Report ---
Date of Service July 03, 2024 Assessment & Plan (1) Intrauterine : Plan: epidural planned (2) Methadone use: History of Present Illness Chief Complaint: onset of labor Primary Care Provider: KULWINDER PCP 33 F P2002 at 38.4 weeks presents in active labor. BS is negative. HCV positive. Allergies Allergy/AdvReac Type Severity Reaction Status Date / Time No Known Allergies Allergy Verified 05/30/24 00:05 Home Medications Medication Instructions Recorded Confirmed Type methadone 10 mg/mL oral concentrate 127 mg PO QAM 07/24/21 07/03/24 History vit no.95-ferrous 1 tab PO DAILY 07/24/21 05/30/24 History fumarate 28 mg-folic acid 800 mcg tablet () methadone 10 mg/mL oral concentrate 53 mg PO HS 12/26/21 07/03/24 History Patient History Medical History History of heroin abuse clean since 2018 Scoliosis Surgical History H/O elbow surgery Family History Other No pertinent family history in first degree relatives Social History Smoking Status: Never smoker Tobacco Type: Cigarettes Second Hand Exposure: No; Do You Dip or Chew Tobacco: No; Hx Alcohol Use: No Hx Substance Use: Yes Last Used Substance: Unknown Last Used Substance Other:: last used 6 years ago Substance Use Type Other:: on methadone Preferred Language: Swedish Communication Ability: Effective Sales Manager Required: No Beliefs That Will Affect Care: None marital status: Single Current Living Situation: Alone Current Living Situation Comment: Pt lives with grandmother Other Information That Helps Us Care for You: No Feels Safe at Home: Yes Safety Concerns: Feels Safe At This Time Assistive Devices: None 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 History neg Review of Systems All systems reviewed & are unremarkable except as noted in HPI & below Physical Exam Constitutional: WD/WN, vitals as above Eyes: PERRL, conjunctivae normal, anicteric sclerae Respiratory: normal respiratory effort, lungs clear to auscultation Gastrointestinal (Abdomen): Inspection/Auscultation: abdomen normal to inspection Musculoskeletal: no cyanosis or clubbing, extremities motor strength 5/5 Skin: no rashes, warm and dry Neurologic: patellar DTR's 2+ bilat, sensation intact Psychiatric: A+Ox3, euthymic affect Genitourinary: Manual OB Exam: + cervical dilation 9 cm OB Exam Monitor Tracing: + external FHT monitor used, + external uterine monitor used, + category I and + normal FHT variability Results & Data Vital Signs (Past 12 Hours) Vital Signs Temp Pulse Resp BP Pulse Ox 07/03/24 08:15 100 07/03/24 08:15 78 07/03/24 07:48 36.9 C 20 07/03/24 07:46 78 123/57 L Laboratory Results 07/03/24 07:49 WBC 9.99 RBC 4.07 L Hgb 12.8 Hct 37.0 MCV 90.9 MCH 31.4 MCHC 34.6 RDW Std Deviation 44.5 RDW Coeff of Iglesia 13.5 Plt Count 125 L MPV 12.2 Monitoring External Monitor Cat 1
[2024-07-03] MEDS: fentaNYL citrate PF 100 MCG/2 ML VIAL ONE (08:30)
[2024-07-03] MEDS: BUPIVACAINE 0.25% PF 30 ML VIAL ONE (08:30)
[2024-07-03] MEDS: fentANYL 2 MCG/ML BUPIVacaine 0.125%-NSS 100ML BAG ONE (08:30)
[2024-07-03] MEDS ORDERED: BUPIVACAINE 0.25% PF 30 ML VIAL EPI PRN (08:39)
[2024-07-03] MEDS ORDERED: NALOXONE HCL 1 MG in SODIUM CHLORIDE 0.9% 1,000 ML IV PRN (08:39)
[2024-07-03] MEDS ORDERED: NALOXONE HCL 0.4 MG/1 ML VIAL/CARP IV PRN (08:39)
[2024-07-03] MEDS ORDERED: ONDANSETRON INJ 2 MG/ML 2 ML VIAL IV PRN (08:39)
[2024-07-03] MEDS ORDERED: SODIUM CHLORIDE 0.9% PF INJ 10 ML VIAL EPI PRN (08:39)
[2024-07-03] MEDS ORDERED: fentaNYL citrate PF 100 MCG/2 ML VIAL EPI PRN (08:39)
[2024-07-03] MEDS ORDERED: fentANYL 2 MCG/ML BUPIVacaine 0.125%-NSS 100ML BAG EPI PRN (08:39)
[2024-07-03] MEDS ORDERED: ePHEDrine sulfate 50 MG/ML AMP IV PRN (08:39)
[2024-07-03] MEDS ORDERED: LIDOCAINE 2% MPF LOCAL 5 ML VIAL EPI PRN (08:39)
[2024-07-03] MEDS ORDERED: ROPIVACAINE 0.5% PF 5 MG/ML 20 ML VIAL EPI PRN (08:39)
[2024-07-03 08:45] LABS: Amphetamines+Metham, Urine Neg (Neg); Barbiturates, Urine Neg (Neg); Benzodiazepine, Urine Neg (Neg); Cocaine, Urine Neg (Neg); Fentanyl, Urine Neg (Neg); MDMA (Ecstacy), Urine Neg (Neg); Marijuana, Urine Pos (Neg); Methadone, Urine Pos (Neg); Opiate, Urine Neg (Neg); Phencyclidine, Urine Neg (Neg)
[2024-07-03] MEDS: OXYTOCIN 30 UNITS/NSS 30 UNITS/500 ML BAG IV PRN (10:06)
[2024-07-03] MEDS ORDERED: ACETAMINOPHEN 325 MG TAB PO PRN (10:17)
[2024-07-03] MEDS ORDERED: HYDROCORTISONE ACETATE 25 MG SUPP PR PRN (10:17)
[2024-07-03] MEDS ORDERED: bisacodyL 10 MG SUPP PR PRN (10:17)
--- NOTE | 2024-07-03 10:19 | Delivery Summary ---
Vaginal Delivery Summary Date of Service July 03, 2024 Vaginal Delivery Summary live female HAYLEY over intact perineum with delayed cord clamping and Apgars 8/9 weight pending. Cord blood obtained followed by spontaneous delivery of intact placenta. No tears. QBL 101 ml. Final sponge and instrument count are correct. Mom and baby stable.
--- NOTE | 2024-07-03 10:47 | Anesthesia Procedure Note ---
Date of Service July 03, 2024 Anesthesia Post Epidural Note Vital Signs Vital Signs: Temp Pulse Resp BP Pulse Ox 36.9 C 75 18 127/75 84 L 07/03/24 07:48 07/03/24 10:45 07/03/24 10:15 07/03/24 10:45 07/03/24 10:10 Notes Mental Status: alert / awake / arousable and participated in evaluation Nausea / Vomiting: adequately controlled Pain: adequately controlled Airway Patency, RR, SpO2: stable & adequate BP & HR: stable & adequate Hydration State: stable & adequate Neuraxial Anesthesia: was administered and sensory block is resolving Anesthetic Complications: no major complications apparent Epidural: Removed without complications and With tip intact
--- OUTSIDE RECORDS SUMMARY | 2024-07-03 11:23 | External Medical Summary | Summary of Care ---
Author Name Unknown Organization [facility] Address [address] [place] [address] Phone [phone] Care Team Providers Care Gambling Cashier Name Role Phone Alex Penaloza MD Primary Care Provider + Encounter Details Date Type Department Care Team (Late st Contact Info) Description 07/02/2024 Telephone Gynecology/Obstetrics [place] [id number] [place], [place] [phone] Nuzhat Amezquita PA-C [address] [place] [address] Allergies No known active allergiesdocumented as of this encounter (statuses as of 07/02/2024) Medications Methadone HCl 10 MG/ML Oral Concentrate [...] as of this encounter (statuses as of 07/02/2024) Active Problems Problem Noted Date Diagnosed Date [...] and folate levels and referral to a radio repairer. If hemoglobin levels are below 8 g/dl, we recommend Maternal Medicine ultrasound for growth every 4 weeks after 24 weeks. Consider a blood transfusion if hemoglobin levels fall below 6 g/dL. ([employer] [facility] [employer] [facility] Bulletin Number 95, October,). Consider Venofer transfusions if patient labs supportive of iron deficiency anemia with dosing of 300 mg IV weekly x 3 weeks Methadone maintenance treatment affecting pregna ncy 02/16/2024 Overview (05/21/2024): 05/21/24 [facility] with dosage change. 169 mg methadone once [...] all times; naloxone is available at all [place] pharmacies without a prescription. Methadone and [...] [facility] 01/09/2024 Overview (07/02/2024): Problem Action Taken Date entered Entered by [...] Khalil RN 04/20/2024 Desires pump sent to [facility] 04/20/2024 Lawanda Khalil RN 04/20/2024 Problem Action Taken Date entered Entered by Date resolved Current needs or questions Patient denies having any current needs or questions 05/19/2024 Anne Bhat RN 05/19/2024 Problem Action Taken Date entered Entered by Date resolved Current needs or questions Patient denies having any current needs or questions 07/02/2024 Anne Bhat RN 07/02/2024 Assessment & Plan (06/17/2024 1:52 PM EDT): Problem Action Taken Date entered Entered by Date resolved Current needs or questions Patient denies having any current needs or questions 06/17/2024 Lawanda Khalil RN 06/17/2024 Estimated Date of Delivery Comme nts Yes 07/13/2024 Based on Ultraso und documented as of this encounter (statuses as of 07/02/2024) Social History Tobacco Use Types Packs/Day Years [...] money to get more. Sometimes true 12/2023 Simms Depression Scale Answer Date Recorded Simms Depression Scale Total 3 05/19/2024 The thought [...] Telephone Encounter - Yamileth Pickett LPN - 07/02/2024 11:52 AM EDT [facility] med called with methadone dosage updated 2mg increase today. Split dose, AM 127mgs - PM dose 56mgs. documented in this encounter Plan of Treatment Upcoming Encounters Date Type Department Care Team (Late st Contact Info) Description 07/07/2024 10:00 AM EDT Pharmacy Pharmacy, [place] [address] [place] [address] Clinic, [place] [address] [place] [address] 07/08/2024 10:30 AM EDT Office Visit Gynecology/Obstetrics [facility] [address] [address] Zhang Bardales MD [address] [phone] Nurse [facility] Begin[facility] [place] [address] [place] [address] Health Maintenance Due Date Last Done Comments Depression Screening 2004 DTap/Tdap Vaccines (1 - Tdap) 12/20/2011 Hepatitis B Vaccine (1 of 3 - 19+ 3-dose series) 12/20/2011 Pneumococcal Vaccine: Pediat rics (0 to 5 Years) and At-Risk Patients (6 to 18 Years and 19+ Years) (1 of 2 - PCV) 12/20/2011 Lipid Panel 2012 Pap Smear 2013 Cervical Cancer Screening 2022 [...] filedocumented as of this encounter Care Teams Gambling Cashier Relationship Specialty Start Date End Date Alex Penaloza MD [address] [place] [address] PCP - General Pediatrics 01/30/22 documented as of this encounter
--- OUTSIDE RECORDS SUMMARY | 2024-07-03 11:23 | External Medical Summary | Summary of Care ---
Author Name Unknown Organization [facility] Address [address] [place] [address] Phone [phone] Care Team Providers Care Residential Glazier Name Role Phone Alex Penaloza MD Primary Care Provider + Reason for Visit * Reason Onset Date Comments Appointment 06/30/2024 Encounter Details Date Type Department Care Team (Late st Contact Info) Description 06/30/2024 Telephone Gynecology/Obstetrics [address] [address] Services, Scheduling [address] [place] [address] Appointment Allergies No known active allergiesdocumented as of this encounter (statuses as of 07/01/2024) Medications Methadone HCl 10 MG/ML Oral Concentrate [...] as of this encounter (statuses as of 07/01/2024) Active Problems Problem Noted Date Diagnosed Date [...] in the future. Tobacco smoking affecting in [facility] 02/18/2024 Overview (05/03/2024): Currently smoking [...] and folate levels and referral to a computator. If hemoglobin levels are below 8 g/dl, we recommend Maternal Medicine ultrasound for growth every 4 weeks after 24 weeks. Consider a blood transfusion if hemoglobin levels fall below 6 g/dL. ([employer] Cutting Machine [employer] Practice Bulletin Number 95, October,). Consider Venofer transfusions if patient labs supportive of iron deficiency anemia with dosing of 300 mg IV weekly x 3 weeks Methadone maintenance treatment affecting pregna ncy 02/16/2024 Overview (05/21/2024): 05/21/24 [facility] with dosage change. 169 mg methadone once [...] all times; naloxone is available at all [place] pharmacies without a prescription. Methadone and buprenorphine [...] Khalil RN 04/20/2024 Desires pump sent to [facility] 04/20/2024 Lawanda Khalil RN 04/20/2024 Problem Action Taken Date entered Entered by Date resolved Current needs or questions Patient denies having any current needs or questions 05/19/2024 Anne Bhat RN 05/19/2024 Assessment & Plan (06/17/2024 1:52 PM EDT): Problem Action Taken Date entered Entered by Date resolved Current needs or questions Patient denies having any current needs or questions 06/17/2024 Lawanda Khalil RN 06/17/2024 Estimated Date of Delivery Comme nts Yes 07/13/2024 Based on Ultraso und documented as of this encounter (statuses as of 07/01/2024) Social History Tobacco Use Types Packs/Day Years [...] money to get more. Sometimes true 12/2023 [place] Depression Scale Answer Date Recorded [place] Depression Scale Total 3 05/19/2024 The thought [...] Telephone Encounter - Yamileth Pickett LPN - 07/01/2024 11:00 AM EDT Patient said she could make it and will keep 07/08 appt also * Telephone Encounter - Louise Ford LPN - 07/01/2024 10:11 AM EDT left message for patient to call office Saved BARRY opening tomorrow at 1015 with Ailin if patient can make it. * Telephone Encounter - Louise Ford LPN - 06/30/2024 11:39 AM EDT Patient was scheduled for 2 different appt times today and didn't come for either. Can be offered next available and call/check portal for cancels. * Telephone Encounter - Shadia Lucas OSA - 06/30/2024 11:28 AM EDT Pt was unable to make her visit sched for today and called to r/s, no availibility until 4/3/25 pt was booked but asked if it is ok that she's being seen a week later as her due date is approaching. Please assist. Thank you. documented in this encounter Plan of Treatment Upcoming Encounters Date Type Department Care Team (Late st Contact Info) Description 07/02/2024 10:15 AM EDT Office Visit Gynecology/Obstetrics Brynn Coynes [address] [facility] [place] [address] Ailin Killian CRNP [address] [place] [address] Nurse [facility] [address] [place] [address] 07/07/2024 10:00 AM EDT Pharmacy Pharmacy, [address] [id number] Clinic, [address] [id number] 07/08/2024 10:30 AM EDT Office Visit Gynecology/Obstetrics Brynn Coynes [address] [facility] [place] [address] Zhang Bardales MD [address] [place] [id number] Nurse [facility] [address] [facility] [place] [address] Health Maintenance Due Date Last Done Comments [...] filedocumented as of this encounter Care Teams Residential Glazier Relationship Specialty Start Date End Date Alex Penaloza MD [address] [address] PCP - General Pediatrics 01/30/22 documented as of this encounter
--- OUTSIDE RECORDS SUMMARY | 2024-07-03 11:23 | External Medical Summary | Summary of Care ---
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 110 mg in the morning and 33 mg in the evening Active Iron-Vitamin C 65-125 MG Oral Tablet (Vitron C)Indications:Ant epartum anemia complicating Take 1 Tablet by mouth in the morning and 1 Tablet before bedtime. 60 Tablet 3 4 Active Breast Pump Dispense double electric breast pump. Dx:Z39.1 1 Each Active documented as of this encounter (statuses as of 06/17/2024) Active Problems Problem Noted Date Diagnosed Date [...] in the future. Tobacco smoking affecting in [facility] 02/18/2024 Overview (05/03/2024): Currently smoking [...] and folate levels and referral to a customs manager. If hemoglobin levels are below 8 g/dl, we recommend Maternal Medicine ultrasound for growth every 4 weeks after 24 weeks. Consider a blood transfusion if hemoglobin levels fall below 6 g/dL. ([employer] Driving In[employer] Practice Bulletin Number 95, October,). Consider Venofer transfusions if patient labs supportive of iron deficiency anemia with dosing of 300 mg IV weekly x 3 weeks Methadone maintenance treatment affecting pregna ncy 02/16/2024 Overview (05/21/2024): 05/21/24 [facility] with dosage change. 169 mg methadone [...] all times; naloxone is available at all [place] pharmacies without a prescription. Methadone and buprenorphine [...] Khalil RN 04/20/2024 [facility]ires pump sent to [facility] 04/20/2024 Lawanda Khalil RN 04/20/2024 Problem Action [...] as of this encounter (statuses as of 06/17/2024) Social History Tobacco Use Types Packs/Day Years [...] money to get more. Sometimes true 12/2023 [place] Depression Scale Answer Date Recorded [place] Depression Scale Total 3 05/19/2024 The thought [...] Sign Reading Time Taken Comments Blood Pressure 106/60 06/17/2024 1:19 PM EDT Pulse - - Temperature - - Respiratory Rate - - Oxygen Saturation - - Inhaled Oxygen Concentration - - Weight 55.6 kg (122 lb 9.6 oz) 06/17/2024 1:19 P M EDT Height - - Body Mass Index 23.94 01/30/2022 11:59 AM EDT documented in this encounter Progress Notes * Nuzhat Amezquita PA-C - 06/17/2024 1:44 PM EDT 36w2d Hospitalized at [facility] for flu A and pneumonia for a week. Had NST at hospital at time. Got GI bug after. Lost about 12 pounds at time. Doing better now, recovered. Had agreed to see MFM. Pt states not able to see them now. Too hard between work and travel. Agreeable to local growth. Last : EFW: 1926 g, 41%. Advised schedule now. Hit belly off counter about 4 days ago when stepping down off chair in kitchen. Had scratch on belly, no bruise. Not severely painful. Denies VB, LOF. Baby has been active and normal. Referred to IV iron, has scheduled. Unable to tolerate PO iron, make her very sick per patient. Due for GBS, collected. RTC in 1 week Nuzhat Amezquita PA-C documented in this encounter Nursing Notes * Lawanda Khalil RN - 06/17/2024 1:51 PM EDT Patient seen by [facility] Cement Handler. Patient denies any questions or concerns. documented in this encounter Miscellaneous Notes * Assessment & Plan Note - Lawanda Khalil RN - 06/17/2024 1:52 PM EDT Associated Problem(s): Health counseling Problem Action Taken Date entered Entered by Date resolved Current needs or questions Patient denies having any current needs or questions 06/17/2024 Lawanda Khalil RN 06/17/2024 documented in this encounter Plan of Treatment Upcoming Encounters Date Type Department Care Team (Late st Contact Info) Description 06/23/2024 10:00 AM EDT Pharmacy Pharmacy, [place] [address] [place] [address] Clinic, [place] [address] [place] [address] 06/25/2024 10:30 AM EDT Office Visit Gynecology/Obstetric s Brynn Wall [address] [place] [address] Nuzhat Amezquita PA-C [address] [place] [address] Nurse [facility] [place] [address] [place] [address] 06/28/2024 12:30 PM EDT Hem/Onc Treatment Hematology/Oncology Treatment, [place] [address] [place], [place] [address] Simran, Chair 6 Hem Onc Scenery [address] [place], [place] [address] Pending Results Name Type Priority Associated Diagnoses Date /Time GROUP B STREP CULTURE/PCR Lab Routine Supervision of high-risk , unspecified trimester 06/17/2024 1:44 PM EDT Scheduled Orders Name Type Priority Associated Diagnoses Orde r Schedule GROUP B STREP CULTURE/PCR Lab Routine Supervision of high-risk , unspecified trimester Expected: 06/17/2024, Expires: 06/17/2025 Health Maintenance Due Date Last Done Comments [...] Not on filedocumented as of this encounter Results * US PREG FOLLOW-UP EACH FETUS (06/17/2024 3:01 PM EDT) Anatomical Region Laterality Modality Pelvis, Body Ultrasound 06/17/2024 3:18 PM EDT Impressions 06/17/2024 3:16 PM EDT IMPRESSION: Expected current mean menstrual age based upon initial ultrasound (01/09/2024) is 36 weeks 2 days yielding SUSAN 07/13/2024. Current measurements do lag this data but probably are within range of variation. Please correlate clinically. Narrative 06/17/2024 3:16 PM EDT EXAM: US PREG FOLLOW-UP EACH FETUS HISTORY: growth TECHNIQUE: Real-time scanning is performed transabdominally. Study is tailored for interval growth only. anatomic survey etcetera not available. Two to low head position the head measurements are compromised. COMPARISON: Ultrasound pelvis obstetric dated 05/19/2024; US PREG SINGLE_1ST GEST, 14 WEEKS OR LATER, ACC: [id number], dated 2024-03-18 14:37:21; US PREG SINGLE_1ST GEST, LESS THAN 14 WKS, ACC: [id number], dated 2024-01-09 12:14:47 FINDINGS: Based upon initial available ultrasound expected current mean menstrual age 36 weeks 2 days yielding SUSAN 07/13/2024. A single intrauterine gestation is demonstrated currently in cephalic presentation with the following measurement parameters. BPD 87 mm mean 35 weeks 2 days +/-3 weeks Head circumference 307 mm mean 34 weeks 2 days +/-3 weeks Abdominal circumference 316 mm mean 35 weeks 4 days +/-3 weeks 1 day Femur length 68 mm mean 34 weeks 5 days +/-3 weeks 2 days Humeral length 61 mm mean 35 weeks 2 days Head circumference abdominal circumference ratio 0.97 Estimated weight 2606 g (5 lb 12 oz) approximate 24 percentile based upon current mean menstrual age Current measurements correspond to a mean menstrual age 35 weeks 0 days yielding SUSAN 07/22/2024. This lags what would be expected given initial available ultrasound but probably is within measurement range of variation especially given potentially compromised cranial measurements. Positive heart motion is seen with a current documented rate of 132 beats per minute. Limited single views stomach, kidneys and urinary bladder within normal limits The placenta is posterior without placenta previa. The amniotic fluid volume is qualitatively within normal limits. LINDA is 16.8 which is between 50 and 90 percentiles. Maximum vertical pocket 5.5 Procedure Note Gallo Daniels MD - 06/17/2024 EXAM: US PREG FOLLOW-UP EACH FETUS HISTORY: growth TECHNIQUE: Real-time scanning is performed transabdominally. Study is tailored forinterval growth only. anatomic survey etcetera not available. Twoto low head position the head measurements are compromised. COMPARISON: Ultrasound pelvis obstetric dated 05/19/2024; US PREG SINGLE_1ST GEST, 14 WEEKS OR LATER, ACC: [id number], [id number] 14:37:21; US PREG SINGLE_1ST GEST, LESS THAN 14 WKS, ACC: [id number], dated [id number]:47 FINDINGS: Based upon initial available ultrasound expected current mean menstrualage 36 weeks 2 days yielding SUSAN 07/13/2024. A single intrauterine gestation is demonstrated currently in cephalicpresentation with the following measurement parameters. BPD 87 mm mean 35 weeks 2 days +/-3 weeks Head circumference 307 mm mean 34 weeks 2 days +/-3 weeks Abdominal circumference 316 mm mean 35 weeks 4 days +/-3 weeks 1 day Femur length 68 mm mean 34 weeks 5 days +/-3 weeks 2 days Humeral length 61 mm mean 35 weeks 2 days Head circumference abdominal circumference ratio 0.97 Estimated weight 2606 g (5 lb 12 oz) approximate 24 percentile basedupon current mean menstrual age Current measurements correspond to a mean menstrual age 35 weeks 0 daysyielding SUSAN 07/22/2024. This lags what would be expected given initialavailable ultrasound but probably is within measurement range of variationespecially given potentially compromised cranial measurements. Positive heart motion is seen with a current documented rate of 132beats per minute. Limited single views stomach, kidneys and urinary bladder within normallimits The placenta is posterior without placenta previa. The amniotic fluid volume is qualitatively within normal limits. LINDA is16.8 which is between 50 and 90 percentiles. Maximum vertical pocket5.5 IMPRESSION IMPRESSION: Expected current mean menstrual age based upon initial ultrasound(01/09/2024) is 36 weeks 2 days yielding SUSAN 07/13/2024. Currentmeasurements do lag this data but probably are within range of variation.Please correlate clinically. 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
--- OUTSIDE RECORDS SUMMARY | 2024-07-03 11:23 | External Medical Summary ---
Author Name Unknown Address Unknown Organization K01:[facility] - [facility] [address] [place] [address] Laboratory Report Ordering Provider Test Date Status MAIKOL STEVENS 06/17/2024 13:44:23 Final Observation Date Value Abnormality Reference (Units ) Status Streptococcus agalactiae DNA [Presence] in Specimen by LOVELY with probe detection 06/17/2024 13:44:23 Negative Negative Final No Group B Streptococcus det ected by culture-enhanced PCR (amplified probe). GBS GBSCT - [facility] 06/17/2024 13:44:23 0.0 Final GBS SPCCT - [facility] 06/17/2024 13:44:23 30.4 Final Performing Location [facility] - [address] [place] [address]
--- OUTSIDE RECORDS SUMMARY | 2024-07-03 11:23 | External Medical Summary | Summary of Care ---
Author Name Unknown Organization [facility] Address [address] [place] [address] Phone [phone] Care Team Providers Care Catering Chef Name Role Phone Alex Penaloza MD Primary Care Provider + Reason for Visit * Reason Onset Date Comments Appointment 06/30/2024 Encounter Details Date Type Department Care Team (Late st Contact Info) Description 06/30/2024 Telephone Gynecology/Obstetrics [address] [address] Services, Scheduling [address] [place] [address] Appointment Allergies No known active allergiesdocumented as [...] in the future. Tobacco smoking affecting in [facility] 02/18/2024 Overview (05/03/2024): Currently smoking [...] folate levels and referral to a business office technology instructor. If hemoglobin levels are below 8 g/dl, we recommend Maternal Medicine ultrasound for growth every 4 weeks after 24 weeks. Consider a blood transfusion if hemoglobin levels fall below 6 g/dL. ([employer] Rod Puller Practice Bulletin Number 95, October,). Consider Venofer transfusions if patient labs supportive of iron deficiency anemia with dosing of 300 mg IV weekly x 3 weeks Methadone maintenance treatment affecting pregna ncy 02/16/2024 Overview (05/21/2024): 05/21/24 [facility] with dosage change. 169 mg methadone [...] Khalil RN 04/20/2024 Desires pump sent to [employer] [facility] 04/20/2024 Lawanda Khalil RN 04/20/2024 Problem [...] money to get more. Sometimes true 12/2023 [place] Depression Scale Answer Date Recorded [place] Depression Scale Total 3 05/19/2024 The thought [...] Visit Gynecology/Obstetrics Brynn Coynes [address] [facility] [place] [address] Ailin Killian CRNP [address] [place] [address] Nurse [facility] [address] [place] [address] 07/07/2024 10:00 AM EDT Pharmacy Pharmacy, [address] [id number] Clinic, [address] [id number] 07/08/2024 10:30 AM EDT Office Visit Gynecology/Obstetrics Brynn Coynes [address] [place] [place] [address] Zhang Bardales MD [address] [place] [address] Nurse [facility] [address] [facility] [place] [address] Health Maintenance Due Date Last Done Comments [...] filedocumented as of this encounter Care Teams Catering Chef Relationship Specialty Start Date End Date Alex Penaloza MD [address] [address] PCP - General Pediatrics 01/30/22 documented as of this encounter
--- OUTSIDE RECORDS SUMMARY | 2024-07-03 11:23 | External Medical Summary | Summary of Care ---
Author Name Unknown Organization [facility] Address [address] [place] [address] Phone [phone] Care Team Providers Care Fur Dressing Supervisor Name Role Phone Alex Penaloza MD Primary Care Provider + Reason for Visit * Reason Comments IV Therapy Infed Encounter Details Date Type Department Care Team (Latest Contact Info) Description 06/28/2024 12:45 PM EDT Hem/Onc Treatment Hematology/Oncology Treatment, [address] [address] Simran, Chair 6 Hem Onc [address] [address] Iron deficiency anemia, unspecified iron deficiency anemia type* Allergies No known active allergiesdocumented as of this encounter (statuses as of 06/29/2024) Medications Methadone HCl 10 MG/ML Oral Concentrate [...] as of this encounter (statuses as of 06/29/2024) Active Problems Problem Noted Date Diagnosed Date [...] the future. Tobacco smoking affecting in [facility] 02/18/2024 Overview (05/03/2024): Currently smoking 1-2 [...] and folate levels and referral to a airport representative. If hemoglobin levels are below 8 g/dl, we recommend Maternal Medicine ultrasound for growth every 4 weeks after 24 weeks. Consider a blood transfusion if hemoglobin levels fall below 6 g/dL. ([employer] and Water Treatment Operator Practice Bulletin Number 95, October,). Consider Venofer transfusions if patient labs supportive of iron deficiency anemia with dosing of 300 mg IV weekly x 3 weeks Methadone maintenance treatment affecting pregna ncy 02/16/2024 Overview (05/21/2024): 05/21/24 [facility] with dosage change. 169 mg methadone once [...] all times; naloxone is available at all [place] pharmacies without a prescription. Methadone and buprenorphine are compatible with . RECOMMENDATIONS: [facility] anatomy ultrasound at 19-20 weeks. Serial growth [...] Khalil RN 04/20/2024 [facility] 04/20/2024 Lawanda Khalil RN 04/20/2024 Problem [...] as of this encounter (statuses as of 06/29/2024) Social History Tobacco Use Types Packs/Day Years [...] money to get more. Sometimes true 12/2023 [place] Depression Scale Answer Date Recorded [place] Depression Scale Total 3 05/19/2024 The thought [...] Sign Reading Time Taken Comments Blood Pressure 101/56 06/28/2024 2:57 PM EDT Pulse 61 06/28/2024 2:57 PM EDT Temperature 36.4 C (97.5 F) 06/28/2024 1:08 PM ED T Respiratory Rate 16 06/28/2024 2:57 PM EDT Oxygen Saturation 95% 06/28/2024 2:57 PM EDT Inhaled Oxygen Concentration - - Weight - - Height - - Body Mass Index - - documented in this encounter Nursing Notes * Carolee Milner RN - 06/28/2024 4:04 PM EDT Goals: Patient will remain free from injury. Possible barriers to meeting goals: ambulating with IV pole Stability of the patient: Moderately stable - low risk of patient condition declining or worsening Summary regarding today's goals: Met: pt remained free of harm today Patient tolerated treatment well without any acute issues or problems. Patient left facility in stable condition and denied any further needs. * Carolee Milner RN - 06/28/2024 3:54 PM EDT Chair 3. IV inserted, no issues. Patient here for Infed infusion, feeling well, just mainly fatigued especially in the last 2 weeks.Overall no acute issues or concerns today. Patient is comfortable and denies further needs at this time. Patient instructed on use of heat and massage functions where applicable. Patient shown how to operate the heat function of the chair and to alert nursing staff if the chair feels too warm. Patient instructed on the risk of potential peters while using the heat function. Safety and Risk for Injury Patient will remain free from injury. Ensure appropriate safety devices are available. Provide and maintain safe environment. documented in this encounter Plan of Treatment Upcoming Encounters Date Type Department Care Team (Late st Contact Info) Description 06/30/2024 8:45 AM EDT Office Visit Gynecology/Obstetrics Brynn Wall [address] [facility] [place] [address] Nuzhat Amezquita PA-C [address] [facility] [place] [address] Nurse [facility] [place] [address] [facility] [place] [address] 06/30/2024 10:00 AM EDT Pharmacy Pharmacy, [place] [address] [place] [address] Clinic, [place] [address], [place] [id number] Health Maintenance Due Date Last Done Comments [...] use during Antepartum anemia complicating Anemia, antepartum Iron deficiency anemia, unspecified iron deficiency anemia type- Primary documented in this encounter Administered Medications Inactive Administered Medications - up to 3 most recent administrations Medication Order MAR Action Action Date Dose Rate Site Iron Dextran (INFeD) 975 mg in NSS 250 mL INFUSION 975 mg, IV Piggyback, ONCE, 1 dose, On 06/28/24 at 1445, Administer over 1 Hours, - Administer iron dextran infusion bag over 1 hour - Monitor for infusion reactions with vitals at 30 minutes and 60 minutes after starting the infusion. - If patient develops sign/symptoms of reaction or vital signs outside normal limits: 1) STOP infusion 2) CONTACT physicianIndications:Iron deficiency anemia, unspecified iron deficiency anemia type Start Infusion 06/28/2024 1:45 PM EDT 975 mg 274.5 mL/hr Iron Dextran (Infed) IV Push TEST DOSE 25 mg IV Push, Administer over 0.5 Minutes, -Educate patient on signs/symptoms of infusion reaction -Administer 25 mg test dose of iron dextran before infusion bag -Observe patient for signs/symptoms of reaction with vital signs before test dose, then at 15 minutes after administering the test dose -If patient tolerates test dose with no reaction, proceed with iron dextran infusion -HOLD infusion and contact physician immediately if patient reacts to test dose, ONCE, 1 dose, On Fri06/28/24 at 1430Indications:Iron deficiency anemia, unspecified iron deficiency anemia type Given 06/28/2024 1:21 PM EDT 25 mg NSS infusion Intravenous, at 50 mL/hr, PRN, Starting on Fri06/28/24 at 1430, Until Fri06/28/24 at 2015, Maintenance lineIndications:Iron deficiency anemia, unspecified iron deficiency anemia type Start Infusion 06/28/2024 1:21 PM EDT 50 mL/hr documented in this encounter Care Teams Fur Dressing Supervisor Relationship Specialty Start Date End Date Alex Penaloza MD [address] [address] PCP - General Pediatrics 01/30/22 documented as of this encounter
--- OUTSIDE RECORDS SUMMARY | 2024-07-03 11:23 | External Medical Summary | Summary of Care ---
Author Name Unknown Organization [facility] Address [address] [place] [facility] [place] [address] Phone [phone] Care Team Providers Care Patient Assessment Coordinator Name Role Phone Alex Penaloza MD Primary Care Provider + Reason for Visit * Reason Comments Return Visit Encounter Details Date Type Department Care Team (Late st Contact Info) Description 07/02/2024 10:15 AM EDT Office Visit Gynecology/Obstetri jeana Wall [address] [place] [address] Ailin Killian CRNP [address] [place] [address] Nurse Regino Wall Beginnings Return [place] 132 [place] [address] High-risk , third trimester*; Methadone maintenance treatment affecting , antepartum (HCC); History of hepatitis C; Tobacco smoking [...] and folate levels and referral to a delinquency prevention officer. If hemoglobin levels are below 8 g/dl, we recommend Maternal Medicine ultrasound for growth every 4 weeks after 24 weeks. Consider a blood transfusion if hemoglobin levels fall below 6 g/dL. ([employer]st[employer] and Oil [employer] Caser Practice Bulletin Number 95, October,). Consider Venofer transfusions if patient labs supportive of iron deficiency anemia with dosing of 300 mg IV weekly x 3 weeks Methadone maintenance treatment affecting pregna ncy 02/16/2024 Overview (05/21/2024): 05/21/24 [facility] with dosage change. 169 mg methadone [...] all times; naloxone is available at all [place] pharmacies without a prescription. Methadone and buprenorphine [...] Khalil RN 04/20/2024 Desires pump sent to [facility] 04/20/2024 Lawanda Khalil RN 04/20/2024 Problem [...] money to get more. Sometimes true 12/2023 [place] Depression Scale Answer Date Recorded [place] Depression Scale Total 3 05/19/2024 The thought [...] Sign Reading Time Taken Comments Blood Pressure 98/54 07/02/2024 10:47 AM EDT Pulse - - Temperature - - Respiratory Rate - - Oxygen Saturation - - Inhaled Oxygen Concentration - - Weight 56.5 kg (124 lb 9.6 oz) 07/02/2024 10:47 AM EDT Height - - Body Mass Index 24.33 01/30/2022 11:59 AM EDT documented in this encounter Progress Notes * Ailin Killian CRNP - 07/02/2024 11:00 AM EDT 38w3d Feeling well overall. Baby is active. No regular contractions, no bleeding or LOF OJ Yates * Randa Escobedo LPN - 07/02/2024 10:50 AM EDT 38w3d No concerns documented in this encounter Nursing Notes * Anne Bhat RN - 07/02/2024 11:09 AM EDT Patient seen by [facility] Supervisor Bottle House Cleaners. Patient denies any questions or concerns. Doingwell, prepared for baby, had a baby shower this weekend and got everything she needs. Encouraged toschedule PPV. Anne Bhat RN documented in this encounter Plan of Treatment Upcoming Encounters Date Type Department Care Team (Late st Contact Info) Description 07/07/2024 10:00 AM EDT Pharmacy Pharmacy, [place] [address] [place] [address] Clinic, [place] [address] [place] [address] 07/08/2024 10:30 AM EDT Office Visit Gynecology/Obstetrics Brynn Wall [address] [place] [address] Zhang Bardales MD [address] [place] [phone] Nurse [facility] [address] [place] [address] Health Maintenance Due Date Last Done Comments [...] use during Antepartum anemia complicating Anemia, antepartum High-risk , third trimester- Primary Methadone maintenance treatment affecting , antepartum (HCC) History of hepatitis C Personal history of other infectious and parasitic disease Tobacco smoking affecting in third trimester Marijuana use during Antepartum anemia complicating Anemia, antepartum documented in this encounter Care Teams Patient Assessment Coordinator Relationship Specialty Start Date End Date Alex Penaloza MD [address] [address] PCP - General Pediatrics 01/30/22 documented as of this encounter
--- OUTSIDE RECORDS SUMMARY | 2024-07-03 11:23 | External Medical Summary | Summary of Care ---
Author Name Unknown Organization [facility] Address [address] [place] [facility] [place] [address] Phone [phone] Care Team Providers Care Machine Assistant Name Role Phone Alex Penaloza MD Primary Care Provider + Reason for Visit * Reason Onset Date Comments No Show 06/16/2024 Pt did not come for scheduled infed infusion. Encounter Details Date Type Department Care Team (Late st Contact Info) Description 06/16/2024 Telephone Hematology/Oncology Treatment, [place] [address] [place] [address] Nuzhat Ameqzuita PA-C [address] [facility] [place] [address] No Show (Pt did not come for scheduled inf... Allergies No known active allergiesdocumented as of [...] in the future. Tobacco smoking affecting in [facility] 02/18/2024 Overview (05/03/2024): Currently smoking 1-2 [...] and folate levels and referral to a rib cutter. If hemoglobin levels are below 8 g/dl, we recommend Maternal Medicine ultrasound for growth every 4 weeks after 24 weeks. Consider a blood transfusion if hemoglobin levels fall below 6 g/dL. ([employer]st[employer]ians and Beck Operator Practice Bulletin Number 95, October,). Consider Venofer transfusions if patient labs supportive of iron deficiency anemia with dosing of 300 mg IV weekly x 3 weeks Methadone maintenance treatment affecting pregna ncy 02/16/2024 Overview (05/21/2024): 05/21/24 [facility] with dosage change. 169 mg methadone [...] all times; naloxone is available at all [place] pharmacies without a prescription. Methadone and buprenorphine [...] Khalil RN 04/20/2024 [facility]24 Lawanda Khalil RN 04/20/2024 Problem [...] money to get more. Sometimes true 12/2023 [place] Depression Scale Answer Date Recorded [place] Depression Scale Total 3 05/19/2024 The thought [...] encounter Miscellaneous Notes * Telephone Encounter - Jose R Warren OSA - 06/17/2024 8:37 AM EDT Patient scheduled and aware * Telephone Encounter - Jose R Warren OSA - 06/17/2024 8:22 AM EDT Patient called back in other encounter "Patient called in needing to reschedule her treatment appt. She states she was told that it is very important that she has this treatment done before she has her baby which is due July 13. Please call her back at [phone] " * Telephone Encounter - Opal Melgar RN - 06/16/2024 3:35 PM EDT Pt no show for Infed infusion today. Scheduling: please call patient to reschedule Nurse pool: FYI documented in this encounter Plan of Treatment Upcoming Encounters Date Type Department Care Team (Late st Contact Info) Description 06/17/2024 1:30 PM EDT Office Visit Gynecology/Obstetrics Brynn Wall [address] [place] [address] Nuzhat Amezquita PA-C [address] [place] [address] 06/23/2024 10:00 AM EDT Pharmacy Pharmacy, [place] [address] [place] [address] Clinic, [place] [address] [place] [address] 06/28/2024 12:30 PM EDT Hem/Onc Treatment Hematology/Oncology Treatment, [place] [address] [place] [id number] [place], Chair 6 Hem Onc [address] [facility] [place] [address] Health Maintenance Due Date Last Done Comments [...] filedocumented as of this encounter Care Teams Machine Assistant Relationship Specialty Start Date End Date Alex Penaloza MD [address] [place] [address] PCP - General Pediatrics 01/30/22 documented as of this encounter
--- OUTSIDE RECORDS SUMMARY | 2024-07-03 11:23 | External Medical Summary | Summary of Care ---
Author Name Unknown Organization [facility] Address [address] [facility] [place] [address] Phone [phone] Care Team Providers Care Yeast Pusher Name Role Phone Alex Penaloza MD Primary Care Provider + Reason for Visit * Reason Onset Date Comments No Show 06/16/2024 Pt did not come for scheduled infed infusion. Encounter Details Date Type Department Care Team (Late st Contact Info) Description 06/16/2024 Telephone Hematology/Oncology Treatment, [place] [address] [place] [address] Nuzhat Amezquita PA-C [address] [facility] [place] [address] No Show (Pt did not [...] in the future. Tobacco smoking affecting in [facility] 02/18/2024 Overview (05/03/2024): Currently smoking 1-2 [...] and folate levels and referral to a rag inspector. If hemoglobin levels are below 8 g/dl, we recommend Maternal Medicine ultrasound for growth every 4 weeks after 24 weeks. Consider a blood transfusion if hemoglobin levels fall below 6 g/dL. ([employer] Obstetricians and Industrial Health Engineer Practice Bulletin Number 95, October,). Consider Venofer transfusions if patient labs supportive of iron deficiency anemia with dosing of 300 mg IV weekly x 3 weeks Methadone maintenance treatment affecting pregna ncy 02/16/2024 Overview (05/21/2024): 05/21/24 [facility] with dosage change. 169 mg [...] Khalil RN 04/20/2024 Desires pump sent to [facility] 04/20/2024 Lawanda Khalil RN 04/20/2024 Problem Action [...] money to get more. Sometimes true 12/2023 [place] Depression Scale Answer Date Recorded [place] Depression Scale Total 3 05/19/2024 The thought [...] July 13. Please call her back at [phone] " * Telephone Encounter - Opal Melgar RN - 06/16/2024 3:35 PM EDT Pt no show for Infed infusion today. Scheduling: please call patient to reschedule Nurse pool: FYI documented in this encounter Plan of Treatment Upcoming Encounters Date Type Department Care Team (Late st Contact Info) Description 06/17/2024 1:30 PM EDT Office Visit Gynecology/Obstetrics Brynn Wall [address] [place] [address] Nuzhat Amezquita PA-C [address] [place] [address] 06/23/2024 10:00 AM EDT Pharmacy Pharmacy, [place] [address] [place] [address] Clinic, [place] [address] [place] [address] 06/28/2024 12:30 PM EDT Hem/Onc Treatment Hematology/Oncology Treatment, [place] [address] [place] [id number] [place], Chair 6 Hem Onc [address] [facility] [place] [address] Health Maintenance Due Date Last Done Comments [...] filedocumented as of this encounter Care Teams Yeast Pusher Relationship Specialty Start Date End Date Alex Penaloza MD [address] [place] [address] PCP - General Pediatrics 01/30/22 documented as of this encounter
--- OUTSIDE RECORDS SUMMARY | 2024-07-03 11:23 | External Medical Summary | Summary of Care ---
Author Name Unknown Organization [facility] Address [address] [place] [facility] [place] [place] [address] Phone [phone] Care Team Providers Care Java Grails Developer Name Role Phone Alex Penaloza MD Primary Care Provider + Reason for Visit * Reason Comments Return Visit Encounter Details Date Type Department Care Team (Late st Contact Info) Description 07/02/2024 10:15 AM EDT Office Visit Gynecology/Obstetri jeana Wall 132 [place] [address] Ailin Killian CRNP [address] [facility] [address] Nurse Regino Wall Beginnings Return [place] 132 [facility] [place] [address] High-risk , third trimester*; Methadone maintenance treatment [...] the future. Tobacco smoking affecting in [facility] 02/18/2024 Overview (05/03/2024): Currently smoking [...] and folate levels and referral to a card fixer. If hemoglobin levels are below 8 g/dl, we recommend Maternal Medicine ultrasound for growth every 4 weeks after 24 weeks. Consider a blood transfusion if hemoglobin levels fall below 6 g/dL. ([employer] Obstetricians and Acid Conditioning Worker Practice Bulletin Number 95, October,). Consider Venofer transfusions if patient labs supportive of iron deficiency anemia with dosing of 300 mg IV weekly x 3 weeks Methadone maintenance treatment affecting pregna ncy 02/16/2024 Overview (05/21/2024): 05/21/24 [facility] with dosage change. 169 mg methadone once [...] Khalil RN 04/20/2024 Desires pump sent to [facility] 04/20/2024 Lawanda Khalil RN 04/20/2024 Problem Action [...] to get more. Sometimes true 12/2023 [place] Depression Scale Answer Date Recorded [place] Depression Scale Total 3 05/19/2024 The thought [...] 11:09 AM EDT Patient seen by [facility] Turnaround Planner. Patient denies any questions or concerns. Doingwell, prepared for baby, had a baby shower this weekend and got everything she needs. Encouraged toschedule PPV. Anne Bhat RN documented in this encounter Plan of Treatment Upcoming Encounters Date Type Department Care Team (Late st Contact Info) Description 07/07/2024 10:00 AM EDT Pharmacy Pharmacy, [place] [address] [place] [address] Clinic, [place] [address] [place] [address] 07/08/2024 10:30 AM EDT Office Visit Gynecology/Obstetrics Brynn Wall [address] [place] [address] Zhang Bardales MD [address] [place] [phone] Nurse [facility] [address] [place] [address] Health Maintenance Due Date Last Done Comments [...] antepartum documented in this encounter Care Teams Java Grails Developer Relationship Specialty Start Date End Date Alex Penaloza MD [address] [address] PCP - General Pediatrics 01/30/22 documented as of this encounter
--- OUTSIDE RECORDS SUMMARY | 2024-07-03 11:24 | External Medical Summary | Summary of Care ---
Author Name Unknown Organization [facility] Address [address] [facility] [address] Phone [phone] Care Team Providers Care Printing Plate Setter Name Role Phone Alex Penaloza MD Primary Care Provider + Encounter Details Date Type Department Care Team (Late st Contact Info) Description 06/02/2024 Orders Only Hematology/Oncology Treatment, [place] [address] [place] [address] Nuzhat Amezquita PA-C [address] [facility] [address] Allergies No known active allergiesdocumented as of this encounter (statuses as of 06/02/2024) Medications Methadone HCl 10 MG/ML Oral Concentrate [...] as of this encounter (statuses as of 06/02/2024) Active Problems Problem Noted Date Diagnosed Date [...] in the future. Tobacco smoking affecting in [facility] 02/18/2024 Overview (05/03/2024): Currently smoking 1-2 [...] and folate levels and referral to a gripper attacher. If hemoglobin levels are below 8 g/dl, we recommend Maternal Medicine ultrasound for growth every 4 weeks after 24 weeks. Consider a blood transfusion if hemoglobin levels fall below 6 g/dL. ([employer] Obstetricians and Collar Shaper Operator Practice Bulletin Number 95, October,). Consider Venofer transfusions if patient labs supportive of iron deficiency anemia with dosing of 300 mg IV weekly x 3 weeks Methadone maintenance treatment affecting pregna ncy 02/16/2024 Overview (05/21/2024): 05/21/24 [facility] with dosage change. 169 mg methadone once [...] all times; naloxone is available at all [place] pharmacies without a prescription. Methadone and buprenorphine [...] Khalil RN 04/20/2024 Desires pump sent to [facility] 04/20/2024 Lawanda Khalil RN 04/20/2024 Problem Action Taken Date entered Entered by Date resolved Current needs or questions Patient denies having any current needs or questions 05/19/2024 Anne Bhat RN 05/19/2024 Estimated Date of Delivery Comme nts Yes 07/13/2024 Based on Ultraso und documented as of this encounter (statuses as of 06/02/2024) Social History Tobacco Use Types Packs/Day Years [...] money to get more. Sometimes true 12/2023 [place] Depression Scale Answer Date Recorded [place] Depression Scale Total 3 05/19/2024 The thought [...] No 03/15/2024 Does the household have a [facility] source of income? (Household - [...] Care Team (Late st Contact Info) Description 06/04/2024 1:00 PM EST Hem/Onc Treatment Hematology/Oncology Treatment, [place] [address] [place] [address] Simran, Chair 1 Hem Onc [address] [place] [address] 06/08/2024 2:30 PM EST [facility] [address] [place] [address] Clinic, [facility] [address] [place] [address] Health Maintenance Due Date Last Done Comments [...] filedocumented as of this encounter Care Teams Printing Plate Setter Relationship Specialty Start Date End Date Alex Penaloza MD [address] [address] PCP - General Pediatrics 01/30/22 documented as of this encounter
--- OUTSIDE RECORDS SUMMARY | 2024-07-03 11:24 | External Medical Summary | Summary of Care ---
Author Name Unknown Organization [facility] Address [address] [place] [address] Phone [phone] Care Team Providers Care Nitrator Operator Name Role Phone Alex Penaloza MD Primary Care Provider + Encounter Details Date Type Department Care Team (Late st Contact Info) Description 06/09/2024 Telephone Gynecology/Obstetrics [facility] [address] [facility] [place] [address] Benitez Krueger MD [address] [facility] [place] [address] Allergies No known active allergiesdocumented as of this encounter (statuses as of 06/09/2024) Medications Methadone HCl 10 MG/ML Oral Concentrate [...] as of this encounter (statuses as of 06/09/2024) Active Problems Problem Noted Date Diagnosed Date [...] in the future. Tobacco smoking affecting in [facility] 02/18/2024 Overview (05/03/2024): Currently smoking [...] and folate levels and referral to a pharmacy clinical specialist. If hemoglobin levels are below 8 g/dl, we recommend Maternal Medicine ultrasound for growth every 4 weeks after 24 weeks. Consider a blood transfusion if hemoglobin levels fall below 6 g/dL. ([employer] Practice Bulletin Number 95, October,). Consider Venofer transfusions if patient labs supportive of iron deficiency anemia with dosing of 300 mg IV weekly x 3 weeks Methadone maintenance treatment affecting pregna ncy 02/16/2024 Overview (05/21/2024): 05/21/24 [facility] with dosage change. 169 mg methadone [...] times; naloxone is available at all [place] pharmacies without a prescription. Methadone and buprenorphine [...] Khalil RN 04/20/2024 Desires pump sent to [facility] 04/20/2024 Lawanda Khalil RN 04/20/2024 Problem Action Taken Date entered Entered by Date resolved Current needs or questions Patient denies having any current needs or questions 05/19/2024 Anne Bhat RN 05/19/2024 Estimated Date of Delivery Comme nts Yes 07/13/2024 Based on Ultraso und documented as of this encounter (statuses as of 06/09/2024) Social History Tobacco Use Types Packs/Day Years [...] money to get more. Sometimes true 12/2023 [place] Depression Scale Answer Date Recorded [place] Depression Scale Total 3 05/19/2024 The thought [...] Telephone Encounter - Yamileth Pickett LPN - 06/09/2024 8:33 AM EST Called patient due to being on lost care report. States she was hospitalized at [facility] for over a week due to the flu. NSTs performed while there. Scheduled upcoming visit that worked with herwork schedule. documented in this encounter Plan of Treatment Upcoming Encounters Date Type Department Care Team (Late st Contact Info) Description 06/16/2024 12:00 PM EDT Hem/Onc Treatment Hematology/Oncology Treatment, [address] [phone] [place], [address] [address] 06/17/2024 1:30 PM EDT Office Visit Gynecology/Obstetrics [facility] [address] [place] [address] Nuzhat Amezquita PA-C [address] [place] [address] 06/23/2024 10:00 AM EDT Pharmacy Pharmacy, [place] [address] [facility] [place] [id number] Clinic, Anemia [address] [place] [facility] [address] Health Maintenance Due Date Last Done Comments [...] filedocumented as of this encounter Care Teams Nitrator Operator Relationship Specialty Start Date End Date Alex Penaloza MD [address] [address] PCP - General Pediatrics 01/30/22 documented as of this encounter
--- OUTSIDE RECORDS SUMMARY | 2024-07-03 11:24 | External Medical Summary | Summary of Care ---
Author Name Unknown Organization [facility] Address [address] [place] [address] Phone [phone] Care Team Providers Care Property Accountant Name Role Phone Alex Penaloza MD Primary Care Provider + Reason for Visit * Reason Onset Date Comments Appointment 06/16/2024 Encounter Details Date Type Department Care Team (Late st Contact Info) Description 06/16/2024 Telephone Hematology/Oncology [facility] [place] [address] [facility] [place] [address] Services, Scheduling [address] [place] [address] Appointment Allergies No known active allergiesdocumented as [...] in the future. Tobacco smoking affecting in [facility] 02/18/2024 Overview (05/03/2024): Currently smoking [...] and folate levels and referral to a corporate compliance director. If hemoglobin levels are below 8 g/dl, we recommend Maternal Medicine ultrasound for growth every 4 weeks after 24 weeks. Consider a blood transfusion if hemoglobin levels fall below 6 g/dL. ([employer] Practice Bulletin Number 95, October,). Consider Venofer transfusions if patient labs supportive of iron deficiency anemia with dosing of 300 mg IV weekly x 3 weeks Methadone maintenance treatment affecting pregna ncy 02/16/2024 Overview (05/21/2024): 05/21/24 [facility] with dosage change. 169 mg methadone [...] and buprenorphine are compatible with . RECOMMENDATIONS: [facility] anatomy ultrasound at 19-20 weeks. Serial [...] Khalil RN 04/20/2024 Desires pump sent to [facility] 04/20/2024 Lawanda Khalil RN 04/20/2024 Problem [...] money to get more. Sometimes true 12/2023 [place] Depression Scale Answer Date Recorded [place] Depression Scale Total 3 05/19/2024 The thought [...] Warren OSA - 06/17/2024 8:22 AM EDT See other encounter * Telephone Encounter - Ramon Guadarrama OSA - 06/16/2024 5:32 PM EDT Patient called in needing to reschedule her treatment appt. She states she was told that it is veryimportant that she has this treatment done before she has her baby which is due July 13. Please call her back at [phone] documented in this encounter Plan of Treatment Upcoming Encounters Date Type Department Care Team (Late st Contact Info) Description 06/17/2024 1:30 PM EDT Office Visit Gynecology[facility] [place] [address] Nuzhat Amezquita PA-C [address] [place] [address] 06/23/2024 10:00 AM EDT [facility] [place] [address] [facility] [address] [facility] [address] [facility] [address] 06/28/2024 12:30 PM EDT Hem/Onc Treatment Hematology/Oncology Treatment, [place] [address] [place] [phone] [place], Chair [address] Hem Onc [address] [place] [address] Health Maintenance Due Date Last Done Comments [...] filedocumented as of this encounter Care Teams Property Accountant Relationship Specialty Start Date End Date Alex Penaloza MD [address] [place] [address] PCP - General Pediatrics 01/30/22 documented as of this encounter
[2024-07-03] MEDS: ePHEDrine sulfate 50 MG/ML AMP ONE (11:57)
[2024-07-03] MEDS: fentaNYL citrate PF 100 MCG/2 ML VIAL EPI STA (11:57)
[2024-07-03] MEDS: SODIUM CHLORIDE 0.9% PF INJ 10 ML VIAL ONE (11:57)
[2024-07-03] MEDS: LIDOCAINE 2%/EPINEPHRINE 1:200,000 20 ML PF ONE (11:57)
[2024-07-03] MEDS: BUPIVACAINE 0.25% PF 30 ML VIAL EPI STA (11:57)
[2024-07-03] MEDS: LIDOCAINE 2%/EPINEPHRINE 1:200,000 20 ML PF EPI STA (11:58)
[2024-07-03] MEDS: DIPHTHER/TETAN/PERTUS Vaccine (Tdap, Adol/Adult) 0.5mL IM ONE (11:58)
[2024-07-03] MEDS: SODIUM CHLORIDE 0.9% PF INJ 10 ML VIAL EPI STA (11:58)
[2024-07-03] MEDS ORDERED: Nursing to Pharmacy Communication SCH ×2 (12:00→14:45)
[2024-07-03] MEDS: IBUPROFEN 600 MG TAB PO PRN (16:57)
[2024-07-03] MEDS: BENZOCAINE 20% SPRY 85 APPLN/85 GM CAN EXT PRN (16:57)
[2024-07-03] MEDS: METHADONE ORAL SOLN 2 MG/ML PO SCH (17:55)
[2024-07-03] MEDS ORDERED: METHADONE ORAL SOLN 2 MG/ML PO SCH (21:00)
[2024-07-03] MEDS: DOCUSATE SODIUM 100 MG CAP PO SCH (21:25)
[2024-07-04 07:39] LABS: Hematocrit (blood only) 35.3 % (37.0-47.0); Hemoglobin 11.9 g/dl (12.0-16.0); Mean Corpuscular Hemoglobin 31.7 pg (25.0-34.0); Mean Corpuscular Hgb Conc 33.7 g/dL (32.0-36.0); Mean Corpuscular Volume 94.1 fL (80.0-100.0); Mean Platelet Volume 12.2 fL (9.4-12.4); Platelet Count 117 K/uL (130-400); RDW Coefficient of Variation 13.8 % (11.5-14.5); RDW Standard Deviation 47.2 fL (36.4-46.3); Red Blood Count 3.75 M/uL (4.20-5.40); White Blood Count 7.98 K/ul (4.8-10.8)
[2024-07-04] MEDS: FERROUS SULFATE 325 MG TAB PO SCH (07:46)
[2024-07-04] MEDS: PRENATAL VITAMIN 1 TAB PO SCH (07:46)
[2024-07-04] MEDS: METHADONE ORAL SOLN 2 MG/ML PO SCH (07:47)
--- NOTE | 2024-07-04 08:26 | Obstetrical Progress Note ---
Date of Service July 04, 2024 Subjective Ambulation: ambulating normally Voiding: no voiding problems Passing Gas:: Yes Diet Tolerance:: regular diet Lochia:: Small Feeding Type:: breast feeding Current Pain Level(1-10): 0 doing well Physical Exam Constitutional WD/WN, vitals as above Gastrointestinal (Abdomen) normal bowel sounds, soft, nontender, no hepatosplenomegaly Inspection/Auscultation: abdomen normal to inspection Musculoskeletal Extremities: extremities normal to inspection Skin no rashes, warm and dry Neurologic patellar DTR's 2+ bilat, sensation intact Psychiatric A+Ox3, euthymic affect Results & Data Vital Signs (Past 12 Hours) Vital Signs Temp Pulse Resp BP Pulse Ox O2 Del Method 07/04/24 03:10 36.9 C 72 16 103/61 97 Room Air 07/03/24 23:40 36.8 C 75 16 105/63 97 Room Air 07/03/24 20:30 36.7 C 61 16 134/69 98 Room Air Laboratory Results 07/03/24 07/03/24 07/04/24 07:49 Unknown 06:54 WBC 9.99 7.98 RBC 4.07 L 3.75 L Hgb 12.8 11.9 L Hct 37.0 35.3 L MCV 90.9 94.1 MCH 31.4 31.7 MCHC 34.6 33.7 RDW Std Deviation 44.5 47.2 H RDW Coeff of Iglesia 13.5 13.8 Plt Count 125 L 117 L MPV 12.2 12.2 Urine Opiates Screen Neg Ur Methadone, Qual Pos H Urine Fentanyl Screen Neg Urine Barbiturates Neg Ur Phencyclidine (PCP) Neg U Amphetamin/Meth Scrn Neg MDMA (Ecstasy) Screen Neg U Benzodiazepines Scrn Neg Ur Cocaine Metabolite Neg U Marijuana (THC) Screen Pos H
[2024-07-04] MEDS ORDERED: NON-FORMULARY MEDICATION (Pnv Cmb#95-Ferrous Fumarate-Fa [Prenatal] 28 mg iron- 800 mcg Ta PO SCH (09:00)
[2024-07-04] MEDS ORDERED: METHADONE ORAL SOLN 2 MG/ML PO SCH (09:00)
[2024-07-04] MEDS: bisacodyL 5 MG TABEC PO SCH (20:04)
--- NOTE | 2024-07-05 02:56 | Obstetrical Progress Note ---
Date of Service July 05, 2024 Assessment & Plan Admission and Anticipated Discharge Date Admission Date: July 03, 2024 Subjective Patient is seen and examined. She feels well, no complaints. Ambulating without dizziness Voiding without difficulty Tolerating regular diet with out N&V Bleeding is minimal No fever/ chills/ CP/ SOB/ N&V/ Leg pain Breast feeding without problems Vital Signs Temp Pulse Resp BP Pulse Ox O2 Del Method 07/04/24 23:05 36.9 C 70 18 106/60 97 Room Air 07/04/24 20:00 36.7 C 68 18 120/67 98 Room Air 07/04/24 15:30 37.0 C 76 18 111/57 L Room Air Lab Results 07/03/24 07/03/24 07/04/24 Range/Units 07:49 Unknown 06:54 WBC 9.99 7.98 (4.8-10.8) K/ul RBC 4.07 L 3.75 L (4.20-5.40) M/uL Hgb 12.8 11.9 L (12.0-16.0) g/dl Hct 37.0 35.3 L (37.0-47.0) % MCV 90.9 94.1 (80.0-100.0) fL MCH 31.4 31.7 (25.0-34.0) pg MCHC 34.6 33.7 (32.0-36.0) g/dL RDW Std Deviation 44.5 47.2 H (36.4-46.3) fL RDW Coeff of Iglesia 13.5 13.8 (11.5-14.5) % Plt Count 125 L 117 L (130-400) K/uL MPV 12.2 12.2 (9.4-12.4) fL Urine Opiates Screen Neg (Neg) Ur Methadone, Qual Pos H (Neg) Urine Fentanyl Screen Neg (Neg) Urine Barbiturates Neg (Neg) Ur Phencyclidine (PCP) Neg (Neg) U Amphetamin/Meth Scrn Neg (Neg) MDMA (Ecstasy) Screen Neg (Neg) U Benzodiazepines Scrn Neg (Neg) Ur Cocaine Metabolite Neg (Neg) U Marijuana (THC) Screen Pos H (Neg) PE: General: Alert, orientedx3, NAD Abd: soft, NT, fundus firm, below Umbilicus Perineum intact, Lochia rubra minimal Ext; NT, no edema AP: 33 yo s/p , ppd# 2 VSS Afebrile doing well Continue routine care All questions were answered D/C home / nesting , baby will be staying Results & Data Vital Signs (Past 12 Hours) Vital Signs Temp Pulse Resp BP Pulse Ox O2 Del Method 07/04/24 23:05 36.9 C 70 18 106/60 97 Room Air 07/04/24 20:00 36.7 C 68 18 120/67 98 Room Air 07/04/24 15:30 37.0 C 76 18 111/57 L Room Air
[2024-07-05 06:11] LABS: Hematocrit (blood only) 34.9 % (37.0-47.0); Hemoglobin 11.8 g/dl (12.0-16.0)
[2024-07-05] MEDS: MAGNESIUM HYDROXIDE SUSP 30 ML UDC PO ONE (07:36)
[2024-07-05] MEDS: MAGNESIUM HYDROXIDE SUSP 30 ML UDC ONE (10:35)
[2024-07-05 11:08] LABS: Marijuana Quant, GCMS Urine 102 ng/mL (<5); Methadone, Ur Metabolite >10000 ng/mL (<100); Methadone, Ur Verification 1670 ng/mL (<100)
[2024-07-05 15:51] VITALS: BP 109/68; PULSE 80; RESP 16; TEMP 98.4; O2SAT 98
[2024-07-07 08:52] LABS: Hepatitis C Vira RNA (Log) PCR <1.18 NOT DETECTED Log IU/mL (NOT DETECTED); Hepatitis C Viral RNA by PCR <15 NOT DETECTED IU/mL (NOT DETECTED)
== END 2024-07-05 21:45 | disposition home or self-care (01) | DRG 807 ==
LOC: OPB 07:31 → 4S1 07:33 → 4E2 16:45